=== PATIENT | female | born 1930 | race Caucasian/White ===

== ENCOUNTER 2017-01-14 19:05 | Emergency (ER) | payer OTHER ==
[~2017-01-14] VITALS: Ht 152.4 cm; Wt 63.5 kg
[2017-01-14 21:08] LABS: BASOPHILS % (AUTO) 0.8 % (0.0-2.0); EOSINOPHILS % (AUTO) 3.9 % (0.0-3.0); LYMPHOCYTES % (AUTO) 26.8 % (20.0-45.0); MEAN CORPUSCULAR HEMOGLOBIN 30.4 PG (27.0-31.0); MEAN CORPUSCULAR HGB CONC 31.7 G/DL (32.0-36.0); MEAN CORPUSCULAR VOLUME 96 FL (80-99); MEAN PLATELET VOLUME 9.8 FL (6.5-10.1); MONOCYTES % (AUTO) 8.5 % (1.0-10.0); PLATELET COUNT 146 K/UL (150-450); RED BLOOD COUNT 3.08 M/UL (4.20-5.40); RED CELL DISTRIBUTION WIDTH 13.5 % (11.6-14.8); WHITE BLOOD COUNT 6.1 K/UL (4.8-10.8)
[2017-01-14 21:28] LABS: TROPONIN I < 0.30 ng/mL (<=0.30)
[2017-01-14 21:32] LABS: ALANINE AMINOTRANSFERASE 12 U/L (3-33); ALBUMIN/GLOBULIN RATIO 1.2 (1.0-2.7); ANION GAP 17 (5-15); ASPARTATE AMINO TRANSFERASE 18 U/L (5-40); CALCIUM 8.3 mg/dL (8.6-10.2); CARBON DIOXIDE 22 mEQ/L (20-30); CHLORIDE 97 mEQ/L (98-107); CREATININE 2.3 mg/dL (0.5-0.9); HEMOLYSIS 21; POTASSIUM 5.1 mEQ/L (3.4-4.9); SODIUM 136 mEQ/L (135-145); TOTAL PROTEIN 6.6 g/dL (6.6-8.7)
[2017-01-14 21:35] VITALS: BP 92/58
[2017-01-14 21:42] LABS: CKMB 2.7 ng/mL (< 3.8)
[2017-01-14 22:03] LABS: APPEARANCE,URINE SLIGHTLY CLOUDY; KETONES,URINE NEGATIVE (NEGATIVE); LEUKOCYTE ESTERASE ,URINE 3+ (NEGATIVE); NITRITE,URINE NEGATIVE (NEGATIVE); PH,URINE 5 (4.5-8.0); PROTEIN,URINE 1+ (NEGATIVE); UROBILINOGEN,URINE NORMAL MG/DL (0.0-1.0)
[2017-01-14 22:15] LABS: WBC,URINE TNTC /HPF (0 - 2)
[2017-01-14 22:16] LABS: BACTERIA,URINE FEW /HPF; SQUAMOUS EPITHELIAL CELL,UR FEW /LPF (NONE/OCC)
--- NOTE | 2017-01-14 23:20 | Emergency Room Report ---
History of Present Illness General Chief Complaint: General Complaint Source: Patient, Medical Record, EMS Present Illness HPI 86-year-old female presents ED evaluation of dizziness. Per EMS patient was hypotensive. Given IV fluids. Patient BP improved upon arrival. Patient feels dizzy and weak. Denies chest pain or shortness of breath. Denies fevers or chills. No nausea or vomiting. No aggravating relieving factors. Denies any other associated symptom Allergies: Coded Allergies: No Known Allergies (Unverified , 01/14/17) Patient History Past Medical History: HTN, dementia Past Surgical History: none Pertinent Family History: none Social History: Denies: alcohol use, drug use, smoking Now: No Immunizations: UTD Reviewed Nursing Documentation: PMH: Agreed, PSxH: Agreed Nursing Documentation-PMH Hx Hypertension: Yes History Of Psychiatric Problem: Yes - Dementia Review of Systems All Other Systems: negative except mentioned in HPI Physical Exam Vital Signs Date Time Temp Pulse Resp B/P Pulse Ox O2 Delivery O2 Flow Rate FiO2 01/14/17 18:59 97.9 68 16 154/66 97 Room Air Sp02 EP Interpretation: reviewed, normal General Appearance: no apparent distress, alert, GCS 15, non-toxic Head: normocephalic, atraumatic Eyes: bilateral eye PERRL, bilateral eye normal inspection ENT: hearing grossly normal, normal pharynx, no angioedema, normal voice Neck: full range of motion, supple/symm/no masses Respiratory: chest non-tender, lungs clear, normal breath sounds, speaking full sentences Cardiovascular #1: regular rate, rhythm, no edema Cardiovascular #2: 2+ carotid (R), 2+ carotid (L), 2+ radial (R), 2+ radial (L) , 2+ dorsalis pedis (R), 2+ dorsalis pedis (L) Gastrointestinal: normal bowel sounds, non tender, soft, non-distended, no guarding, no rebound Rectal: deferred Genitourinary: normal inspection, no CVA tenderness Musculoskeletal: back normal, gait/station normal, normal range of motion, non- tender Neurologic: alert, oriented x3, responsive, motor strength/tone normal, sensory intact, speech normal Psychiatric: judgement/insight normal, memory normal, mood/affect normal, no suicidal/homicidal ideation Reflexes: 3+ bicep (R), 3+ bicep (L), 3+ tricep (R), 3+ tricep (L), 3+ knee (R) , 3+ knee (L) Skin: normal color, no rash, warm/dry, well hydrated Lymphatic: no adenopathy Medical Decision Making Diagnostic Impression: Primary Impression: CHF (congestive heart failure) Qualified Codes: I50.9 - Heart failure, unspecified Additional Impressions: ARF (acute renal failure) Qualified Codes: N17.9 - Acute kidney failure, unspecified Dizziness Hypotension Qualified Codes: I95.9 - Hypotension, unspecified ER Course Hospital Course 86-year-old female presents to ED with dizziness, hypotensive Differential diagnoses include: [place]/unstable angina, dehydration, sepsis, arrhythmia Clinical course Patient placed on stretcher. on diagnostic cardiac sonographer. After initial history and physical I ordered labs, EKG, chest x-ray, IV fluids labs reviewed- no leukocytosis, hemoglobin/hematocrit stable, BUN/creatinine elevated, troponins negative, BNP greater than 1800 Chest x-ray- pulmonary congestion EKG- 1st degree av block, RBBB, no aute changes On reassessment BP improved Because of insurance patient will be transferred I. I feel this is a highly complex case requiring extensive working including EKG/Rhythm strip, Xray/CT/US, Blood/urine lab work, repeat exams while in ED, and administration of strong opiates/narcotics for pain control, admission to hospital or close patient follow up. Diagnosis - CHF, ARF, dizziness, hypotension Transferred in serious condition Labs Test 01/14/17 20:45 01/14/17 21:15 White Blood Count 6.1 K/UL (4.8-10.8) Red Blood Count 3.08 M/UL (4.20-5.40) Hemoglobin 9.3 G/DL (12.0-16.0) Hematocrit 29.5 % (37.0-47.0) Mean Corpuscular Volume 96 FL (80-99) Mean Corpuscular Hemoglobin 30.4 PG (27.0-31.0) Mean Corpuscular Hemoglobin Concent 31.7 G/DL (32.0-36.0) Red Cell Distribution Width 13.5 % (11.6-14.8) Platelet Count 146 K/UL (150-450) Mean Platelet Volume 9.8 FL (6.5-10.1) Neutrophils (%) (Auto) 60.0 % (45.0-75.0) Lymphocytes (%) (Auto) 26.8 % (20.0-45.0) Monocytes (%) (Auto) 8.5 % (1.0-10.0) Eosinophils (%) (Auto) 3.9 % (0.0-3.0) Basophils (%) (Auto) 0.8 % (0.0-2.0) Sodium Level 136 mEQ/L (135-145) Potassium Level 5.1 mEQ/L (3.4-4.9) Chloride Level 97 mEQ/L (98-107) Carbon Dioxide Level 22 mEQ/L (20-30) Anion Gap 17 (5-15) Blood Urea Nitrogen 35 mg/dL (7-23) Creatinine 2.3 mg/dL (0.5-0.9) Estimat Glomerular Filtration Rate mL/min (>60) Glucose Level 208 mg/dL (74-106) Calcium Level 8.3 mg/dL (8.6-10.2) Total Bilirubin < 0.2 mg/dL (0.0-1.2) Aspartate Amino Transf (AST/SGOT) 18 U/L (5-40) Alanine Aminotransferase (ALT/SGPT) 12 U/L (3-33) Alkaline Phosphatase 80 U/L (35-104) Total Creatine Kinase 138 U/L (26-140) Creatine Kinase MB 2.7 ng/mL (< 3.8) Creatine Kinase MB Relative Index 1.9 Troponin I < 0.30 ng/mL (<=0.30) Pro-B-Type Natriuretic Peptide 1839 pg/mL (0-450) Total Protein 6.6 g/dL (6.6-8.7) Albumin 3.7 g/dL (3.5-5.2) Globulin 2.9 g/dL Albumin/Globulin Ratio 1.2 (1.0-2.7) Urine Color Pale yellow Urine Appearance Slightly cloudy Urine pH 5 (4.5-8.0) Urine Specific [place] 1.015 (1.005-1.035) Urine Protein 1+ (NEGATIVE) Urine Glucose (UA) Negative (NEGATIVE) Urine Ketones Negative (NEGATIVE) Urine Occult Blood 1+ (NEGATIVE) Urine Nitrite Negative (NEGATIVE) Urine Bilirubin Negative (NEGATIVE) Urine Urobilinogen Normal MG/DL (0.0-1.0) Urine Leukocyte Esterase 3+ (NEGATIVE) Urine RBC 2-4 /HPF (0 - 2) Urine WBC Tntc /HPF (0 - 2) Urine Squamous Epithelial Cells Few /LPF (NONE/OCC) Urine Bacteria Few /HPF (NONE) EKG Diagnostic Results Rate: normal Rhythm: other - 1st degree av block ST Segments: no acute changes ASA given to the pt in ED: No Rhythm Strip Diag. Results EP Interpretation: yes Rhythm: no PVC's, no ectopy Chest X-Ray Diagnostic Results EP Interpretation: Yes Findings: no consolidation, no effusion, no pneumothorax, no acute cardiopulmonary disease, other - chf Number of Views: 1 Last Vital Signs Date Time Temp Pulse Resp B/P Pulse Ox O2 Delivery O2 Flow Rate FiO2 01/14/17 21:35 98.0 74 23 92/58 97 Room Air Status: improved Disposition: XFER [facility] Condition: Serious Referrals: NON PHYSICIAN (PCP) BONILLA COOK M.D. Jan 14, 2017 23:20
[2017-01-14 23:29] VITALS: BP_SYST 117; BP_SYST 92; BP_DIAS 58; BP_DIAS 77
[2017-01-14] MEDS ORDERED: cefTRIAXone 1 GM in NS 55 ML IVPB ONE (23:45)
--- NOTE | 2017-01-15 13:02 | Diagnostic Imaging Report ---
Indication: Chest Pain Comparison: None A single view chest radiograph was obtained. Findings: Heart is enlarged. Bones are osteopenic. Pulmonary vascularity is slightly prominent. Impression: Mild CHF possible. Please correlate clinically
--- NOTE | 2017-01-15 15:33 | Cardiology Report ---
APPROVED REPORT EKG Measurement Heart [id number] Sinus rhythm with 1st degree AV block Right bundle branch block Abnormal ECG
== END 2017-01-15 00:06 | disposition short-term general hospital (02) ==
LOC: EDBD → EMR 19:39
DX: I50.9 Heart failure, unspecified (principal); N17.9 Acute kidney failure, unspecified; R42 Dizziness and giddiness; I95.9 Hypotension, unspecified; F03.90 Unspecified dementia, unspecified severity, without behavioral disturbance, psychotic disturbance, mood disturbance, and anxiety; I10 Essential (primary) hypertension
CPT/HCPCS: 36415; 71010; 80053; 81003; 82550; 82553; 83880; 84484; 85025; 87086; 87181; 93005; 96360; 96374; 96375; 99285; J0696; J7040

== ENCOUNTER 2017-02-28 16:32 | Inpatient (IN) | payer MEDICARE, MEDICAID ==
[~2017-02-28] VITALS: Ht 165.1 cm; Wt 68.0 kg
[2017-02-28] MEDS ORDERED: LISINOPRIL10 MG ORAL (16:58)
[2017-02-28] MEDS ORDERED: QUETIAPINE FUMA50 MG ORAL (16:58)
[2017-02-28] MEDS ORDERED: FAMOTIDINE20 MG ORAL (16:58)
[2017-02-28] MEDS ORDERED: JANUVIA25 MG ORAL (16:58)
[2017-02-28] MEDS ORDERED: DOCUSATE SODIU100 MG ORAL (16:58)
[2017-02-28] MEDS ORDERED: REPAGLINIDE1 MG PO (16:58)
[2017-02-28] MEDS ORDERED: ZYRTEC10 MG ORAL (16:58)
[2017-02-28] MEDS ORDERED: FUROSEMIDE40 MG ORAL (16:58)
[2017-02-28] MEDS ORDERED: ASPIRIN81 MG ORAL (16:58)
[2017-02-28] MEDS ORDERED: SIMVASTATIN40 MG ORAL (16:58)
[2017-02-28] MEDS ORDERED: NAMENDA10 MG ORAL (16:58)
[2017-02-28 17:36] LABS: BASOPHILS % (AUTO) 1.3 % (0.0-2.0); LYMPHOCYTES % (AUTO) 33.2 % (20.0-45.0); MEAN CORPUSCULAR HEMOGLOBIN 32.9 PG (27.0-31.0); MEAN CORPUSCULAR HGB CONC 34.5 G/DL (32.0-36.0); MEAN CORPUSCULAR VOLUME 95 FL (80-99); MEAN PLATELET VOLUME 9.7 FL (6.5-10.1); MONOCYTES % (AUTO) 8.2 % (1.0-10.0); NEUTROPHILS % (AUTO) 54.2 % (45.0-75.0); PLATELET COUNT 139 K/UL (150-450); RED BLOOD COUNT 3.16 M/UL (4.20-5.40); RED CELL DISTRIBUTION WIDTH 13.2 % (11.6-14.8)
--- NOTE | 2017-02-28 17:50 | Emergency Room Report ---
History of Present Illness General Chief Complaint: General Complaint Source: EMS Present Illness HPI 87-year-old female presents to ED for evaluation. Patient resides in facility for dementia patients. Per EMS facility stated that patient was complaining of chest pain today. Upon arrival patient denies any chest pain. Does not remember stating that she had chest pain. No reported fevers or chills. No reported shortness of breath. No cough. No other aggravating relieving factors. Denies any other associated symptoms Allergies: Coded Allergies: No Known Allergies (Unverified , 01/14/17) Patient History Past Medical History: DM, HTN, dementia Pertinent Family History: none Social History: Denies: alcohol use, drug use, smoking Now: No Immunizations: UTD Reviewed Nursing Documentation: PMH: Agreed, PSxH: Agreed Nursing Documentation-PMH Past Medical History: No History, Except For Hx Cardiac Problems: Yes - HIGH CHOLESTEROL Hx Hypertension: Yes Hx Diabetes: Yes History Of Psychiatric Problem: Yes - DEMENTIA Review of Systems All Other Systems: negative except mentioned in HPI Physical Exam Vital Signs Date Time Temp Pulse Resp B/P Pulse Ox O2 Delivery O2 Flow Rate FiO2 02/28/17 16:26 98.1 62 18 97/57 96 Room Air Sp02 EP Interpretation: reviewed, normal General Appearance: no apparent distress, alert, GCS 15, non-toxic Head: normocephalic, atraumatic Eyes: bilateral eye PERRL, bilateral eye normal inspection ENT: hearing grossly normal, normal pharynx, no angioedema, normal voice Neck: full range of motion, supple/symm/no masses Respiratory: chest non-tender, lungs clear, normal breath sounds, speaking full sentences Cardiovascular #1: regular rate, rhythm, no edema Cardiovascular #2: 2+ carotid (R), 2+ carotid (L), 2+ radial (R), 2+ radial (L) , 2+ dorsalis pedis (R), 2+ dorsalis pedis (L) Gastrointestinal: normal bowel sounds, non tender, soft, non-distended, no guarding, no rebound Rectal: deferred Genitourinary: normal inspection, no CVA tenderness Musculoskeletal: back normal, gait/station normal, normal range of motion, non- tender Neurologic: alert, oriented x3, responsive, motor strength/tone normal, sensory intact, speech normal Psychiatric: judgement/insight normal, memory normal, mood/affect normal, no suicidal/homicidal ideation Reflexes: 3+ bicep (R), 3+ bicep (L), 3+ tricep (R), 3+ tricep (L), 3+ knee (R) , 3+ knee (L) Skin: normal color, no rash, warm/dry, well hydrated Lymphatic: no adenopathy Medical Decision Making Diagnostic Impression: Primary Impression: ACS (acute coronary syndrome) Additional Impression: CHF (congestive heart failure) Qualified Codes: I50.9 - Heart failure, unspecified ER Course Hospital Course 87 year-old female presents to ED for reported chest pain. History of dementia. Denies chest pain at this time Differential diagnoses include: [place]/unstable angina, contusion, muscle strain, PTX, rib fracture Clinical course Patient placed on stretcher. on title clerk automobile. After initial history and physical I ordered labs, EKG, chest x-ray labs reviewed- no leukocytosis, hb/hct stable, BUN/Cr elevated, trop negative, BNP elevated EKg - NSR, no acute changes Chest x-ray- cardiomegaly asa given. Patient denies chest pain at this time she has dementia given her age and risk factors she will require admission Case discussed with Dr. Venegas and he agreed to accept the patient to his service for further care and support I. I feel this is a highly complex case requiring extensive working including EKG/Rhythm strip, Xray/CT/US, Blood/urine lab work, repeat exams while in ED, and administration of strong opiates/narcotics for pain control, admission to hospital or close patient follow up. Diagnosis - ACS, CHF admitted to telemetry in serious condition Labs Test 02/28/17 17:00 02/28/17 21:10 White Blood Count 5.0 K/UL (4.8-10.8) Red Blood Count 3.16 M/UL (4.20-5.40) Hemoglobin 10.4 G/DL (12.0-16.0) Hematocrit 30.1 % (37.0-47.0) Mean Corpuscular Volume 95 FL (80-99) Mean Corpuscular Hemoglobin 32.9 PG (27.0-31.0) Mean Corpuscular Hemoglobin Concent 34.5 G/DL (32.0-36.0) Red Cell Distribution Width 13.2 % (11.6-14.8) Platelet Count 139 K/UL (150-450) Mean Platelet Volume 9.7 FL (6.5-10.1) Neutrophils (%) (Auto) 54.2 % (45.0-75.0) Lymphocytes (%) (Auto) 33.2 % (20.0-45.0) Monocytes (%) (Auto) 8.2 % (1.0-10.0) Eosinophils (%) (Auto) 3.0 % (0.0-3.0) Basophils (%) (Auto) 1.3 % (0.0-2.0) Urine Color Pale yellow Urine Appearance Clear Urine pH 7 (4.5-8.0) Urine Specific [place] 1.005 (1.005-1.035) Urine Protein Negative (NEGATIVE) Urine Glucose (UA) Negative (NEGATIVE) Urine Ketones Negative (NEGATIVE) Urine Occult Blood 1+ (NEGATIVE) Urine Nitrite Negative (NEGATIVE) Urine Bilirubin Negative (NEGATIVE) Urine Urobilinogen Normal MG/DL (0.0-1.0) Urine Leukocyte Esterase 1+ (NEGATIVE) Urine RBC 0-2 /HPF (0 - 2) Urine WBC 2-4 /HPF (0 - 2) Urine Squamous Epithelial Cells Few /LPF (NONE/OCC) Urine Amorphous Sediment Few /LPF (NONE) Urine Bacteria Few /HPF (NONE) Sodium Level 129 mEQ/L (135-145) Potassium Level 4.9 mEQ/L (3.4-4.9) Chloride Level 90 mEQ/L (98-107) Carbon Dioxide Level 24 mEQ/L (20-30) Anion Gap 15 (5-15) Blood Urea Nitrogen 30 mg/dL (7-23) Creatinine 2.3 mg/dL (0.5-0.9) Estimat Glomerular Filtration Rate mL/min (>60) Glucose Level 79 mg/dL (74-106) Calcium Level 8.8 mg/dL (8.6-10.2) Total Bilirubin < 0.2 mg/dL (0.0-1.2) Aspartate Amino Transf (AST/SGOT) 20 U/L (5-40) Alanine Aminotransferase (ALT/SGPT) 11 U/L (3-33) Alkaline Phosphatase 87 U/L (35-104) Total Creatine Kinase 147 U/L (26-140) Creatine Kinase MB 3.3 ng/mL (< 3.8) Creatine Kinase MB Relative Index 2.2 Troponin I < 0.30 ng/mL (<=0.30) Pro-B-Type Natriuretic Peptide 1541 pg/mL (0-450) Total Protein 6.8 g/dL (6.6-8.7) Albumin 3.9 g/dL (3.5-5.2) Globulin 2.9 g/dL Albumin/Globulin Ratio 1.3 (1.0-2.7) EKG Diagnostic Results Rate: normal Rhythm: NSR ST Segments: no acute changes ASA given to the pt in ED: Yes Rhythm Strip Diag. Results EP Interpretation: yes Rhythm: NSR, no PVC's, no ectopy Chest X-Ray Diagnostic Results EP Interpretation: Yes Findings: no consolidation, no effusion, no pneumothorax, no acute cardiopulmonary disease, other - cadiomegaly Number of Views: 1 Last Vital Signs Date Time Temp Pulse Resp B/P Pulse Ox O2 Delivery O2 Flow Rate FiO2 02/28/17 16:26 98.1 62 18 97/57 96 Room Air Status: improved Disposition: ADMITTED INPATIENT Condition: Serious Referrals: NON PHYSICIAN (PCP) BONILLA COOK M.D. Feb 28, 2017 17:50
[2017-02-28 17:55] LABS: APPEARANCE,URINE CLEAR; KETONES,URINE NEGATIVE (NEGATIVE); LEUKOCYTE ESTERASE ,URINE 1+ (NEGATIVE); NITRITE,URINE NEGATIVE (NEGATIVE); PH,URINE 7 (4.5-8.0); PROTEIN,URINE NEGATIVE (NEGATIVE); UROBILINOGEN,URINE NORMAL MG/DL (0.0-1.0)
[2017-02-28 17:57] LABS: ALANINE AMINOTRANSFERASE 11 U/L (3-33); ALBUMIN/GLOBULIN RATIO 1.3 (1.0-2.7); ANION GAP 15 (5-15); ASPARTATE AMINO TRANSFERASE 20 U/L (5-40); CALCIUM 8.8 mg/dL (8.6-10.2); CARBON DIOXIDE 24 mEQ/L (20-30); CHLORIDE 90 mEQ/L (98-107); CREATININE 2.3 mg/dL (0.5-0.9); HEMOLYSIS 25; POTASSIUM 4.9 mEQ/L (3.4-4.9); SODIUM 129 mEQ/L (135-145); TOTAL PROTEIN 6.8 g/dL (6.6-8.7); TROPONIN I < 0.30 ng/mL (<=0.30)
[2017-02-28 18:02] LABS: BACTERIA,URINE FEW /HPF; RBC,URINE 0-2 /HPF (0 - 2); SQUAMOUS EPITHELIAL CELL,UR FEW /LPF (NONE/OCC)
[2017-02-28 18:03] VITALS: BP 114/78
[2017-02-28 18:07] LABS: AMORPHOUS SEDIMENT,UR FEW /LPF
[2017-02-28 18:08] LABS: CKMB 3.3 ng/mL (< 3.8)
[2017-02-28] MEDS ORDERED: Miralax 17gm pkt ORAL PRN (18:45)
[2017-02-28] MEDS ORDERED: DuoNeb 0.5-3(2.5)mg/3ml neb HHN PRN (18:45)
[2017-02-28] MEDS ORDERED: Morphine Sulfate 2mg/ml Inj IVP PRN (18:45)
[2017-02-28] MEDS ORDERED: Enalaprilat 2.5mg/2ml Inj IV PRN (18:45)
[2017-02-28] MEDS ORDERED: Diltiazem 25mg/5ml IV PRN (18:45)
[2017-02-28] MEDS ORDERED: Nitroglycerin Subl 0.4mg tab (Bottle Of 25) SL PRN (18:45)
[2017-02-28 20:03] VITALS: BP 127/83
[2017-02-28] MEDS: Aspirin Baby 81mg ORAL SCH (20:28)
[2017-02-28] MEDS: Memantine 10mg tab ORAL SCH (21:33)
[2017-02-28] MEDS ORDERED: Aspirin Baby 81mg ORAL ONE (21:45)
[2017-02-28 21:50] LABS: TROPONIN I < 0.30 ng/mL (<=0.30)
[2017-02-28] MEDS: NovoLOG Insulin Flexpen SUBQ SCH (22:00)
[2017-02-28] MEDS: Heparin 5000 units/ml inj SUBQ SCH (22:00)
[2017-02-28 22:03] VITALS: BP 120/79
[2017-03-01] VITALS (9 sets, daily range): BP systolic 89–131; BP diastolic 50–83
[2017-03-01] MEDS: Heparin 5000 units/ml inj SUBQ SCH ×3 (06:00→22:00)
[2017-03-01] MEDS: NovoLOG Insulin Flexpen SUBQ SCH ×4 (06:30→21:00)
[2017-03-01] MEDS: Aspirin Baby 81mg ORAL SCH (10:12)
[2017-03-01] MEDS: Memantine 10mg tab ORAL SCH ×2 (10:12→17:30)
[2017-03-01] MEDS: Furosemide 40mg tab ORAL SCH (10:13)
--- NOTE | 2017-03-01 10:24 | Consultation ---
History of Present Illness General Date patient seen: Mar 01, 2017 Chief Complaint: General Complaint Referring physician: Dr. Venegas Reason for Consultation: inpatinet management Present Illness HPI 87-year-old female wtih pmhx of CHF, DM, Diabetes presented to ED for evaluation of chest pain today. Upon arrival in ER patient denied any chest pain. No reported fevers or chills. No reported shortness of breath. No cough. No other aggravating relieving factors. Denies any other associated symptoms. Her initial CXR showed that she has pulmonary edema and CHF, therefore she is admitted to telemetry. Currently pt is awake, looks comfortable , and is asymptomatic. Allergies: Coded Allergies: No Known Allergies (Unverified , 01/14/17) Medication History Scheduled Aspirin* (Aspirin*), 81 MG ORAL DAILY, (Reported) Cetirizine Hcl* (Zyrtec*), 10 MG ORAL DAILY, (Reported) Docusate Sodium* (Docusate Sodium*), 100 MG ORAL TWICE A DAY, (Reported) Famotidine (Famotidine), 20 MG ORAL DAILY, (Reported) Furosemide* (Lasix*), 40 MG ORAL DAILY, (Reported) Lisinopril* (Lisinopril*), 10 MG ORAL DAILY, (Reported) Memantine Hcl* (Namenda*), 10 MG ORAL TWICE A DAY, (Reported) Quetiapine Fumarate* (Quetiapine Fumarate*), 50 MG ORAL BEDTIME, (Reported) Simvastatin (Zocor), 40 MG ORAL BEDTIME, (Reported) Sitagliptin* (Januvia*), 100 MG ORAL DAILY, (Reported) Miscellaneous Medications Repaglinide (Repaglinide), 1 MG PO, (Reported) Patient History Healthcare decision maker N Resuscitation status Advanced Directive on File Past Medical/Surgical History Past Medical/Surgical History: (1) Diabetes mellitus (2) Alzheimer's dementia Review of Systems All Other Systems: negative except mentioned in HPI Physical Exam General Appearance: WD/WN, no apparent distress Lines, tubes and drains: peripheral, central line HEENT: normocephalic, atraumatic Neck: non-tender, normal alignment Respiratory/Chest: chest wall non-tender, crackles/rales Cardiovascular/Chest: normal peripheral pulses, regular rhythm Last 24 Hour Vital Signs Date Time Temp Pulse Resp B/P Pulse Ox O2 Delivery O2 Flow Rate FiO2 03/01/17 08:58 97.3 60 20 95/54 96 Room Air 03/01/17 07:54 97.9 71 19 110/61 95 Room Air 03/01/17 07:05 97.9 71 19 110/61 95 Room Air 03/01/17 05:40 97.9 66 19 127/68 95 Room Air 03/01/17 03:35 97.9 61 19 131/73 95 Room Air 03/01/17 01:40 97.9 57 19 127/83 95 Room Air 03/01/17 00:00 97.9 61 19 114/63 95 Room Air 02/28/17 22:03 97.9 63 19 120/79 94 Room Air 02/28/17 20:03 98.0 65 15 127/83 95 Room Air 02/28/17 18:03 98.1 63 18 114/78 96 Room Air 02/28/17 16:26 98.1 62 18 97/57 96 Room Air Intake and Output 02/28/17 03/01/17 19:00 07:00 Output Total 500 ml Balance -500 ml Output Urine Total 500 ml # Voids 1 1 Laboratory Tests Test 02/28/17 17:00 02/28/17 21:10 White Blood Count 5.0 K/UL (4.8-10.8) Red Blood Count 3.16 M/UL (4.20-5.40) L Hemoglobin 10.4 G/DL (12.0-16.0) L Hematocrit 30.1 % (37.0-47.0) L Mean Corpuscular Volume 95 FL (80-99) Mean Corpuscular Hemoglobin 32.9 PG (27.0-31.0) H Mean Corpuscular Hemoglobin Concent 34.5 G/DL (32.0-36.0) Red Cell Distribution Width 13.2 % (11.6-14.8) Platelet Count 139 K/UL (150-450) L Mean Platelet Volume 9.7 FL (6.5-10.1) Neutrophils (%) (Auto) 54.2 % (45.0-75.0) Lymphocytes (%) (Auto) 33.2 % (20.0-45.0) Monocytes (%) (Auto) 8.2 % (1.0-10.0) Eosinophils (%) (Auto) 3.0 % (0.0-3.0) Basophils (%) (Auto) 1.3 % (0.0-2.0) Urine Color Pale yellow Urine Appearance Clear Urine pH 7 (4.5-8.0) Urine Specific [place] 1.005 (1.005-1.035) Urine Protein Negative (NEGATIVE) Urine Glucose (UA) Negative (NEGATIVE) Urine Ketones Negative (NEGATIVE) Urine Occult Blood 1+ (NEGATIVE) H Urine Nitrite Negative (NEGATIVE) Urine Bilirubin Negative (NEGATIVE) Urine Urobilinogen Normal MG/DL (0.0-1.0) Urine Leukocyte Esterase 1+ (NEGATIVE) H Urine RBC 0-2 /HPF (0 - 2) Urine WBC 2-4 /HPF (0 - 2) Urine Squamous Epithelial Cells Few /LPF (NONE/OCC) Urine Amorphous Sediment Few /LPF (NONE) H Urine Bacteria Few /HPF (NONE) Sodium Level 129 mEQ/L (135-145) L Potassium Level 4.9 mEQ/L (3.4-4.9) Chloride Level 90 mEQ/L (98-107) L Carbon Dioxide Level 24 mEQ/L (20-30) Anion Gap 15 (5-15) Blood Urea Nitrogen 30 mg/dL (7-23) H Creatinine 2.3 mg/dL (0.5-0.9) H Estimat Glomerular Filtration Rate mL/min (>60) Glucose Level 79 mg/dL (74-106) Calcium Level 8.8 mg/dL (8.6-10.2) Total Bilirubin < 0.2 mg/dL (0.0-1.2) Aspartate Amino Transf (AST/SGOT) 20 U/L (5-40) Alanine Aminotransferase (ALT/SGPT) 11 U/L (3-33) Alkaline Phosphatase 87 U/L (35-104) Total Creatine Kinase 147 U/L (26-140) H Creatine Kinase MB 3.3 ng/mL (< 3.8) Creatine Kinase MB Relative Index 2.2 Troponin I < 0.30 ng/mL (<=0.30) < 0.30 ng/mL (<=0.30) Pro-B-Type Natriuretic Peptide 1541 pg/mL (0-450) H Total Protein 6.8 g/dL (6.6-8.7) Albumin 3.9 g/dL (3.5-5.2) Globulin 2.9 g/dL Albumin/Globulin Ratio 1.3 (1.0-2.7) Height (Feet): 5 Height (Inches): 5.00 Weight (Pounds): 150 Medications Current Medications Medications (Trade) Dose Ordered Sig/Misty Route PRN Reason Start Time Stop Time Status Last Admin Dose Admin Acetaminophen (Tylenol) 650 mg Q4H PRN ORAL FEVER 02/28/17 18:45 03/30/17 18:44 Albuterol/ Ipratropium (DuoNeb 0.5-3(2.5)mg/3ml) 3 ml EVERY 4 HOURS PRN HHN Shortness of Breath 02/28/17 18:45 03/05/17 18:44 Aspirin (ASA) 162 mg DAILY ORAL 02/28/17 20:00 03/30/17 19:59 02/28/17 20:28 Cetirizine HCl (ZyrTEC) 10 mg DAILY ORAL 03/01/17 09:00 03/31/17 08:59 Dextrose (Dextrose 50%) STAT PRN IV Hypoglycemia 02/28/17 18:45 03/30/17 18:44 Diltiazem HCl (Cardizem) 10 mg Q1H PRN IV heart rate more than 120, 02/28/17 18:45 03/30/17 18:44 Enalaprilat (Vasotec) 2.5 mg Q6H PRN IV sbp more than 160 02/28/17 18:45 03/30/17 18:44 Furosemide (Lasix) 40 mg DAILY ORAL 03/01/17 09:00 03/31/17 08:59 Heparin Sodium (Porcine) (Heparin 5000 units/ml) 5,000 units EVERY 8 HOURS SUBQ 02/28/17 22:00 03/30/17 21:59 Insulin Aspart (NovoLOG) BEFORE MEALS AND HS SUBQ 02/28/17 22:00 03/30/17 21:59 Memantine (Namenda) 10 mg TWICE A DAY ORAL 02/28/17 21:00 03/30/17 20:59 02/28/17 21:33 Morphine Sulfate (Morphine Sulfate) 2 mg EVERY 4 HOURS PRN IVP severe Pain (Pain Scale 7-10) 02/28/17 18:45 03/07/17 18:44 Nitroglycerin (Ntg) 0.4 mg Q5M PRN SL Prn Chest Pain 02/28/17 18:45 03/30/17 18:44 Ondansetron HCl (Zofran) 4 mg Q6H PRN IVP Nausea & Vomiting 02/28/17 18:45 03/30/17 18:44 Pantoprazole (Protonix) 40 mg DAILY ORAL 03/01/17 09:00 03/31/17 08:59 Polyethylene Glycol (Miralax) 17 gm DAILYPRN PRN ORAL Constipation 02/28/17 18:45 03/30/17 18:44 Quetiapine Fumarate (SEROquel) 50 mg BEDTIME ORAL 02/28/17 21:00 03/30/17 20:59 02/28/17 21:31 Temazepam (Restoril) 15 mg HSPRN PRN ORAL Insomnia 02/28/17 18:45 03/07/17 18:44 Assessment/Plan Problem List: (1) CHF (congestive heart failure) ICD Codes: I50.9 - Heart failure, unspecified SNOMED: 98037681 Qualifiers: Qualified Codes: I50.9 - Heart failure, unspecified (2) ACS (acute coronary syndrome) ICD Codes: I24.9 - Acute ischemic heart disease, unspecified SNOMED: 211765773 (3) Diabetes mellitus ICD Codes: E11.9 - Type 2 diabetes mellitus without complications SNOMED: 81608659 (4) Alzheimer's dementia ICD Codes: G30.9 - Alzheimer's disease, unspecified SNOMED: 55252315 Assessment/Plan serial ekg, troponin echo sliding scale, diabetic diet ALCON CROCKER Mar 01, 2017 10:24
--- NOTE | 2017-03-01 11:18 | Diagnostic Imaging Report ---
Indications: Chest pain Technique: Portable AP chest Findings: Comparison: 01/14/2017 Cardiac silhouette remains enlarged. Allowing for differences in technique, bilateral interstitial prominence appears to have decreased. No new pulmonary parenchymal abnormality demonstrated. No pleural disease is evident. Aortic arch calcification again noted. IMPRESSION: Apparent decrease in bilateral congestive changes. Residual interstitial prominence may represent pulmonary edema or chronic change.
[2017-03-01 11:55] LABS: MEAN CORPUSCULAR HEMOGLOBIN 31.4 PG (27.0-31.0); MEAN CORPUSCULAR HGB CONC 33.2 G/DL (32.0-36.0); MEAN CORPUSCULAR VOLUME 95 FL (80-99); MEAN PLATELET VOLUME 9.7 FL (6.5-10.1); PLATELET COUNT 148 K/UL (150-450); RED BLOOD COUNT 3.34 M/UL (4.20-5.40); RED CELL DISTRIBUTION WIDTH 13.2 % (11.6-14.8); WHITE BLOOD COUNT 5.9 K/UL (4.8-10.8)
[2017-03-01 12:02] LABS: PROTHROMBIN TIME 10.6 SEC (9.30-11.50)
[2017-03-01 12:24] LABS: BAND NEUTROPHILS % (MANUAL) 0 % (0-8); BASOPHILS % (MANUAL) 0 % (0-2); EOSINOPHILS % (MANUAL) 1 % (0-3); HYPOCHROMASIA 1+; LYMPHOCYTES % (MANUAL) 16 % (20-45); NEUTROPHILS % (MANUAL) 74 % (45-75); PLATELET ESTIMATE ADEQUATE; PLATELET MORPHOLOGY NORMAL; TOTAL CELLS COUNTED 100
[2017-03-01 12:27] LABS: ALANINE AMINOTRANSFERASE 10 U/L (3-33); ALBUMIN/GLOBULIN RATIO 1.6 (1.0-2.7); ANION GAP 16 (5-15); ASPARTATE AMINO TRANSFERASE 18 U/L (5-40); CALCIUM 8.7 mg/dL (8.6-10.2); CARBON DIOXIDE 24 mEQ/L (20-30); CHLORIDE 98 mEQ/L (98-107); LACTATE DEHYDROGENASE 214 U/L (135-230); MAGNESIUM 2.4 mg/dL (1.7-2.5); PHOSPHORUS 4.2 mg/dL (2.5-4.8); POTASSIUM 4.9 mEQ/L (3.4-4.9); SODIUM 138 mEQ/L (135-145); TOTAL PROTEIN 6.2 g/dL (6.6-8.7); URIC ACID 7.3 mg/dL (3.0-7.5)
[2017-03-01 12:35] LABS: CHOLESTEROL 166 mg/dL (< 200); CRP QUANT < 0.3 mg/dL (< 0.5); HEMOLYSIS 2; LDL CHOLESTEROL (CALC.) 94 mg/dL (60-99)
[2017-03-01 12:50] LABS: HEMOLYSIS 2; IRON 39 ug/dL (37-145); TOTAL IRON BINDING CAPACITY 259 ug/dL (250-400)
[2017-03-01 12:59] LABS: ERYTHROCYTE SEDIMENTATION RATE 65 MM/HR (0-42); PATH BLOOD SMEAR/OMC SENT TO PATHOLOGIST
[2017-03-01 13:05] LABS: RETICULOCYTE COUNT 0.8 % (0.0-2.0)
[2017-03-01 14:02] LABS: APPEARANCE,URINE CLEAR; KETONES,URINE NEGATIVE (NEGATIVE); LEUKOCYTE ESTERASE ,URINE 3+ (NEGATIVE); NITRITE,URINE NEGATIVE (NEGATIVE); PH,URINE 7 (4.5-8.0); PROTEIN,URINE NEGATIVE (NEGATIVE); UROBILINOGEN,URINE NORMAL MG/DL (0.0-1.0)
[2017-03-01 14:28] LABS: BACTERIA,URINE FEW /HPF; SQUAMOUS EPITHELIAL CELL,UR FEW /LPF (NONE/OCC); WBC,URINE 15-20 /HPF (0 - 2)
--- NOTE | 2017-03-01 17:17 | Infectious Diseases Prog Note ---
Assessment/Plan Problems: (1) Pyuria Assessment & Plan: Most likely asymptomatic. Follow-up UCx. Keep off antibiotics for now. (2) Chronic kidney disease Assessment & Plan: vs JULIAN? (3) Diabetes mellitus (4) Alzheimer's dementia (5) Chest pain Assessment & Plan: R/o ACS. Subjective Allergies: Coded Allergies: No Known Allergies (Unverified , 01/14/17) Objective Vital Signs Last 24 Hour Vital Signs Date Time Temp Pulse Resp B/P Pulse Ox O2 Delivery O2 Flow Rate FiO2 03/01/17 16:14 98.6 73 20 105/72 96 Room Air 03/01/17 11:51 97.7 67 20 108/66 95 Room Air 03/01/17 09:03 60 03/01/17 08:58 97.3 60 20 95/54 96 Room Air 03/01/17 07:54 97.9 71 19 110/61 95 Room Air 03/01/17 07:05 97.9 71 19 110/61 95 Room Air 03/01/17 05:40 97.9 66 19 127/68 95 Room Air 03/01/17 03:35 97.9 61 19 131/73 95 Room Air 03/01/17 01:40 97.9 57 19 127/83 95 Room Air 03/01/17 00:00 97.9 61 19 114/63 95 Room Air 02/28/17 22:03 97.9 63 19 120/79 94 Room Air 02/28/17 20:03 98.0 65 15 127/83 95 Room Air 02/28/17 18:03 98.1 63 18 114/78 96 Room Air Height (Feet): 5 Height (Inches): 5.00 Weight (Pounds): 150 Laboratory Tests Test 02/28/17 21:10 03/01/17 11:15 03/01/17 13:00 Troponin I < 0.30 ng/mL (<=0.30) White Blood Count 5.9 K/UL (4.8-10.8) Red Blood Count 3.34 M/UL (4.20-5.40) L Hemoglobin 10.5 G/DL (12.0-16.0) L Hematocrit 31.7 % (37.0-47.0) L Mean Corpuscular Volume 95 FL (80-99) Mean Corpuscular Hemoglobin 31.4 PG (27.0-31.0) H Mean Corpuscular Hemoglobin Concent 33.2 G/DL (32.0-36.0) Red Cell Distribution Width 13.2 % (11.6-14.8) Platelet Count 148 K/UL (150-450) L Mean Platelet Volume 9.7 FL (6.5-10.1) Neutrophils (%) (Auto) % (45.0-75.0) Lymphocytes (%) (Auto) % (20.0-45.0) Monocytes (%) (Auto) % (1.0-10.0) Eosinophils (%) (Auto) % (0.0-3.0) Basophils (%) (Auto) % (0.0-2.0) Differential Total Cells Counted 100 Neutrophils % (Manual) 74 % (45-75) Lymphocytes % (Manual) 16 % (20-45) L Monocytes % (Manual) 9 % (1-10) Eosinophils % (Manual) 1 % (0-3) Basophils % (Manual) 0 % (0-2) Band Neutrophils 0 % (0-8) Platelet Estimate Adequate Platelet Morphology Normal Hypochromasia 1+ Erythrocyte Sedimentation Rate 65 MM/HR (0-42) H Reticulocyte Count 0.8 % (0.0-2.0) Prothrombin Time 10.6 SEC (9.30-11.50) Prothromb Time International Ratio 1.0 (0.9-1.1) Activated Partial Thromboplast Time 24 SEC (23-33) Sodium Level 138 mEQ/L (135-145) Potassium Level 4.9 mEQ/L (3.4-4.9) Chloride Level 98 mEQ/L (98-107) Carbon Dioxide Level 24 mEQ/L (20-30) Anion Gap 16 (5-15) H Blood Urea Nitrogen 26 mg/dL (7-23) H Creatinine 2.0 mg/dL (0.5-0.9) H Estimat Glomerular Filtration Rate mL/min (>60) Glucose Level 115 mg/dL (74-106) H Plasma/Serum Osmolality Pending Uric Acid 7.3 mg/dL (3.0-7.5) Calcium Level 8.7 mg/dL (8.6-10.2) Phosphorus Level 4.2 mg/dL (2.5-4.8) Magnesium Level 2.4 mg/dL (1.7-2.5) Iron Level 39 ug/dL (37-145) Total Iron Binding Capacity 259 ug/dL (250-400) Percent Iron Saturation 15 % (15-50) Unsaturated Iron Binding 220 ug/dL (112-346) Total Bilirubin 0.2 mg/dL (0.0-1.2) Aspartate Amino Transf (AST/SGOT) 18 U/L (5-40) Alanine Aminotransferase (ALT/SGPT) 10 U/L (3-33) Alkaline Phosphatase 93 U/L (35-104) Lactate Dehydrogenase 214 U/L (135-230) Total Creatine Kinase 132 U/L (26-140) C-Reactive Protein, Quantitative < 0.3 mg/dL (< 0.5) Total Protein 6.2 g/dL (6.6-8.7) L Albumin 3.9 g/dL (3.5-5.2) Globulin 2.3 g/dL Albumin/Globulin Ratio 1.6 (1.0-2.7) Triglycerides Level 84 mg/dL (< 150) Cholesterol Level 166 mg/dL (< 200) LDL Cholesterol 94 mg/dL (60-99) HDL Cholesterol 55 mg/dL (> 60) Cholesterol/HDL Ratio 3.0 (3.3-4.4) L Carcinoembryonic Antigen 2.9 ng/mL Vitamin B12 Level 662 pg/mL (211-946) Folate Pending Thyroid Stimulating Hormone (TSH) 1.540 uIU/mL (0.300-4.500) Free Thyroxine 1.08 ng/dL (0.86-1.85) Free Triiodothyronine Pending Cortisol Pending Urine Color Pale yellow Urine Appearance Clear Urine pH 7 (4.5-8.0) Urine Specific [place] 1.005 (1.005-1.035) Urine Protein Negative (NEGATIVE) Urine Glucose (UA) Negative (NEGATIVE) Urine Ketones Negative (NEGATIVE) Urine Occult Blood 1+ (NEGATIVE) H Urine Nitrite Negative (NEGATIVE) Urine Bilirubin Negative (NEGATIVE) Urine Urobilinogen Normal MG/DL (0.0-1.0) Urine Leukocyte Esterase 3+ (NEGATIVE) H Urine RBC 2-4 /HPF (0 - 2) H Urine WBC 15-20 /HPF (0 - 2) H Urine Squamous Epithelial Cells Few /LPF (NONE/OCC) Urine Bacteria Few /HPF (NONE) Urine Eosinophils None seen Urine Osmolality Pending Urine Random Sodium 87 mmol/L Urine Random Chloride 77 mmol/L Urine Potassium Timed 19 mmol/L Current Medications Medications (Trade) Dose Ordered Sig/Misty Route PRN Reason Start Time Stop Time Status Last Admin Dose Admin Acetaminophen (Tylenol) 650 mg Q4H PRN ORAL FEVER 02/28/17 18:45 03/30/17 18:44 Albuterol/ Ipratropium (DuoNeb 0.5-3(2.5)mg/3ml) 3 ml EVERY 4 HOURS PRN HHN Shortness of Breath 02/28/17 18:45 03/05/17 18:44 Aspirin (ASA) 162 mg DAILY ORAL 02/28/17 20:00 03/30/17 19:59 03/01/17 10:12 Cetirizine HCl (ZyrTEC) 10 mg DAILY ORAL 03/01/17 09:00 03/31/17 08:59 03/01/17 10:16 Dextrose (Dextrose 50%) STAT PRN IV Hypoglycemia 02/28/17 18:45 03/30/17 18:44 Diltiazem HCl (Cardizem) 10 mg Q1H PRN IV heart rate more than 120, 02/28/17 18:45 03/30/17 18:44 Enalaprilat (Vasotec) 2.5 mg Q6H PRN IV sbp more than 160 02/28/17 18:45 03/30/17 18:44 Furosemide (Lasix) 40 mg DAILY ORAL 03/01/17 09:00 03/31/17 08:59 03/01/17 10:13 Heparin Sodium (Porcine) (Heparin 5000 units/ml) 5,000 units EVERY 8 HOURS SUBQ 02/28/17 22:00 03/30/17 21:59 Insulin Aspart (NovoLOG) BEFORE MEALS AND HS SUBQ 02/28/17 22:00 03/30/17 21:59 03/01/17 16:37 Memantine (Namenda) 10 mg TWICE A DAY ORAL 02/28/17 21:00 03/30/17 20:59 03/01/17 10:12 Morphine Sulfate (Morphine Sulfate) 2 mg EVERY 4 HOURS PRN IVP severe Pain (Pain Scale 7-10) 02/28/17 18:45 4/28/17 18:44 Nitroglycerin (Ntg) 0.4 mg Q5M PRN SL Prn Chest Pain 02/28/17 18:45 03/30/17 18:44 Ondansetron HCl (Zofran) 4 mg Q6H PRN IVP Nausea & Vomiting 02/28/17 18:45 03/30/17 18:44 Pantoprazole (Protonix) 40 mg DAILY ORAL 03/01/17 09:00 03/31/17 08:59 03/01/17 10:12 Polyethylene Glycol (Miralax) 17 gm DAILYPRN PRN ORAL Constipation 02/28/17 18:45 03/30/17 18:44 Quetiapine Fumarate (SEROquel) 50 mg BEDTIME ORAL 02/28/17 21:00 03/30/17 20:59 02/28/17 21:31 Temazepam (Restoril) 15 mg HSPRN PRN ORAL Insomnia 02/28/17 18:45 03/07/17 18:44 GEORGETTE GALVEZ Mar 01, 2017 17:17
[2017-03-01 18:42] LABS: TROPONIN I < 0.30 ng/mL (<=0.30)
--- NOTE | 2017-03-01 21:48 | History and Physical Report ---
DATE OF ADMISSION: 02/28/2017 NOTE: "POOR AUDIO QUALITY TIME SEEN: At 10 a.m. ATTENDING PHYSICIAN: Noé Venegas D.O. CONSULTANTS: 1. Nilsa Chaudhry M.D. 2. Ana Degroot M.D. 3. Jaycob Whitley M.D. 4. Arnie Oliver M.D. CHIEF COMPLAINT: ACS, CHF, and dementia. BRIEF HISTORY: This is an 87-year-old female, who presented with a diagnosis of ACS, admitted to telemetry for further care. Currently, confused in bed, not talking much. PAST MEDICAL HISTORY: ACS, CHF, dementia, and CKD. PAST SURGICAL HISTORY: . MEDICATIONS: Zyrtec, Lasix, Protonix, Novolog, Keppra, Namenda, Seroquel, aspirin, DuoNeb, morphine, MiraLax, Restoril, , and Cardizem. ALLERGIES: Denies. SOCIAL HISTORY: Unable to obtain secondary to the patient's condition. REVIEW OF SYSTEMS: Not available. PHYSICAL EXAMINATION: GENERAL: Calm, lethargic in bed, nonverbal. VITAL SIGNS: Temperature is 97 degrees, pulse 60, respiratory rate 20, and blood pressure 95/54. CARDIOVASCULAR: No murmur. LUNGS: Poor air exchange. ABDOMEN: Bowel sounds are positive. Nontender and nondistended. EXTREMITIES: No clubbing, cyanosis, or edema. NEUROLOGIC: The patient moves all extremities, does not want to follow commands . LABORATORY DATA: Hemoglobin 10.4, platelets 139,000, otherwise CBC is normal. Sodium 129, chloride 90, BUN and creatinine is 30 and 2.3. Glucose 79. Urinalysis show 1+ occult blood and 1+ leukocyte esterase. ASSESSMENT: 1. Acute coronary syndrome. 2. Congestive heart failure. 3. Dementia. 4. Chronic kidney disease. 5. Anemia. 6. Urinary tract infection. PLAN: OT/PT. Dietary evaluation. . Troponin q.8 h. x3. EKG in the a.m. Dr. Chaudhry, Dr. Degroot, Dr. Whitley, Dr. Oliver, and Dr. Richmond to consult. We will continue to follow this patient medically. CBC and BMP in the morning. Noé Venegas D.O. DR: Eric JOB#: [id number] CC:
--- NOTE | 2017-03-01 22:07 | Nephrology Progress Note ---
Objective Objective Last 24 Hour Vital Signs Date Time Temp Pulse Resp B/P Pulse Ox O2 Delivery O2 Flow Rate FiO2 03/01/17 20:00 97.7 66 19 89/50 94 Room Air 03/01/17 16:14 98.6 73 20 105/72 96 Room Air 03/01/17 16:00 60 03/01/17 11:51 97.7 67 20 108/66 95 Room Air 03/01/17 09:03 60 03/01/17 08:58 97.3 60 20 95/54 96 Room Air 03/01/17 07:54 97.9 71 19 110/61 95 Room Air 03/01/17 07:05 97.9 71 19 110/61 95 Room Air 03/01/17 05:40 97.9 66 19 127/68 95 Room Air 03/01/17 03:35 97.9 61 19 131/73 95 Room Air 03/01/17 01:40 97.9 57 19 127/83 95 Room Air 03/01/17 00:00 97.9 61 19 114/63 95 Room Air Intake and Output 02/28/17 03/01/17 19:00 07:00 Output Total 500 ml Balance -500 ml Output Urine Total 500 ml # Voids 1 1 Laboratory Tests 03/01/17 11:15: White Blood Count 5.9, Red Blood Count 3.34L, Hemoglobin 10.5L, Hematocrit 31.7L , Mean Corpuscular Volume 95, Mean Corpuscular Hemoglobin 31.4H, Mean Corpuscular Hemoglobin Concent 33.2, Red Cell Distribution Width 13.2, Platelet Count 148L, Mean Platelet Volume 9.7, Neutrophils (%) (Auto) , Lymphocytes (%) ( Auto) , Monocytes (%) (Auto) , Eosinophils (%) (Auto) , Basophils (%) (Auto) , Differential Total Cells Counted 100, Neutrophils % (Manual) 74, Lymphocytes % ( Manual) 16L, Monocytes % (Manual) 9, Eosinophils % (Manual) 1, Basophils % ( Manual) 0, Band Neutrophils 0, Platelet Estimate Adequate, Platelet Morphology Normal, Hypochromasia 1+, Erythrocyte Sedimentation Rate 65H, Reticulocyte Count 0.8, Prothrombin Time 10.6, Prothromb Time International Ratio 1.0, Activated Partial Thromboplast Time 24, Sodium Level 138, Potassium Level 4.9, Chloride Level 98, Carbon Dioxide Level 24, Anion Gap 16H, Blood Urea Nitrogen 26H, Creatinine 2.0H, Estimat Glomerular Filtration Rate , Glucose Level 115H, Plasma/Serum Osmolality [Pending], Uric Acid 7.3, Calcium Level 8.7, Phosphorus Level 4.2, Magnesium Level 2.4, Iron Level 39, Total Iron Binding Capacity 259, Percent Iron Saturation 15, Unsaturated Iron Binding 220, Total Bilirubin 0.2, Aspartate Amino Transf (AST/SGOT) 18, Alanine Aminotransferase (ALT/SGPT) 10, Alkaline Phosphatase 93, Lactate Dehydrogenase 214, Total Creatine Kinase 132, C -Reactive Protein, Quantitative < 0.3, Total Protein 6.2L, Albumin 3.9, Globulin 2.3, Albumin/Globulin Ratio 1.6, Triglycerides Level 84, Cholesterol Level 166, LDL Cholesterol 94, HDL Cholesterol 55, Cholesterol/HDL Ratio 3.0L, Carcinoembryonic Antigen 2.9, Vitamin B12 Level 662, Folate [Pending], Thyroid Stimulating Hormone (TSH) 1.540, Free Thyroxine 1.08, Free Triiodothyronine [ Pending], Cortisol [Pending] 03/01/17 13:00: Urine Color Pale yellow, Urine Appearance Clear, Urine pH 7, Urine Specific [place] 1.005, Urine Protein Negative, Urine Glucose (UA) Negative, Urine Ketones Negative, Urine Occult Blood 1+H, Urine Nitrite Negative, Urine Bilirubin Negative, Urine Urobilinogen Normal, Urine Leukocyte Esterase 3+H, Urine RBC 2-4H, Urine WBC 15-20H, Urine Squamous Epithelial Cells Few, Urine Bacteria Few, Urine Eosinophils None seen, Urine Osmolality [Pending], Urine Random Sodium 87, Urine Random Chloride 77, Urine Potassium Timed 19 03/01/17 18:12: Troponin I < 0.30 Height (Feet): 5 Height (Inches): 5.00 Weight (Pounds): 150 CORBIN ALVES Mar 01, 2017 22:07
[2017-03-02 04:00] VITALS: BP 136/67
[2017-03-02] MEDS: Heparin 5000 units/ml inj SUBQ SCH ×3 (06:00→22:18)
[2017-03-02] MEDS: NovoLOG Insulin Flexpen SUBQ SCH ×4 (06:30→22:20)
--- NOTE | 2017-03-02 07:51 | General Progress Note ---
Assessment/Plan Problem List: (1) UTI (urinary tract infection) ICD Codes: N39.0 - Urinary tract infection, site not specified SNOMED: 12167063 (2) CHF (congestive heart failure) ICD Codes: I50.9 - Heart failure, unspecified SNOMED: 75229392 Qualifiers: Qualified Codes: I50.9 - Heart failure, unspecified (3) ACS (acute coronary syndrome) ICD Codes: I24.9 - Acute ischemic heart disease, unspecified SNOMED: 543750884 (4) Diabetes mellitus ICD Codes: E11.9 - Type 2 diabetes mellitus without complications SNOMED: 60466031 (5) Alzheimer's dementia ICD Codes: G30.9 - Alzheimer's disease, unspecified SNOMED: 71631243 (6) Chronic kidney disease ICD Codes: N18.9 - Chronic kidney disease, unspecified SNOMED: 592339610 (7) Chest pain ICD Codes: R07.9 - Chest pain, unspecified SNOMED: 56974739 Status: stable, progressing, tolerating diet Assessment/Plan ot pt diet abx cbc bmp am Subjective Constitutional: Reports: weakness Allergies: Coded Allergies: No Known Allergies (Unverified , 01/14/17) All Systems: reviewed and negative except above Subjective confused in bed Objective Last 24 Hour Vital Signs Date Time Temp Pulse Resp B/P Pulse Ox O2 Delivery O2 Flow Rate FiO2 03/02/17 04:00 97.7 71 19 136/67 97 Room Air 03/02/17 00:00 68 03/01/17 20:00 68 03/01/17 20:00 97.7 66 19 89/50 94 Room Air 03/01/17 16:14 98.6 73 20 105/72 96 Room Air 03/01/17 16:00 60 03/01/17 11:51 97.7 67 20 108/66 95 Room Air 03/01/17 09:03 60 03/01/17 08:58 97.3 60 20 95/54 96 Room Air 03/01/17 07:54 97.9 71 19 110/61 95 Room Air Intake and Output 03/01/17 03/02/17 19:00 07:00 Intake Total 240 ml 300 ml Output Total 1000 ml Balance -760 ml 300 ml Intake Oral 240 ml 300 ml Output Urine Total 1000 ml # Voids 1 Laboratory Tests 03/01/17 11:15: White Blood Count 5.9, Red Blood Count 3.34L, Hemoglobin 10.5L, Hematocrit 31.7L , Mean Corpuscular Volume 95, Mean Corpuscular Hemoglobin 31.4H, Mean Corpuscular Hemoglobin Concent 33.2, Red Cell Distribution Width 13.2, Platelet Count 148L, Mean Platelet Volume 9.7, Neutrophils (%) (Auto) , Lymphocytes (%) ( Auto) , Monocytes (%) (Auto) , Eosinophils (%) (Auto) , Basophils (%) (Auto) , Differential Total Cells Counted 100, Neutrophils % (Manual) 74, Lymphocytes % ( Manual) 16L, Monocytes % (Manual) 9, Eosinophils % (Manual) 1, Basophils % ( Manual) 0, Band Neutrophils 0, Platelet Estimate Adequate, Platelet Morphology Normal, Hypochromasia 1+, Erythrocyte Sedimentation Rate 65H, Reticulocyte Count 0.8, Prothrombin Time 10.6, Prothromb Time International Ratio 1.0, Activated Partial Thromboplast Time 24, Sodium Level 138, Potassium Level 4.9, Chloride Level 98, Carbon Dioxide Level 24, Anion Gap 16H, Blood Urea Nitrogen 26H, Creatinine 2.0H, Estimat Glomerular Filtration Rate , Glucose Level 115H, Plasma/Serum Osmolality [Pending], Uric Acid 7.3, Calcium Level 8.7, Phosphorus Level 4.2, Magnesium Level 2.4, Iron Level 39, Total Iron Binding Capacity 259, Percent Iron Saturation 15, Unsaturated Iron Binding 220, Total Bilirubin 0.2, Aspartate Amino Transf (AST/SGOT) 18, Alanine Aminotransferase (ALT/SGPT) 10, Alkaline Phosphatase 93, Lactate Dehydrogenase 214, Total Creatine Kinase 132, C -Reactive Protein, Quantitative < 0.3, Total Protein 6.2L, Albumin 3.9, Globulin 2.3, Albumin/Globulin Ratio 1.6, Triglycerides Level 84, Cholesterol Level 166, LDL Cholesterol 94, HDL Cholesterol 55, Cholesterol/HDL Ratio 3.0L, Carcinoembryonic Antigen 2.9, Vitamin B12 Level 662, Folate [Pending], Thyroid Stimulating Hormone (TSH) 1.540, Free Thyroxine 1.08, Free Triiodothyronine [ Pending], Cortisol [Pending] 03/01/17 13:00: Urine Color Pale yellow, Urine Appearance Clear, Urine pH 7, Urine Specific [place] 1.005, Urine Protein Negative, Urine Glucose (UA) Negative, Urine Ketones Negative, Urine Occult Blood 1+H, Urine Nitrite Negative, Urine Bilirubin Negative, Urine Urobilinogen Normal, Urine Leukocyte Esterase 3+H, Urine RBC 2-4H, Urine WBC 15-20H, Urine Squamous Epithelial Cells Few, Urine Bacteria Few, Urine Eosinophils None seen, Urine Osmolality [Pending], Urine Random Sodium 87, Urine Random Chloride 77, Urine Potassium Timed 03/01/17 18:12: Troponin I < 0.30 Height (Feet): 5 Height (Inches): 5.00 Weight (Pounds): 150 General Appearance: lethargic, confused EENT: normal ENT inspection Neck: non-tender, normal alignment, supple Cardiovascular: normal peripheral pulses, normal rate, regular rhythm Respiratory/Chest: chest wall non-tender, lungs clear, normal breath sounds Abdomen: normal bowel sounds, non tender, soft Extremities: normal inspection Edema: no edema noted Arm (L), no edema noted Arm (R), no edema noted Leg (L), no edema noted Leg (R), no edema noted Pedal (L), no edema noted Pedal (R), no edema noted Generalized Neurologic: motor weakness Skin: normal pigmentation, warm/dry SHELBY MARTINI Mar 02, 2017 07:51
[2017-03-02 08:34] VITALS: BP 141/61
[2017-03-02 08:35] LABS: BASOPHILS % (AUTO) 0.6 % (0.0-2.0); EOSINOPHILS % (AUTO) 2.1 % (0.0-3.0); LYMPHOCYTES % (AUTO) 25.2 % (20.0-45.0); MEAN CORPUSCULAR VOLUME 97 FL (80-99); MEAN PLATELET VOLUME 8.9 FL (6.5-10.1); MONOCYTES % (AUTO) 6.1 % (1.0-10.0); PLATELET COUNT 155 K/UL (150-450); RED BLOOD COUNT 3.27 M/UL (4.20-5.40); RED CELL DISTRIBUTION WIDTH 13.7 % (11.6-14.8); WHITE BLOOD COUNT 5.4 K/UL (4.8-10.8)
[2017-03-02 08:45] LABS: ANION GAP 16 (5-15); CALCIUM 8.5 mg/dL (8.6-10.2); CARBON DIOXIDE 23 mEQ/L (20-30); CHLORIDE 101 mEQ/L (98-107); HEMOLYSIS 0; POTASSIUM 4.3 mEQ/L (3.4-4.9); SODIUM 140 mEQ/L (135-145)
[2017-03-02] MEDS: Aspirin Baby 81mg ORAL SCH (09:34)
[2017-03-02] MEDS: Memantine 10mg tab ORAL SCH ×2 (09:35→17:23)
[2017-03-02] MEDS: Furosemide 40mg tab ORAL SCH (09:35)
--- NOTE | 2017-03-02 10:45 | Nephrology Progress Note ---
Assessment/Plan Problem List: (1) UTI (urinary tract infection) (2) Chronic kidney disease (3) Chest pain (4) CHF (congestive heart failure) (5) ACS (acute coronary syndrome) (6) Diabetes mellitus (7) Alzheimer's dementia Plan monitor UOP. empiric abx. per sitter, patient's urine is malodorous.ID following. monitor labs. d/w Dr. Oliver. Subjective Subjective awake/alert. sitter at bedside. Objective Objective Last 24 Hour Vital Signs Date Time Temp Pulse Resp B/P Pulse Ox O2 Delivery O2 Flow Rate FiO2 03/02/17 08:34 98.4 86 18 141/61 94 Room Air 03/02/17 08:00 81 03/02/17 04:00 97.7 71 19 136/67 97 Room Air 03/02/17 00:00 68 03/01/17 20:00 68 03/01/17 20:00 97.7 66 19 89/50 94 Room Air 03/01/17 16:14 98.6 73 20 105/72 96 Room Air 03/01/17 16:00 60 03/01/17 11:51 97.7 67 20 108/66 95 Room Air Intake and Output 03/01/17 03/02/17 19:00 07:00 Intake Total 240 ml 300 ml Output Total 1000 ml Balance -760 ml 300 ml Intake Oral 240 ml 300 ml Output Urine Total 1000 ml # Voids 1 Laboratory Tests 03/01/17 11:15: White Blood Count 5.9, Red Blood Count 3.34L, Hemoglobin 10.5L, Hematocrit 31.7L , Mean Corpuscular Volume 95, Mean Corpuscular Hemoglobin 31.4H, Mean Corpuscular Hemoglobin Concent 33.2, Red Cell Distribution Width 13.2, Platelet Count 148L, Mean Platelet Volume 9.7, Neutrophils (%) (Auto) , Lymphocytes (%) ( Auto) , Monocytes (%) (Auto) , Eosinophils (%) (Auto) , Basophils (%) (Auto) , Differential Total Cells Counted 100, Neutrophils % (Manual) 74, Lymphocytes % ( Manual) 16L, Monocytes % (Manual) 9, Eosinophils % (Manual) 1, Basophils % ( Manual) 0, Band Neutrophils 0, Platelet Estimate Adequate, Platelet Morphology Normal, Hypochromasia 1+, Erythrocyte Sedimentation Rate 65H, Reticulocyte Count 0.8, Prothrombin Time 10.6, Prothromb Time International Ratio 1.0, Activated Partial Thromboplast Time 24, Sodium Level 138, Potassium Level 4.9, Chloride Level 98, Carbon Dioxide Level 24, Anion Gap 16H, Blood Urea Nitrogen 26H, Creatinine 2.0H, Estimat Glomerular Filtration Rate , Glucose Level 115H, Plasma/Serum Osmolality [Pending], Uric Acid 7.3, Calcium Level 8.7, Phosphorus Level 4.2, Magnesium Level 2.4, Iron Level 39, Total Iron Binding Capacity 259, Percent Iron Saturation 15, Unsaturated Iron Binding 220, Total Bilirubin 0.2, Aspartate Amino Transf (AST/SGOT) 18, Alanine Aminotransferase (ALT/SGPT) 10, Alkaline Phosphatase 93, Lactate Dehydrogenase 214, Total Creatine Kinase 132, C -Reactive Protein, Quantitative < 0.3, Total Protein 6.2L, Albumin 3.9, Globulin 2.3, Albumin/Globulin Ratio 1.6, Triglycerides Level 84, Cholesterol Level 166, LDL Cholesterol 94, HDL Cholesterol 55, Cholesterol/HDL Ratio 3.0L, Carcinoembryonic Antigen 2.9, Vitamin B12 Level 662, Folate [Pending], Thyroid Stimulating Hormone (TSH) 1.540, Free Thyroxine 1.08, Free Triiodothyronine [ Pending], Cortisol [Pending] 03/01/17 13:00: Urine Color Pale yellow, Urine Appearance Clear, Urine pH 7, Urine Specific [place] 1.005, Urine Protein Negative, Urine Glucose (UA) Negative, Urine Ketones Negative, Urine Occult Blood 1+H, Urine Nitrite Negative, Urine Bilirubin Negative, Urine Urobilinogen Normal, Urine Leukocyte Esterase 3+H, Urine RBC 2-4H, Urine WBC 15-20H, Urine Squamous Epithelial Cells Few, Urine Bacteria Few, Urine Eosinophils None seen, Urine Osmolality [Pending], Urine Random Sodium 87, Urine Random Chloride 77, Urine Potassium Timed 19 03/01/17 18:12: Troponin I < 0.30 03/02/17 06:15: White Blood Count 5.4, Red Blood Count 3.27L, Hemoglobin 10.1L, Hematocrit 31.6L , Mean Corpuscular Volume 97, Mean Corpuscular Hemoglobin 31.0, Mean Corpuscular Hemoglobin Concent 32.0, Red Cell Distribution Width 13.7, Platelet Count 155, Mean Platelet Volume 8.9, Neutrophils (%) (Auto) 66.0, Lymphocytes (% ) (Auto) 25.2, Monocytes (%) (Auto) 6.1, Eosinophils (%) (Auto) 2.1, Basophils ( %) (Auto) 0.6, Sodium Level 140, Potassium Level 4.3, Chloride Level 101, Carbon Dioxide Level 23, Anion Gap 16H, Blood Urea Nitrogen 24H, Creatinine 2.0H , Estimat Glomerular Filtration Rate , Glucose Level 116H, Calcium Level 8.5L Height (Feet): 5 Height (Inches): 5.00 Weight (Pounds): 150 General Appearance: no apparent distress Cardiovascular: normal rate, regular rhythm Respiratory/Chest: lungs clear Abdomen: non tender, soft Extremities: non-pitting Neurologic: alert KAHLIL COOK Mar 02, 2017 10:45
[2017-03-02 11:10] LABS: CORTISOL LC 11.8 ug/dL (.)
[2017-03-02 12:00] VITALS: BP 137/70
[2017-03-02 13:09] LABS: FREE TRIIODOTHYRONINE 2.4 pg/mL (2.0-4.4)
[2017-03-02 15:23] VITALS: BP 150/76
[2017-03-02 16:35] LABS: ABG ALLEN TEST POSITIVE; ABG PCO2 36.3 mmHg (35.0-45.0)
--- NOTE | 2017-03-02 18:00 | Pulmonology Progress Note ---
Assessment/Plan Problems: (1) CHF (congestive heart failure) (2) ACS (acute coronary syndrome) (3) Diabetes mellitus (4) Alzheimer's dementia Assessment/Plan improving serial ekg cardio f/u titrate meds respiratory treatment dvt prophylaxis sliding scale, pt/ot Subjective ROS Limited/Unobtainable: No Interval Events: comfortable, no complains Allergies: Coded Allergies: No Known Allergies (Unverified , 01/14/17) Objective Last 24 Hour Vital Signs Date Time Temp Pulse Resp B/P Pulse Ox O2 Delivery O2 Flow Rate FiO2 03/02/17 16:00 86 03/02/17 15:23 97.5 71 20 150/76 95 Room Air 03/02/17 12:00 97.0 72 18 137/70 96 Room Air 03/02/17 12:00 70 03/02/17 08:34 98.4 86 18 141/61 94 Room Air 03/02/17 08:00 81 03/02/17 04:00 97.7 71 19 136/67 97 Room Air 03/02/17 00:00 68 03/01/17 20:00 68 03/01/17 20:00 97.7 66 19 89/50 94 Room Air Intake and Output 03/01/17 03/02/17 19:00 07:00 Intake Total 240 ml 300 ml Output Total 1000 ml Balance -760 ml 300 ml Intake Oral 240 ml 300 ml Output Urine Total 1000 ml # Voids 1 Objective General Appearance: WD/WN HEENT: normocephalic, atraumatic Respiratory/Chest: chest wall non-tender, lungs clear Cardiovascular: normal peripheral pulses, normal rate, regular rhythm Abdomen: normal bowel sounds, soft, non tender, no organomegaly Extremities: no cyanosis, no clubbing Skin: no rash, no lesions Neurologic/Psychiatric: client insights consultant II-XII grossly normal Lymphatic: no neck adenopathy, no groin adenopathy Microbiology Date/Time Source Procedure Growth Status 03/01/17 13:00 Urine,Clean Catch Urine Culture - Preliminary Gram Negative Tacos Resulted Laboratory Tests 03/01/17 18:12: Troponin I < 0.30 03/02/17 06:15: White Blood Count 5.4, Red Blood Count 3.27L, Hemoglobin 10.1L, Hematocrit 31.6L , Mean Corpuscular Volume 97, Mean Corpuscular Hemoglobin 31.0, Mean Corpuscular Hemoglobin Concent 32.0, Red Cell Distribution Width 13.7, Platelet Count 155, Mean Platelet Volume 8.9, Neutrophils (%) (Auto) 66.0, Lymphocytes (% ) (Auto) 25.2, Monocytes (%) (Auto) 6.1, Eosinophils (%) (Auto) 2.1, Basophils ( %) (Auto) 0.6, Sodium Level 140, Potassium Level 4.3, Chloride Level 101, Carbon Dioxide Level 23, Anion Gap 16H, Blood Urea Nitrogen 24H, Creatinine 2.0H , Estimat Glomerular Filtration Rate , Glucose Level 116H, Calcium Level 8.5L 03/02/17 16:27: Arterial Blood pH 7.421, Arterial Blood Partial Pressure CO2 36.3, Arterial Blood Partial Pressure O2 80.9, Arterial Blood HCO3 23.1, Arterial Blood Oxygen Saturation 96.0, Arterial Blood Base Excess -1.0, Arvind Test Positive Current Medications Medications (Trade) Dose Ordered Sig/Misty Route PRN Reason Start Time Stop Time Status Last Admin Dose Admin Acetaminophen (Tylenol) 650 mg Q4H PRN ORAL FEVER 02/28/17 18:45 03/30/17 18:44 Albuterol/ Ipratropium (DuoNeb 0.5-3(2.5)mg/3ml) 3 ml EVERY 4 HOURS PRN HHN Shortness of Breath 02/28/17 18:45 03/05/17 18:44 Aspirin (ASA) 162 mg DAILY ORAL 02/28/17 20:00 03/30/17 19:59 03/02/17 09:34 Cetirizine HCl (ZyrTEC) 10 mg DAILY ORAL 03/01/17 09:00 03/31/17 08:59 03/02/17 09:34 Dextrose (Dextrose 50%) STAT PRN IV Hypoglycemia 02/28/17 18:45 03/30/17 18:44 Diltiazem HCl (Cardizem) 10 mg Q1H PRN IV heart rate more than 120, 02/28/17 18:45 03/30/17 18:44 Enalaprilat (Vasotec) 2.5 mg Q6H PRN IV sbp more than 160 02/28/17 18:45 03/30/17 18:44 Furosemide (Lasix) 40 mg DAILY ORAL 03/01/17 09:00 03/31/17 08:59 03/02/17 09:35 Heparin Sodium (Porcine) (Heparin 5000 units/ml) 5,000 units EVERY 8 HOURS SUBQ 02/28/17 22:00 03/30/17 21:59 03/02/17 06:00 Insulin Aspart (NovoLOG) BEFORE MEALS AND HS SUBQ 02/28/17 22:00 03/30/17 21:59 03/02/17 17:23 Memantine (Namenda) 10 mg TWICE A DAY ORAL 02/28/17 21:00 03/30/17 20:59 03/02/17 17:23 Morphine Sulfate (Morphine Sulfate) 2 mg EVERY 4 HOURS PRN IVP severe Pain (Pain Scale 7-10) 02/28/17 18:45 03/07/17 18:44 Nitroglycerin (Ntg) 0.4 mg Q5M PRN SL Prn Chest Pain 02/28/17 18:45 03/30/17 18:44 Ondansetron HCl (Zofran) 4 mg Q6H PRN IVP Nausea & Vomiting 02/28/17 18:45 03/30/17 18:44 Pantoprazole (Protonix) 40 mg DAILY ORAL 03/01/17 09:00 03/31/17 08:59 03/02/17 09:34 Polyethylene Glycol (Miralax) 17 gm DAILYPRN PRN ORAL Constipation 02/28/17 18:45 03/30/17 18:44 Quetiapine Fumarate (SEROquel) 50 mg BEDTIME ORAL 02/28/17 21:00 03/30/17 20:59 02/28/17 21:31 Temazepam (Restoril) 15 mg HSPRN PRN ORAL Insomnia 02/28/17 18:45 03/07/17 18:44 ALCON CROCKER Mar 02, 2017 18:00
--- NOTE | 2017-03-02 18:39 | Cardiology Report ---
APPROVED REPORT EXAM: Two-dimensional and M-mode echocardiogram with Doppler and color Doppler. INDICATION Left ventricular function M-Mode DIMENSIONS IVSd0.8 (0.7-1.1cm)Left Atrium (MM)2.1 (1.6-4.0cm) LVDd4.2 (3.5-5.6cm)Aortic Root2.4 (2.0-3.7cm) PWd0.7 (0.7-1.1cm)Aortic Cusp Exc.1.6 (1.5-2.0cm) LVDs2.3 (2.5-4.0cm) PWs0.9 cm Normal left ventricular chamber size, systolic function and wall motion. Left ventricular ejection fraction estimated to be 70-75%. Mild left ventricular hypertrophy. No evidence of pericardial fat or effusion. Right cardiac chamber sizes are within normal limits. Left atrial enlargement by 2D. Focal aortic valve sclerosis with adequate cusp excursion Thickened mitral valve leaflets with normal excursion. Mild mitral annulus and aortic root calcification. Pulmonic valve not well visualized. Normal tricuspid valve structure. IVC not obtainable. A color flow and spectral Doppler study was performed and revealed: No aortic regurgitation. No mitral regurgitation. Left ventricular diastolic dysfunction grade 1. Mild tricuspid regurgitation. Tricuspid systolic velocities suggests peak right ventricular systolic pressure of 41 mmHg Consistent with mild pulmonary hypertension.
[2017-03-02 19:06] LABS: TROPONIN I < 0.30 ng/mL (<=0.30)
[2017-03-02 21:39] VITALS: BP 145/70
--- NOTE | 2017-03-02 22:28 | Consultation ---
DATE OF CONSULTATION: 03/02/2017 CONSULTING PHYSICIAN: Galilea Medina PsyD. ATTENDING PHYSICIAN: Noé Venegas D.O. HISTORY OF PRESENT ILLNESS: The patient is an 87-year-old female patient. The patient was brought into the hospital for acute coronary syndrome. She lives in [facility] . This patient has been very confused history of dementia. She was altered mental status. She was able to communicate, however, is very confused she lives, however denies suicidal or homicidal thoughts of ideation. She is very helpless, hopeless, and depressed, and has no viable or logical plan for self-care and safety. This clinician assessed this patient. PAST MEDICAL HISTORY: History of acute kidney failure, hypotension, and dementia. ALLERGIES: The patient has no known drug allergies. SUBSTANCE USE HISTORY: There is no indication of alcohol use or illicit drug use . PSYCHIATRIC HISTORY: The patient has a possible history of dementia. SOCIAL HISTORY: The patient is an 87-year-old female who lives in [facility] . Financially supported by Medicare and [employer]. MENTAL STATUS EXAMINATION: The patient is alert and oriented to person and place. Her mood is depressed. Affect is blunted. Thought process disoriented. Thought content, confused. She has had poor attention and concentration. Poor insight, judgment, and impulse control. to this patient medications management and behavioral management. This clinician has reviewed the patient's chart. Discussed the treatment with nursing staff . DIAGNOSES: AXIS I: disorder. AXIS II: Deferred. AXIS III: Per H and P. PLAN: medication management and behavioral management. This clinician has reviewed the patient's chart. Discussed the treatment with nursing staff. Galilea Medina PsyD. DR: MARIA ISABEL JOB#: [id number] CC:
--- NOTE | 2017-03-02 23:07 | Infectious Diseases Prog Note ---
Assessment/Plan Problems: (1) Pyuria Assessment & Plan: Most likely asymptomatic. Follow-up UCx. Keep off antibiotics for now. (2) Chronic kidney disease Assessment & Plan: vs JULIAN? (3) Diabetes mellitus (4) Alzheimer's dementia (5) Chest pain Assessment & Plan: R/o ACS. Subjective Allergies: Coded Allergies: No Known Allergies (Unverified , 01/14/17) Objective Vital Signs Last 24 Hour Vital Signs Date Time Temp Pulse Resp B/P Pulse Ox O2 Delivery O2 Flow Rate FiO2 03/02/17 21:39 99.9 67 17 145/70 95 Room Air 03/02/17 16:00 86 03/02/17 15:23 97.5 71 20 150/76 95 Room Air 03/02/17 12:00 97.0 72 18 137/70 96 Room Air 03/02/17 12:00 70 03/02/17 08:34 98.4 86 18 141/61 94 Room Air 03/02/17 08:00 81 03/02/17 04:00 97.7 71 19 136/67 97 Room Air 03/02/17 00:00 68 Height (Feet): 5 Height (Inches): 5.00 Weight (Pounds): 150 Microbiology Date/Time Source Procedure Growth Status 03/01/17 13:00 Urine,Clean Catch Urine Culture - Preliminary Gram Negative Tacos Resulted Laboratory Tests Test 03/02/17 06:15 03/02/17 16:27 03/02/17 18:44 White Blood Count 5.4 K/UL (4.8-10.8) Red Blood Count 3.27 M/UL (4.20-5.40) L Hemoglobin 10.1 G/DL (12.0-16.0) L Hematocrit 31.6 % (37.0-47.0) L Mean Corpuscular Volume 97 FL (80-99) Mean Corpuscular Hemoglobin 31.0 PG (27.0-31.0) Mean Corpuscular Hemoglobin Concent 32.0 G/DL (32.0-36.0) Red Cell Distribution Width 13.7 % (11.6-14.8) Platelet Count 155 K/UL (150-450) Mean Platelet Volume 8.9 FL (6.5-10.1) Neutrophils (%) (Auto) 66.0 % (45.0-75.0) Lymphocytes (%) (Auto) 25.2 % (20.0-45.0) Monocytes (%) (Auto) 6.1 % (1.0-10.0) Eosinophils (%) (Auto) 2.1 % (0.0-3.0) Basophils (%) (Auto) 0.6 % (0.0-2.0) Sodium Level 140 mEQ/L (135-145) Potassium Level 4.3 mEQ/L (3.4-4.9) Chloride Level 101 mEQ/L (98-107) Carbon Dioxide Level 23 mEQ/L (20-30) Anion Gap 16 (5-15) H Blood Urea Nitrogen 24 mg/dL (7-23) H Creatinine 2.0 mg/dL (0.5-0.9) H Estimat Glomerular Filtration Rate mL/min (>60) Glucose Level 116 mg/dL (74-106) H Calcium Level 8.5 mg/dL (8.6-10.2) L Arterial Blood pH 7.421 (7.350-7.450) Arterial Blood Partial Pressure CO2 36.3 mmHg (35.0-45.0) Arterial Blood Partial Pressure O2 80.9 mmHg (75.0-100.0) Arterial Blood HCO3 23.1 mmol/L (22.0-26.0) Arterial Blood Oxygen Saturation 96.0 % (92.0-98.0) Arterial Blood Base Excess -1.0 Arvind Test Positive Troponin I < 0.30 ng/mL (<=0.30) Current Medications Medications (Trade) Dose Ordered Sig/Misty Route PRN Reason Start Time Stop Time Status Last Admin Dose Admin Acetaminophen (Tylenol) 650 mg Q4H PRN ORAL FEVER 02/28/17 18:45 03/30/17 18:44 Albuterol/ Ipratropium (DuoNeb 0.5-3(2.5)mg/3ml) 3 ml EVERY 4 HOURS PRN HHN Shortness of Breath 02/28/17 18:45 03/05/17 18:44 Aspirin (ASA) 162 mg DAILY ORAL 02/28/17 20:00 03/30/17 19:59 03/02/17 09:34 Cetirizine HCl (ZyrTEC) 10 mg DAILY ORAL 03/01/17 09:00 03/31/17 08:59 03/02/17 09:34 Dextrose (Dextrose 50%) STAT PRN IV Hypoglycemia 02/28/17 18:45 03/30/17 18:44 Diltiazem HCl (Cardizem) 10 mg Q1H PRN IV heart rate more than 120, 02/28/17 18:45 03/30/17 18:44 Enalaprilat (Vasotec) 2.5 mg Q6H PRN IV sbp more than 160 02/28/17 18:45 03/30/17 18:44 Furosemide (Lasix) 40 mg DAILY ORAL 03/01/17 09:00 03/31/17 08:59 03/02/17 09:35 Heparin Sodium (Porcine) (Heparin 5000 units/ml) 5,000 units EVERY 8 HOURS SUBQ 02/28/17 22:00 03/30/17 21:59 03/02/17 22:18 Insulin Aspart (NovoLOG) BEFORE MEALS AND HS SUBQ 02/28/17 22:00 03/30/17 21:59 03/02/17 22:20 Memantine (Namenda) 10 mg TWICE A DAY ORAL 02/28/17 21:00 03/30/17 20:59 03/02/17 17:23 Morphine Sulfate (Morphine Sulfate) 2 mg EVERY 4 HOURS PRN IVP severe Pain (Pain Scale 7-10) 02/28/17 18:45 03/07/17 18:44 Nitroglycerin (Ntg) 0.4 mg Q5M PRN SL Prn Chest Pain 02/28/17 18:45 03/30/17 18:44 Ondansetron HCl (Zofran) 4 mg Q6H PRN IVP Nausea & Vomiting 02/28/17 18:45 03/30/17 18:44 Pantoprazole (Protonix) 40 mg DAILY ORAL 03/01/17 09:00 03/31/17 08:59 03/02/17 09:34 Polyethylene Glycol (Miralax) 17 gm DAILYPRN PRN ORAL Constipation 02/28/17 18:45 03/30/17 18:44 Quetiapine Fumarate (SEROquel) 50 mg BEDTIME ORAL 02/28/17 21:00 03/30/17 20:59 03/02/17 22:21 Temazepam (Restoril) 15 mg HSPRN PRN ORAL Insomnia 4/21/17 18:45 03/07/17 18:44 GEORGETTE GALVEZ Mar 02, 2017 23:07
[2017-03-03 00:04] VITALS: BP 133/55
[2017-03-03 03:59] VITALS: BP 105/87
[2017-03-03 05:40] LABS: EOSINOPHILS % (AUTO) 2.4 % (0.0-3.0); LYMPHOCYTES % (AUTO) 28.2 % (20.0-45.0); MEAN CORPUSCULAR HGB CONC 32.1 G/DL (32.0-36.0); MEAN CORPUSCULAR VOLUME 96 FL (80-99); MEAN PLATELET VOLUME 9.2 FL (6.5-10.1); MONOCYTES % (AUTO) 7.8 % (1.0-10.0); NEUTROPHILS % (AUTO) 60.6 % (45.0-75.0); PLATELET COUNT 150 K/UL (150-450); RED BLOOD COUNT 3.16 M/UL (4.20-5.40); RED CELL DISTRIBUTION WIDTH 13.4 % (11.6-14.8); WHITE BLOOD COUNT 6.1 K/UL (4.8-10.8)
[2017-03-03] MEDS: Heparin 5000 units/ml inj SUBQ SCH ×3 (06:04→21:21)
[2017-03-03] MEDS: NovoLOG Insulin Flexpen SUBQ SCH ×4 (06:06→21:20)
[2017-03-03 06:36] LABS: ANION GAP 17 (5-15); CALCIUM 8.5 mg/dL (8.6-10.2); CARBON DIOXIDE 25 mEQ/L (20-30); CHLORIDE 98 mEQ/L (98-107); CREATININE 2.3 mg/dL (0.5-0.9); HEMOLYSIS 4; POTASSIUM 4.1 mEQ/L (3.4-4.9); SODIUM 140 mEQ/L (135-145)
[2017-03-03 08:00] VITALS: BP 142/65
[2017-03-03] MEDS: Aspirin Baby 81mg ORAL SCH (08:01)
[2017-03-03] MEDS: Memantine 10mg tab ORAL SCH ×2 (08:02→17:03)
[2017-03-03] MEDS: Furosemide 40mg tab ORAL SCH (08:02)
--- NOTE | 2017-03-03 10:11 | Infectious Diseases Prog Note ---
Assessment/Plan Problems: (1) Pyuria Assessment & Plan: Most likely asymptomatic. Follow-up UCx. Keep off antibiotics for now. (2) Chronic kidney disease Assessment & Plan: vs JULIAN? (3) Diabetes mellitus (4) Alzheimer's dementia (5) Chest pain Assessment & Plan: R/o ACS. Subjective Allergies: Coded Allergies: No Known Allergies (Unverified , 01/14/17) Objective Vital Signs Last 24 Hour Vital Signs Date Time Temp Pulse Resp B/P Pulse Ox O2 Delivery O2 Flow Rate FiO2 03/03/17 08:00 96.4 74 18 142/65 96 Room Air 03/03/17 04:00 71 03/03/17 03:59 98.7 76 19 105/87 95 Room Air 03/03/17 00:54 70 03/03/17 00:04 98.2 77 19 133/55 96 Room Air 03/02/17 21:39 99.9 67 17 145/70 95 Room Air 03/02/17 16:00 86 03/02/17 15:23 97.5 71 20 150/76 95 Room Air 03/02/17 12:00 97.0 72 18 137/70 96 Room Air 03/02/17 12:00 70 Height (Feet): 5 Height (Inches): 5.00 Weight (Pounds): 150 Microbiology Date/Time Source Procedure Growth Status 03/01/17 06:15 Nasal Nares MRSA Culture - Final NO METHICILLIN RESISTANT STAPH AUREUS... Complete 03/01/17 13:00 Urine,Clean Catch Urine Culture - Preliminary Gram Negative Bacillus 1 Gram Negative Bacillus 2 Resulted Laboratory Tests Test 03/02/17 16:27 03/02/17 18:44 03/03/17 03:50 Arterial Blood pH 7.421 (7.350-7.450) Arterial Blood Partial Pressure CO2 36.3 mmHg (35.0-45.0) Arterial Blood Partial Pressure O2 80.9 mmHg (75.0-100.0) Arterial Blood HCO3 23.1 mmol/L (22.0-26.0) Arterial Blood Oxygen Saturation 96.0 % (92.0-98.0) Arterial Blood Base Excess -1.0 Arvind Test Positive Troponin I < 0.30 ng/mL (<=0.30) White Blood Count 6.1 K/UL (4.8-10.8) Red Blood Count 3.16 M/UL (4.20-5.40) L Hemoglobin 9.8 G/DL (12.0-16.0) L Hematocrit 30.5 % (37.0-47.0) L Mean Corpuscular Volume 96 FL (80-99) Mean Corpuscular Hemoglobin 31.0 PG (27.0-31.0) Mean Corpuscular Hemoglobin Concent 32.1 G/DL (32.0-36.0) Red Cell Distribution Width 13.4 % (11.6-14.8) Platelet Count 150 K/UL (150-450) Mean Platelet Volume 9.2 FL (6.5-10.1) Neutrophils (%) (Auto) 60.6 % (45.0-75.0) Lymphocytes (%) (Auto) 28.2 % (20.0-45.0) Monocytes (%) (Auto) 7.8 % (1.0-10.0) Eosinophils (%) (Auto) 2.4 % (0.0-3.0) Basophils (%) (Auto) 1.0 % (0.0-2.0) Sodium Level 140 mEQ/L (135-145) Potassium Level 4.1 mEQ/L (3.4-4.9) Chloride Level 98 mEQ/L (98-107) Carbon Dioxide Level 25 mEQ/L (20-30) Anion Gap 17 (5-15) H Blood Urea Nitrogen 33 mg/dL (7-23) H Creatinine 2.3 mg/dL (0.5-0.9) H Estimat Glomerular Filtration Rate mL/min (>60) Glucose Level 135 mg/dL (74-106) H Calcium Level 8.5 mg/dL (8.6-10.2) L Current Medications Medications (Trade) Dose Ordered Sig/Misty Route PRN Reason Start Time Stop Time Status Last Admin Dose Admin Acetaminophen (Tylenol) 650 mg Q4H PRN ORAL FEVER 02/28/17 18:45 03/30/17 18:44 Albuterol/ Ipratropium (DuoNeb 0.5-3(2.5)mg/3ml) 3 ml EVERY 4 HOURS PRN HHN Shortness of Breath 02/28/17 18:45 03/05/17 18:44 Aspirin (ASA) 162 mg DAILY ORAL 02/28/17 20:00 03/30/17 19:59 03/03/17 08:01 Cetirizine HCl (ZyrTEC) 10 mg DAILY ORAL 03/01/17 09:00 03/31/17 08:59 03/03/17 08:01 Dextrose (Dextrose 50%) STAT PRN IV Hypoglycemia 02/28/17 18:45 03/30/17 18:44 Diltiazem HCl (Cardizem) 10 mg Q1H PRN IV heart rate more than 120, 02/28/17 18:45 03/30/17 18:44 Enalaprilat (Vasotec) 2.5 mg Q6H PRN IV sbp more than 160 02/28/17 18:45 03/30/17 18:44 Furosemide (Lasix) 40 mg DAILY ORAL 03/01/17 09:00 03/31/17 08:59 03/03/17 08:02 Heparin Sodium (Porcine) (Heparin 5000 units/ml) 5,000 units EVERY 8 HOURS SUBQ 02/28/17 22:00 03/30/17 21:59 03/03/17 06:04 Insulin Aspart (NovoLOG) BEFORE MEALS AND HS SUBQ 02/28/17 22:00 03/30/17 21:59 03/03/17 06:06 Memantine (Namenda) 10 mg TWICE A DAY ORAL 02/28/17 21:00 03/30/17 20:59 03/03/17 08:02 Morphine Sulfate (Morphine Sulfate) 2 mg EVERY 4 HOURS PRN IVP severe Pain (Pain Scale 7-10) 02/28/17 18:45 03/07/17 18:44 Nitroglycerin (Ntg) 0.4 mg Q5M PRN SL Prn Chest Pain 02/28/17 18:45 03/30/17 18:44 Ondansetron HCl (Zofran) 4 mg Q6H PRN IVP Nausea & Vomiting 02/28/17 18:45 03/30/17 18:44 Pantoprazole (Protonix) 40 mg DAILY ORAL 03/01/17 09:00 03/31/17 08:59 03/03/17 08:02 Polyethylene Glycol (Miralax) 17 gm DAILYPRN PRN ORAL Constipation 02/28/17 18:45 5/21/17 18:44 Quetiapine Fumarate (SEROquel) 50 mg BEDTIME ORAL 02/28/17 21:00 03/30/17 20:59 03/02/17 22:21 Temazepam (Restoril) 15 mg HSPRN PRN ORAL Insomnia 02/28/17 18:45 03/07/17 18:44 GEORGETTE GALVEZ Mar 03, 2017 10:11
[2017-03-03 12:00] VITALS: BP 120/58
--- NOTE | 2017-03-03 12:15 | Pulmonology Progress Note ---
Assessment/Plan Problems: (1) CHF (congestive heart failure) (2) ACS (acute coronary syndrome) (3) Diabetes mellitus (4) Alzheimer's dementia Assessment/Plan echo result noted improving serial ekg cardio f/u still pending titrate meds respiratory treatment dvt prophylaxis sliding scale, pt/ot Subjective ROS Limited/Unobtainable: No Interval Events: sitting up on the chair Constitutional: Reports: no symptoms Allergies: Coded Allergies: No Known Allergies (Unverified , 01/14/17) Objective Last 24 Hour Vital Signs Date Time Temp Pulse Resp B/P Pulse Ox O2 Delivery O2 Flow Rate FiO2 03/03/17 08:00 96.4 74 18 142/65 96 Room Air 03/03/17 04:00 71 03/03/17 03:59 98.7 76 19 105/87 95 Room Air 03/03/17 00:54 70 03/03/17 00:04 98.2 77 19 133/55 96 Room Air 03/02/17 21:39 99.9 67 17 145/70 95 Room Air 03/02/17 16:00 86 03/02/17 15:23 97.5 71 20 150/76 95 Room Air Intake and Output 03/02/17 03/03/17 19:00 07:00 Intake Total 360 ml Output Total 600 ml Balance -240 ml Intake Oral 360 ml Output Urine Total 600 ml # Voids 1 1 Objective General Appearance: WD/WN HEENT: normocephalic, atraumatic Respiratory/Chest: chest wall non-tender, lungs clear Cardiovascular: normal peripheral pulses, normal rate, regular rhythm Abdomen: normal bowel sounds, soft, non tender, no organomegaly Extremities: no cyanosis, no clubbing Skin: no rash, no lesions Neurologic/Psychiatric: em physician II-XII grossly normal Lymphatic: no neck adenopathy, no groin adenopathy Microbiology Date/Time Source Procedure Growth Status 03/01/17 06:15 Nasal Nares MRSA Culture - Final NO METHICILLIN RESISTANT STAPH AUREUS... Complete 03/01/17 13:00 Urine,Clean Catch Urine Culture - Preliminary Gram Negative Bacillus 1 Gram Negative Bacillus 2 Resulted Laboratory Tests 03/02/17 16:27: Arterial Blood pH 7.421, Arterial Blood Partial Pressure CO2 36.3, Arterial Blood Partial Pressure O2 80.9, Arterial Blood HCO3 23.1, Arterial Blood Oxygen Saturation 96.0, Arterial Blood Base Excess -1.0, Arvind Test Positive 03/02/17 18:44: Troponin I < 0.30 03/03/17 03:50: White Blood Count 6.1, Red Blood Count 3.16L, Hemoglobin 9.8L, Hematocrit 30.5L , Mean Corpuscular Volume 96, Mean Corpuscular Hemoglobin 31.0, Mean Corpuscular Hemoglobin Concent 32.1, Red Cell Distribution Width 13.4, Platelet Count 150, Mean Platelet Volume 9.2, Neutrophils (%) (Auto) 60.6, Lymphocytes (% ) (Auto) 28.2, Monocytes (%) (Auto) 7.8, Eosinophils (%) (Auto) 2.4, Basophils ( %) (Auto) 1.0, Sodium Level 140, Potassium Level 4.1, Chloride Level 98, Carbon Dioxide Level 25, Anion Gap 17H, Blood Urea Nitrogen 33H, Creatinine 2.3H, Estimat Glomerular Filtration Rate , Glucose Level 135H, Calcium Level 8.5L Current Medications Medications (Trade) Dose Ordered Sig/Misty Route PRN Reason Start Time Stop Time Status Last Admin Dose Admin Acetaminophen (Tylenol) 650 mg Q4H PRN ORAL FEVER 02/28/17 18:45 03/30/17 18:44 Albuterol/ Ipratropium (DuoNeb 0.5-3(2.5)mg/3ml) 3 ml EVERY 4 HOURS PRN HHN Shortness of Breath 02/28/17 18:45 03/05/17 18:44 Aspirin (ASA) 162 mg DAILY ORAL 02/28/17 20:00 03/30/17 19:59 03/03/17 08:01 Cetirizine HCl (ZyrTEC) 10 mg DAILY ORAL 03/01/17 09:00 03/31/17 08:59 03/03/17 08:01 Dextrose (Dextrose 50%) STAT PRN IV Hypoglycemia 02/28/17 18:45 03/30/17 18:44 Diltiazem HCl (Cardizem) 10 mg Q1H PRN IV heart rate more than 120, 02/28/17 18:45 03/30/17 18:44 Enalaprilat (Vasotec) 2.5 mg Q6H PRN IV sbp more than 160 02/28/17 18:45 03/30/17 18:44 Furosemide (Lasix) 40 mg DAILY ORAL 03/01/17 09:00 03/31/17 08:59 03/03/17 08:02 Heparin Sodium (Porcine) (Heparin 5000 units/ml) 5,000 units EVERY 8 HOURS SUBQ 02/28/17 22:00 03/30/17 21:59 03/03/17 06:04 Insulin Aspart (NovoLOG) BEFORE MEALS AND HS SUBQ 02/28/17 22:00 03/30/17 21:59 03/03/17 11:39 Memantine (Namenda) 10 mg TWICE A DAY ORAL 02/28/17 21:00 03/30/17 20:59 03/03/17 08:02 Morphine Sulfate (Morphine Sulfate) 2 mg EVERY 4 HOURS PRN IVP severe Pain (Pain Scale 7-10) 02/28/17 18:45 03/07/17 18:44 Nitroglycerin (Ntg) 0.4 mg Q5M PRN SL Prn Chest Pain 02/28/17 18:45 03/30/17 18:44 Ondansetron HCl (Zofran) 4 mg Q6H PRN IVP Nausea & Vomiting 02/28/17 18:45 03/30/17 18:44 Pantoprazole (Protonix) 40 mg DAILY ORAL 03/01/17 09:00 03/31/17 08:59 03/03/17 08:02 Polyethylene Glycol (Miralax) 17 gm DAILYPRN PRN ORAL Constipation 02/28/17 18:45 03/30/17 18:44 Quetiapine Fumarate (SEROquel) 50 mg BEDTIME ORAL 02/28/17 21:00 03/30/17 20:59 03/02/17 22:21 Temazepam (Restoril) 15 mg HSPRN PRN ORAL Insomnia 02/28/17 18:45 03/07/17 18:44 ALCON CROCKER Mar 03, 2017 12:15
--- NOTE | 2017-03-03 12:19 | General Progress Note ---
Assessment/Plan Problem List: (1) UTI (urinary tract infection) ICD Codes: N39.0 - Urinary tract infection, site not specified SNOMED: 02586430 (2) CHF (congestive heart failure) ICD Codes: I50.9 - Heart failure, unspecified SNOMED: 43826702 Qualifiers: Qualified Codes: I50.9 - Heart failure, unspecified (3) ACS (acute coronary syndrome) ICD Codes: I24.9 - Acute ischemic heart disease, unspecified SNOMED: 738305726 (4) Diabetes mellitus ICD Codes: E11.9 - Type 2 diabetes mellitus without complications SNOMED: 04306500 (5) Alzheimer's dementia ICD Codes: G30.9 - Alzheimer's disease, unspecified SNOMED: 33613946 (6) Chronic kidney disease ICD Codes: N18.9 - Chronic kidney disease, unspecified SNOMED: 341145447 (7) Chest pain ICD Codes: R07.9 - Chest pain, unspecified SNOMED: 31491733 Status: stable, progressing, tolerating diet Assessment/Plan ot pt diet abx cbc bmp am dc plan Subjective Constitutional: Reports: weakness Allergies: Coded Allergies: No Known Allergies (Unverified , 01/14/17) All Systems: reviewed and negative except above Subjective confused in bed Objective Last 24 Hour Vital Signs Date Time Temp Pulse Resp B/P Pulse Ox O2 Delivery O2 Flow Rate FiO2 03/03/17 08:00 96.4 74 18 142/65 96 Room Air 03/03/17 04:00 71 03/03/17 03:59 98.7 76 19 105/87 95 Room Air 03/03/17 00:54 70 03/03/17 00:04 98.2 77 19 133/55 96 Room Air 03/02/17 21:39 99.9 67 17 145/70 95 Room Air 03/02/17 16:00 86 03/02/17 15:23 97.5 71 20 150/76 95 Room Air Intake and Output 03/02/17 03/03/17 19:00 07:00 Intake Total 360 ml Output Total 600 ml Balance -240 ml Intake Oral 360 ml Output Urine Total 600 ml # Voids 1 1 Laboratory Tests 03/02/17 16:27: Arterial Blood pH 7.421, Arterial Blood Partial Pressure CO2 36.3, Arterial Blood Partial Pressure O2 80.9, Arterial Blood HCO3 23.1, Arterial Blood Oxygen Saturation 96.0, Arterial Blood Base Excess -1.0, Arvind Test Positive 03/02/17 18:44: Troponin I < 0.30 03/03/17 03:50: White Blood Count 6.1, Red Blood Count 3.16L, Hemoglobin 9.8L, Hematocrit 30.5L , Mean Corpuscular Volume 96, Mean Corpuscular Hemoglobin 31.0, Mean Corpuscular Hemoglobin Concent 32.1, Red Cell Distribution Width 13.4, Platelet Count 150, Mean Platelet Volume 9.2, Neutrophils (%) (Auto) 60.6, Lymphocytes (% ) (Auto) 28.2, Monocytes (%) (Auto) 7.8, Eosinophils (%) (Auto) 2.4, Basophils ( %) (Auto) 1.0, Sodium Level 140, Potassium Level 4.1, Chloride Level 98, Carbon Dioxide Level 25, Anion Gap 17H, Blood Urea Nitrogen 33H, Creatinine 2.3H, Estimat Glomerular Filtration Rate , Glucose Level 135H, Calcium Level 8.5L Height (Feet): 5 Height (Inches): 5.00 Weight (Pounds): 150 General Appearance: lethargic EENT: normal ENT inspection Neck: normal alignment Cardiovascular: normal peripheral pulses, normal rate, regular rhythm Respiratory/Chest: chest wall non-tender, lungs clear, normal breath sounds Abdomen: normal bowel sounds, non tender, soft Extremities: normal inspection Edema: no edema noted Arm (L), no edema noted Arm (R), no edema noted Leg (L), no edema noted Leg (R), no edema noted Pedal (L), no edema noted Pedal (R), no edema noted Generalized Neurologic: responsive, motor weakness Skin: normal pigmentation, warm/dry SHELBY MARTINI Mar 03, 2017 12:19
--- NOTE | 2017-03-03 14:29 | Diagnostic Imaging Report ---
APPROVED REPORT CPT Code: 73746 Present Symptoms Lower Extremity Pain: Bilateral Comments: Incomplete study due to patient being combartive. RIGHT LEG: Venous imaging reveals a patent deep venous system. There is no evidence of thrombus within the femoral, popliteal or tibial segments. The greater saphenous vein is also within normal limits. Doppler indicates normal spontaneous flow within these segments.
--- NOTE | 2017-03-03 14:45 | Cardiac Electrophysiology PN ---
Subjective Subjective [id number]. Atypical chest pain. Resolved. No WI. EF Normal.1st degree AVB. Daughter refusing any stress test or other cardiac evaluation.DW patient and daughter with RN present. Continue medical therapy. Objective Last 24 Hour Vital Signs Date Time Temp Pulse Resp B/P Pulse Ox O2 Delivery O2 Flow Rate FiO2 03/03/17 12:00 96.8 76 18 120/58 96 Room Air 03/03/17 08:00 96.4 74 18 142/65 96 Room Air 03/03/17 04:00 71 03/03/17 03:59 98.7 76 19 105/87 95 Room Air 03/03/17 00:54 70 03/03/17 00:04 98.2 77 19 133/55 96 Room Air 03/02/17 21:39 99.9 67 17 145/70 95 Room Air 03/02/17 16:00 86 03/02/17 15:23 97.5 71 20 150/76 95 Room Air Intake and Output 03/02/17 03/03/17 19:00 07:00 Intake Total 360 ml Output Total 600 ml Balance -240 ml Intake Oral 360 ml Output Urine Total 600 ml # Voids 1 1 Laboratory Tests Test 03/02/17 16:27 03/02/17 18:44 03/03/17 03:50 Arterial Blood pH 7.421 (7.350-7.450) Arterial Blood Partial Pressure CO2 36.3 mmHg (35.0-45.0) Arterial Blood Partial Pressure O2 80.9 mmHg (75.0-100.0) Arterial Blood HCO3 23.1 mmol/L (22.0-26.0) Arterial Blood Oxygen Saturation 96.0 % (92.0-98.0) Arterial Blood Base Excess -1.0 Arvind Test Positive Troponin I < 0.30 ng/mL (<=0.30) White Blood Count 6.1 K/UL (4.8-10.8) Red Blood Count 3.16 M/UL (4.20-5.40) L Hemoglobin 9.8 G/DL (12.0-16.0) L Hematocrit 30.5 % (37.0-47.0) L Mean Corpuscular Volume 96 FL (80-99) Mean Corpuscular Hemoglobin 31.0 PG (27.0-31.0) Mean Corpuscular Hemoglobin Concent 32.1 G/DL (32.0-36.0) Red Cell Distribution Width 13.4 % (11.6-14.8) Platelet Count 150 K/UL (150-450) Mean Platelet Volume 9.2 FL (6.5-10.1) Neutrophils (%) (Auto) 60.6 % (45.0-75.0) Lymphocytes (%) (Auto) 28.2 % (20.0-45.0) Monocytes (%) (Auto) 7.8 % (1.0-10.0) Eosinophils (%) (Auto) 2.4 % (0.0-3.0) Basophils (%) (Auto) 1.0 % (0.0-2.0) Sodium Level 140 mEQ/L (135-145) Potassium Level 4.1 mEQ/L (3.4-4.9) Chloride Level 98 mEQ/L (98-107) Carbon Dioxide Level 25 mEQ/L (20-30) Anion Gap 17 (5-15) H Blood Urea Nitrogen 33 mg/dL (7-23) H Creatinine 2.3 mg/dL (0.5-0.9) H Estimat Glomerular Filtration Rate mL/min (>60) Glucose Level 135 mg/dL (74-106) H Calcium Level 8.5 mg/dL (8.6-10.2) L Microbiology Date/Time Source Procedure Growth Status 03/01/17 06:15 Nasal Nares MRSA Culture - Final NO METHICILLIN RESISTANT STAPH AUREUS... Complete 03/01/17 13:00 Urine,Clean Catch Urine Culture - Preliminary Gram Negative Bacillus 1 Gram Negative Bacillus 2 Resulted BLAKE NICE Mar 03, 2017 14:45
[2017-03-03 16:00] VITALS: BP 124/59
--- NOTE | 2017-03-03 17:46 | Nephrology Progress Note ---
Assessment/Plan Problem List: (1) CHF (congestive heart failure) (2) ACS (acute coronary syndrome) (3) Diabetes mellitus (4) Chronic kidney disease (5) Chest pain (6) UTI (urinary tract infection) Plan Renal ultrasound pending monitor BUN/cr Monitor Lytes Monitor H&H, transfuse as needed Cont DVT prophylaxis Monitor I&O - adequate urine output AM labs Subjective Constitutional: Denies: chills, diaphoresis, fever, malaise, no symptoms, other , weakness Neurologic/Psychiatric: Denies: anxiety, depressed, emotional problems, headache, no symptoms, numbness, other, paresthesia, pre-existing deficit, seizure, tingling, tremors, weakness Subjective Sitting by the bedside, having dinner, denies any discomfort at this time Objective Objective Last 24 Hour Vital Signs Date Time Temp Pulse Resp B/P Pulse Ox O2 Delivery O2 Flow Rate FiO2 03/03/17 16:00 99.5 70 18 124/59 96 Room Air 03/03/17 12:00 96.8 76 18 120/58 96 Room Air 03/03/17 08:00 96.4 74 18 142/65 96 Room Air 03/03/17 04:00 71 03/03/17 03:59 98.7 76 19 105/87 95 Room Air 03/03/17 00:54 70 03/03/17 00:04 98.2 77 19 133/55 96 Room Air 03/02/17 21:39 99.9 67 17 145/70 95 Room Air Intake and Output 03/02/17 03/03/17 19:00 07:00 Intake Total 360 ml Output Total 600 ml Balance -240 ml Intake Oral 360 ml Output Urine Total 600 ml # Voids 1 1 Laboratory Tests 03/02/17 18:44: Troponin I < 0.30 03/03/17 03:50: White Blood Count 6.1, Red Blood Count 3.16L, Hemoglobin 9.8L, Hematocrit 30.5L , Mean Corpuscular Volume 96, Mean Corpuscular Hemoglobin 31.0, Mean Corpuscular Hemoglobin Concent 32.1, Red Cell Distribution Width 13.4, Platelet Count 150, Mean Platelet Volume 9.2, Neutrophils (%) (Auto) 60.6, Lymphocytes (% ) (Auto) 28.2, Monocytes (%) (Auto) 7.8, Eosinophils (%) (Auto) 2.4, Basophils ( %) (Auto) 1.0, Sodium Level 140, Potassium Level 4.1, Chloride Level 98, Carbon Dioxide Level 25, Anion Gap 17H, Blood Urea Nitrogen 33H, Creatinine 2.3H, Estimat Glomerular Filtration Rate , Glucose Level 135H, Calcium Level 8.5L Height (Feet): 5 Height (Inches): 5.00 Weight (Pounds): 150 General Appearance: no apparent distress, alert EENT: normal ENT inspection, TMs normal Neck: normal alignment, supple Cardiovascular: normal rate, regular rhythm, no JVD Respiratory/Chest: normal breath sounds, no respiratory distress Abdomen: non tender, soft, no organomegaly Extremities: non-tender, normal inspection Neurologic: alert, oriented x 3, responsive, normal mood/affect Karly Mills N.P. Mar 03, 2017 17:46
[2017-03-03] MEDS ORDERED: Nitroglycerin Subl 0.4mg tab (Bottle Of 25) SL PRN (19:00)
[2017-03-03] MEDS ORDERED: DuoNeb 0.5-3(2.5)mg/3ml neb HHN PRN (19:30)
[2017-03-03] MEDS ORDERED: Miralax 17gm pkt ORAL PRN (19:30)
[2017-03-03] MEDS ORDERED: Enalaprilat 2.5mg/2ml Inj IV PRN (19:30)
[2017-03-03] MEDS ORDERED: Morphine Sulfate 2mg/ml Inj IVP PRN (19:30)
[2017-03-03] MEDS ORDERED: Diltiazem 25mg/5ml IV PRN (19:45)
[2017-03-03 20:00] VITALS: BP 137/53
--- NOTE | 2017-03-03 22:08 | Consultation ---
DATE OF CONSULTATION: CARDIOLOGY CONSULTATION CONSULTING PHYSICIAN: Jaycob Whitley M.D. REFERRING PHYSICIAN: Noé Venegas D.O. REASON FOR CONSULTATION: Management of hypertension and chest pain. HISTORY OF PRESENT ILLNESS: The patient is a very pleasant 87-year-old lady under Cardiology care with a history of diabetes and hypertension, who was brought to the emergency room complaining of chest pain. In the emergency room, she denied any chest pain, palpitation, or shortness of breath. The patient had chest x-ray, which is suggestive of congestive heart failure and the patient was admitted and started on Lasix. Initial EKG also shows sinus rhythm with first-degree AV block and right bundle-branch block. At the time of my evaluation, the patient's daughter is at the bedside. She denies chest pain, palpitation, or shortness of breath. MEDICATIONS: Includes aspirin, Lasix, lisinopril, Zocor, and Januvia. FAMILY HISTORY: Noncontributory. SOCIAL HISTORY: She lives at home. Does not smoke or drink alcohol. PHYSICAL EXAMINATION: VITAL SIGNS: Blood pressure is 120/58, pulse 76, respiratory rate 18, and temperature 96.8 degrees. HEAD AND NECK: Showed no JVD. LUNGS: Clear. CARDIOVASCULAR: Shows regular S1 and S2 with no gallop or murmur. ABDOMEN: Soft and nontender. EXTREMITIES: No pitting edema. DIAGNOSTIC DATA: EKG showed sinus rhythm, first-degree AV block, and right bundle-branch block. LABORATORY DATA: Labs show white count of 6.1, hemoglobin of 9.8, hematocrit of 32, and platelet count of 150,000. Sodium 140, potassium is 4.1, BUN of 32, creatinine 2.3, and glucose of 135. Troponin negative x2. INR is 1.0. Urinalysis shows 15 to 20 WBCs and 3+ leukocyte esterase. ASSESSMENT AND PLAN: 1. Atypical chest pain. Patient was ruled out for myocardial infarction. 2. History of cardiac enzymes. The EKG shows right bundle-branch block and first-degree AV block. Currently, the patient does not have any chest pain, but chest pain could be due to the patient's congestive heart failure. Her echocardiogram shows ejection fraction of 70 to 75%. Send the patient for nuclear stress test in the morning. 3. Diastolic dysfunction, likely due to hypertension, ejection fraction of 70% to 75%. Continue Lasix 40 mg p.o. daily. 4. Hypertension. Continue on Lasix 40 mg daily. Check electrolytes in the morning. The patient was also on lisinopril 10 mg daily that would be resumed, especially in view of the patient's diabetes. 5. Diabetes. 6. Hyperlipidemia. Resume Zocor 40 mg daily. 7. Dementia, on Namenda and Seroquel. Thank very much, Dr. Venegas, for allowing me to participate in the care of this patient. Please do not hesitate to contact me for any questions regarding my evaluation. Jaycob Whitley M.D. DR: KYLAH JOB#: [id number] CC:
[2017-03-04] VITALS: BP 159/63
[2017-03-04 04:00] VITALS: BP 106/47
[2017-03-04] MEDS: Heparin 5000 units/ml inj SUBQ SCH ×2 (06:00→13:51)
[2017-03-04] MEDS: NovoLOG Insulin Flexpen SUBQ SCH ×4 (06:40→21:22)
[2017-03-04 07:08] LABS: ANION GAP 18 (5-15); CALCIUM 8.6 mg/dL (8.6-10.2); CARBON DIOXIDE 24 mEQ/L (20-30); CHLORIDE 98 mEQ/L (98-107); CREATININE 2.3 mg/dL (0.5-0.9); HEMOLYSIS 1; POTASSIUM 4.6 mEQ/L (3.4-4.9); SODIUM 140 mEQ/L (135-145)
[2017-03-04 07:31] LABS: BASOPHILS % (AUTO) 0.6 % (0.0-2.0); EOSINOPHILS % (AUTO) 1.5 % (0.0-3.0); MEAN CORPUSCULAR HEMOGLOBIN 30.6 PG (27.0-31.0); MEAN CORPUSCULAR HGB CONC 31.4 G/DL (32.0-36.0); MEAN CORPUSCULAR VOLUME 97 FL (80-99); MEAN PLATELET VOLUME 8.3 FL (6.5-10.1); MONOCYTES % (AUTO) 7.7 % (1.0-10.0); NEUTROPHILS % (AUTO) 74.2 % (45.0-75.0); PLATELET COUNT 153 K/UL (150-450); RED BLOOD COUNT 3.44 M/UL (4.20-5.40); RED CELL DISTRIBUTION WIDTH 13.4 % (11.6-14.8); WHITE BLOOD COUNT 7.2 K/UL (4.8-10.8)
[2017-03-04 08:29] VITALS: BP 61/124
[2017-03-04] MEDS: Memantine 10mg tab ORAL SCH ×2 (08:32→17:21)
[2017-03-04] MEDS ORDERED: Furosemide 40mg tab ORAL SCH (09:00)
[2017-03-04] MEDS ORDERED: Lisinopril 10mg tab ORAL SCH ×2 (09:00)
[2017-03-04] MEDS ORDERED: Aspirin Baby 81mg ORAL SCH (09:00)
[2017-03-04 11:20] VITALS: BP 134/58
--- NOTE | 2017-03-04 13:06 | General Progress Note ---
Assessment/Plan Problem List: (1) UTI (urinary tract infection) ICD Codes: N39.0 - Urinary tract infection, site not specified SNOMED: 88595272 (2) CHF (congestive heart failure) ICD Codes: I50.9 - Heart failure, unspecified SNOMED: 75162977 Qualifiers: Qualified Codes: I50.9 - Heart failure, unspecified (3) ACS (acute coronary syndrome) ICD Codes: I24.9 - Acute ischemic heart disease, unspecified SNOMED: 231942016 (4) Diabetes mellitus ICD Codes: E11.9 - Type 2 diabetes mellitus without complications SNOMED: 94354039 (5) Alzheimer's dementia ICD Codes: G30.9 - Alzheimer's disease, unspecified SNOMED: 54349057 (6) Chronic kidney disease ICD Codes: N18.9 - Chronic kidney disease, unspecified SNOMED: 568308402 (7) Chest pain ICD Codes: R07.9 - Chest pain, unspecified SNOMED: 29153178 Status: stable, progressing, tolerating diet Assessment/Plan ot pt diet abx cbc bmp am dc home w hh Subjective Constitutional: Reports: weakness Allergies: Coded Allergies: No Known Allergies (Unverified , 01/14/17) All Systems: reviewed and negative except above Subjective confused in bed Objective Last 24 Hour Vital Signs Date Time Temp Pulse Resp B/P Pulse Ox O2 Delivery O2 Flow Rate FiO2 03/04/17 11:20 98.4 79 15 134/58 98 Room Air 03/04/17 08:32 106/47 03/04/17 08:29 98.1 77 14 61/124 100 Room Air 03/04/17 04:00 97.5 72 19 106/47 94 Room Air 03/04/17 00:00 97.9 71 20 159/63 97 Room Air 03/03/17 20:00 97.8 66 19 137/53 96 Room Air 03/03/17 16:00 99.5 70 18 124/59 96 Room Air Intake and Output 03/03/17 03/04/17 19:00 07:00 Intake Total 720 ml Balance 720 ml Intake Oral 720 ml # Voids 2 Laboratory Tests 03/04/17 05:35: White Blood Count 7.2, Red Blood Count 3.44L, Hemoglobin 10.5L, Hematocrit 33.4L , Mean Corpuscular Volume 97, Mean Corpuscular Hemoglobin 30.6, Mean Corpuscular Hemoglobin Concent 31.4L, Red Cell Distribution Width 13.4, Platelet Count 153, Mean Platelet Volume 8.3, Neutrophils (%) (Auto) 74.2, Lymphocytes (%) (Auto) 16.0L, Monocytes (%) (Auto) 7.7, Eosinophils (%) (Auto) 1.5, Basophils (%) (Auto) 0.6, Sodium Level 140, Potassium Level 4.6, Chloride Level 98, Carbon Dioxide Level 24, Anion Gap 18H, Blood Urea Nitrogen 37H, Creatinine 2.3H, Estimat Glomerular Filtration Rate , Glucose Level 174H, Calcium Level 8.6 Height (Feet): 5 Height (Inches): 5.00 Weight (Pounds): 150 General Appearance: lethargic, confused EENT: normal ENT inspection Neck: normal alignment Cardiovascular: normal peripheral pulses, normal rate, regular rhythm Respiratory/Chest: chest wall non-tender, lungs clear, normal breath sounds Abdomen: normal bowel sounds, non tender, soft Extremities: normal inspection Edema: no edema noted Arm (L), no edema noted Arm (R), no edema noted Leg (L), no edema noted Leg (R), no edema noted Pedal (L), no edema noted Pedal (R), no edema noted Generalized Neurologic: motor weakness Skin: normal pigmentation, warm/dry SHELBY MARTINI Mar 04, 2017 13:06
[2017-03-04] MEDS ORDERED: Ampicillin 1 GM in NS 55 ML IVPB SCH (14:00)
[2017-03-04 16:06] VITALS: BP 126/59
--- NOTE | 2017-03-04 16:25 | Cardiac Electrophysiology PN ---
Assessment/Plan Assessment/Plan 1. Atypical chest pain. Patient was ruled out for myocardial infarction.Refused stress test. 2. Right bundle-branch block and first-degree AV block. No syncope or CHB. 3. Diastolic dysfunction, likely due to hypertension, ejection fraction of 70% to 75%. Continue Lasix 40 mg p.o. daily. 4. Hypertension. Continue on Lasix 40 mg daily and Lisinopril 10 mg daily. 5. Diabetes. 6. Hyperlipidemia. Resume Zocor 40 mg daily. 7. Dementia, on Namenda and Seroquel. ANA LAURA RN and Dr Venegas Subjective Subjective Comfortable in NAD. No chest pain or SOB. Transferred to nonmonitored bed. Objective Last 24 Hour Vital Signs Date Time Temp Pulse Resp B/P Pulse Ox O2 Delivery O2 Flow Rate FiO2 03/04/17 11:20 98.4 79 15 134/58 98 Room Air 03/04/17 08:32 106/47 03/04/17 08:29 98.1 77 14 61/124 100 Room Air 03/04/17 04:00 97.5 72 19 106/47 94 Room Air 03/04/17 00:00 97.9 71 20 159/63 97 Room Air 03/03/17 20:00 97.8 66 19 137/53 96 Room Air Intake and Output 03/03/17 03/04/17 19:00 07:00 Intake Total 720 ml Balance 720 ml Intake Oral 720 ml # Voids 2 Laboratory Tests Test 03/04/17 05:35 White Blood Count 7.2 K/UL (4.8-10.8) Red Blood Count 3.44 M/UL (4.20-5.40) L Hemoglobin 10.5 G/DL (12.0-16.0) L Hematocrit 33.4 % (37.0-47.0) L Mean Corpuscular Volume 97 FL (80-99) Mean Corpuscular Hemoglobin 30.6 PG (27.0-31.0) Mean Corpuscular Hemoglobin Concent 31.4 G/DL (32.0-36.0) L Red Cell Distribution Width 13.4 % (11.6-14.8) Platelet Count 153 K/UL (150-450) Mean Platelet Volume 8.3 FL (6.5-10.1) Neutrophils (%) (Auto) 74.2 % (45.0-75.0) Lymphocytes (%) (Auto) 16.0 % (20.0-45.0) L Monocytes (%) (Auto) 7.7 % (1.0-10.0) Eosinophils (%) (Auto) 1.5 % (0.0-3.0) Basophils (%) (Auto) 0.6 % (0.0-2.0) Sodium Level 140 mEQ/L (135-145) Potassium Level 4.6 mEQ/L (3.4-4.9) Chloride Level 98 mEQ/L (98-107) Carbon Dioxide Level 24 mEQ/L (20-30) Anion Gap 18 (5-15) H Blood Urea Nitrogen 37 mg/dL (7-23) H Creatinine 2.3 mg/dL (0.5-0.9) H Estimat Glomerular Filtration Rate mL/min (>60) Glucose Level 174 mg/dL (74-106) H Calcium Level 8.6 mg/dL (8.6-10.2) Objective HEAD AND NECK: Showed no JVD. LUNGS: Clear. CARDIOVASCULAR: Shows regular S1 and S2 with no gallop or murmur. ABDOMEN: Soft and nontender. EXTREMITIES: No pitting edema. BLAKE NICE Mar 04, 2017 16:25
--- NOTE | 2017-03-04 16:54 | Diagnostic Imaging Report ---
Indications: Elevated renal function tests Technique: Transabdominal real-time grayscale and duplex Doppler imaging of the kidneys, retroperitoneum, and urinary bladder was performed Findings: Comparison: None Right kidney measures 10 cm in length. Mild cortical thinning, normal echogenicity. Contains 3 cm circumscribed anechoic focus interpolar cortex No stones, other focal lesions, hydronephrosis, or obvious perinephric abnormalities. Left kidney measures approximately 10 cm in length. Mild cortical thinning, normal echogenicity. Contains several large anechoic exophytic cortical foci up to 10 cm diameter. No stones, other focal lesions, hydronephrosis, or obvious perinephric abnormalities. The intrahepatic portion of inferior vena cava is patent and normal caliber. The urinary bladder is distended without obvious abnormality. IMPRESSION: Mild bilateral renal cortical atrophy, likely senescent change Bilateral renal cortical cysts Otherwise negative
[2017-03-04] MEDS ORDERED: AMPICILLIN TRI500 MG ORAL (17:37)
[2017-03-04] MEDS ORDERED: Tubing IV Secondary IV ONE (21:54)
[2017-03-04] MEDS ORDERED: NS 550ML IV ONE (21:54)
--- NOTE | 2017-03-04 23:09 | Pulmonology Progress Note ---
Assessment/Plan Problems: (1) CHF (congestive heart failure) (2) ACS (acute coronary syndrome) (3) Diabetes mellitus (4) Alzheimer's dementia Assessment/Plan echo result noted improving serial ekg cardio appreciated titrate meds respiratory treatment dvt prophylaxis sliding scale, pt/ot ok to dc Subjective ROS Limited/Unobtainable: No Allergies: Coded Allergies: No Known Allergies (Unverified , 01/14/17) Objective Last 24 Hour Vital Signs Date Time Temp Pulse Resp B/P Pulse Ox O2 Delivery O2 Flow Rate FiO2 03/04/17 16:06 98.4 80 16 126/59 96 Room Air 03/04/17 11:20 98.4 79 15 134/58 98 Room Air 03/04/17 08:32 106/47 03/04/17 08:29 98.1 77 14 61/124 100 Room Air 03/04/17 04:00 97.5 72 19 106/47 94 Room Air 03/04/17 00:00 97.9 71 20 159/63 97 Room Air Intake and Output 03/03/17 03/04/17 19:00 07:00 Intake Total 720 ml Balance 720 ml Intake Oral 720 ml # Voids 2 Objective General Appearance: WD/WN HEENT: normocephalic, atraumatic Respiratory/Chest: chest wall non-tender, lungs clear Cardiovascular: normal peripheral pulses, normal rate, regular rhythm Abdomen: normal bowel sounds, soft, non tender, no organomegaly Extremities: no cyanosis, no clubbing Skin: no rash, no lesions Neurologic/Psychiatric: liquor maker II-XII grossly normal Lymphatic: no neck adenopathy, no groin adenopathy Laboratory Tests 03/04/17 05:35: White Blood Count 7.2, Red Blood Count 3.44L, Hemoglobin 10.5L, Hematocrit 33.4L , Mean Corpuscular Volume 97, Mean Corpuscular Hemoglobin 30.6, Mean Corpuscular Hemoglobin Concent 31.4L, Red Cell Distribution Width 13.4, Platelet Count 153, Mean Platelet Volume 8.3, Neutrophils (%) (Auto) 74.2, Lymphocytes (%) (Auto) 16.0L, Monocytes (%) (Auto) 7.7, Eosinophils (%) (Auto) 1.5, Basophils (%) (Auto) 0.6, Sodium Level 140, Potassium Level 4.6, Chloride Level 98, Carbon Dioxide Level 24, Anion Gap 18H, Blood Urea Nitrogen 37H, Creatinine 2.3H, Estimat Glomerular Filtration Rate , Glucose Level 174H, Calcium Level 8.6 ALCON CROCKER Mar 04, 2017 23:09
--- NOTE | 2017-03-05 20:28 | Discharge Summary ---
Discharge Summary Hospital Course Date of Admission Feb 28, 2017 at 17:31 Date of Discharge Mar 04, 2017 at 21:55 Admitting Diagnosis ACUTE CORONARY SYNDROME HPI Blessing Fernandes is a 87 year old female who was admitted on Feb 28, 2017 at 17: 31 for Acute Coronary Syndrome Hospital Course [id number] Discharge Discharge Disposition Patient was discharged to Home with Home Health(06) Discharge Diagnoses: Cassia Pedroza NP Mar 05, 2017 20:28
--- NOTE | 2017-03-06 06:18 | Discharge Summary 2 SIG ---
DATE OF ADMISSION: 02/28/2017 DATE OF DISCHARGE: 03/04/2017 CONSULTANTS: 1. Nilsa Chaudhry M.D. 2. Jaycob Whitley M.D. 3. Arnie Oliver M.D. 4. Dayanna Cano M.D. 5. Galilea Medina M.D. BRIEF HOSPITAL COURSE: The patient is an 87-year-old female was brought in by EMS for chest pain. She has history of dementia, hypertension, and diabetes. On evaluation at ED, initial troponin was negative. Chest x-ray showed cardiomegaly. EKG showed normal sinus rhythm with no acute changes. Due to her risk factors, she was admitted for cardiac evaluation and monitoring. The patient was recommended stress test, however, she refused. She was resumed on lisinopril and Lasix for hypertension. Echocardiogram done showed ejection fraction of 70% to 75%. She was followed by Dr. Oliver for abnormal electrolytes and elevated creatinine. Renal ultrasound done showed mild renal cortical atrophy with bilateral renal cortical cyst. The patient also presented with pyuria and was given ampicillin. Urine culture showed growth of E. coli. She was then discharged home with home health to continue ampicillin for five more days. FINAL DIAGNOSES: 1. Urinary tract infection with Escherichia coli. 2. Atypical chest pain. 3. Acute on chronic diastolic congestive heart failure. 4. Hypertension. 5. Hyperlipidemia. 6. Dementia. 7. Chronic kidney disease. 8. Diabetes mellitus. Noé Venegas D.O. I have been assigned to dictate discharge summary on this account and I was not involved in the patient's management. Cassia Pedroza N.P. DR: Wilma JOB#: [id number] CC:
== END 2017-03-04 21:55 | disposition home health service (06) | DRG 291 ==
LOC: EDBD 16:32 → EMR 17:02 → 2E 17:31 → EDBEDREQ 03-01 05:58 → 2E 03-01 08:40 → 4E 03-03 19:01
DX: I13.0 Hypertensive heart and chronic kidney disease with heart failure and stage 1 through stage 4 chronic kidney disease, or unspecified chronic kidney disease (principal); I50.33 Acute on chronic diastolic (congestive) heart failure; N39.0 Urinary tract infection, site not specified; G30.9 Alzheimer's disease, unspecified; E11.9 Type 2 diabetes mellitus without complications; B96.20 Unspecified Escherichia coli [E. coli] as the cause of diseases classified elsewhere; E78.5 Hyperlipidemia, unspecified; D64.9 Anemia, unspecified; N18.9 Chronic kidney disease, unspecified; R07.89 Other chest pain; I45.10 Unspecified right bundle-branch block; I44.0 Atrioventricular block, first degree
CPT/HCPCS: 36415; 36600; 71010; 76775; 80048; 80053; 80061; 81001; 81003; 82378; 82436; 82533; 82550; 82553; 82607; 82746; 82803; 82962; 83540; 83550; 83615; 83735; 83880; 83930; 83935; 84100; 84133; 84300; 84439; 84443; 84481; 84484; 84550; 85007; 85025; 85044; 85060; 85610; 85651; 85730; 86140; 87081; 87086; 87181; 89050; 93306; 93970; 97803; J1815

== ENCOUNTER 2017-06-07 15:06 | Inpatient (IN) | payer MEDICARE, OTHER ==
[~2017-06-07] VITALS: Ht 157.5 cm; Wt 61.2 kg
[~2017-06-07 15:06] MED LIST: AMPICILLIN TRI500 MG ORAL; ASPIRIN81 MG ORAL; DOCUSATE SODIU100 MG ORAL; FAMOTIDINE20 MG ORAL; FUROSEMIDE40 MG ORAL; JANUVIA25 MG ORAL; LISINOPRIL10 MG ORAL; NAMENDA10 MG ORAL; QUETIAPINE FUMA50 MG ORAL; REPAGLINIDE1 MG PO; SIMVASTATIN40 MG ORAL; ZYRTEC10 MG ORAL
[2017-06-07 15:11] VITALS: BP 105/49
[2017-06-07] MEDS ORDERED: CITALOPRAM HBR20 M1 ORAL (15:16)
[2017-06-07] MEDS ORDERED: DONEPEZIL HCL10 M2 ORAL (15:16)
[2017-06-07] MEDS ORDERED: LUTEIN20 M1 PO (15:16)
[2017-06-07] MEDS ORDERED: TYLENOL650 MG/20. ORAL (15:16)
[2017-06-07] MEDS ORDERED: KETOROLAC TROMET5 ML OP (15:21)
[2017-06-07 15:31] LABS: BASOPHILS % (AUTO) 0.9 % (0.0-2.0); EOSINOPHILS % (AUTO) 2.3 % (0.0-3.0); LYMPHOCYTES % (AUTO) 28.9 % (20.0-45.0); MEAN CORPUSCULAR HGB CONC 34.6 G/DL (32.0-36.0); MEAN CORPUSCULAR VOLUME 95 FL (80-99); MEAN PLATELET VOLUME 10.8 FL (6.5-10.1); MONOCYTES % (AUTO) 7.4 % (1.0-10.0); NEUTROPHILS % (AUTO) 60.5 % (45.0-75.0); PLATELET COUNT 159 K/UL (150-450); RED BLOOD COUNT 3.27 M/UL (4.20-5.40); RED CELL DISTRIBUTION WIDTH 12.6 % (11.6-14.8); WHITE BLOOD COUNT 5.5 K/UL (4.8-10.8)
[2017-06-07 15:38] LABS: ALANINE AMINOTRANSFERASE 9 U/L (3-33); ALBUMIN/GLOBULIN RATIO 1.2 (1.0-2.7); ANION GAP 15 (5-15); ASPARTATE AMINO TRANSFERASE 20 U/L (5-40); CALCIUM 8.9 mg/dL (8.6-10.2); CARBON DIOXIDE 24 mEQ/L (20-30); CHLORIDE 99 mEQ/L (98-107); CREATININE 2.4 mg/dL (0.5-0.9); HEMOLYSIS 7; POTASSIUM 4.8 mEQ/L (3.4-4.9); SODIUM 138 mEQ/L (135-145); TOTAL PROTEIN 7.1 g/dL (6.6-8.7); TROPONIN I < 0.30 ng/mL (<=0.30)
[2017-06-07 15:48] LABS: CKMB 4.4 ng/mL (< 3.8)
[2017-06-07] MEDS ORDERED: Aspirin Baby 81mg ORAL ONE (16:15)
--- NOTE | 2017-06-07 16:23 | Emergency Room Report ---
History of Present Illness General Chief Complaint: Chest Pain Source: Patient, EMS Present Illness HPI 87-year-old female presents ED complaining of chest pain. Per EMS patient noted chest pain starting today while at rest. Patient denies any chest pain at this time states it went away. Denies any shortness of breath. Denies any fevers or chills. No other aggravating or relieving factors. Denies any other associated symptoms Allergies: Coded Allergies: No Known Allergies (Unverified , 01/14/17) Patient History Past Medical History: DM, HTN, dementia Past Surgical History: none Pertinent Family History: none Social History: Denies: alcohol use, drug use, smoking Immunizations: UTD Reviewed Nursing Documentation: PMH: Agreed, PSxH: Agreed Nursing Documentation-PMH Hx Cardiac Problems: No Hx Hypertension: Yes Hx Pacemaker: No Hx Asthma: No Hx COPD: No Hx Diabetes: Yes Hx Cancer: No Hx Gastrointestinal Problems: No Hx Dialysis: No History Of Psychiatric Problem: No Hx Neurological Problems: Yes - DEMENTIA Hx Cerebrovascular Accident: No Hx Dementia: Yes Hx Seizures: No Review of Systems All Other Systems: negative except mentioned in HPI Physical Exam Vital Signs Date Time Temp Pulse Resp B/P Pulse Ox O2 Delivery O2 Flow Rate FiO2 06/07/17 14:49 97.9 76 16 130/70 98 Room Air Sp02 EP Interpretation: reviewed, normal General Appearance: no apparent distress, alert, GCS 15, non-toxic Head: normocephalic, atraumatic Eyes: bilateral eye PERRL, bilateral eye normal inspection ENT: hearing grossly normal, normal pharynx, no angioedema, normal voice Neck: full range of motion, supple/symm/no masses Respiratory: chest non-tender, lungs clear, normal breath sounds, speaking full sentences Cardiovascular #1: regular rate, rhythm, no edema Cardiovascular #2: 2+ carotid (R), 2+ carotid (L), 2+ radial (R), 2+ radial (L) , 2+ dorsalis pedis (R), 2+ dorsalis pedis (L) Gastrointestinal: normal bowel sounds, non tender, soft, non-distended, no guarding, no rebound Rectal: deferred Genitourinary: normal inspection, no CVA tenderness Musculoskeletal: back normal, gait/station normal, normal range of motion, non- tender Neurologic: alert, oriented x3, responsive, motor strength/tone normal, sensory intact, speech normal Psychiatric: judgement/insight normal, memory normal, mood/affect normal, no suicidal/homicidal ideation Reflexes: 3+ bicep (R), 3+ bicep (L), 3+ tricep (R), 3+ tricep (L), 3+ knee (R) , 3+ knee (L) Skin: normal color, no rash, warm/dry, well hydrated Lymphatic: no adenopathy Medical Decision Making Diagnostic Impression: Primary Impression: ACS (acute coronary syndrome) Additional Impression: Chronic kidney disease Qualified Codes: N18.9 - Chronic kidney disease, unspecified ER Course Hospital Course 87-year-old female presents ED complaining of chest pain. No chest pain at this time Differential diagnoses include: PR/unstable angina, contusion, muscle strain, PTX, rib fracture Clinical course Patient placed on stretcher. on monitoring analyst. After initial history and physical I ordered labs, EKG, chest x-ray labs reviewed- no leukocytosis, hb/hct stable, BUN/CR elevated, trop negative EKG - 1st degree av block, RBBB, no acuete ischemic changes interpreted by me Chest x-ray- cardiomegaly. bilateral congestion/effusion noted given ASA in ED Case discussed with Dr. Venegas and he agreed to accept the patient to his service for further care and support I. I feel this is a highly complex case requiring extensive working including EKG/Rhythm strip, Xray/CT/US, Blood/urine lab work, repeat exams while in ED, and administration of strong opiates/narcotics for pain control, admission to hospital or close patient follow up. Diagnosis - ACS admitted to telemetry in serious condition Labs Test 06/07/17 15:08 06/07/17 15:54 White Blood Count 5.5 K/UL (4.8-10.8) Red Blood Count 3.27 M/UL (4.20-5.40) Hemoglobin 10.8 G/DL (12.0-16.0) Hematocrit 31.1 % (37.0-47.0) Mean Corpuscular Volume 95 FL (80-99) Mean Corpuscular Hemoglobin 33.0 PG (27.0-31.0) Mean Corpuscular Hemoglobin Concent 34.6 G/DL (32.0-36.0) Red Cell Distribution Width 12.6 % (11.6-14.8) Platelet Count 159 K/UL (150-450) Mean Platelet Volume 10.8 FL (6.5-10.1) Neutrophils (%) (Auto) 60.5 % (45.0-75.0) Lymphocytes (%) (Auto) 28.9 % (20.0-45.0) Monocytes (%) (Auto) 7.4 % (1.0-10.0) Eosinophils (%) (Auto) 2.3 % (0.0-3.0) Basophils (%) (Auto) 0.9 % (0.0-2.0) Sodium Level 138 mEQ/L (135-145) Potassium Level 4.8 mEQ/L (3.4-4.9) Chloride Level 99 mEQ/L (98-107) Carbon Dioxide Level 24 mEQ/L (20-30) Anion Gap 15 (5-15) Blood Urea Nitrogen 37 mg/dL (7-23) Creatinine 2.4 mg/dL (0.5-0.9) Estimat Glomerular Filtration Rate mL/min (>60) Glucose Level 150 mg/dL (74-106) Calcium Level 8.9 mg/dL (8.6-10.2) Total Bilirubin < 0.2 mg/dL (0.0-1.2) Aspartate Amino Transf (AST/SGOT) 20 U/L (5-40) Alanine Aminotransferase (ALT/SGPT) 9 U/L (3-33) Alkaline Phosphatase 91 U/L (35-104) Total Creatine Kinase 203 U/L (26-140) Troponin I < 0.30 ng/mL (<=0.30) Total Protein 7.1 g/dL (6.6-8.7) Albumin 4.0 g/dL (3.5-5.2) Globulin 3.1 g/dL Albumin/Globulin Ratio 1.2 (1.0-2.7) EKG Diagnostic Results Rate: normal Rhythm: other - 1st degree av block ST Segments: other - RBBB ASA given to the pt in ED: Yes Rhythm Strip Diag. Results EP Interpretation: yes Rhythm: no PVC's, no ectopy Chest X-Ray Diagnostic Results Chest X-Ray Diagnostic Results : Chest X-Ray Ordered: Yes # of Views/Limited/Complete: 1 View Indication: Chest Pain EP Interpretation: Yes Interpretation: no pneumothorax, other - cardiomegaly. bilateral congestion Impression: Other - cardiomegaly. bilateral congestion Interpreting ER Provider: Electronically signed by Tanvir Allen MD Last Vital Signs Date Time Temp Pulse Resp B/P Pulse Ox O2 Delivery O2 Flow Rate FiO2 06/07/17 15:11 97.9 58 14 105/49 98 Room Air Status: improved Disposition: ADMITTED INPATIENT Condition: Serious Referrals: NON PHYSICIAN (PCP) TANVIR ALLEN M.D. Jun 07, 2017 16:23
[2017-06-07] MEDS ORDERED: Ketorolac 30mg Inj IV PRN (16:30)
[2017-06-07] MEDS ORDERED: Enalaprilat 2.5mg/2ml Inj IV PRN (16:30)
[2017-06-07] MEDS ORDERED: Nitroglycerin Subl 0.4mg tab (Bottle Of 25) SL PRN (16:30)
[2017-06-07] MEDS ORDERED: Morphine Sulfate 2mg/ml Inj IVP PRN (16:30)
[2017-06-07] MEDS ORDERED: Diltiazem 25mg/5ml IV PRN (16:30)
[2017-06-07] MEDS ORDERED: DuoNeb 0.5-3(2.5)mg/3ml neb HHN PRN (16:30)
[2017-06-07 16:57] VITALS: BP 152/58
[2017-06-07 17:17] LABS: APPEARANCE,URINE CLOUDY; KETONES,URINE NEGATIVE (NEGATIVE); LEUKOCYTE ESTERASE ,URINE 3+ (NEGATIVE); NITRITE,URINE NEGATIVE (NEGATIVE); PH,URINE 5 (4.5-8.0); PROTEIN,URINE 2+ (NEGATIVE); UROBILINOGEN,URINE NORMAL MG/DL (0.0-1.0)
[2017-06-07 17:25] LABS: BACTERIA,URINE FEW /HPF; SQUAMOUS EPITHELIAL CELL,UR FEW /LPF (NONE/OCC); WBC,URINE TNTC /HPF (0 - 2)
[2017-06-07] MEDS ORDERED: Miralax 17gm pkt ORAL PRN (18:00)
[2017-06-07] MEDS ORDERED: cefTRIAXone 1 GM in NS 55 ML IVPB ONE (18:15)
[2017-06-07 18:55] VITALS: BP 156/58
[2017-06-07 19:35] VITALS: BP 126/76
[2017-06-07 20:17] VITALS: BP 132/57
[2017-06-07] MEDS: NovoLOG Insulin Flexpen SUBQ SCH (22:11)
[2017-06-07] MEDS: Heparin 5000 units/ml inj SUBQ SCH (22:12)
[2017-06-08] VITALS (8 sets, daily range): BP systolic 99–162; BP diastolic 39–83
[2017-06-08] MEDS: Heparin 5000 units/ml inj SUBQ SCH ×3 (06:00→20:49)
[2017-06-08] MEDS: NovoLOG Insulin Flexpen SUBQ SCH ×4 (06:14→20:48)
[2017-06-08 09:00] LABS: BASOPHILS % (AUTO) 0.9 % (0.0-2.0); EOSINOPHILS % (AUTO) 2.5 % (0.0-3.0); LYMPHOCYTES % (AUTO) 25.7 % (20.0-45.0); MEAN CORPUSCULAR HEMOGLOBIN 31.2 PG (27.0-31.0); MEAN CORPUSCULAR HGB CONC 32.3 G/DL (32.0-36.0); MEAN CORPUSCULAR VOLUME 97 FL (80-99); MEAN PLATELET VOLUME 10.9 FL (6.5-10.1); MONOCYTES % (AUTO) 7.9 % (1.0-10.0); PLATELET COUNT 141 K/UL (150-450); RED BLOOD COUNT 3.16 M/UL (4.20-5.40); RED CELL DISTRIBUTION WIDTH 12.8 % (11.6-14.8); WHITE BLOOD COUNT 4.2 K/UL (4.8-10.8)
[2017-06-08] MEDS ORDERED: Furosemide 40mg tab ORAL SCH (09:00)
[2017-06-08 09:04] LABS: PROTHROMBIN TIME 10.3 SEC (9.30-11.50)
[2017-06-08 09:09] LABS: CHOLESTEROL 161 mg/dL (< 200); CHOLESTEROL/HDL RATIO 3.3 (3.3-4.4); CRP QUANT < 0.3 mg/dL (< 0.5); HEMOLYSIS 3; LDL CHOLESTEROL (CALC.) 94 mg/dL (60-99)
[2017-06-08] MEDS: Aspirin Baby 81mg ORAL SCH (09:20)
[2017-06-08] MEDS: sitaGLIPtin 25mg tab ORAL SCH (09:21)
[2017-06-08] MEDS: Citalopram 20mg Tab ORAL SCH (09:21)
--- NOTE | 2017-06-08 11:56 | Consultation ---
History of Present Illness General Date patient seen: Jun 08, 2017 Chief Complaint: Chest Pain Referring physician: Dr. Venegas Reason for Consultation: chest pain Present Illness HPI 87-year-old female wit hx of HTN, DM, Dementia presented to ED complaining of chest pain at rest. The symptoms resolved by the time pt got to the ER . Denies any shortness of breath. Denies any fevers or chills. No other aggravating or relieving factors. Denies any other associated symptoms. Pt was found to be anemic with chronic renal insufficiency. She is admitted to telemetry for further evaluation. Allergies: Coded Allergies: No Known Allergies (Unverified , 01/14/17) Medication History Scheduled Ampicillin Trihydrate (Ampicillin Trihydrate), 500 MG ORAL Q8HR Aspirin* (Aspirin*), 81 MG ORAL DAILY, (Reported) Cetirizine Hcl* (Zyrtec*), 10 MG ORAL DAILY, (Reported) Citalopram Hydrobromide* (Citalopram Hbr*), 20 MG ORAL DAILY, (Reported) Docusate Sodium* (Docusate Sodium*), 100 MG ORAL TWICE A DAY, (Reported) Donepezil Hcl* (Donepezil Hcl*), 10 MG ORAL DAILY, (Reported) Famotidine (Famotidine), 20 MG ORAL DAILY, (Reported) Furosemide* (Lasix*), 40 MG ORAL DAILY, (Reported) Ketorolac Tromethamine (Ketorolac Tromethamine), 5 ML OP BID, (Reported) Lisinopril* (Lisinopril*), 10 MG ORAL DAILY, (Reported) Memantine Hcl* (Namenda*), 10 MG ORAL TWICE A DAY, (Reported) Quetiapine Fumarate* (Quetiapine Fumarate*), 50 MG ORAL BEDTIME, (Reported) Simvastatin (Zocor), 40 MG ORAL BEDTIME, (Reported) Sitagliptin* (Januvia*), 100 MG ORAL DAILY, (Reported) Scheduled PRN Acetaminophen (Acetaminophen), 650 MG ORAL Q6H PRN for Prn Headache/Temp > 101, (Reported) Miscellaneous Medications Lutein (Lutein), 20 MG PO, (Reported) Repaglinide (Repaglinide), 1 MG PO, (Reported) Patient History Healthcare decision maker Resuscitation status Full Code Advanced Directive on File No Past Medical/Surgical History Past Medical/Surgical History: (1) Diabetes mellitus (2) Alzheimer's dementia (3) Chronic kidney disease Review of Systems All Other Systems: negative except mentioned in HPI Physical Exam General Appearance: WD/WN, no apparent distress Lines, tubes and drains: peripheral HEENT: normocephalic, atraumatic Neck: non-tender, normal alignment Respiratory/Chest: chest wall non-tender, lungs clear, normal breath sounds Breasts: no masses Cardiovascular/Chest: normal peripheral pulses, regular rhythm Abdomen: normal bowel sounds Extremities: normal range of motion Last 24 Hour Vital Signs Date Time Temp Pulse Resp B/P Pulse Ox O2 Delivery O2 Flow Rate FiO2 06/08/17 08:06 81 18 Room Air 06/08/17 08:00 97.0 80 17 118/45 93 Room Air 06/08/17 08:00 81 06/08/17 04:16 06/08/17 02:43 75 18 Room Air 06/08/17 00:33 65 20 100/40 95 Room Air 06/08/17 00:10 96.8 72 20 99/39 93 Room Air 06/07/17 20:17 98.2 81 20 132/57 96 Nasal Cannula 2.0 06/07/17 20:05 83 06/07/17 19:35 98.2 82 22 126/76 97 Room Air 06/07/17 19:35 98.2 82 22 126/76 97 Room Air 06/07/17 18:55 98.1 78 14 156/58 96 Room Air 06/07/17 18:22 184/68 06/07/17 16:57 98.1 60 14 152/58 95 Room Air 06/07/17 15:11 97.9 58 14 105/49 98 Room Air 06/07/17 15:10 76 16 Room Air 06/07/17 14:49 97.9 76 16 130/70 98 Room Air Intake and Output 06/07/17 06/08/17 18:59 06:59 Intake Total 555 ml 120 ml Balance 555 ml 120 ml Intake Oral 120 ml IV Total 555 ml Laboratory Tests Test 06/07/17 15:08 06/07/17 15:54 06/08/17 08:32 White Blood Count 5.5 K/UL (4.8-10.8) 4.2 K/UL (4.8-10.8) L Red Blood Count 3.27 M/UL (4.20-5.40) L 3.16 M/UL (4.20-5.40) L Hemoglobin 10.8 G/DL (12.0-16.0) L 9.9 G/DL (12.0-16.0) L Hematocrit 31.1 % (37.0-47.0) L 30.5 % (37.0-47.0) L Mean Corpuscular Volume 95 FL (80-99) 97 FL (80-99) Mean Corpuscular Hemoglobin 33.0 PG (27.0-31.0) H 31.2 PG (27.0-31.0) H Mean Corpuscular Hemoglobin Concent 34.6 G/DL (32.0-36.0) 32.3 G/DL (32.0-36.0) Red Cell Distribution Width 12.6 % (11.6-14.8) 12.8 % (11.6-14.8) Platelet Count 159 K/UL (150-450) 141 K/UL (150-450) L Mean Platelet Volume 10.8 FL (6.5-10.1) H 10.9 FL (6.5-10.1) H Neutrophils (%) (Auto) 60.5 % (45.0-75.0) 63.0 % (45.0-75.0) Lymphocytes (%) (Auto) 28.9 % (20.0-45.0) 25.7 % (20.0-45.0) Monocytes (%) (Auto) 7.4 % (1.0-10.0) 7.9 % (1.0-10.0) Eosinophils (%) (Auto) 2.3 % (0.0-3.0) 2.5 % (0.0-3.0) Basophils (%) (Auto) 0.9 % (0.0-2.0) 0.9 % (0.0-2.0) Sodium Level 138 mEQ/L (135-145) Potassium Level 4.8 mEQ/L (3.4-4.9) Chloride Level 99 mEQ/L (98-107) Carbon Dioxide Level 24 mEQ/L (20-30) Anion Gap 15 (5-15) Blood Urea Nitrogen 37 mg/dL (7-23) H Creatinine 2.4 mg/dL (0.5-0.9) H Estimat Glomerular Filtration Rate mL/min (>60) Glucose Level 150 mg/dL (74-106) H Calcium Level 8.9 mg/dL (8.6-10.2) Total Bilirubin < 0.2 mg/dL (0.0-1.2) Aspartate Amino Transf (AST/SGOT) 20 U/L (5-40) Alanine Aminotransferase (ALT/SGPT) 9 U/L (3-33) Alkaline Phosphatase 91 U/L (35-104) Total Creatine Kinase 203 U/L (26-140) H Creatine Kinase MB 4.4 ng/mL (< 3.8) H Creatine Kinase MB Relative Index 2.1 Troponin I < 0.30 ng/mL (<=0.30) Total Protein 7.1 g/dL (6.6-8.7) Albumin 4.0 g/dL (3.5-5.2) Globulin 3.1 g/dL Albumin/Globulin Ratio 1.2 (1.0-2.7) Urine Color Pale yellow Urine Appearance Cloudy Urine pH 5 (4.5-8.0) Urine Specific [place] 1.010 (1.005-1.035) Urine Protein 2+ (NEGATIVE) H Urine Glucose (UA) Negative (NEGATIVE) Urine Ketones Negative (NEGATIVE) Urine Occult Blood 2+ (NEGATIVE) H Urine Nitrite Negative (NEGATIVE) Urine Bilirubin Negative (NEGATIVE) Urine Urobilinogen Normal MG/DL (0.0-1.0) Urine Leukocyte Esterase 3+ (NEGATIVE) H Urine RBC 2-4 /HPF (0 - 2) H Urine WBC Tntc /HPF (0 - 2) H Urine Squamous Epithelial Cells Few /LPF (NONE/OCC) Urine Bacteria Few /HPF (NONE) Prothrombin Time 10.3 SEC (9.30-11.50) Prothromb Time International Ratio 1.0 (0.9-1.1) Activated Partial Thromboplast Time 25 SEC (23-33) C-Reactive Protein, Quantitative < 0.3 mg/dL (< 0.5) Triglycerides Level 92 mg/dL (< 150) Cholesterol Level 161 mg/dL (< 200) LDL Cholesterol 94 mg/dL (60-99) HDL Cholesterol 49 mg/dL (> 60) Cholesterol/HDL Ratio 3.3 (3.3-4.4) Thyroid Stimulating Hormone (TSH) 2.280 uIU/mL (0.300-4.500) Microbiology Date/Time Source Procedure Growth Status 06/07/17 15:54 Urine,Clean Catch Urine Culture - Preliminary Resulted Height (Feet): 5 Height (Inches): 2.00 Weight (Pounds): 135 Medications Current Medications Medications (Trade) Dose Ordered Sig/Misty Route PRN Reason Start Time Stop Time Status Last Admin Dose Admin Acetaminophen (Tylenol) 650 mg Q4H PRN ORAL FEVER 06/07/17 18:00 07/07/17 17:59 Albuterol/ Ipratropium (DuoNeb 0.5-3(2.5)mg/3ml) 3 ml Q4H PRN HHN Shortness of Breath 06/07/17 16:30 06/12/17 16:29 Aspirin (ASA) 162 mg DAILY ORAL 06/08/17 09:00 07/08/17 08:59 06/08/17 09:20 Cetirizine HCl (ZyrTEC) 10 mg DAILY ORAL 06/08/17 09:00 07/08/17 08:59 06/08/17 09:21 Citalopram Hydrobromide (celeXA) 20 mg DAILY ORAL 06/08/17 09:00 07/08/17 08:59 06/08/17 09:21 Dextrose (Dextrose 50%) STAT PRN IV Hypoglycemia 06/07/17 18:00 07/07/17 17:59 Diltiazem HCl (Cardizem) 10 mg Q1H PRN IV HR>120 06/07/17 16:30 07/07/17 16:29 Enalaprilat (Vasotec) 2.5 mg Q6H PRN IV SBP > 160 06/07/17 16:30 07/07/17 16:29 Furosemide (Lasix) 40 mg DAILY ORAL 06/08/17 09:00 07/08/17 08:59 06/08/17 09:21 Heparin Sodium (Porcine) (Heparin 5000 units/ml) 5,000 units EVERY 8 HOURS SUBQ 06/07/17 22:00 07/07/17 21:59 06/07/17 22:12 Insulin Aspart (NovoLOG) BEFORE MEALS AND HS SUBQ 06/07/17 21:00 07/07/17 20:59 06/08/17 11:36 Ketorolac Tromethamine (Toradol 30mg) 15 mg Q6H PRN IV moderate pain ( 4-6) 06/07/17 16:30 06/12/17 16:29 Morphine Sulfate (Morphine Sulfate) 2 mg Q4H PRN IVP severe Pain (Pain Scale 7-10) 06/07/17 16:30 06/14/17 16:29 Nitroglycerin (Ntg) 0.4 mg Q5MIN PRN SL Prn Chest Pain 06/07/17 16:30 07/07/17 16:29 Ondansetron HCl (Zofran) 4 mg Q6H PRN IVP Nausea & Vomiting 06/07/17 16:30 07/07/17 16:29 Pantoprazole (Protonix) 40 mg DAILY ORAL 06/08/17 09:00 07/08/17 08:59 06/08/17 09:21 Polyethylene Glycol (Miralax) 17 gm DAILYPRN PRN ORAL Constipation 06/07/17 18:00 07/07/17 17:59 Quetiapine Fumarate (SEROquel) 50 mg BEDTIME ORAL 06/07/17 21:00 07/07/17 20:59 06/07/17 22:09 Sitagliptin Phosphate (Januvia) 25 mg DAILY ORAL 06/08/17 09:00 07/08/17 08:59 06/08/17 09:21 Temazepam (Restoril) 15 mg HSPRN PRN ORAL Insomnia 06/07/17 21:00 06/14/17 20:59 Assessment/Plan Problem List: (1) ACS (acute coronary syndrome) ICD Codes: I24.9 - Acute ischemic heart disease, unspecified SNOMED: 055313986 (2) Chronic kidney disease ICD Codes: N18.9 - Chronic kidney disease, unspecified SNOMED: 712766472 Qualifiers: Qualified Codes: N18.9 - Chronic kidney disease, unspecified (3) Alzheimer's dementia ICD Codes: G30.9 - Alzheimer's disease, unspecified SNOMED: 17966252 (4) Anemia ICD Codes: D64.9 - Anemia, unspecified SNOMED: 215863232 (5) Diabetes mellitus ICD Codes: E11.9 - Type 2 diabetes mellitus without complications SNOMED: 39731248 Assessment/Plan serial ekg, torponin echo anemia w/u sliding scale, diabetic diet dvt prophylaxis ALCON CROCKER Jun 08, 2017 11:56
[2017-06-08 12:16] LABS: URIC ACID 7.7 mg/dL (3.0-7.5)
--- NOTE | 2017-06-08 17:54 | Cardiology Progress Note ---
Assessment/Plan Assessment/Plan The patient is seen and examined, full consult note will be dictated. Objective Last 24 Hour Vital Signs Date Time Temp Pulse Resp B/P Pulse Ox O2 Delivery O2 Flow Rate FiO2 06/08/17 16:00 97.4 69 19 146/72 97 06/08/17 12:00 97.7 70 19 121/61 93 Room Air 06/08/17 12:00 67 06/08/17 08:06 81 18 Room Air 06/08/17 08:00 97.0 80 17 118/45 93 Room Air 06/08/17 08:00 81 06/08/17 04:16 06/08/17 02:43 75 18 Room Air 06/08/17 00:33 65 20 100/40 95 Room Air 06/08/17 00:10 96.8 72 20 99/39 93 Room Air 06/07/17 20:17 98.2 81 20 132/57 96 Nasal Cannula 2.0 06/07/17 20:05 83 06/07/17 19:35 98.2 82 22 126/76 97 Room Air 06/07/17 19:35 98.2 82 22 126/76 97 Room Air 06/07/17 18:55 98.1 78 14 156/58 96 Room Air 06/07/17 18:22 184/68 Intake and Output 06/07/17 06/08/17 18:59 06:59 Intake Total 555 ml 120 ml Balance 555 ml 120 ml Intake Oral 120 ml IV Total 555 ml Laboratory Tests Test 06/08/17 08:32 06/08/17 17:22 White Blood Count 4.2 K/UL (4.8-10.8) L Red Blood Count 3.16 M/UL (4.20-5.40) L Hemoglobin 9.9 G/DL (12.0-16.0) L Hematocrit 30.5 % (37.0-47.0) L Mean Corpuscular Volume 97 FL (80-99) Mean Corpuscular Hemoglobin 31.2 PG (27.0-31.0) H Mean Corpuscular Hemoglobin Concent 32.3 G/DL (32.0-36.0) Red Cell Distribution Width 12.8 % (11.6-14.8) Platelet Count 141 K/UL (150-450) L Mean Platelet Volume 10.9 FL (6.5-10.1) H Neutrophils (%) (Auto) 63.0 % (45.0-75.0) Lymphocytes (%) (Auto) 25.7 % (20.0-45.0) Monocytes (%) (Auto) 7.9 % (1.0-10.0) Eosinophils (%) (Auto) 2.5 % (0.0-3.0) Basophils (%) (Auto) 0.9 % (0.0-2.0) Prothrombin Time 10.3 SEC (9.30-11.50) Prothromb Time International Ratio 1.0 (0.9-1.1) Activated Partial Thromboplast Time 25 SEC (23-33) Uric Acid 7.7 mg/dL (3.0-7.5) H Total Creatine Kinase 176 U/L (26-140) H C-Reactive Protein, Quantitative < 0.3 mg/dL (< 0.5) Triglycerides Level 92 mg/dL (< 150) Cholesterol Level 161 mg/dL (< 200) LDL Cholesterol 94 mg/dL (60-99) HDL Cholesterol 49 mg/dL (> 60) Cholesterol/HDL Ratio 3.3 (3.3-4.4) Thyroid Stimulating Hormone (TSH) 2.280 uIU/mL (0.300-4.500) Troponin I Pending Microbiology Date/Time Source Procedure Growth Status 06/07/17 15:54 Urine,Clean Catch Urine Culture - Preliminary Resulted BLAKE GARZON Jun 08, 2017 17:54
[2017-06-08 18:04] LABS: TROPONIN I < 0.30 ng/mL (<=0.30)
--- NOTE | 2017-06-08 20:16 | History and Physical Report ---
DATE OF ADMISSION: 06/07/2017 CONSULTANTS: 1. Nilsa Chaudhry M.D. 2. Jaycob Ellsworth M.D. 3. Sirisha Ceballos M.D. 4. Ana Degroot M.D. CHIEF COMPLAINT: Chest pain and shortness of breath. BRIEF HISTORY: The patient is an 87-year-old female from home presents with increased chest pain and shortness of breath, came into [facility], diagnosed with the above, diagnosed with acute coronary syndrome, admitted to telemetry for further care. Currently, slightly confused in bed, refusing examination, no complaints otherwise. PAST MEDICAL HISTORY: Includes acute coronary syndrome, renal failure, chronic kidney disease, Alzheimer's, and diabetes. PAST SURGICAL HISTORY: Unknown. MEDICATIONS: Zyrtec, Celexa, Lasix, Januvia, aspirin, Protonix, heparin, Seroquel, Restoril, NovoLog, MiraLAX, Tylenol, nitroglycerin, morphine, Zofran, Vasotec, Cardizem. ALLERGIES: Denies. SOCIAL HISTORY: No smoking. No alcohol. No intravenous drug abuse. FAMILY HISTORY: Noncontributory. REVIEW OF SYSTEMS: Unavailable. PHYSICAL EXAMINATION: GENERAL: Awake in bed, confused, refusing examination. VITAL SIGNS: Temperature is 97 degrees, pulse 80, respirations 17, and blood pressure 118/45. NEUROLOGIC: The patient is refusing examination but moves all extremities, awake and oriented x1. LABORATORY DATA: Hemoglobin 10.8, otherwise is CBC is normal. BMP, BUN and creatinine 37 and 2.4. Glucose 150. Troponin less than 0.3, otherwise CMP is normal. PTT is pending. Urinalysis 3+ leukocyte esterase, otherwise normal. ASSESSMENT: 1. Acute coronary syndrome. 2. Shortness of breath. 3. Urinary tract infection. 4. Renal failure. 5. Alzheimer's. 6. Anemia. 7. Diabetes. PLAN: 1. Resume home medications. 2. OT/PT. 3. Dietary evaluation. 4. CBC and BMP in the morning. 5. Troponin q. 8 h x3. 6. EKG in the morning. 7. O2 and pulmonary treatment as needed. 8. Blood sugar control. 9. Dietary followup. 10. Antibiotics per Infectious disease. Dr. Chaudhry, Dr. Ellsworth, Dr. Ceballos, Dr. Zane Dr. to consult. Noé Venegas D.O. DR: Frances JOB#: [id number] CC:
[2017-06-09 03:54] VITALS: BP 123/72
[2017-06-09] MEDS: Heparin 5000 units/ml inj SUBQ SCH ×3 (06:00→22:26)
[2017-06-09] MEDS: NovoLOG Insulin Flexpen SUBQ SCH ×4 (06:19→21:00)
[2017-06-09 08:03] LABS: MEAN CORPUSCULAR HEMOGLOBIN 32.1 PG (27.0-31.0); MEAN CORPUSCULAR HGB CONC 33.5 G/DL (32.0-36.0); MEAN CORPUSCULAR VOLUME 96 FL (80-99); MEAN PLATELET VOLUME 10.7 FL (6.5-10.1); PLATELET COUNT 139 K/UL (150-450); RED BLOOD COUNT 3.21 M/UL (4.20-5.40); RED CELL DISTRIBUTION WIDTH 12.6 % (11.6-14.8); WHITE BLOOD COUNT 4.6 K/UL (4.8-10.8)
[2017-06-09 08:12] VITALS: BP 90/54
[2017-06-09] MEDS: Aspirin Baby 81mg ORAL SCH (08:26)
[2017-06-09] MEDS: Citalopram 20mg Tab ORAL SCH (08:26)
[2017-06-09] MEDS: sitaGLIPtin 25mg tab ORAL SCH (08:26)
[2017-06-09 08:31] LABS: ANION GAP 14 (5-15); CALCIUM 8.5 mg/dL (8.6-10.2); CARBON DIOXIDE 23 mEQ/L (20-30); CHLORIDE 105 mEQ/L (98-107); CREATININE 2.3 mg/dL (0.5-0.9); HEMOLYSIS 2; POTASSIUM 4.7 mEQ/L (3.4-4.9); SODIUM 142 mEQ/L (135-145)
[2017-06-09 08:34] LABS: TROPONIN I < 0.30 ng/mL (<=0.30)
[2017-06-09 08:36] LABS: HEMOLYSIS 9; IRON 49 ug/dL (37-145); LACTATE DEHYDROGENASE 192 U/L (135-230); TOTAL IRON BINDING CAPACITY 244 ug/dL (250-400)
--- NOTE | 2017-06-09 09:30 | Consultation ---
DATE OF CONSULTATION: 06/08/2017 NEPHROLOGY CONSULTATION REFERRING PHYSICIAN: Noé Venegas D.O. REASON FOR CONSULTATION: chronic kidney disease. HISTORY OF PRESENT ILLNESS: The patient is an 87-year-old female with past medical history significant for history of diabetes, hypertension, and history of possible chronic kidney disease unknown baseline creatinine, presented to the emergency room complaining of chest pain. Chest pain happened at rest. There is no aggravating or relieving factor. The patient also denies any shortness of breath or palpitations with chest pain. The patient consequently presented to ER, was admitted with diagnosis of acute coronary syndrome and acute versus chronic kidney disease. I was called for management of renal disease and electrolyte imbalance. PAST SURGICAL HISTORY: None. Medications: At home including aspirin 81 mg p.o. daily, Zetia 10 mg p.o. daily, folate 01:27 100 mg p.o. daily, mg p.o. daily, mg p.o. daily, lisinopril 10 mg p.o. daily, Januvia 100 mg p.o. daily, Zocor 40 mg p.o. daily, and mg p.o. daily. SOCIAL HISTORY: Lives at home with no current history of tobacco, alcohol, or drug use. FAMILY HISTORY: Noncontributory. REVIEW OF SYSTEMS: General: She complained of generalized weakness. Denied any fever, chills, or night sweats. Head And Neck: Denies any dysphagia, odynophagia, blurry vision, headache, or neck stiffness. Pulmonary: No shortness of breath. No cough. No sputum. Cardiovascular: As in the history of present illness. Gastrointestinal: Denies any nausea, vomiting, diarrhea, hematemesis, or hematochezia. Genitourinary: Denies any dysuria, frequency, or hematuria. Musculoskeletal: She complains of generalized weakness. Denies any localized weakness or numbness. PHYSICAL EXAMINATION: VITAL SIGNS: The patient has temperature of 98 degrees, blood pressure of 102/45, pulse rate of 80, and respiratory rate of 18. HEAD AND NECK: No JVP. No LAD. No thyromegaly. Extraocular movements intact. Pupils are reactive to light and accommodation. LUNGS: Clear to auscultation. CARDIAC: Regular rate and rhythm. S1 and S2. No murmur. No rub. ABDOMEN: Soft, nontender, and nondistended. EXTREMITIES: No edema. No clubbing. No cyanosis. Laboratory And Diagnostic Data: Sodium of 138, potassium of 4.8, chloride 99, 03:11, BUN 27, creatinine 2.4, and glucose of 150. Calcium of 8.9. AST of 20, ALT 9, and alkaline phosphatase of 91. Total CPK of 303. Cholesterol 161, LDL of 94, and HDL of 49. The patient has uric acid of 7.7. CBC revealed WBC count of 5.5, hemoglobin of 10.8, hematocrit of 31, and platelet count of 159,000. UA revealed specific gravity of 1.010, pH of 15 03:52, blood 2+, leukocyte esterase of 2+, RBCs 2 to 4, WBCs too numerous to count. ASSESSMENT: 1. 03:59. 2. Acute renal failure including acute tubular necrosis, prerenal azotemia, 04:09 3. Chronic kidney disease. 4. Hypertension, well controlled. 5. Diabetes. 6. 04:17 syndrome. 7. Dyslipidemia. Plan: Plan for the patient to obtain a random urine for protein to creatinine ratio to calculate proteinuria. Check urine sodium and creatinine to calculate fractional excretion of sodium. Ultrasound of the kidney to evaluate the kidney size. Check the hemoglobin A1c 04:30 for this patient is 6 to 7. . Again, I would like to thank, Dr. Noé Venegas, for allowing me to participate in the care of this patient. Sirisha Ceballos M.D. DR: Asif JOB#: [id number] CC:
[2017-06-09 09:37] LABS: ERYTHROCYTE SEDIMENTATION RATE 65 MM/HR (0-42); PATH BLOOD SMEAR/OMC SENT TO PATHOLOGIST
[2017-06-09 09:57] LABS: BAND NEUTROPHILS % (MANUAL) 0 % (0-8); BASOPHILS % (MANUAL) 0 % (0-2); EOSINOPHILS % (MANUAL) 2 % (0-3); HYPOCHROMASIA 1+; LYMPHOCYTES % (MANUAL) 40 % (20-45); NEUTROPHILS % (MANUAL) 54 % (45-75); PLATELET ESTIMATE DECREASED; PLATELET MORPHOLOGY NORMAL; TOTAL CELLS COUNTED 100
[2017-06-09 10:24] LABS: APPEARANCE,URINE CLEAR; KETONES,URINE NEGATIVE (NEGATIVE); LEUKOCYTE ESTERASE ,URINE 2+ (NEGATIVE); NITRITE,URINE NEGATIVE (NEGATIVE); PH,URINE 6 (4.5-8.0); PROTEIN,URINE NEGATIVE (NEGATIVE); UROBILINOGEN,URINE NORMAL MG/DL (0.0-1.0)
[2017-06-09 10:35] LABS: BACTERIA,URINE FEW /HPF; RBC,URINE 0-2 /HPF (0 - 2); SQUAMOUS EPITHELIAL CELL,UR FEW /LPF (NONE/OCC)
[2017-06-09 10:40] LABS: RETICULOCYTE COUNT 0.6 % (0.0-2.0)
[2017-06-09 11:18] VITALS: BP_SYST 136; BP_SYST 81; BP_DIAS 47; BP_DIAS 58
--- NOTE | 2017-06-09 11:51 | Pulmonology Progress Note ---
Assessment/Plan Problems: (1) ACS (acute coronary syndrome) (2) Chronic kidney disease (3) Alzheimer's dementia (4) Anemia (5) Diabetes mellitus Assessment/Plan check echo renal studies pending symptomatic treatment sliding scale pt/ot check electrolytes all noted Subjective ROS Limited/Unobtainable: No Interval Events: no new complains Allergies: Coded Allergies: No Known Allergies (Unverified , 01/14/17) Objective Last 24 Hour Vital Signs Date Time Temp Pulse Resp B/P Pulse Ox O2 Delivery O2 Flow Rate FiO2 06/09/17 11:18 97.5 64 21 136/58 94 Room Air 06/09/17 08:12 97.2 69 21 90/54 91 Room Air 06/09/17 08:00 70 06/09/17 07:48 75 18 Room Air 21 06/09/17 04:00 65 06/09/17 03:54 98.4 63 18 123/72 93 Room Air 06/09/17 00:00 58 06/08/17 23:49 97.6 67 19 128/75 95 Room Air 06/08/17 20:00 65 06/08/17 19:50 98.2 61 17 141/67 97 Room Air 06/08/17 19:30 70 18 Room Air 21 06/08/17 16:00 97.4 69 19 146/72 97 06/08/17 16:00 63 06/08/17 12:00 97.7 70 19 121/61 93 Room Air 06/08/17 12:00 67 Intake and Output 06/08/17 06/09/17 19:00 07:00 Intake Total 470 ml 100 ml Balance 470 ml 100 ml Intake Oral 470 ml 100 ml # Voids 1 General Appearance: WD/WN HEENT: normocephalic, atraumatic, anicteric Respiratory/Chest: chest wall non-tender, lungs clear, no respiratory distress Breasts: no masses Cardiovascular: normal peripheral pulses, normal rate Abdomen: normal bowel sounds, soft, non tender Extremities: no cyanosis Skin: no rash 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 Complete 06/07/17 15:54 Urine,Clean Catch Urine Culture - Preliminary Resulted 06/07/17 19:30 Rectum VRE Culture - Final NO VANCOMYCIN RESISTANT ENTEROCOCCUS ... Complete Laboratory Tests 06/08/17 17:22: Troponin I < 0.30 06/09/17 07:35: Troponin I < 0.30, White Blood Count 4.6L, Red Blood Count 3.21L, Hemoglobin 10.3L, Hematocrit 30.7L, Mean Corpuscular Volume 96, Mean Corpuscular Hemoglobin 32.1H, Mean Corpuscular Hemoglobin Concent 33.5, Red Cell Distribution Width 12.6, Platelet Count 139L, Mean Platelet Volume 10.7H, Neutrophils (%) (Auto) , Lymphocytes (%) (Auto) , Monocytes (%) (Auto) , Eosinophils (%) (Auto) , Basophils (%) (Auto) , Differential Total Cells Counted 100, Neutrophils % (Manual) 54, Lymphocytes % (Manual) 40, Monocytes % ( Manual) 4, Eosinophils % (Manual) 2, Basophils % (Manual) 0, Band Neutrophils 0 , Platelet Estimate DecreasedL, Platelet Morphology Normal, Hypochromasia 1+, Erythrocyte Sedimentation Rate 65H, Reticulocyte Count 0.6, Sodium Level 142, Potassium Level 4.7, Chloride Level 105, Carbon Dioxide Level 23, Anion Gap 14, Blood Urea Nitrogen 39H, Creatinine 2.3H, Estimat Glomerular Filtration Rate , Glucose Level 135H, Calcium Level 8.5L, Iron Level 49, Total Iron Binding Capacity 244L, Percent Iron Saturation 20, Unsaturated Iron Binding 195, Lactate Dehydrogenase 192, Carcinoembryonic Antigen 2.6, Vitamin B12 Level 402, Folate [Pending] 06/09/17 08:10: Urine Color Pale yellow, Urine Appearance Clear, Urine pH 6, Urine Specific [place] 1.010, Urine Protein Negative, Urine Glucose (UA) Negative, Urine Ketones Negative, Urine Occult Blood Negative, Urine Nitrite Negative, Urine Bilirubin Negative, Urine Urobilinogen Normal, Urine Leukocyte Esterase 2+H, Urine RBC 0-2, Urine WBC 5-10H, Urine Squamous Epithelial Cells Few, Urine Bacteria Few, Urine Eosinophils None seen, Urine Random Creatinine [Pending], Urine Random Microalbumin [Pending], Urine Random Total Protein 5, Urine Random Sodium 80, Urine Creatinine 66.2, Urine Microalbumin/Creatinine Ratio [Pending] , Urine Potassium Timed 36 Current Medications Medications (Trade) Dose Ordered Sig/Misty Route PRN Reason Start Time Stop Time Status Last Admin Dose Admin Acetaminophen (Tylenol) 650 mg Q4H PRN ORAL FEVER 06/07/17 18:00 07/07/17 17:59 Albuterol/ Ipratropium (DuoNeb 0.5-3(2.5)mg/3ml) 3 ml Q4H PRN HHN Shortness of Breath 06/07/17 16:30 06/12/17 16:29 Aspirin (ASA) 162 mg DAILY ORAL 06/08/17 09:00 07/08/17 08:59 06/09/17 08:26 Atorvastatin Calcium (Lipitor) 40 mg BEDTIME ORAL 06/08/17 21:00 07/08/17 20:59 06/08/17 20:47 Cetirizine HCl (ZyrTEC) 10 mg DAILY ORAL 06/08/17 09:00 07/08/17 08:59 06/09/17 08:26 Citalopram Hydrobromide (celeXA) 20 mg DAILY ORAL 06/08/17 09:00 07/08/17 08:59 06/09/17 08:26 Dextrose (Dextrose 50%) STAT PRN IV Hypoglycemia 06/07/17 18:00 07/07/17 17:59 Diltiazem HCl (Cardizem) 10 mg Q1H PRN IV HR>120 06/07/17 16:30 07/07/17 16:29 Enalaprilat (Vasotec) 2.5 mg Q6H PRN IV SBP > 160 06/07/17 16:30 07/07/17 16:29 Heparin Sodium (Porcine) (Heparin 5000 units/ml) 5,000 units EVERY 8 HOURS SUBQ 06/07/17 22:00 07/07/17 21:59 06/08/17 20:49 Insulin Aspart (NovoLOG) BEFORE MEALS AND HS SUBQ 06/07/17 21:00 07/07/17 20:59 06/09/17 11:34 Ketorolac Tromethamine (Toradol 30mg) 15 mg Q6H PRN IV moderate pain ( 4-6) 06/07/17 16:30 06/12/17 16:29 Morphine Sulfate (Morphine Sulfate) 2 mg Q4H PRN IVP severe Pain (Pain Scale 7-10) 06/07/17 16:30 06/14/17 16:29 Nitroglycerin (Ntg) 0.4 mg Q5MIN PRN SL Prn Chest Pain 06/07/17 16:30 07/07/17 16:29 Ondansetron HCl (Zofran) 4 mg Q6H PRN IVP Nausea & Vomiting 06/07/17 16:30 07/07/17 16:29 Pantoprazole (Protonix) 40 mg DAILY ORAL 06/08/17 09:00 07/08/17 08:59 06/09/17 08:26 Polyethylene Glycol (Miralax) 17 gm DAILYPRN PRN ORAL Constipation 06/07/17 18:00 07/07/17 17:59 Quetiapine Fumarate (SEROquel) 50 mg BEDTIME ORAL 06/07/17 21:00 07/07/17 20:59 06/08/17 20:46 Sitagliptin Phosphate (Januvia) 25 mg DAILY ORAL 06/08/17 09:00 07/08/17 08:59 06/09/17 08:26 Temazepam (Restoril) 15 mg HSPRN PRN ORAL Insomnia 06/07/17 21:00 06/14/17 20:59 ALCON CROCKER Jun 09, 2017 11:51
--- NOTE | 2017-06-09 13:43 | General Progress Note ---
Assessment/Plan Problem List: (1) Pyuria ICD Codes: N39.0 - Urinary tract infection, site not specified SNOMED: 9245101, 926695426, 127168281 (2) UTI (urinary tract infection) ICD Codes: N39.0 - Urinary tract infection, site not specified SNOMED: 19426091 (3) Chronic kidney disease ICD Codes: N18.9 - Chronic kidney disease, unspecified SNOMED: 568348639 Qualifiers: Qualified Codes: N18.9 - Chronic kidney disease, unspecified (4) Diabetes mellitus ICD Codes: E11.9 - Type 2 diabetes mellitus without complications SNOMED: 78136848 (5) Alzheimer's dementia ICD Codes: G30.9 - Alzheimer's disease, unspecified SNOMED: 51568985 (6) Anemia ICD Codes: D64.9 - Anemia, unspecified SNOMED: 867148538 (7) Chest pain ICD Codes: R07.9 - Chest pain, unspecified SNOMED: 87547388 (8) ACS (acute coronary syndrome) ICD Codes: I24.9 - Acute ischemic heart disease, unspecified SNOMED: 341444210 Status: stable, progressing, tolerating diet Assessment/Plan ot pt abx cbc bmp am promise ltach eval Subjective Constitutional: Reports: weakness Allergies: Coded Allergies: No Known Allergies (Unverified , 01/14/17) All Systems: reviewed and negative except above Subjective sleepy calm Objective Last 24 Hour Vital Signs Date Time Temp Pulse Resp B/P Pulse Ox O2 Delivery O2 Flow Rate FiO2 06/09/17 12:00 69 06/09/17 11:18 97.5 64 21 136/58 94 Room Air 06/09/17 08:12 97.2 69 21 90/54 91 Room Air 06/09/17 08:00 70 06/09/17 07:48 75 18 Room Air 06/09/17 04:00 65 06/09/17 03:54 98.4 63 18 123/72 93 Room Air 06/09/17 00:00 58 06/08/17 23:49 97.6 67 19 128/75 95 Room Air 06/08/17 20:00 65 06/08/17 19:50 98.2 61 17 141/67 97 Room Air 06/08/17 19:30 70 18 Room Air 21 06/08/17 16:00 97.4 69 19 146/72 97 06/08/17 16:00 63 Intake and Output 06/08/17 06/09/17 19:00 07:00 Intake Total 470 ml 100 ml Balance 470 ml 100 ml Intake Oral 470 ml 100 ml # Voids 1 Laboratory Tests 06/08/17 17:22: Troponin I < 0.30 06/09/17 07:35: Troponin I < 0.30, White Blood Count 4.6L, Red Blood Count 3.21L, Hemoglobin 10.3L, Hematocrit 30.7L, Mean Corpuscular Volume 96, Mean Corpuscular Hemoglobin 32.1H, Mean Corpuscular Hemoglobin Concent 33.5, Red Cell Distribution Width 12.6, Platelet Count 139L, Mean Platelet Volume 10.7H, Neutrophils (%) (Auto) , Lymphocytes (%) (Auto) , Monocytes (%) (Auto) , Eosinophils (%) (Auto) , Basophils (%) (Auto) , Differential Total Cells Counted 100, Neutrophils % (Manual) 54, Lymphocytes % (Manual) 40, Monocytes % ( Manual) 4, Eosinophils % (Manual) 2, Basophils % (Manual) 0, Band Neutrophils 0 , Platelet Estimate DecreasedL, Platelet Morphology Normal, Hypochromasia 1+, Erythrocyte Sedimentation Rate 65H, Reticulocyte Count 0.6, Sodium Level 142, Potassium Level 4.7, Chloride Level 105, Carbon Dioxide Level 23, Anion Gap 14, Blood Urea Nitrogen 39H, Creatinine 2.3H, Estimat Glomerular Filtration Rate , Glucose Level 135H, Calcium Level 8.5L, Iron Level 49, Total Iron Binding Capacity 244L, Percent Iron Saturation 20, Unsaturated Iron Binding 195, Lactate Dehydrogenase 192, Carcinoembryonic Antigen 2.6, Vitamin B12 Level 402, Folate [Pending] 06/09/17 08:10: Urine Color Pale yellow, Urine Appearance Clear, Urine pH 6, Urine Specific [place] 1.010, Urine Protein Negative, Urine Glucose (UA) Negative, Urine Ketones Negative, Urine Occult Blood Negative, Urine Nitrite Negative, Urine Bilirubin Negative, Urine Urobilinogen Normal, Urine Leukocyte Esterase 2+H, Urine RBC 0-2, Urine WBC 5-10H, Urine Squamous Epithelial Cells Few, Urine Bacteria Few, Urine Eosinophils None seen, Urine Random Creatinine [Pending], Urine Random Microalbumin [Pending], Urine Random Total Protein 5, Urine Random Sodium 80, Urine Creatinine 66.2, Urine Microalbumin/Creatinine Ratio [Pending] , Urine Potassium Timed 36 Height (Feet): 5 Height (Inches): 2.00 Weight (Pounds): 135 General Appearance: lethargic EENT: normal ENT inspection Neck: normal alignment Cardiovascular: normal peripheral pulses, normal rate, regular rhythm Respiratory/Chest: chest wall non-tender, lungs clear, normal breath sounds Abdomen: normal bowel sounds, non tender, soft Extremities: normal inspection Edema: no edema noted Arm (L), no edema noted Arm (R), no edema noted Leg (L), no edema noted Leg (R), no edema noted Pedal (L), no edema noted Pedal (R), no edema noted Generalized Neurologic: motor weakness Skin: normal pigmentation, warm/dry SHELBY MARTINI Jun 09, 2017 13:43
--- NOTE | 2017-06-09 15:38 | Nephrology Progress Note ---
Assessment/Plan Assessment 1.JULIAN 2. CKD 3.HTN 4.ACS 5.Hypocalcemia Plan plan fallow up with urine study check renal us monitoring renal function avoid NSAID Replace electrolyte as need it Subjective Constitutional: Reports: no symptoms HEENT: Reports: no symptoms Genitourinary: Reports: no symptoms Neurologic/Psychiatric: Reports: no symptoms Subjective awake but confused no acute events over night Objective Objective Last 24 Hour Vital Signs Date Time Temp Pulse Resp B/P Pulse Ox O2 Delivery O2 Flow Rate FiO2 06/09/17 12:00 69 06/09/17 11:18 97.5 64 21 136/58 94 Room Air 06/09/17 08:12 97.2 69 21 90/54 91 Room Air 06/09/17 08:00 70 06/09/17 07:48 75 18 Room Air 21 06/09/17 04:00 65 06/09/17 03:54 98.4 63 18 123/72 93 Room Air 06/09/17 00:00 58 06/08/17 23:49 97.6 67 19 128/75 95 Room Air 06/08/17 20:00 65 06/08/17 19:50 98.2 61 17 141/67 97 Room Air 06/08/17 19:30 70 18 Room Air 21 06/08/17 16:00 97.4 69 19 146/72 97 06/08/17 16:00 63 Intake and Output 06/08/17 06/09/17 19:00 07:00 Intake Total 470 ml 100 ml Balance 470 ml 100 ml Intake Oral 470 ml 100 ml # Voids 1 Laboratory Tests 06/08/17 17:22: Troponin I < 0.30 06/09/17 07:35: Troponin I < 0.30, White Blood Count 4.6L, Red Blood Count 3.21L, Hemoglobin 10.3L, Hematocrit 30.7L, Mean Corpuscular Volume 96, Mean Corpuscular Hemoglobin 32.1H, Mean Corpuscular Hemoglobin Concent 33.5, Red Cell Distribution Width 12.6, Platelet Count 139L, Mean Platelet Volume 10.7H, Neutrophils (%) (Auto) , Lymphocytes (%) (Auto) , Monocytes (%) (Auto) , Eosinophils (%) (Auto) , Basophils (%) (Auto) , Differential Total Cells Counted 100, Neutrophils % (Manual) 54, Lymphocytes % (Manual) 40, Monocytes % ( Manual) 4, Eosinophils % (Manual) 2, Basophils % (Manual) 0, Band Neutrophils 0 , Platelet Estimate DecreasedL, Platelet Morphology Normal, Hypochromasia 1+, Erythrocyte Sedimentation Rate 65H, Reticulocyte Count 0.6, Sodium Level 142, Potassium Level 4.7, Chloride Level 105, Carbon Dioxide Level 23, Anion Gap 14, Blood Urea Nitrogen 39H, Creatinine 2.3H, Estimat Glomerular Filtration Rate , Glucose Level 135H, Calcium Level 8.5L, Iron Level 49, Total Iron Binding Capacity 244L, Percent Iron Saturation 20, Unsaturated Iron Binding 195, Lactate Dehydrogenase 192, Carcinoembryonic Antigen 2.6, Vitamin B12 Level 402, Folate [Pending] 06/09/17 08:10: Urine Color Pale yellow, Urine Appearance Clear, Urine pH 6, Urine Specific [place] 1.010, Urine Protein Negative, Urine Glucose (UA) Negative, Urine Ketones Negative, Urine Occult Blood Negative, Urine Nitrite Negative, Urine Bilirubin Negative, Urine Urobilinogen Normal, Urine Leukocyte Esterase 2+H, Urine RBC 0-2, Urine WBC 5-10H, Urine Squamous Epithelial Cells Few, Urine Bacteria Few, Urine Eosinophils None seen, Urine Random Creatinine [Pending], Urine Random Microalbumin [Pending], Urine Random Total Protein 5, Urine Random Sodium 80, Urine Creatinine 66.2, Urine Microalbumin/Creatinine Ratio [Pending] , Urine Potassium Timed 36 Height (Feet): 5 Height (Inches): 2.00 Weight (Pounds): 135 Objective HEAD AND NECK: No JVP. No LAD. No thyromegaly. Extraocular movements intact. Pupils are reactive to light and accommodation. LUNGS: Clear to auscultation. CARDIAC: Regular rate and rhythm. S1 and S2. No murmur. No rub. ABDOMEN: Soft, nontender, and nondistended. EXTREMITIES: No edema. No clubbing. No cyanosis. DANA SINGH Jun 09, 2017 15:38
[2017-06-09 16:00] VITALS: BP 135/62
--- NOTE | 2017-06-09 18:14 | Cardiology Report ---
APPROVED REPORT EKG Measurement Heart [id number] Sinus rhythm with 1st degree AV block Right bundle branch block Abnormal ECG
[2017-06-09 20:03] VITALS: BP 157/68
--- NOTE | 2017-06-09 23:51 | Cardiology Progress Note ---
Assessment/Plan Assessment/Plan 1. Atypical chest pain, a few risk factors for CAD including DM, has refused stress test in the past, she again was reluctant to proceed with the stress test. 2. HTN 3. DM, continue ASA and statins. 4. CKD 5. Dementia Subjective Subjective Refused the stress test today. Denies chest pain. SR at 63. Objective Last 24 Hour Vital Signs Date Time Temp Pulse Resp B/P Pulse Ox O2 Delivery O2 Flow Rate FiO2 06/09/17 20:03 97.2 60 19 157/68 96 Room Air 06/09/17 19:30 64 18 Room Air 21 06/09/17 16:00 97.2 66 20 135/62 92 Room Air 06/09/17 16:00 64 06/09/17 12:00 69 06/09/17 11:18 97.5 64 21 136/58 94 Room Air 06/09/17 08:12 97.2 69 21 90/54 91 Room Air 06/09/17 08:00 70 06/09/17 07:48 75 18 Room Air 06/09/17 04:00 65 06/09/17 03:54 98.4 63 18 123/72 93 Room Air 06/09/17 00:00 58 06/08/17 23:49 97.6 67 19 128/75 95 Room Air Intake and Output 06/08/17 06/09/17 19:00 07:00 Intake Total 470 ml 100 ml Balance 470 ml 100 ml Intake Oral 470 ml 100 ml # Voids 1 2D Echo: EF 70%, Mod LVH, Grade I LVDD, RVSP 45 mmHg Laboratory Tests Test 06/09/17 07:35 06/09/17 08:10 White Blood Count 4.6 K/UL (4.8-10.8) L Red Blood Count 3.21 M/UL (4.20-5.40) L Hemoglobin 10.3 G/DL (12.0-16.0) L Hematocrit 30.7 % (37.0-47.0) L Mean Corpuscular Volume 96 FL (80-99) Mean Corpuscular Hemoglobin 32.1 PG (27.0-31.0) H Mean Corpuscular Hemoglobin Concent 33.5 G/DL (32.0-36.0) Red Cell Distribution Width 12.6 % (11.6-14.8) Platelet Count 139 K/UL (150-450) L Mean Platelet Volume 10.7 FL (6.5-10.1) H Neutrophils (%) (Auto) % (45.0-75.0) Lymphocytes (%) (Auto) % (20.0-45.0) Monocytes (%) (Auto) % (1.0-10.0) Eosinophils (%) (Auto) % (0.0-3.0) Basophils (%) (Auto) % (0.0-2.0) Differential Total Cells Counted 100 Neutrophils % (Manual) 54 % (45-75) Lymphocytes % (Manual) 40 % (20-45) Monocytes % (Manual) 4 % (1-10) Eosinophils % (Manual) 2 % (0-3) Basophils % (Manual) 0 % (0-2) Band Neutrophils 0 % (0-8) Platelet Estimate Decreased L Platelet Morphology Normal Hypochromasia 1+ Erythrocyte Sedimentation Rate 65 MM/HR (0-42) H Reticulocyte Count 0.6 % (0.0-2.0) Sodium Level 142 mEQ/L (135-145) Potassium Level 4.7 mEQ/L (3.4-4.9) Chloride Level 105 mEQ/L (98-107) Carbon Dioxide Level 23 mEQ/L (20-30) Anion Gap 14 (5-15) Blood Urea Nitrogen 39 mg/dL (7-23) H Creatinine 2.3 mg/dL (0.5-0.9) H Estimat Glomerular Filtration Rate mL/min (>60) Glucose Level 135 mg/dL (74-106) H Calcium Level 8.5 mg/dL (8.6-10.2) L Iron Level 49 ug/dL (37-145) Total Iron Binding Capacity 244 ug/dL (250-400) L Percent Iron Saturation 20 % (15-50) Unsaturated Iron Binding 195 ug/dL (112-346) Lactate Dehydrogenase 192 U/L (135-230) Troponin I < 0.30 ng/mL (<=0.30) Carcinoembryonic Antigen 2.6 ng/mL Vitamin B12 Level 402 pg/mL (211-946) Folate Pending Urine Color Pale yellow Urine Appearance Clear Urine pH 6 (4.5-8.0) Urine Specific [place] 1.010 (1.005-1.035) Urine Protein Negative (NEGATIVE) Urine Glucose (UA) Negative (NEGATIVE) Urine Ketones Negative (NEGATIVE) Urine Occult Blood Negative (NEGATIVE) Urine Nitrite Negative (NEGATIVE) Urine Bilirubin Negative (NEGATIVE) Urine Urobilinogen Normal MG/DL (0.0-1.0) Urine Leukocyte Esterase 2+ (NEGATIVE) H Urine RBC 0-2 /HPF (0 - 2) Urine WBC 5-10 /HPF (0 - 2) H Urine Squamous Epithelial Cells Few /LPF (NONE/OCC) Urine Bacteria Few /HPF (NONE) Urine Eosinophils None seen Urine Random Creatinine Pending Urine Random Microalbumin Pending Urine Random Total Protein 5 mg/dL Urine Random Sodium 80 mmol/L Urine Creatinine 66.2 mg/dL Urine Microalbumin/Creatinine Ratio Pending Urine Potassium Timed 36 mmol/L Microbiology Date/Time Source Procedure Growth Status 06/07/17 19:30 Nasal Nares MRSA Culture - Final NO METHICILLIN RESISTANT STAPH AUREUS... Complete 06/07/17 15:54 Urine,Clean Catch Urine Culture - Preliminary Resulted 06/07/17 19:30 Rectum VRE Culture - Final NO VANCOMYCIN RESISTANT ENTEROCOCCUS ... Complete Objective HEAD AND : Atraumatic, normocephalic, Extraocular movements intact. Pupils are equal, reactive to light and accommodation. NECK: No JVD, carotid upstroke 2+, no bruit LUNGS: Clear to auscultation. CARDIAC: Regular rate and rhythm. S1 and S2. No murmurs, gallops or rubs. ABDOMEN: Soft, nontender, nondistended, + BS EXTREMITIES: No edema. No clubbing. No cyanosis. BLAKE GARZON Jun 09, 2017 23:51
[2017-06-10] VITALS: BP 127/54
[2017-06-10 03:43] VITALS: BP 130/61
[2017-06-10] MEDS: Heparin 5000 units/ml inj SUBQ SCH ×2 (06:04→13:38)
[2017-06-10] MEDS: NovoLOG Insulin Flexpen SUBQ SCH ×3 (06:14→16:29)
[2017-06-10 07:59] LABS: BASOPHILS % (AUTO) 0.9 % (0.0-2.0); EOSINOPHILS % (AUTO) 3.2 % (0.0-3.0); LYMPHOCYTES % (AUTO) 32.4 % (20.0-45.0); MEAN CORPUSCULAR HEMOGLOBIN 31.9 PG (27.0-31.0); MEAN CORPUSCULAR HGB CONC 32.5 G/DL (32.0-36.0); MEAN CORPUSCULAR VOLUME 98 FL (80-99); MEAN PLATELET VOLUME 10.7 FL (6.5-10.1); NEUTROPHILS % (AUTO) 56.5 % (45.0-75.0); PLATELET COUNT 152 K/UL (150-450); RED BLOOD COUNT 3.38 M/UL (4.20-5.40); RED CELL DISTRIBUTION WIDTH 13.2 % (11.6-14.8); WHITE BLOOD COUNT 4.6 K/UL (4.8-10.8)
[2017-06-10 08:00] VITALS: BP 133/59
[2017-06-10 08:10] LABS: ANION GAP 12 (5-15); CARBON DIOXIDE 23 mEQ/L (20-30); CHLORIDE 106 mEQ/L (98-107); CREATININE 2.1 mg/dL (0.5-0.9); HEMOLYSIS 1; POTASSIUM 4.5 mEQ/L (3.4-4.9); SODIUM 141 mEQ/L (135-145)
[2017-06-10] MEDS: sitaGLIPtin 25mg tab ORAL SCH (08:26)
[2017-06-10] MEDS: Citalopram 20mg Tab ORAL SCH (08:26)
[2017-06-10] MEDS: Aspirin Baby 81mg ORAL SCH (08:26)
--- NOTE | 2017-06-10 09:19 | Nephrology Progress Note ---
Assessment/Plan Assessment 1.JULIAN 2. CKD 3.HTN 4.ACS 5.Hypocalcemia Plan plan fallow up with urine study check renal us monitoring renal function avoid NSAID Replace electrolyte as need it Subjective Constitutional: Reports: no symptoms HEENT: Reports: no symptoms Genitourinary: Reports: no symptoms Neurologic/Psychiatric: Reports: no symptoms Subjective alert and awake no acute events over night Objective Objective Last 24 Hour Vital Signs Date Time Temp Pulse Resp B/P Pulse Ox O2 Delivery O2 Flow Rate FiO2 06/10/17 08:00 97.5 64 18 133/59 94 Room Air 06/10/17 08:00 66 06/10/17 07:44 3 18 Room Air 21 06/10/17 04:00 58 06/10/17 03:43 97.6 61 21 130/61 96 06/10/17 00:00 97.3 66 21 127/54 96 Room Air 06/10/17 00:00 85 06/09/17 20:03 97.2 60 19 157/68 96 Room Air 06/09/17 19:30 64 18 Room Air 21 06/09/17 16:00 97.2 66 20 135/62 92 Room Air 06/09/17 16:00 64 06/09/17 12:00 69 06/09/17 11:18 97.5 64 21 136/58 94 Room Air Intake and Output 06/09/17 06/10/17 19:00 07:00 Intake Total 100 ml 10 ml Balance 100 ml 10 ml Intake Oral 100 ml 10 ml # Voids 6 4 Laboratory Tests 06/10/17 07:35: White Blood Count 4.6L, Red Blood Count 3.38L, Hemoglobin 10.8L, Hematocrit 33.2L, Mean Corpuscular Volume 98, Mean Corpuscular Hemoglobin 31.9H, Mean Corpuscular Hemoglobin Concent 32.5, Red Cell Distribution Width 13.2, Platelet Count 152, Mean Platelet Volume 10.7H, Neutrophils (%) (Auto) 56.5, Lymphocytes (%) (Auto) 32.4, Monocytes (%) (Auto) 7.0, Eosinophils (%) (Auto) 3.2H, Basophils (%) (Auto) 0.9, Sodium Level 141, Potassium Level 4.5, Chloride Level 106, Carbon Dioxide Level 23, Anion Gap 12, Blood Urea Nitrogen 35H, Creatinine 2.1H, Estimat Glomerular Filtration Rate , Glucose Level 134H, Calcium Level 9.0 Height (Feet): 5 Height (Inches): 2.00 Weight (Pounds): 135 Objective HEAD AND NECK: No JVP. No LAD. No thyromegaly. Extraocular movements intact. Pupils are reactive to light and accommodation. LUNGS: Clear to auscultation. CARDIAC: Regular rate and rhythm. S1 and S2. No murmur. No rub. ABDOMEN: Soft, nontender, and nondistended. EXTREMITIES: No edema. No clubbing. No cyanosis. DANA SINGH Jun 10, 2017 09:19
[2017-06-10 12:00] VITALS: BP 96/67
[2017-06-10] MEDS ORDERED: Adenosine Inj IVP ONE (12:00)
[2017-06-10 12:10] LABS: CREATININE RANDOM URINE 67.4 mg/dL (Not Estab.); MICROALBUMIN/CREATININE RATIO 4.5 mg/g creat (0.0-30.0)
--- NOTE | 2017-06-10 12:41 | General Progress Note ---
Assessment/Plan Problem List: (1) Pyuria ICD Codes: N39.0 - Urinary tract infection, site not specified SNOMED: 7629155, 356006526, 910886470 (2) UTI (urinary tract infection) ICD Codes: N39.0 - Urinary tract infection, site not specified SNOMED: 79573577 (3) Chronic kidney disease ICD Codes: N18.9 - Chronic kidney disease, unspecified SNOMED: 494193803 Qualifiers: Qualified Codes: N18.9 - Chronic kidney disease, unspecified (4) Diabetes mellitus ICD Codes: E11.9 - Type 2 diabetes mellitus without complications SNOMED: 00965022 (5) Alzheimer's dementia ICD Codes: G30.9 - Alzheimer's disease, unspecified SNOMED: 53982330 (6) Anemia ICD Codes: D64.9 - Anemia, unspecified SNOMED: 754963665 (7) Chest pain ICD Codes: R07.9 - Chest pain, unspecified SNOMED: 93760268 (8) ACS (acute coronary syndrome) ICD Codes: I24.9 - Acute ischemic heart disease, unspecified SNOMED: 768416321 Status: stable, progressing, tolerating diet Assessment/Plan ot pt abx cbc bmp am promise ltach eval Subjective Constitutional: Reports: weakness Allergies: Coded Allergies: No Known Allergies (Unverified , 01/14/17) All Systems: reviewed and negative except above Subjective sleepy calm Objective Last 24 Hour Vital Signs Date Time Temp Pulse Resp B/P Pulse Ox O2 Delivery O2 Flow Rate FiO2 06/10/17 12:00 97.5 73 17 96/67 95 Room Air 06/10/17 08:00 97.5 64 18 133/59 94 Room Air 06/10/17 08:00 66 06/10/17 07:44 3 18 Room Air 06/10/17 04:00 58 06/10/17 03:43 97.6 61 21 130/61 96 06/10/17 00:00 97.3 66 21 127/54 96 Room Air 06/10/17 00:00 85 06/09/17 20:03 97.2 60 19 157/68 96 Room Air 06/09/17 19:30 64 18 Room Air 21 06/09/17 16:00 97.2 66 20 135/62 92 Room Air 06/09/17 16:00 64 Intake and Output 06/09/17 06/10/17 19:00 07:00 Intake Total 100 ml 10 ml Balance 100 ml 10 ml Intake Oral 100 ml 10 ml # Voids 6 4 Laboratory Tests 06/10/17 07:35: White Blood Count 4.6L, Red Blood Count 3.38L, Hemoglobin 10.8L, Hematocrit 33.2L, Mean Corpuscular Volume 98, Mean Corpuscular Hemoglobin 31.9H, Mean Corpuscular Hemoglobin Concent 32.5, Red Cell Distribution Width 13.2, Platelet Count 152, Mean Platelet Volume 10.7H, Neutrophils (%) (Auto) 56.5, Lymphocytes (%) (Auto) 32.4, Monocytes (%) (Auto) 7.0, Eosinophils (%) (Auto) 3.2H, Basophils (%) (Auto) 0.9, Sodium Level 141, Potassium Level 4.5, Chloride Level 106, Carbon Dioxide Level 23, Anion Gap 12, Blood Urea Nitrogen 35H, Creatinine 2.1H, Estimat Glomerular Filtration Rate , Glucose Level 134H, Calcium Level 9.0 Height (Feet): 5 Height (Inches): 2.00 Weight (Pounds): 135 General Appearance: lethargic EENT: normal ENT inspection Neck: normal alignment Cardiovascular: normal peripheral pulses, normal rate, regular rhythm Respiratory/Chest: chest wall non-tender, lungs clear, normal breath sounds Abdomen: normal bowel sounds, non tender, soft Extremities: normal inspection Edema: no edema noted Arm (L), no edema noted Arm (R), no edema noted Leg (L), no edema noted Leg (R), no edema noted Pedal (L), no edema noted Pedal (R), no edema noted Generalized Neurologic: motor weakness Skin: normal pigmentation, warm/dry SHELBY MARTINI Jun 10, 2017 12:41
--- NOTE | 2017-06-10 13:19 | Cardiology Report ---
APPROVED REPORT EXAM: Two-dimensional and M-mode echocardiogram with Doppler and color Doppler. INDICATION Left ventricular function M-Mode DIMENSIONS IVSd1.1 (0.7-1.1cm)Left Atrium (MM)3.0 (1.6-4.0cm) LVDd3.9 (3.5-5.6cm)Aortic Root2.2 (2.0-3.7cm) PWd1.0 (0.7-1.1cm)Aortic Cusp Exc.1.5 (1.5-2.0cm) LVDs1.5 (2.5-4.0cm) PWs1.3 cm Technically difficult study due to poor acoustic windows. Normal left ventricular chamber size, systolic function and wall motion. Left ventricular ejection fraction estimated to be 70-75%. Moderate left ventricular hypertrophy. No evidence of pericardial fat or effusion. Right cardiac chamber sizes are within normal limits. Moderate left atrial enlargement by 2D. Focal aortic valve sclerosis with adequate cusp excursion Thickened mitral valve leaflets with normal excursion. Mild mitral annulus and aortic root calcification. Pulmonic valve not well visualized. Normal tricuspid valve structure. IVC is not obtainable. A color flow and spectral Doppler study was performed and revealed: No aortic regurgitation. Trace mitral regurgitation. Left ventricular diastolic dysfunction grade 1. Mild tricuspid regurgitation. Tricuspid systolic velocities suggests peak right ventricular systolic pressure of 45 mmHg Consistent with mild pulmonary hypertension.
--- NOTE | 2017-06-10 13:20 | Diagnostic Imaging Report ---
Indication: Abnormal renal function tests Technique: Grayscale and duplex images of the kidneys, retroperitoneum, and bladder were obtained. Comparison:03/04/2017 Findings: Right kidney measures 9 cm in length. Left kidney measures 10.5 cm in length. Right kidney demonstrates normal echogenicity. Left kidney demonstrates slightly increased echogenicity.. No hydronephrosis. There are bilateral renal cysts, largest on the left,, largest measuring 7.9 cm long axis dimension.. Normal inferior vena cava. Bladder is normal. Impression: Negative for hydronephrosis Bilateral renal cysts, large on the left.
--- NOTE | 2017-06-10 15:09 | Diagnostic Imaging Report ---
Indications: 87-year-old female inpatient presents with chest pain Technique: The examination was supervised by Dr. Zhang. Baseline electrocardiogram was recorded. Adenosine was administered the patient intravenously per usual protocol. Continuous electrocardiography, heart rate, blood pressure monitoring performed. Immediate SPECT imaging of the left ventricular myocardium was performed in multiple planes with the patient in supine position, following intravenous administration of 30.2 mCi 99 M technetium-sestaMIBI. Cinegraphic images were generated for wall motion analysis. Left ventricular ejection fraction was calculated. Similar imaging was performed at rest immediately prior with intravenous administration of 8.6 mCi 99 M technetium-sestaMIBI. Findings: Comparison: None. Both stress and rest images demonstrate left ventricular myocardial perfusion to be intact. No areas of abnormally decreased or absent perfusion are demonstrated. Cinegraphic images demonstrate no areas of wall motion abnormality. Ejection fraction is estimated at 83%. The patient developed arm pressure but no acute electrocardiographic changes during adenosine infusion. Supervising surgical instrument technician's conclusions are that clinical response to pharmacologic stress simulation is nonischemic while electrocardiographic response is likewise nonischemic. IMPRESSION: Negative left ventricular myocardial perfusion scan. This correlates with supervising surgical instrument technician's conclusions.
[2017-06-10 16:00] VITALS: BP 139/72
--- NOTE | 2017-06-10 19:21 | Pulmonology Progress Note ---
Assessment/Plan Problems: (1) ACS (acute coronary syndrome) (2) Chronic kidney disease (3) Alzheimer's dementia (4) Anemia (5) Diabetes mellitus Assessment/Plan all noted no new complains symptomatic treatment sliding scale pt/ot check electrolytes f/u cardio recommendations Subjective ROS Limited/Unobtainable: No Constitutional: Reports: no symptoms HEENT: Repors: no symptoms Respiratory: Reports: no symptoms Allergies: Coded Allergies: No Known Allergies (Unverified , 01/14/17) Objective Last 24 Hour Vital Signs Date Time Temp Pulse Resp B/P Pulse Ox O2 Delivery O2 Flow Rate FiO2 06/10/17 16:00 97.7 82 19 139/72 95 Room Air 06/10/17 12:00 71 06/10/17 12:00 97.5 73 17 96/67 95 Room Air 06/10/17 12:00 77 06/10/17 08:00 97.5 64 18 133/59 94 Room Air 06/10/17 08:00 66 06/10/17 07:44 3 18 Room Air 21 06/10/17 04:00 58 06/10/17 03:43 97.6 61 21 130/61 96 06/10/17 00:00 97.3 66 21 127/54 96 Room Air 06/10/17 00:00 85 06/09/17 20:03 97.2 60 19 157/68 96 Room Air 06/09/17 19:30 64 18 Room Air 21 Intake and Output 06/09/17 06/10/17 19:00 07:00 Intake Total 100 ml 10 ml Balance 100 ml 10 ml Intake Oral 100 ml 10 ml # Voids 6 4 General Appearance: cachetic HEENT: normocephalic Respiratory/Chest: chest wall non-tender, lungs clear Breasts: no masses Cardiovascular: normal peripheral pulses Abdomen: normal bowel sounds Genitourinary: normal external genitalia Extremities: no cyanosis Neurologic/Psychiatric: 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 Complete 06/07/17 19:30 Rectum VRE Culture - Final NO VANCOMYCIN RESISTANT ENTEROCOCCUS ... Complete Laboratory Tests 06/10/17 07:35: White Blood Count 4.6L, Red Blood Count 3.38L, Hemoglobin 10.8L, Hematocrit 33.2L, Mean Corpuscular Volume 98, Mean Corpuscular Hemoglobin 31.9H, Mean Corpuscular Hemoglobin Concent 32.5, Red Cell Distribution Width 13.2, Platelet Count 152, Mean Platelet Volume 10.7H, Neutrophils (%) (Auto) 56.5, Lymphocytes (%) (Auto) 32.4, Monocytes (%) (Auto) 7.0, Eosinophils (%) (Auto) 3.2H, Basophils (%) (Auto) 0.9, Sodium Level 141, Potassium Level 4.5, Chloride Level 106, Carbon Dioxide Level 23, Anion Gap 12, Blood Urea Nitrogen 35H, Creatinine 2.1H, Estimat Glomerular Filtration Rate , Glucose Level 134H, Calcium Level 9.0 ALCON CROCKER Jun 10, 2017 19:21
[2017-06-11 12:53] LABS: OTHERS PATHOLOGIST COMMENT
--- NOTE | 2017-06-11 19:27 | Diagnostic Imaging Report ---
APPROVED REPORT CPT Code: 21492 Present Symptoms Lower Extremity Pain: Bilateral BILATERAL: Imaging reveals a patent deep venous system bilaterally. There is no evidence of thrombus within the femoral, popliteal or tibial segments. The greater saphenous veins are also within normal limits. Doppler indicates normal spontaneous flow within these segments.
--- NOTE | 2017-06-12 16:04 | Discharge Summary ---
Discharge Summary Hospital Course Date of Admission Jun 07, 2017 at 15:55 Date of Discharge Jun 10, 2017 at 18:35 Admitting Diagnosis ACS HPI Blessing Fernandes is a 87 year old female who was admitted on Jun 07, 2017 at 15: 55 for Acute Coronary Syndrome Hospital Course [id number] Discharge Discharge Disposition Patient was discharged to [facility] (63) Discharge Diagnoses: Cassia Pedroza NP Jun 12, 2017 16:04
--- NOTE | 2017-06-13 03:45 | Consultation ---
DATE OF CONSULTATION: 06/08/2017 CARDIOLOGY CONSULTATION CONSULTING PHYSICIAN: Jaycob Ellsworth M.D. REFERRING PHYSICIAN: Noé Venegas D.O. REASON FOR CONSULTATION: Management of chest pain. HISTORY OF PRESENT ILLNESS: The patient is a very unfortunate 87-year-old female, who presents to the emergency department, initially with complaints of chest pain. The chest pain was nonexertional and was not associated with any shortness of breath, nausea, vomiting, or diaphoresis. Unfortunately, the patient is a poor historian and is not capable of providing any history to me. She denies any chest pain at this time. According to the emergency department records, the chest pain was gone at the time of arrival to the emergency department. Her initial vitals included blood pressure 130/70 mmHg and heart rate of 76. Her initial cardiogram in the emergency department had shown sinus rhythm at rate of 61 with first-degree AV block and right bundle-branch block. The patient was admitted to telemetry for further evaluation and management. PAST MEDICAL HISTORY: Dementia, hypertension, and diabetes mellitus. PAST SURGICAL HISTORY: None. SOCIAL HISTORY: Lives at home with family members. There is no history of tobacco, alcohol, or illicit drug use. FAMILY HISTORY: No premature coronary artery disease in first-degree relatives. MEDICATIONS: List of medication includes acetaminophen 650 mg q.6 h. for headache and temperature above 101, ampicillin 500 mg q.8 h. for 5 days, aspirin 81 mg p.o. daily, Zyrtec 10 mg p.o. daily, citalopram 20 mg p.o. daily, Colace 100 mg p.o. twice daily, donepezil 10 mg p.o. daily, famotidine 20 mg p.o. daily, Lasix 40 mg p.o. daily, Ketoralac 5 mL twice daily, lisinopril 10 mg p.o. daily, Lutein 20 mg p.o. daily, Namenda 10 mg p.o. twice daily, Seroquel 50 mg p.o. at bedtime, 1 mg p.o. daily, simvastatin 40 mg p.o. at bedtime, and Januvia 100 mg p.o. daily. REVIEW OF SYSTEMS: HEENT: Denies any headache, diplopia, or blurred vision. Constitutional: Denies any fever, chills, night sweats, or weight loss. Cardiovascular: Denies any chest pain, shortness of breath, PND, orthopnea, or leg swelling. As mentioned above, the patient was brought in with chest pain and denied chest pain on arrival to the hospital. Pulmonary: Denies any cough, hemoptysis, or wheezing. Gastrointestinal: Denies any nausea, vomiting, diarrhea, constipation, abdominal pain, or GI bleed. Genitourinary: Denies any hematuria, dysuria, or incontinence. Neurology: Denies any motor dysfunction, sensory deficits, or altered speech. PHYSICAL EXAMINATION: VITAL SIGNS: Blood pressure was 130/70, pulse 76, respirations 16, temperature 97.9 degrees Fahrenheit, and O2 saturation 98%. GENERAL: The patient is a very delightful 87-year-old lady, in no apparent respiratory distress. Alert and oriented x2. HEENT: Atraumatic and normocephalic. Anicteric. Pupils are equal, round, and reactive to light and accommodation. Extraocular muscles are intact. NECK: JVP is less than 5 cm. No carotid bruit. Carotid upstrokes 2+ bilaterally. CARDIOVASCULAR: Normal S1 and S2. Regular rate and rhythm. A 2/6 ejection systolic murmur at the left sternal border with radiation to the carotids. PMI is at fourth intercostal space in the midclavicular line. LUNGS: Clear to auscultation bilaterally. ABDOMEN: Soft, nontender, and nondistended. No hepatosplenomegaly. Positive bowel sounds. EXTREMITIES: No evidence of edema, clubbing, or cyanosis. LABORATORY FINDINGS: WBC was 5.5, hemoglobin 10.8, hematocrit 31.1, and platelet counts 159,000. Sodium 138, potassium 4.8, chloride 99, bicarbonate 24, BUN 37, creatinine 2.4, and glucose is 150. Calcium is 8.9. Troponin I less than 0.3. Lipid panel showed triglycerides 92, cholesterol 161, LDL 94, HDL 49, and TSH 2.28. ASSESSMENT AND PLAN: The patient is a very unfortunate 87-year-old female, who was seen in cardiology consultation at request of Dr. Venegas. 1. Chest pain. The detail of the chest pain is not clear. A 12-lead electrocardiogram does not show any evidence of ischemia. However, in view of the patient's diabetes mellitus and hypertension, we would like to proceed with myocardial perfusion imaging study. I would like to mention that in view of the hospital previous admission to this center, she has refused a nuclear perfusion imaging study. 2. Further therapeutic and diagnostic decision will be based on results of the above study. In the meantime, we will like to obtain 2D echocardiography for assessment of left ventricular systolic and diastolic function. 3. The patient will be continued on aspirin and statin. 4. History of hypertension. We will continue with the patient's AMI inhibitors as well as small dose of diuretics. 5. Chronic kidney disease/acute kidney injury. 6. Dementia. 7. Diabetes mellitus. We will like to continue aspirin and statin. 8. I would like to thank, Dr. Venegas, for allowing me to participate in the care of this patient. Jaycob Ellsworth M.D. DR: TYLER JOB#: [id number] CC:
--- NOTE | 2017-06-13 05:01 | Discharge Summary 2 SIG ---
DATE OF ADMISSION: 06/07/2017 DATE OF DISCHARGE: 06/10/2017 CONSULTANTS: 1. Nilsa Chaudhry M.D. 2. Sirisha Ceballos M.D. 3. Jaycob Ellsworth M.D. BRIEF HOSPITAL COURSE: The patient is an 87-year-old female from home presented with increased chest pain and shortness of breath. Chest pain started at the day of admission and occurred while at rest. On evaluation at ED, EKG showed right bundle-branch block with no acute ischemic changes. Chest x-ray showed bilateral congestion/effusion. Laboratories showed elevated creatinine. Troponin was negative. She was given aspirin at emergency room and was admitted to telemetry for acute coronary syndrome and acute renal failure. Renal ultrasound done was negative for hydronephrosis with bilateral renal cyst. Echocardiogram showed ejection fraction, left ventricular ejection fraction 70% to 75%. She was continued on aspirin and statins. She had a myocardial perfusion scan that showed negative results. She had pyuria and was given ceftriaxone. She was eventually transferred to [facility]. FINAL DISPOSITION: The patient was transferred to LT. DISCHARGE MEDICATIONS: Refer to medication list. FINAL DIAGNOSES: 1. Atypical chest pain. 2. Hypertension. 3. Diabetes mellitus. 4. Acute kidney injury. 5. Chronic kidney disease. 6. Hypocalcemia. 7. Urinary tract infection. 8. Alzheimer dementia. 9. Anemia. Noé Venegas D.O. I have been assigned to dictate discharge summary on this account and I was not involved in the patient's management. Cassia Pedroza N.P. DR: Murphy JOB#: [id number] CC: DORA
== END 2017-06-10 18:35 | DRG 313 ==
LOC: EDBD 15:06 → EMR 15:49 → 2E 15:55 → EDBEDREQ 19:10 → 2E 20:50
DX: R07.89 Other chest pain (principal); N17.0 Acute kidney failure with tubular necrosis; N39.0 Urinary tract infection, site not specified; I12.9 Hypertensive chronic kidney disease with stage 1 through stage 4 chronic kidney disease, or unspecified chronic kidney disease; E78.5 Hyperlipidemia, unspecified; E11.22 Type 2 diabetes mellitus with diabetic chronic kidney disease; N18.9 Chronic kidney disease, unspecified; E83.51 Hypocalcemia; G30.9 Alzheimer's disease, unspecified; F02.80 Dementia in other diseases classified elsewhere, unspecified severity, without behavioral disturbance, psychotic disturbance, mood disturbance, and anxiety; I45.10 Unspecified right bundle-branch block; I44.0 Atrioventricular block, first degree; Z79.4 Long term (current) use of insulin
CPT/HCPCS: 36415; 71010; 76775; 78452; 80048; 80053; 80061; 81001; 81003; 82043; 82044; 82378; 82550; 82553; 82570; 82607; 82746; 82962; 83540; 83550; 83615; 84133; 84300; 84443; 84484; 84550; 85007; 85025; 85044; 85060; 85610; 85651; 85730; 86140; 87081; 87086; 89050; 93005; 93017; 93306; 93970; 94664; 97803; J1815

== ENCOUNTER 2017-06-16 14:57 | Inpatient (IN) | payer MEDICARE, OTHER ==
[~2017-06-16] VITALS: Ht 162.6 cm; Wt 72.6 kg
--- NOTE | 2017-06-16 14:54 | Emergency Room Report ---
History of Present Illness General Source: Patient, Family Member, EMS Present Illness HPI This is an 87-year-old female brought in by EMS after increased generalized weakness. Patient had prior history of dementia as well as CHF. The patient was noted to be more weak in usual. Patient had some history of chest pain earlier in the day but denies current pain. The patient denies any symptoms currently. History is limited by patient's mental status and poor historian. Per patient daughter patient was noted to have a low blood pressure at her facility. The patient was recently hospitalized for a hypotensive episode Allergies: Coded Allergies: No Known Allergies (Unverified , 01/14/17) Patient History Past Medical History: see triage record, DM, HTN, CHF, dementia Reviewed Nursing Documentation: PMH: Agreed, PSxH: Agreed Review of Systems All Other Systems: limited - by mental status Physical Exam Sp02 EP Interpretation: reviewed, normal General Appearance: normal inspection, alert, non-toxic, Chronically Ill Head: atraumatic Eyes: bilateral eye PERRL ENT: normal ENT inspection, hearing grossly normal, normal voice Neck: normal inspection, full range of motion, supple, no bony tend Respiratory: normal inspection, lungs clear, normal breath sounds, no respiratory distress, no retraction, no wheezing Cardiovascular #1: regular rate, rhythm, no edema Gastrointestinal: normal inspection, normal bowel sounds, non tender, soft, no guarding, no hernia Genitourinary: no CVA tenderness Musculoskeletal: normal inspection, back normal, normal range of motion Neurologic: normal inspection, alert, oriented x3, responsive, director of psychology III-XII nml as tested, motor strength/tone normal, speech normal Psychiatric: normal inspection, judgement/insight normal, mood/affect normal Skin: normal inspection, normal color, no rash Medical Decision Making Diagnostic Impression: Primary Impression: Alzheimer's dementia Additional Impressions: Anemia Hyperkalemia ER Course Patient presented for generalized weakness. Differential diagnosis included was not limited to anemia, urinary tract infection, electrolyte abnormality, hypothyroidism, myocardial infarction, myasthenia gravis, dehydration, among others. Because of complexity of patient's case laboratory testing and imaging studies were ordered.Laboratory testing was notable for hyperkalemia. EKG interpreted by me showed a right bundle branch block without acute ST or T wave changes. QRS duration was [address] Noé Venegas was contacted for inpatient observation. Patient was given IV Lasix for hyperkalemia Labs Test 06/16/17 15:30 White Blood Count 5.3 K/UL (4.8-10.8) Red Blood Count 3.20 M/UL (4.20-5.40) Hemoglobin 10.5 G/DL (12.0-16.0) Hematocrit 30.3 % (37.0-47.0) Mean Corpuscular Volume 95 FL (80-99) Mean Corpuscular Hemoglobin 32.6 PG (27.0-31.0) Mean Corpuscular Hemoglobin Concent 34.5 G/DL (32.0-36.0) Red Cell Distribution Width 13.5 % (11.6-14.8) Platelet Count 142 K/UL (150-450) Mean Platelet Volume 11.2 FL (6.5-10.1) Neutrophils (%) (Auto) 60.8 % (45.0-75.0) Lymphocytes (%) (Auto) 27.8 % (20.0-45.0) Monocytes (%) (Auto) 6.2 % (1.0-10.0) Eosinophils (%) (Auto) 4.0 % (0.0-3.0) Basophils (%) (Auto) 1.3 % (0.0-2.0) EKG Diagnostic Results Rate: normal Rhythm: NSR ST Segments: no acute changes Status: unchanged Disposition: PLACE IN OBSERVATION Condition: Gorge Perla Jun 16, 2017 14:54
[~2017-06-16 14:57] MED LIST changes: +CITALOPRAM HBR20 M1 ORAL; +DONEPEZIL HCL10 M2 ORAL; +KETOROLAC TROMET5 ML OP; +LUTEIN20 M1 PO; +TYLENOL650 MG/20. ORAL
[2017-06-16 15:16] VITALS: BP 140/66
--- NOTE | 2017-06-16 15:42 | Diagnostic Imaging Report ---
Indication: Dyspnea Comparison: 06/07/17 A single view chest radiograph was obtained. Findings: Bones are osteopenic. There is a large hiatal hernia. Cardiomegaly is present. Lungs are essentially clear. Impression: Large hiatal hernia. No change
[2017-06-16 15:58] LABS: BASOPHILS % (AUTO) 1.3 % (0.0-2.0); LYMPHOCYTES % (AUTO) 27.8 % (20.0-45.0); MEAN CORPUSCULAR HEMOGLOBIN 32.6 PG (27.0-31.0); MEAN CORPUSCULAR HGB CONC 34.5 G/DL (32.0-36.0); MEAN CORPUSCULAR VOLUME 95 FL (80-99); MEAN PLATELET VOLUME 11.2 FL (6.5-10.1); MONOCYTES % (AUTO) 6.2 % (1.0-10.0); NEUTROPHILS % (AUTO) 60.8 % (45.0-75.0); PLATELET COUNT 142 K/UL (150-450); RED CELL DISTRIBUTION WIDTH 13.5 % (11.6-14.8); WHITE BLOOD COUNT 5.3 K/UL (4.8-10.8)
[2017-06-16 16:04] LABS: TROPONIN I < 0.30 ng/mL (<=0.30)
[2017-06-16 16:05] LABS: INR 0.9 (0.9-1.1); PROTHROMBIN TIME 9.8 SEC (9.30-11.50)
[2017-06-16 16:10] LABS: ALANINE AMINOTRANSFERASE 16 U/L (3-33); ALBUMIN/GLOBULIN RATIO 1.4 (1.0-2.7); ANION GAP 15 (5-15); ASPARTATE AMINO TRANSFERASE 28 U/L (5-40); CALCIUM 8.7 mg/dL (8.6-10.2); CARBON DIOXIDE 22 mEQ/L (20-30); CHLORIDE 105 mEQ/L (98-107); CREATININE 2.4 mg/dL (0.5-0.9); HEMOLYSIS 65; LIPASE 32 U/L (< 60); POTASSIUM 5.7 mEQ/L (3.4-4.9); SODIUM 142 mEQ/L (135-145); TOTAL PROTEIN 6.6 g/dL (6.6-8.7)
[2017-06-16 16:15] LABS: CKMB 3.1 ng/mL (< 3.8)
[2017-06-16 16:30] VITALS: BP 147/54
[2017-06-16 16:32] LABS: APPEARANCE,URINE CLEAR; KETONES,URINE NEGATIVE (NEGATIVE); LEUKOCYTE ESTERASE ,URINE NEGATIVE (NEGATIVE); NITRITE,URINE NEGATIVE (NEGATIVE); PH,URINE 5 (4.5-8.0); PROTEIN,URINE NEGATIVE (NEGATIVE); UROBILINOGEN,URINE NORMAL MG/DL (0.0-1.0)
[2017-06-16] MEDS ORDERED: Thiamine HCl 100 MG in D5W 55 ML IVPB SCH ×3 (17:00→20:00)
[2017-06-16] MEDS ORDERED: Diltiazem 25mg/5ml IV PRN (17:00)
[2017-06-16] MEDS ORDERED: Nitroglycerin Subl 0.4mg tab (Bottle Of 25) SL PRN (17:00)
[2017-06-16] MEDS ORDERED: Miralax 17gm pkt ORAL PRN (17:00)
[2017-06-16] MEDS ORDERED: Acetaminophen 650mg/20.3ml ORAL PRN (17:00)
[2017-06-16] MEDS ORDERED: Enalaprilat 2.5mg/2ml Inj IV PRN (17:00)
[2017-06-16] MEDS ORDERED: DuoNeb 0.5-3(2.5)mg/3ml neb HHN PRN (17:00)
[2017-06-16] MEDS ORDERED: Morphine Sulfate 2mg/ml Inj IVP PRN (17:00)
[2017-06-16 17:45] VITALS: BP 145/63
[2017-06-16] MEDS: Memantine 10mg tab ORAL SCH (18:45)
[2017-06-16 20:00] VITALS: BP 134/76
[2017-06-16] MEDS: NovoLOG Insulin Flexpen SUBQ SCH (21:07)
[2017-06-16] MEDS: Heparin 5000 units/ml inj SUBQ SCH (22:00)
--- NOTE | 2017-06-16 23:41 | Consultation ---
History of Present Illness General Date patient seen: Jun 16, 2017 Chief Complaint: Generalized Weakness Referring physician: Dr. Venegas Reason for Consultation: inpaitent management Present Illness HPI 87-year-old female with hx of dementia, CHF, recent hospitalization was brought in for generalized weakness. Patient had prior history of dementia as well as CHF. Patient had some history of chest pain earlier in the day. The patient denies any symptoms currently. she was noted to have a low blood pressure at her facility. she is admitted to telemetry for further evaluation. Allergies: Coded Allergies: No Known Allergies (Unverified , 01/14/17) Medication History Scheduled Ampicillin Trihydrate (Ampicillin Trihydrate), 500 MG ORAL Q8HR Aspirin* (Aspirin*), 81 MG ORAL DAILY, (Reported) Cetirizine Hcl* (Zyrtec*), 10 MG ORAL DAILY, (Reported) Citalopram Hydrobromide* (Citalopram Hbr*), 20 MG ORAL DAILY, (Reported) Docusate Sodium* (Docusate Sodium*), 100 MG ORAL TWICE A DAY, (Reported) Donepezil Hcl* (Donepezil Hcl*), 10 MG ORAL DAILY, (Reported) Famotidine (Famotidine), 20 MG ORAL DAILY, (Reported) Furosemide* (Lasix*), 40 MG ORAL DAILY, (Reported) Ketorolac Tromethamine (Ketorolac Tromethamine), 5 ML OP BID, (Reported) Lisinopril* (Lisinopril*), 10 MG ORAL DAILY, (Reported) Memantine Hcl* (Namenda*), 10 MG ORAL TWICE A DAY, (Reported) Quetiapine Fumarate* (Quetiapine Fumarate*), 50 MG ORAL BEDTIME, (Reported) Simvastatin (Zocor), 40 MG ORAL BEDTIME, (Reported) Sitagliptin* (Januvia*), 100 MG ORAL DAILY, (Reported) Scheduled PRN Acetaminophen (Acetaminophen), 650 MG ORAL Q6H PRN for Prn Headache/Temp > 101, (Reported) Miscellaneous Medications Lutein (Lutein), 20 MG PO, (Reported) Repaglinide (Repaglinide), 1 MG PO, (Reported) Patient History Healthcare decision maker Resuscitation status Full Code Advanced Directive on File No Past Medical/Surgical History Past Medical/Surgical History: (1) Alzheimer's dementia (2) Diabetes mellitus (3) Chronic kidney disease Review of Systems Constitutional: Reports: no symptoms Eye: Reports: no symptoms ENT: Reports: no symptoms Respiratory: Reports: no symptoms Physical Exam General Appearance: WD/WN Lines, tubes and drains: peripheral HEENT: normocephalic, atraumatic Neck: non-tender, normal alignment Respiratory/Chest: chest wall non-tender, lungs clear Breasts: no masses Cardiovascular/Chest: normal peripheral pulses Abdomen: normal bowel sounds, non tender Genitourinary/Rectal: normal genital exam, normal rectal exam Extremities: normal range of motion, non-tender Neurologic: personal lines agent II-XII grossly normal Last 24 Hour Vital Signs Date Time Temp Pulse Resp B/P Pulse Ox O2 Delivery O2 Flow Rate FiO2 06/16/17 20:00 97.0 66 15 134/76 97 Room Air 06/16/17 19:33 69 06/16/17 17:45 97.0 64 15 145/63 Room Air 06/16/17 17:27 98.7 67 17 147/54 98 Room Air 06/16/17 16:30 67 17 147/54 98 Room Air 06/16/17 15:16 98.7 78 16 140/66 98 Room Air 06/16/17 14:55 70 16 140/66 98 Room Air Laboratory Tests Test 06/16/17 15:30 06/16/17 15:50 White Blood Count 5.3 K/UL (4.8-10.8) Red Blood Count 3.20 M/UL (4.20-5.40) L Hemoglobin 10.5 G/DL (12.0-16.0) L Hematocrit 30.3 % (37.0-47.0) L Mean Corpuscular Volume 95 FL (80-99) Mean Corpuscular Hemoglobin 32.6 PG (27.0-31.0) H Mean Corpuscular Hemoglobin Concent 34.5 G/DL (32.0-36.0) Red Cell Distribution Width 13.5 % (11.6-14.8) Platelet Count 142 K/UL (150-450) L Mean Platelet Volume 11.2 FL (6.5-10.1) H Neutrophils (%) (Auto) 60.8 % (45.0-75.0) Lymphocytes (%) (Auto) 27.8 % (20.0-45.0) Monocytes (%) (Auto) 6.2 % (1.0-10.0) Eosinophils (%) (Auto) 4.0 % (0.0-3.0) H Basophils (%) (Auto) 1.3 % (0.0-2.0) Prothrombin Time 9.8 SEC (9.30-11.50) Prothromb Time International Ratio 0.9 (0.9-1.1) Activated Partial Thromboplast Time 20 SEC (23-33) L Sodium Level 142 mEQ/L (135-145) Potassium Level 5.7 mEQ/L (3.4-4.9) H Chloride Level 105 mEQ/L (98-107) Carbon Dioxide Level 22 mEQ/L (20-30) Anion Gap 15 (5-15) Blood Urea Nitrogen 37 mg/dL (7-23) H Creatinine 2.4 mg/dL (0.5-0.9) H Estimat Glomerular Filtration Rate mL/min (>60) Glucose Level 150 mg/dL (74-106) H Lactic Acid Level 1.00 mmol/L (0.66-2.22) Calcium Level 8.7 mg/dL (8.6-10.2) Total Bilirubin < 0.2 mg/dL (0.0-1.2) Aspartate Amino Transf (AST/SGOT) 28 U/L (5-40) Alanine Aminotransferase (ALT/SGPT) 16 U/L (3-33) Alkaline Phosphatase 89 U/L (35-104) Total Creatine Kinase 114 U/L (26-140) Creatine Kinase MB 3.1 ng/mL (< 3.8) Creatine Kinase MB Relative Index 2.7 Troponin I < 0.30 ng/mL (<=0.30) Pro-B-Type Natriuretic Peptide 1514 pg/mL (0-450) H Total Protein 6.6 g/dL (6.6-8.7) Albumin 3.9 g/dL (3.5-5.2) Globulin 2.7 g/dL Albumin/Globulin Ratio 1.4 (1.0-2.7) Lipase 32 U/L (< 60) Urine Color Pale yellow Urine Appearance Clear Urine pH 5 (4.5-8.0) Urine Specific [place] 1.010 (1.005-1.035) Urine Protein Negative (NEGATIVE) Urine Glucose (UA) Negative (NEGATIVE) Urine Ketones Negative (NEGATIVE) Urine Occult Blood Negative (NEGATIVE) Urine Nitrite Negative (NEGATIVE) Urine Bilirubin Negative (NEGATIVE) Urine Urobilinogen Normal MG/DL (0.0-1.0) Urine Leukocyte Esterase Negative (NEGATIVE) Height (Feet): 5 Height (Inches): 4.00 Weight (Pounds): 160 Medications Current Medications Medications (Trade) Dose Ordered Sig/Misty Route PRN Reason Start Time Stop Time Status Last Admin Dose Admin Acetaminophen (Tylenol) 650 mg Q4H PRN ORAL FEVER 06/16/17 17:00 07/16/17 16:59 Acetaminophen (Tylenol) 650 mg Q6H PRN ORAL Prn Headache/Temp > 101 06/16/17 17:00 07/16/17 16:59 Albuterol/ Ipratropium (DuoNeb 0.5-3(2.5)mg/3ml) 3 ml EVERY 4 HOURS PRN HHN Shortness of Breath 06/16/17 17:00 06/21/17 16:59 Aspirin (ASA) 162 mg DAILY ORAL 06/17/17 09:00 07/17/17 08:59 Citalopram Hydrobromide (celeXA) 20 mg DAILY ORAL 06/17/17 09:00 07/17/17 08:59 Dextrose (Dextrose 50%) STAT PRN IV Hypoglycemia 06/16/17 17:00 07/16/17 16:59 Diltiazem HCl (Cardizem) 10 mg EVERY HOUR PRN IV heart rate more than 120, 06/16/17 17:00 07/16/17 16:59 Enalaprilat (Vasotec) 2.5 mg EVERY 6 HOURS PRN IV sbp more than 160 06/16/17 17:00 07/16/17 16:59 Heparin Sodium (Porcine) 5000 units 5,000 units EVERY 8 HOURS SUBQ 06/16/17 22:00 07/16/17 21:59 Insulin Aspart (NovoLOG) BEFORE MEALS AND HS SUBQ 06/16/17 21:00 07/16/17 20:59 06/16/17 21:07 Memantine (Namenda) 10 mg TWICE A DAY ORAL 06/16/17 18:00 07/16/17 17:59 06/16/17 18:45 Morphine Sulfate (Morphine Sulfate) 2 mg EVERY 4 HOURS PRN IVP severe Pain (Pain Scale 7-10) 06/16/17 17:00 06/23/17 16:59 Nitroglycerin (Ntg) 0.4 mg Q5 MINS PRN SL Prn Chest Pain 06/16/17 17:00 07/16/17 16:59 Ondansetron HCl (Zofran) 4 mg Q6H PRN IVP Nausea & Vomiting 06/16/17 17:00 07/16/17 16:59 Pantoprazole (Protonix) 40 mg DAILY ORAL 06/17/17 09:00 07/17/17 08:59 Polyethylene Glycol (Miralax) 17 gm DAILYPRN PRN ORAL Constipation 06/16/17 17:00 07/16/17 16:59 Quetiapine Fumarate (SEROquel) 50 mg BEDTIME ORAL 06/16/17 21:00 07/16/17 20:59 06/16/17 20:45 Repaglinide (Prandin) 1 mg DAILY ORAL 06/17/17 09:00 07/17/17 08:59 Temazepam (Restoril) 15 mg HSPRN PRN ORAL Insomnia 06/16/17 17:00 06/23/17 16:59 Thiamine HCl/ Dextrose (Vitamin B1/D5W) 56 ml @ 112 mls/hr Q24H IVPB 06/16/17 20:00 07/16/17 19:59 06/16/17 20:44 Assessment/Plan Problem List: (1) ACS (acute coronary syndrome) ICD Codes: I24.9 - Acute ischemic heart disease, unspecified SNOMED: 428234135 (2) Hypotension ICD Codes: I95.9 - Hypotension, unspecified SNOMED: 40862326 (3) Chronic kidney disease ICD Codes: N18.9 - Chronic kidney disease, unspecified SNOMED: 745486417 (4) Diabetes mellitus ICD Codes: E11.9 - Type 2 diabetes mellitus without complications SNOMED: 06526272 (5) Alzheimer's dementia ICD Codes: G30.9 - Alzheimer's disease, unspecified SNOMED: 83911621 Assessment/Plan serial ekg, troponine cardiology evaluation echo dvt prophylaxis adjust cardiac meds ALCON CROCKER Jun 16, 2017 23:41
[2017-06-17] VITALS (7 sets, daily range): BP systolic 101–195; BP diastolic 46–87
[2017-06-17] MEDS: Heparin 5000 units/ml inj SUBQ SCH ×3 (06:00→22:09)
[2017-06-17] MEDS: NovoLOG Insulin Flexpen SUBQ SCH ×4 (06:16→21:00)
[2017-06-17] MEDS: Memantine 10mg tab ORAL SCH ×2 (09:03→17:41)
[2017-06-17] MEDS: Aspirin Baby 81mg ORAL SCH (09:03)
[2017-06-17] MEDS: Citalopram 20mg Tab ORAL SCH (09:03)
[2017-06-17] MEDS: Repaglinide 1mg tab ORAL SCH (09:03)
[2017-06-17 09:36] LABS: BASOPHILS % (AUTO) 0.8 % (0.0-2.0); EOSINOPHILS % (AUTO) 3.9 % (0.0-3.0); LYMPHOCYTES % (AUTO) 24.5 % (20.0-45.0); MEAN CORPUSCULAR HEMOGLOBIN 31.5 PG (27.0-31.0); MEAN CORPUSCULAR HGB CONC 32.3 G/DL (32.0-36.0); MEAN CORPUSCULAR VOLUME 98 FL (80-99); MEAN PLATELET VOLUME 11.4 FL (6.5-10.1); NEUTROPHILS % (AUTO) 62.8 % (45.0-75.0); PLATELET COUNT 167 K/UL (150-450); RED BLOOD COUNT 3.57 M/UL (4.20-5.40); RED CELL DISTRIBUTION WIDTH 13.3 % (11.6-14.8); WHITE BLOOD COUNT 5.4 K/UL (4.8-10.8)
[2017-06-17 10:09] LABS: TROPONIN I < 0.30 ng/mL (<=0.30)
[2017-06-17 10:21] LABS: CHOLESTEROL/HDL RATIO 3.1 (3.3-4.4)
[2017-06-17 10:23] LABS: THYROID STIMULATING HORMONE 1.99 uIU/mL (0.300-4.500)
--- NOTE | 2017-06-17 16:12 | Diagnostic Imaging Report ---
APPROVED REPORT CPT Code: 85309 Present Symptoms Lower Extremity Pain: Left Comments: Pt unable to tolerate exam well. BILATERAL: Imaging reveals a patent deep venous system bilaterally. There is no evidence of thrombus within the femoral, popliteal or tibial segments. The greater saphenous veins are also within normal limits. Doppler indicates normal spontaneous flow within these segments.
[2017-06-18] VITALS: BP 123/52
[2017-06-18 04:00] VITALS: BP 150/66
[2017-06-18] MEDS: Heparin 5000 units/ml inj SUBQ SCH ×3 (06:13→22:37)
[2017-06-18] MEDS: NovoLOG Insulin Flexpen SUBQ SCH ×4 (06:46→22:35)
[2017-06-18 07:19] LABS: TROPONIN I < 0.30 ng/mL (<=0.30)
[2017-06-18 08:16] VITALS: BP 140/53
[2017-06-18] MEDS: Aspirin Baby 81mg ORAL SCH (09:09)
[2017-06-18] MEDS: Citalopram 20mg Tab ORAL SCH (09:10)
[2017-06-18] MEDS: Memantine 10mg tab ORAL SCH ×2 (09:10→18:33)
[2017-06-18] MEDS: Repaglinide 1mg tab ORAL SCH (09:10)
[2017-06-18 11:33] VITALS: BP 138/63
[2017-06-18 12:27] LABS: ANION GAP 13 (5-15); CALCIUM 8.8 mg/dL (8.6-10.2); CARBON DIOXIDE 22 mEQ/L (20-30); CHLORIDE 106 mEQ/L (98-107); CREATININE 2.1 mg/dL (0.5-0.9); HEMOLYSIS 1; SODIUM 141 mEQ/L (135-145)
[2017-06-18] MEDS ORDERED: Pneumococcal Vaccine 25mcg/0.5ml IM ONE (13:30)
--- NOTE | 2017-06-18 14:34 | General Progress Note ---
Assessment/Plan Problem List: (1) Anemia ICD Codes: D64.9 - Anemia, unspecified SNOMED: 512341405 (2) Alzheimer's dementia ICD Codes: G30.9 - Alzheimer's disease, unspecified SNOMED: 33267148 (3) Diabetes mellitus ICD Codes: E11.9 - Type 2 diabetes mellitus without complications SNOMED: 13567523 (4) Chronic kidney disease ICD Codes: N18.9 - Chronic kidney disease, unspecified SNOMED: 538138175 (5) Hypotension ICD Codes: I95.9 - Hypotension, unspecified SNOMED: 17517732 (6) ACS (acute coronary syndrome) ICD Codes: I24.9 - Acute ischemic heart disease, unspecified SNOMED: 283857469 (7) UTI (urinary tract infection) ICD Codes: N39.0 - Urinary tract infection, site not specified SNOMED: 38383833 Status: progressing Assessment/Plan chf sob consulted dr sanders reviwed chart and labs no wheezing not hypoxic Subjective ROS Limited/Unobtainable: Yes Allergies: Coded Allergies: No Known Allergies (Unverified , 01/14/17) Objective Last 24 Hour Vital Signs Date Time Temp Pulse Resp B/P Pulse Ox O2 Delivery O2 Flow Rate FiO2 06/18/17 11:33 97.6 92 19 138/63 98 Room Air 06/18/17 08:18 71 16 Room Air 06/18/17 08:16 98.2 91 19 140/53 97 Room Air 06/18/17 08:00 63 06/18/17 04:00 98.2 73 18 150/66 95 Room Air 06/18/17 04:00 63 06/18/17 00:00 98.2 77 18 123/52 95 Room Air 06/18/17 00:00 77 06/17/17 20:00 66 06/17/17 20:00 97.0 68 16 159/72 97 Room Air 06/17/17 19:30 66 16 Room Air 06/17/17 16:12 97.0 74 20 134/58 95 Room Air 06/17/17 16:00 70 Intake and Output 06/17/17 06/18/17 19:00 07:00 Intake Total 360 ml Output Total 350 ml Balance 10 ml Intake Oral 360 ml Output Urine Total 350 ml # Voids 2 Laboratory Tests 06/18/17 05:45: Sodium Level 141, Potassium Level 5.0H, Chloride Level 106, Carbon Dioxide Level 22, Anion Gap 13, Blood Urea Nitrogen 37H, Creatinine 2.1H, Estimat Glomerular Filtration Rate , Glucose Level 142H, Calcium Level 8.8, Troponin I < 0.30 Height (Feet): 5 Height (Inches): 4.00 Weight (Pounds): 160 General Appearance: confused Neck: supple Cardiovascular: normal rate Respiratory/Chest: lungs clear Ann Srinivasan MD Jun 18, 2017 14:34
--- NOTE | 2017-06-18 15:00 | Pulmonology Progress Note ---
Assessment/Plan Problems: (1) ACS (acute coronary syndrome) (2) Hypotension (3) Chronic kidney disease (4) Diabetes mellitus (5) Alzheimer's dementia Assessment/Plan no new complains feeling better daughter at the bed site check electroltyes monitor bp dvt prophylaxis Subjective ROS Limited/Unobtainable: No Interval Events: late note for 06/17 Constitutional: Reports: no symptoms HEENT: Repors: no symptoms Respiratory: Reports: no symptoms Allergies: Coded Allergies: No Known Allergies (Unverified , 01/14/17) Objective Last 24 Hour Vital Signs Date Time Temp Pulse Resp B/P Pulse Ox O2 Delivery O2 Flow Rate FiO2 06/18/17 11:33 97.6 92 19 138/63 98 Room Air 06/18/17 08:18 71 16 Room Air 06/18/17 08:16 98.2 91 19 140/53 97 Room Air 06/18/17 08:00 63 06/18/17 04:00 98.2 73 18 150/66 95 Room Air 06/18/17 04:00 63 06/18/17 00:00 98.2 77 18 123/52 95 Room Air 06/18/17 00:00 77 06/17/17 20:00 66 06/17/17 20:00 97.0 68 16 159/72 97 Room Air 06/17/17 19:30 66 16 Room Air 06/17/17 16:12 97.0 74 20 134/58 95 Room Air 06/17/17 16:00 70 Intake and Output 06/17/17 06/18/17 19:00 07:00 Intake Total 360 ml Output Total 350 ml Balance 10 ml Intake Oral 360 ml Output Urine Total 350 ml # Voids 2 General Appearance: WD/WN HEENT: normocephalic, atraumatic Respiratory/Chest: chest wall non-tender, lungs clear Breasts: no masses Cardiovascular: normal peripheral pulses Abdomen: normal bowel sounds, soft, non tender Genitourinary: normal external genitalia Extremities: no cyanosis Skin: no rash Neurologic/Psychiatric: pain management specialist II-XII grossly normal Lymphatic: no neck adenopathy Microbiology Date/Time Source Procedure Growth Status 06/16/17 15:35 Blood Blood Culture - Preliminary NO GROWTH AFTER 24 HOURS Resulted 06/16/17 15:30 Blood Blood Culture - Preliminary NO GROWTH AFTER 24 HOURS Resulted 06/16/17 17:20 Nasal Nares MRSA Culture - Final NO METHICILLIN RESISTANT STAPH AUREUS... Complete 06/16/17 17:20 Rectum VRE Culture - Final NO VANCOMYCIN RESISTANT ENTEROCOCCUS ... Complete Laboratory Tests 06/18/17 05:45: Sodium Level 141, Potassium Level 5.0H, Chloride Level 106, Carbon Dioxide Level 22, Anion Gap 13, Blood Urea Nitrogen 37H, Creatinine 2.1H, Estimat Glomerular Filtration Rate , Glucose Level 142H, Calcium Level 8.8, Troponin I < 0.30 Current Medications Medications (Trade) Dose Ordered Sig/Misty Route PRN Reason Start Time Stop Time Status Last Admin Dose Admin Acetaminophen (Tylenol) 650 mg Q4H PRN ORAL FEVER 06/16/17 17:00 07/16/17 16:59 Acetaminophen (Tylenol) 650 mg Q6H PRN ORAL Prn Headache/Temp > 101 06/16/17 17:00 07/16/17 16:59 Albuterol/ Ipratropium (DuoNeb 0.5-3(2.5)mg/3ml) 3 ml EVERY 4 HOURS PRN HHN Shortness of Breath 06/16/17 17:00 06/21/17 16:59 Citalopram Hydrobromide (celeXA) 20 mg DAILY ORAL 06/17/17 09:00 07/17/17 08:59 06/18/17 09:10 Dextrose (Dextrose 50%) STAT PRN IV Hypoglycemia 06/16/17 17:00 07/16/17 16:59 Heparin Sodium (Porcine) (Heparin 5000 units/ml) 5,000 units EVERY 8 HOURS SUBQ 06/16/17 22:00 07/16/17 21:59 06/18/17 13:51 Insulin Aspart (NovoLOG) BEFORE MEALS AND HS SUBQ 06/16/17 21:00 07/16/17 20:59 06/18/17 12:01 Memantine (Namenda) 10 mg TWICE A DAY ORAL 06/16/17 18:00 07/16/17 17:59 06/18/17 09:10 Nitroglycerin (Ntg) 0.4 mg Q5 MINS PRN SL Prn Chest Pain 06/16/17 17:00 07/16/17 16:59 Ondansetron HCl (Zofran) 4 mg Q6H PRN IVP Nausea & Vomiting 06/16/17 17:00 07/16/17 16:59 Pantoprazole (Protonix) 40 mg DAILY ORAL 06/17/17 09:00 07/17/17 08:59 06/18/17 09:10 Polyethylene Glycol (Miralax) 17 gm DAILYPRN PRN ORAL Constipation 06/16/17 17:00 07/16/17 16:59 Quetiapine Fumarate (SEROquel) 50 mg BEDTIME ORAL 06/16/17 21:00 07/16/17 20:59 06/17/17 21:00 Sodium Polystyrene Sulfonate (Kayexalate) 30 gm ONCE ONCE ORAL 06/18/17 18:00 06/18/17 18:01 UNV Temazepam (Restoril) 15 mg HSPRN PRN ORAL Insomnia 06/16/17 17:00 06/23/17 16:59 ALCON CROCKER Jun 18, 2017 15:00
--- NOTE | 2017-06-18 15:02 | Pulmonology Progress Note ---
Assessment/Plan Problems: (1) ACS (acute coronary syndrome) (2) Hypotension (3) Chronic kidney disease (4) Diabetes mellitus (5) Alzheimer's dementia Assessment/Plan K is better no new complains feeling better pt /ot check electroltyes monitor bp dvt prophylaxis Subjective ROS Limited/Unobtainable: No Constitutional: Reports: no symptoms HEENT: Repors: no symptoms Respiratory: Reports: no symptoms Allergies: Coded Allergies: No Known Allergies (Unverified , 01/14/17) Objective Last 24 Hour Vital Signs Date Time Temp Pulse Resp B/P Pulse Ox O2 Delivery O2 Flow Rate FiO2 06/18/17 11:33 97.6 92 19 138/63 98 Room Air 06/18/17 08:18 71 16 Room Air 06/18/17 08:16 98.2 91 19 140/53 97 Room Air 06/18/17 08:00 63 06/18/17 04:00 98.2 73 18 150/66 95 Room Air 06/18/17 04:00 63 06/18/17 00:00 98.2 77 18 123/52 95 Room Air 06/18/17 00:00 77 06/17/17 20:00 66 06/17/17 20:00 97.0 68 16 159/72 97 Room Air 06/17/17 19:30 66 16 Room Air 06/17/17 16:12 97.0 74 20 134/58 95 Room Air 06/17/17 16:00 70 Intake and Output 06/17/17 06/18/17 19:00 07:00 Intake Total 360 ml Output Total 350 ml Balance 10 ml Intake Oral 360 ml Output Urine Total 350 ml # Voids 2 General Appearance: WD/WN HEENT: normocephalic, atraumatic Respiratory/Chest: chest wall non-tender, lungs clear Breasts: no masses Abdomen: normal bowel sounds, soft, non tender Genitourinary: normal external genitalia Extremities: no clubbing Neurologic/Psychiatric: photography manager II-XII grossly normal Microbiology Date/Time Source Procedure Growth Status 06/16/17 15:35 Blood Blood Culture - Preliminary NO GROWTH AFTER 24 HOURS Resulted 06/16/17 15:30 Blood Blood Culture - Preliminary NO GROWTH AFTER 24 HOURS Resulted 06/16/17 17:20 Nasal Nares MRSA Culture - Final NO METHICILLIN RESISTANT STAPH AUREUS... Complete 06/16/17 17:20 Rectum VRE Culture - Final NO VANCOMYCIN RESISTANT ENTEROCOCCUS ... Complete Laboratory Tests 06/18/17 05:45: Sodium Level 141, Potassium Level 5.0H, Chloride Level 106, Carbon Dioxide Level 22, Anion Gap 13, Blood Urea Nitrogen 37H, Creatinine 2.1H, Estimat Glomerular Filtration Rate , Glucose Level 142H, Calcium Level 8.8, Troponin I < 0.30 Current Medications Medications (Trade) Dose Ordered Sig/Misty Route PRN Reason Start Time Stop Time Status Last Admin Dose Admin Acetaminophen (Tylenol) 650 mg Q4H PRN ORAL FEVER 06/16/17 17:00 07/16/17 16:59 Acetaminophen (Tylenol) 650 mg Q6H PRN ORAL Prn Headache/Temp > 101 06/16/17 17:00 07/16/17 16:59 Albuterol/ Ipratropium (DuoNeb 0.5-3(2.5)mg/3ml) 3 ml EVERY 4 HOURS PRN HHN Shortness of Breath 06/16/17 17:00 06/21/17 16:59 Citalopram Hydrobromide (celeXA) 20 mg DAILY ORAL 06/17/17 09:00 07/17/17 08:59 06/18/17 09:10 Dextrose (Dextrose 50%) STAT PRN IV Hypoglycemia 06/16/17 17:00 07/16/17 16:59 Heparin Sodium (Porcine) (Heparin 5000 units/ml) 5,000 units EVERY 8 HOURS SUBQ 06/16/17 22:00 07/16/17 21:59 06/18/17 13:51 Insulin Aspart (NovoLOG) BEFORE MEALS AND HS SUBQ 06/16/17 21:00 07/16/17 20:59 06/18/17 12:01 Memantine (Namenda) 10 mg TWICE A DAY ORAL 06/16/17 18:00 07/16/17 17:59 06/18/17 09:10 Nitroglycerin (Ntg) 0.4 mg Q5 MINS PRN SL Prn Chest Pain 06/16/17 17:00 07/16/17 16:59 Ondansetron HCl (Zofran) 4 mg Q6H PRN IVP Nausea & Vomiting 06/16/17 17:00 07/16/17 16:59 Pantoprazole (Protonix) 40 mg DAILY ORAL 06/17/17 09:00 07/17/17 08:59 06/18/17 09:10 Polyethylene Glycol (Miralax) 17 gm DAILYPRN PRN ORAL Constipation 06/16/17 17:00 07/16/17 16:59 Quetiapine Fumarate (SEROquel) 50 mg BEDTIME ORAL 06/16/17 21:00 07/16/17 20:59 06/17/17 21:00 Sodium Polystyrene Sulfonate (Kayexalate) 30 gm ONCE ONCE ORAL 06/18/17 18:00 06/18/17 18:01 UNV Temazepam (Restoril) 15 mg HSPRN PRN ORAL Insomnia 06/16/17 17:00 06/23/17 16:59 ALCON CROCKER Jun 18, 2017 15:02
[2017-06-18] MEDS ORDERED: Sodium Polystyrene Sulfonate 15gm Powder ORAL ONE (15:45)
[2017-06-18 15:47] VITALS: BP 153/91
--- NOTE | 2017-06-18 16:14 | Infectious Diseases Prog Note ---
Assessment/Plan Problems: (1) Hypotension Assessment & Plan: rule out sepsis, will send blood culture, hold off antibiotics, monitor vitals (2) Diabetes mellitus Assessment & Plan: recommend tight glycemic control to keep blood glucose between 80-120 (3) Chronic kidney disease Assessment & Plan: consult renal, monitor uop and renal function (4) Alzheimer's dementia Assessment & Plan: continue supportive care, and meds (5) CHF (congestive heart failure) Assessment & Plan: possible exacerbation, continue diuretics , and cardiac Meds , consult cardiology Subjective Allergies: Coded Allergies: No Known Allergies (Unverified , 01/14/17) Objective Vital Signs Last 24 Hour Vital Signs Date Time Temp Pulse Resp B/P Pulse Ox O2 Delivery O2 Flow Rate FiO2 06/18/17 15:47 97.6 92 20 153/91 96 Room Air 06/18/17 11:33 97.6 92 19 138/63 98 Room Air 06/18/17 08:18 71 16 Room Air 06/18/17 08:16 98.2 91 19 140/53 97 Room Air 06/18/17 08:00 63 06/18/17 04:00 98.2 73 18 150/66 95 Room Air 06/18/17 04:00 63 06/18/17 00:00 98.2 77 18 123/52 95 Room Air 06/18/17 00:00 77 06/17/17 20:00 66 06/17/17 20:00 97.0 68 16 159/72 97 Room Air 06/17/17 19:30 66 16 Room Air 06/17/17 16:12 97.0 74 20 134/58 95 Room Air Height (Feet): 5 Height (Inches): 4.00 Weight (Pounds): 160 Microbiology Date/Time Source Procedure Growth Status 06/16/17 15:35 Blood Blood Culture - Preliminary NO GROWTH AFTER 24 HOURS Resulted 06/16/17 15:30 Blood Blood Culture - Preliminary NO GROWTH AFTER 24 HOURS Resulted 06/16/17 17:20 Nasal Nares MRSA Culture - Final NO METHICILLIN RESISTANT STAPH AUREUS... Complete 06/16/17 17:20 Rectum VRE Culture - Final NO VANCOMYCIN RESISTANT ENTEROCOCCUS ... Complete Laboratory Tests Test 06/18/17 05:45 Sodium Level 141 mEQ/L (135-145) Potassium Level 5.0 mEQ/L (3.4-4.9) H Chloride Level 106 mEQ/L (98-107) Carbon Dioxide Level 22 mEQ/L (20-30) Anion Gap 13 (5-15) Blood Urea Nitrogen 37 mg/dL (7-23) H Creatinine 2.1 mg/dL (0.5-0.9) H Estimat Glomerular Filtration Rate mL/min (>60) Glucose Level 142 mg/dL (74-106) H Calcium Level 8.8 mg/dL (8.6-10.2) Troponin I < 0.30 ng/mL (<=0.30) Current Medications Medications (Trade) Dose Ordered Sig/Misty Route PRN Reason Start Time Stop Time Status Last Admin Dose Admin Acetaminophen (Tylenol) 650 mg Q4H PRN ORAL FEVER 06/16/17 17:00 07/16/17 16:59 Acetaminophen (Tylenol) 650 mg Q6H PRN ORAL Prn Headache/Temp > 101 06/16/17 17:00 07/16/17 16:59 Albuterol/ Ipratropium (DuoNeb 0.5-3(2.5)mg/3ml) 3 ml EVERY 4 HOURS PRN HHN Shortness of Breath 06/16/17 17:00 06/21/17 16:59 Citalopram Hydrobromide (celeXA) 20 mg DAILY ORAL 06/17/17 09:00 07/17/17 08:59 06/18/17 09:10 Dextrose (Dextrose 50%) STAT PRN IV Hypoglycemia 06/16/17 17:00 07/16/17 16:59 Heparin Sodium (Porcine) (Heparin 5000 units/ml) 5,000 units EVERY 8 HOURS SUBQ 06/16/17 22:00 07/16/17 21:59 06/18/17 13:51 Insulin Aspart (NovoLOG) BEFORE MEALS AND HS SUBQ 06/16/17 21:00 07/16/17 20:59 06/18/17 12:01 Memantine (Namenda) 10 mg TWICE A DAY ORAL 06/16/17 18:00 07/16/17 17:59 06/18/17 09:10 Nitroglycerin (Ntg) 0.4 mg Q5 MINS PRN SL Prn Chest Pain 06/16/17 17:00 07/16/17 16:59 Ondansetron HCl (Zofran) 4 mg Q6H PRN IVP Nausea & Vomiting 06/16/17 17:00 07/16/17 16:59 Pantoprazole (Protonix) 40 mg DAILY ORAL 06/17/17 09:00 07/17/17 08:59 06/18/17 09:10 Polyethylene Glycol (Miralax) 17 gm DAILYPRN PRN ORAL Constipation 06/16/17 17:00 07/16/17 16:59 Quetiapine Fumarate (SEROquel) 50 mg BEDTIME ORAL 06/16/17 21:00 07/16/17 20:59 06/17/17 21:00 Temazepam (Restoril) 15 mg HSPRN PRN ORAL Insomnia 06/16/17 17:00 06/23/17 16:59 Shabbir Richmond M.D. Jun 18, 2017 16:14
[2017-06-18 17:28] LABS: URIC ACID 8.3 mg/dL (3.0-7.5)
[2017-06-18 20:00] VITALS: BP 137/66
--- NOTE | 2017-06-18 21:52 | Cardiology Progress Note ---
Assessment/Plan Assessment/Plan The patient is seen and examined, full consult note will be dictated. Objective Last 24 Hour Vital Signs Date Time Temp Pulse Resp B/P Pulse Ox O2 Delivery O2 Flow Rate FiO2 06/18/17 20:14 64 18 Room Air 06/18/17 20:00 97.2 70 16 137/66 95 Room Air 21 06/18/17 16:00 66 06/18/17 15:47 97.6 92 20 153/91 96 Room Air 06/18/17 12:00 68 06/18/17 11:33 97.6 92 19 138/63 98 Room Air 06/18/17 08:18 71 16 Room Air 06/18/17 08:16 98.2 91 19 140/53 97 Room Air 06/18/17 08:00 63 06/18/17 04:00 98.2 73 18 150/66 95 Room Air 06/18/17 04:00 63 06/18/17 00:00 98.2 77 18 123/52 95 Room Air 06/18/17 00:00 77 Intake and Output 06/17/17 06/18/17 19:00 07:00 Intake Total 360 ml Output Total 350 ml Balance 10 ml Intake Oral 360 ml Output Urine Total 350 ml # Voids 2 Laboratory Tests Test 06/18/17 05:45 Sodium Level 141 mEQ/L (135-145) Potassium Level 5.0 mEQ/L (3.4-4.9) H Chloride Level 106 mEQ/L (98-107) Carbon Dioxide Level 22 mEQ/L (20-30) Anion Gap 13 (5-15) Blood Urea Nitrogen 37 mg/dL (7-23) H Creatinine 2.1 mg/dL (0.5-0.9) H Estimat Glomerular Filtration Rate mL/min (>60) Glucose Level 142 mg/dL (74-106) H Uric Acid 8.3 mg/dL (3.0-7.5) H Calcium Level 8.8 mg/dL (8.6-10.2) Total Creatine Kinase 91 U/L (26-140) Troponin I < 0.30 ng/mL (<=0.30) Microbiology Date/Time Source Procedure Growth Status 06/16/17 15:35 Blood Blood Culture - Preliminary NO GROWTH AFTER 24 HOURS Resulted 06/16/17 15:30 Blood Blood Culture - Preliminary NO GROWTH AFTER 24 HOURS Resulted 06/16/17 17:20 Nasal Nares MRSA Culture - Final NO METHICILLIN RESISTANT STAPH AUREUS... Complete 06/16/17 17:20 Rectum VRE Culture - Final NO VANCOMYCIN RESISTANT ENTEROCOCCUS ... Complete BLAKE GARZON Jun 18, 2017 21:52
--- NOTE | 2017-06-18 22:00 | Consultation ---
DATE OF CONSULTATION: INFECTIOUS DISEASE CONSULTATION CONSULTING PHYSICIAN: Shabbir Richmond M.D. REQUESTING PHYSICIAN: Ann Srinivasan M.D. REASON FOR CONSULTATION: Hypotension, possible sepsis, recommendation for antibiotics treatment. HISTORY OF PRESENT ILLNESS: The patient is an 87-year-old female with past medical history of Alzheimer dementia, congestive heart failure, diabetes, and hypertension, was brought into the hospital by paramedics for weakness and hypotension. The patient seemed to be weak, which is unusual to her. She had some chest discomfort earlier during the day. The patient's daughter noticed that she had low blood pressure at the facility where she lives at, so she was brought into the hospital for further evaluation and I was consulted by the primary provider for antibiotics recommendation for possible sepsis due to her hypotension. As of note, the patient is a poor historian and could not provide history. History was mainly obtained from the medical record and the nursing staff. No family member available. PAST MEDICAL HISTORY: Significant for diabetes, hypertension, congestive heart failure, and Alzheimer dementia. PAST SURGICAL HISTORY: Negative. ALLERGIES: She has no known drug allergy. MEDICATIONS: She is on Celexa, Protonix, heparin, Seroquel, NovoLog, Namenda, Tylenol, DuoNeb, and nitroglycerin. SOCIAL HISTORY: [facility] at [facility] facility. No recent drugs, tobacco, or alcohol. FAMILY HISTORY: Unable to obtain. PHYSICAL EXAMINATION: VITAL SIGNS: Temperature 97.6, pulse 92, respirations 20, blood pressure 153/91, and saturation 96% on room air. GENERAL: An elderly female, lying in bed, demented, nonverbal, not in distress. HEENT: Normocephalic and atraumatic. Pupils reactive to light. Moist oral mucosa. NECK: Supple. No lymphadenopathy. CARDIOVASCULAR: Regular rate and rhythm. No murmur or gallop. LUNGS: Clear bilaterally. No wheezing or rhonchi. Diminished breathing sounds at the bases. ABDOMEN: Soft, nontender, and nondistended. Positive bowel sounds. No hepatosplenomegaly. EXTREMITIES: No edema or cyanosis. LABORATORY AND DIAGNOSTIC DATA: Labs showed white count of 5.4, hemoglobin of 11.3, and platelet count of 167,000. BUN of 37, creatinine of 2.1. Urinalysis negative for infection. Microbiology, blood culture x2 negative to date. Screening for MRSA and VRE negative to date. Imaging, chest x-ray on admission showed large hiatal hernia with cardiomegaly and clear lungs. Venous duplex of both lower extremities showed patent deep venous system bilaterally with no evidence of thrombus. ASSESSMENT AND RECOMMENDATION: 1. Hypotension, rule out sepsis. We will send blood for culture and hold off antibiotics for now. Monitor vitals. Blood pressure improved so far. 2. Diabetes mellitus. Recommend tight glycemic control to keep blood glucose between 80 to 120. 3. Chronic kidney disease. Consult Renal. Monitor urine output and renal function. 4. Alzheimer dementia. Continue supportive care and medication treatment. 5. Congestive heart failure with possible exacerbation. Continue diuretics. Monitor daily weights and urine output. Consult Cardiology. Thank you for the consultation. Infectious Disease will continue to follow. Shabbir Richmond M.D. DR: THUY JOB#: [id number] CC: DORA
[2017-06-18 23:14] LABS: APPEARANCE,URINE CLEAR; KETONES,URINE NEGATIVE (NEGATIVE); LEUKOCYTE ESTERASE ,URINE 3+ (NEGATIVE); NITRITE,URINE NEGATIVE (NEGATIVE); PH,URINE 6.5 (4.5-8.0); PROTEIN,URINE 1+ (NEGATIVE); UROBILINOGEN,URINE NORMAL MG/DL (0.0-1.0)
[2017-06-18 23:48] LABS: RBC,URINE 0-2 /HPF (0 - 2); SQUAMOUS EPITHELIAL CELL,UR FEW /LPF (NONE/OCC); WBC,URINE TNTC /HPF (0 - 2)
[2017-06-19] VITALS: BP 159/69
--- NOTE | 2017-06-19 01:16 | Consultation ---
DATE OF CONSULTATION: 06/18/2017 REFERRING PHYSICIAN: Dr. Ann Srinivasan. REASON FOR CONSULTATION: Management of chest pain. HISTORY OF PRESENT ILLNESS: The patient is a very unfortunate 87-year-old female, who is known to me from recent admission to this facility, who was brought in by EMS after increased generalized weakness and chest pain. The patient states that she has been having chest pain earlier today, which is hard to describe weakness associated with this. At this time, the patient is denying any chest pain. According to the patient's daughter, the patient was noted to have low blood pressure today in the facility. On arrival to the emergency department, initial vital signs was 140/66 and heart rate of 70. 12-lead electrode cardiogram was unremarkable and essentially showed sinus rhythm with right bundle-branch block and no ST and T-wave abnormalities. The patient is admitted to telemetry for further evaluation and management. Of note, the patient had some cardiac workup done in the previous admission when the patient was seen for acute coronary syndrome. In that admission, the patient had 2-D echocardiography, which showed normal left ventricular systolic function with LVEF of about 70% to 75%, moderate left ventricular hypertrophy, and trace mitral regurgitation, had grade 1 LV diastolic dysfunction, and right ventricular systolic pressure measured at 45 mmHg consistent with mild to moderate pulmonary hypertension. She also had a nuclear stress test, which showed no evidence of myocardial wall ischemia. PAST MEDICAL HISTORY: Dementia, hypertension, and diabetes mellitus. PAST SURGICAL HISTORY: None. SOCIAL HISTORY: Lives at retirement facility. No history of tobacco, alcohol, or illicit drug use. FAMILY HISTORY: No premature coronary artery disease in first-degree relatives. MEDICATIONS: Acetaminophen 650 mg every four hours for pain and temperature of 101, aspirin 81 mg p.o. daily, ampicillin 500 mg hours every eight hours for five days, Zyrtec 10 mg p.o. daily, citalopram 20 mg p.o. daily, Colace 100 mg twice daily, donepezil 10 mg p.o. daily, famotidine 20 mg p.o. daily, Lasix 40 mg p.o. daily, Ketoralac 5 mg by mouth twice a day, lisinopril 10 mg p.o. daily, lutein 20 mg p.o. daily, Namenda 10 mg p.o. twice daily, Seroquel 50 mg p.o. nightly, repaglinide 1 mg p.o. daily, Zocor 40 mg p.o. nightly, and Januvia 100 mg p.o. daily. REVIEW OF SYSTEMS: HEENT: Denies any headache, diplopia, or blurred vision. Constitutional: Denies any fever, chills, night sweats, or weight loss. Cardiovascular: Denies any chest pain, shortness of breath, PND, orthopnea, leg swelling, palpitations, or syncope. Pulmonary: Denies any cough, hemoptysis, or wheezing. Gastrointestinal: Denies any nausea, vomiting, diarrhea, constipation, abdominal pain, or GI bleed. Genitourinary: Denies any hematuria, dysuria, or incontinence. Neurologic: Denies any motor dysfunction, sensory deficit, or altered speech. PHYSICAL EXAMINATION: VITAL SIGNS: Blood pressure is 140/66, pulse 70, and respirations 16. O2 saturation 99% on room air. GENERAL: The patient is a very unfortunate 87-year-old female, in no apparent respiratory distress. Alert and oriented x1. HEENT: Atraumatic and normocephalic. Anicteric. Pupils are equal, round, and reactive to light and accommodation. There is conjunctival pallor. NECK: JVP is less than 5 cm. No carotid bruit. Carotid upstroke is 2+ bilaterally. CARDIOVASCULAR: Normal S1 and S2. Regular rate and rhythm. No murmurs, gallops, or rubs. PMI is at fourth intercostal space at the midclavicular line. LUNGS: Clear to auscultation bilaterally. ABDOMEN: Soft, nontender, and nondistended. No hepatosplenomegaly. Positive bowel sounds. EXTREMITIES: No evidence of edema, clubbing, or cyanosis. LABORATORY FINDINGS: WBC is 5.3, hemoglobin 10.5, hematocrit 30.3, and platelet count 142,000. Chemistry shows sodium 142, potassium 5.7, chloride 105, bicarbonate 22, BUN of 37, and creatinine 2.4. Glucose is 150. Calcium is 8.7. Troponin I less than 0.3. ProBNP was 1614. INR is 1.0. Chest x-ray showed large hiatal hernia with no acute cardiopulmonary disease. 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 There is no ST and T-wave abnormalities. QT interval is within normal limits. ASSESSMENT AND PLAN: The patient is a very unfortunate 87-year-old female seen in Cardiology consultation at request of Dr. Srinivasan. 1. Atypical/noncardiac chest pain. The patient underwent full cardiac workup on the previous admission including nuclear stress test, which was nonischemic. 2-D echocardiography also showed evidence of normal LV systolic function with LVEF of about 60%. Diastolic function was also grade 1 consistent with impaired LV relaxation and normal intracardiac filling pressures. The elevated beta-natriuretic peptide could be due to her age. 2. Generalized weakness. I believe that worsening of renal function may account for that. Nephrology consultation is recommended. 3. History of dementia. I would like to thank Dr. Srinivasan for allowing me to participate in care of this patient. Jaycob Ellsworth M.D. DR: JAD JOB#: [id number] CC:
[2017-06-19 04:00] VITALS: BP 131/57
[2017-06-19] MEDS: NovoLOG Insulin Flexpen SUBQ SCH ×2 (06:49→11:51)
[2017-06-19] MEDS: Heparin 5000 units/ml inj SUBQ SCH ×2 (06:50→13:41)
[2017-06-19] MEDS: Memantine 10mg tab ORAL SCH (08:09)
[2017-06-19] MEDS: Citalopram 20mg Tab ORAL SCH (08:09)
[2017-06-19 08:15] VITALS: BP 136/77
[2017-06-19 08:39] LABS: MEAN CORPUSCULAR HEMOGLOBIN 33.2 PG (27.0-31.0); MEAN CORPUSCULAR HGB CONC 33.4 G/DL (32.0-36.0); MEAN CORPUSCULAR VOLUME 99 FL (80-99); MEAN PLATELET VOLUME 12.9 FL (6.5-10.1); PLATELET COUNT 139 K/UL (150-450); RED BLOOD COUNT 3.06 M/UL (4.20-5.40); RED CELL DISTRIBUTION WIDTH 13.3 % (11.6-14.8); WHITE BLOOD COUNT 4.3 K/UL (4.8-10.8)
[2017-06-19 08:45] LABS: ANION GAP 10 (5-15); CALCIUM 8.7 mg/dL (8.6-10.2); CARBON DIOXIDE 26 mEQ/L (20-30); CHLORIDE 108 mEQ/L (98-107); CREATININE 1.9 mg/dL (0.5-0.9); HEMOLYSIS 2; POTASSIUM 4.7 mEQ/L (3.4-4.9); SODIUM 144 mEQ/L (135-145)
[2017-06-19 08:46] LABS: PROTHROMBIN TIME 10.2 SEC (9.30-11.50)
[2017-06-19 09:52] LABS: ERYTHROCYTE SEDIMENTATION RATE 67 MM/HR (0-42)
[2017-06-19 10:02] LABS: PATH BLOOD SMEAR/OMC SENT TO PATHOLOGIST
[2017-06-19 10:05] LABS: BAND NEUTROPHILS % (MANUAL) 0 % (0-8); BASOPHILS % (MANUAL) 0 % (0-2); EOSINOPHILS % (MANUAL) 3 % (0-3); HYPOCHROMASIA 1+; LACTATE DEHYDROGENASE 183 U/L (135-230); LYMPHOCYTES % (MANUAL) 27 % (20-45); NEUTROPHILS % (MANUAL) 65 % (45-75); PLATELET ESTIMATE DECREASED; PLATELET MORPHOLOGY NORMAL; TOTAL CELLS COUNTED 100
[2017-06-19 10:06] LABS: MACROCYTES 1+
[2017-06-19 10:19] LABS: HEMOLYSIS 2; IRON 48 ug/dL (37-145); TOTAL IRON BINDING CAPACITY 254 ug/dL (250-400)
--- NOTE | 2017-06-19 10:45 | Diagnostic Imaging Report ---
Indication:Elevated Bun and Creatinine. Technique: Grayscale and duplex Doppler imaging of the kidneys performed. Comparison: None Findings: Kidney size is normal. The renal cortex may be slightly echogenic. Right kidney measures 9 CM. The left kidney is 13 CM but this includes part of the left cyst so the measurement may be inaccurate and probably overestimated based on my review of the static images. There are multiple cysts of varying size within both kidneys. The largest cyst is in the upper pole the left kidney measuring close 8 cm. There is no hydronephrosis. IVC is not well seen. There is no hydronephrosis. The IVC and urinary bladder are unremarkable. Impression: Probable increase in cortical echogenicity. Medical renal disease may be present. Please correlate clinically. Multiple bilateral renal cysts.
[2017-06-19 12:01] VITALS: BP 143/96
[2017-06-19 13:34] LABS: OTHERS PATHOLOGIST COMMENT
--- NOTE | 2017-06-19 13:53 | Pulmonology Progress Note ---
Assessment/Plan Problems: (1) ACS (acute coronary syndrome) (2) Hypotension (3) Chronic kidney disease (4) Diabetes mellitus (5) Alzheimer's dementia Assessment/Plan cardiology note appreciated no new complains feeling better pt /ot check electroltyes monitor bp dvt prophylaxis dc to assisted living Subjective ROS Limited/Unobtainable: No Constitutional: Reports: no symptoms HEENT: Repors: no symptoms Respiratory: Reports: no symptoms Allergies: Coded Allergies: No Known Allergies (Unverified , 01/14/17) Objective Last 24 Hour Vital Signs Date Time Temp Pulse Resp B/P Pulse Ox O2 Delivery O2 Flow Rate FiO2 06/19/17 12:01 97.9 78 19 143/96 96 Room Air 06/19/17 12:00 75 06/19/17 08:15 98.6 87 19 136/77 96 Room Air 06/19/17 08:00 62 06/19/17 06:40 62 18 Room Air 21 06/19/17 04:00 97.2 72 18 131/57 95 Room Air 21 06/19/17 03:56 68 06/19/17 00:00 97.2 70 18 159/69 95 Room Air 21 06/18/17 23:49 75 06/18/17 20:14 64 18 Room Air 21 06/18/17 20:00 73 06/18/17 20:00 97.2 70 16 137/66 95 Room Air 21 06/18/17 16:00 66 06/18/17 15:47 97.6 92 20 153/91 96 Room Air Intake and Output 06/18/17 06/19/17 19:00 07:00 Intake Total 1170 ml Balance 1170 ml Intake Oral 1170 ml # Voids 3 2 # Bowel Movements 1 General Appearance: WD/WN Respiratory/Chest: chest wall non-tender, lungs clear Breasts: no masses Cardiovascular: normal peripheral pulses Abdomen: normal bowel sounds, soft, non tender Genitourinary: normal external genitalia Extremities: no clubbing Neurologic/Psychiatric: harpooner II-XII grossly normal, no motor/sensory deficits Microbiology Date/Time Source Procedure Growth Status 06/16/17 15:35 Blood Blood Culture - Preliminary NO GROWTH AFTER 48 HOURS Resulted 06/16/17 15:30 Blood Blood Culture - Preliminary NO GROWTH AFTER 48 HOURS Resulted 06/16/17 17:20 Nasal Nares MRSA Culture - Final NO METHICILLIN RESISTANT STAPH AUREUS... Complete 06/16/17 17:20 Rectum VRE Culture - Final NO VANCOMYCIN RESISTANT ENTEROCOCCUS ... Complete Laboratory Tests 06/18/17 22:44: Urine Color Pale yellow, Urine Appearance Clear, Urine pH 6.5, Urine Specific [place] 1.010, Urine Protein 1+H, Urine Glucose (UA) Negative, Urine Ketones Negative, Urine Occult Blood 1+H, Urine Nitrite Negative, Urine Bilirubin Negative, Urine Urobilinogen Normal, Urine Leukocyte Esterase 3+H, Urine RBC 0-2 , Urine WBC TntcH, Urine Squamous Epithelial Cells Few, Urine Bacteria None, Urine Eosinophils Few seen, Urine Random Sodium 72, Urine Potassium Timed 26 06/19/17 07:45: White Blood Count 4.3L, Red Blood Count 3.06L, Hemoglobin 10.2L, Hematocrit 30.4L, Mean Corpuscular Volume 99, Mean Corpuscular Hemoglobin 33.2H, Mean Corpuscular Hemoglobin Concent 33.4, Red Cell Distribution Width 13.3, Platelet Count 139L, Mean Platelet Volume 12.9H, Neutrophils (%) (Auto) , Lymphocytes (% ) (Auto) , Monocytes (%) (Auto) , Eosinophils (%) (Auto) , Basophils (%) (Auto) , Differential Total Cells Counted 100, Neutrophils % (Manual) 65, Lymphocytes % (Manual) 27, Monocytes % (Manual) 5, Eosinophils % (Manual) 3, Basophils % ( Manual) 0, Band Neutrophils 0, Other Cell Type Pathologist comment, Platelet Estimate DecreasedL, Platelet Morphology Normal, Hypochromasia 1+, Macrocytosis 1+, Erythrocyte Sedimentation Rate 67H, Reticulocyte Count 1.0, Prothrombin Time 10.2, Prothromb Time International Ratio 1.0, Activated Partial Thromboplast Time 33, Sodium Level 144, Potassium Level 4.7, Chloride Level 108H , Carbon Dioxide Level 26, Anion Gap 10, Blood Urea Nitrogen 32H, Creatinine 1.9H, Estimat Glomerular Filtration Rate , Glucose Level 145H, Calcium Level 8.7 , Iron Level 48, Total Iron Binding Capacity 254, Percent Iron Saturation 19, Unsaturated Iron Binding 206, Lactate Dehydrogenase 183, Carcinoembryonic Antigen 2.6, Vitamin B12 Level 491, Folate [Pending] Current Medications Medications (Trade) Dose Ordered Sig/Misty Route PRN Reason Start Time Stop Time Status Last Admin Dose Admin Acetaminophen (Tylenol) 650 mg Q4H PRN ORAL FEVER 06/16/17 17:00 07/16/17 16:59 Acetaminophen (Tylenol) 650 mg Q6H PRN ORAL Prn Headache/Temp > 101 06/16/17 17:00 07/16/17 16:59 Albuterol/ Ipratropium (DuoNeb 0.5-3(2.5)mg/3ml) 3 ml EVERY 4 HOURS PRN HHN Shortness of Breath 06/16/17 17:00 06/21/17 16:59 Citalopram Hydrobromide (celeXA) 20 mg DAILY ORAL 06/17/17 09:00 07/17/17 08:59 06/19/17 08:09 Dextrose (Dextrose 50%) STAT PRN IV Hypoglycemia 06/16/17 17:00 07/16/17 16:59 Heparin Sodium (Porcine) (Heparin 5000 units/ml) 5,000 units EVERY 8 HOURS SUBQ 06/16/17 22:00 07/16/17 21:59 06/19/17 06:50 Insulin Aspart (NovoLOG) BEFORE MEALS AND HS SUBQ 06/16/17 21:00 07/16/17 20:59 06/19/17 11:51 Memantine (Namenda) 10 mg TWICE A DAY ORAL 06/16/17 18:00 07/16/17 17:59 06/19/17 08:09 Nitroglycerin (Ntg) 0.4 mg Q5 MINS PRN SL Prn Chest Pain 06/16/17 17:00 07/16/17 16:59 Ondansetron HCl (Zofran) 4 mg Q6H PRN IVP Nausea & Vomiting 06/16/17 17:00 07/16/17 16:59 Pantoprazole (Protonix) 40 mg DAILY ORAL 06/17/17 09:00 07/17/17 08:59 06/19/17 08:09 Polyethylene Glycol (Miralax) 17 gm DAILYPRN PRN ORAL Constipation 06/16/17 17:00 07/16/17 16:59 Quetiapine Fumarate (SEROquel) 50 mg BEDTIME ORAL 06/16/17 21:00 07/16/17 20:59 06/18/17 22:33 Temazepam (Restoril) 15 mg HSPRN PRN ORAL Insomnia 06/16/17 17:00 06/23/17 16:59 ALCON CROCKER Jun 19, 2017 13:53
[2017-06-19 15:40] VITALS: BP 144/55
--- NOTE | 2017-06-19 16:36 | Infectious Diseases Prog Note ---
Assessment/Plan Problems: (1) Hypotension Assessment & Plan: doubt sepsis, resolved , blood culture is negative so far , no need for antibiotics. (2) Diabetes mellitus Assessment & Plan: recommend tight glycemic control to keep blood glucose between 80-120 (3) Chronic kidney disease Assessment & Plan: follow up with renal, monitor renal function (4) Alzheimer's dementia Assessment & Plan: continue supportive care, and meds (5) CHF (congestive heart failure) Assessment & Plan: possible exacerbation, continue diuretics , and cardiac Meds , follow up with cardiology Subjective ROS Limited/Unobtainable: Yes Allergies: Coded Allergies: No Known Allergies (Unverified , 01/14/17) Subjective she was resting in bed comfortable, not in distress, afebrile Objective Vital Signs Last 24 Hour Vital Signs Date Time Temp Pulse Resp B/P Pulse Ox O2 Delivery O2 Flow Rate FiO2 06/19/17 15:40 97.8 98 19 144/55 90 Room Air 06/19/17 12:01 97.9 78 19 143/96 96 Room Air 06/19/17 12:00 75 06/19/17 08:15 98.6 87 19 136/77 96 Room Air 06/19/17 08:00 62 06/19/17 06:40 62 18 Room Air 21 06/19/17 04:00 97.2 72 18 131/57 95 Room Air 21 06/19/17 03:56 68 06/19/17 00:00 97.2 70 18 159/69 95 Room Air 21 06/18/17 23:49 75 06/18/17 20:14 64 18 Room Air 21 06/18/17 20:00 73 06/18/17 20:00 97.2 70 16 137/66 95 Room Air 21 Height (Feet): 5 Height (Inches): 4.00 Weight (Pounds): 160 General Appearance: WD/WN, no acute distress HEENT: normocephalic, atraumatic, anicteric, mucous membranes moist, PERRL, pharynx normal, supple, no JVD Respiratory/Chest: chest wall non-tender, lungs clear, normal breath sounds, no respiratory distress, no accessory muscle use Cardiovascular: normal peripheral pulses, normal rate, regular rhythm, no gallop/murmur, no JVD Abdomen: normal bowel sounds, soft, non tender, no organomegaly, non distended , no mass, no scars Genitourinary: normal external genitalia Extremities: no cyanosis, no clubbing Skin: no rash, no lesions, no ulcers Neurologic/Psychiatric: alert Microbiology Date/Time Source Procedure Growth Status 06/16/17 17:20 Nasal Nares MRSA Culture - Final NO METHICILLIN RESISTANT STAPH AUREUS... Complete 06/16/17 17:20 Rectum VRE Culture - Final NO VANCOMYCIN RESISTANT ENTEROCOCCUS ... Complete Laboratory Tests Test 06/18/17 22:44 06/19/17 07:45 Urine Color Pale yellow Urine Appearance Clear Urine pH 6.5 (4.5-8.0) Urine Specific [place] 1.010 (1.005-1.035) Urine Protein 1+ (NEGATIVE) H Urine Glucose (UA) Negative (NEGATIVE) Urine Ketones Negative (NEGATIVE) Urine Occult Blood 1+ (NEGATIVE) H Urine Nitrite Negative (NEGATIVE) Urine Bilirubin Negative (NEGATIVE) Urine Urobilinogen Normal MG/DL (0.0-1.0) Urine Leukocyte Esterase 3+ (NEGATIVE) H Urine RBC 0-2 /HPF (0 - 2) Urine WBC Tntc /HPF (0 - 2) H Urine Squamous Epithelial Cells Few /LPF (NONE/OCC) Urine Bacteria None /HPF (NONE) Urine Eosinophils Few seen Urine Random Sodium 72 mmol/L Urine Potassium Timed 26 mmol/L White Blood Count 4.3 K/UL (4.8-10.8) L Red Blood Count 3.06 M/UL (4.20-5.40) L Hemoglobin 10.2 G/DL (12.0-16.0) L Hematocrit 30.4 % (37.0-47.0) L Mean Corpuscular Volume 99 FL (80-99) Mean Corpuscular Hemoglobin 33.2 PG (27.0-31.0) H Mean Corpuscular Hemoglobin Concent 33.4 G/DL (32.0-36.0) Red Cell Distribution Width 13.3 % (11.6-14.8) Platelet Count 139 K/UL (150-450) L Mean Platelet Volume 12.9 FL (6.5-10.1) H Neutrophils (%) (Auto) % (45.0-75.0) Lymphocytes (%) (Auto) % (20.0-45.0) Monocytes (%) (Auto) % (1.0-10.0) Eosinophils (%) (Auto) % (0.0-3.0) Basophils (%) (Auto) % (0.0-2.0) Differential Total Cells Counted 100 Neutrophils % (Manual) 65 % (45-75) Lymphocytes % (Manual) 27 % (20-45) Monocytes % (Manual) 5 % (1-10) Eosinophils % (Manual) 3 % (0-3) Basophils % (Manual) 0 % (0-2) Band Neutrophils 0 % (0-8) Other Cell Type Pathologist comment Platelet Estimate Decreased L Platelet Morphology Normal Hypochromasia 1+ Macrocytosis 1+ Erythrocyte Sedimentation Rate 67 MM/HR (0-42) H Reticulocyte Count 1.0 % (0.0-2.0) Prothrombin Time 10.2 SEC (9.30-11.50) Prothromb Time International Ratio 1.0 (0.9-1.1) Activated Partial Thromboplast Time 33 SEC (23-33) Sodium Level 144 mEQ/L (135-145) Potassium Level 4.7 mEQ/L (3.4-4.9) Chloride Level 108 mEQ/L (98-107) H Carbon Dioxide Level 26 mEQ/L (20-30) Anion Gap 10 (5-15) Blood Urea Nitrogen 32 mg/dL (7-23) H Creatinine 1.9 mg/dL (0.5-0.9) H Estimat Glomerular Filtration Rate mL/min (>60) Glucose Level 145 mg/dL (74-106) H Calcium Level 8.7 mg/dL (8.6-10.2) Iron Level 48 ug/dL (37-145) Total Iron Binding Capacity 254 ug/dL (250-400) Percent Iron Saturation 19 % (15-50) Unsaturated Iron Binding 206 ug/dL (112-346) Lactate Dehydrogenase 183 U/L (135-230) Carcinoembryonic Antigen 2.6 ng/mL Vitamin B12 Level 491 pg/mL (211-946) Folate Pending Shabbir Richmond M.D. Jun 19, 2017 16:36
--- NOTE | 2017-06-20 08:30 | Consultation ---
DATE OF CONSULTATION: 06/19/2017 HEMATOLOGY/ONCOLOGY CONSULTATION CONSULTING PHYSICIAN: Ludwin Vargas M.D. REQUESTING PHYSICIAN: Ann Srinivasan M.D. REASON FOR CONSULTATION: Evaluation of leukopenia. IDENTIFICATION DATA: Dear Dr. Srinivasan, The patient is a pleasant 87-year-old female with past medical history significant for CHF, dementia, generalized weakness, at this time presents for CHF exacerbation, admitted to telemetry, noted to have decreased blood pressure at her facility. She was noted to have a low white count. Therefore, Hematology Service consulted for further evaluation. PAST MEDICAL HISTORY: As noted above. Chronic kidney disease, diabetes mellitus, and Alzheimer dementia. MEDICATIONS: Ampicillin, aspirin, cetirizine, Celexa, and donepezil. ALLERGIES: No known drug allergies. REVIEW OF SYSTEMS: Negative 14-point of review of systems. PHYSICAL EXAMINATION: VITAL SIGNS: Temperature 98 degrees Fahrenheit, pulse 66, respiratory rate 12, blood pressure 134/97, and pulse oximetry 97% on room air. GENERAL: In no distress. PULMONARY: Decreased breath sounds. CARDIOVASCULAR: Regular rate. No S3 or S4. ABDOMEN: Soft and nontender. EXTREMITIES: No cyanosis, clubbing, or edema. LABORATORY DATA: WBC 4.2, hemoglobin 10.2, platelet count 139,000. ASSESSMENT AND PLAN: 1. Leukopenia. 2. Pancytopenia, most likely secondary to underlying infection versus secondary to fluid overload. Continue to monitor. 3. Hepatitis panel and HIV have been ordered. The patient could be likely discharged today and will need to follow up as an outpatient with PCP. 4. Anemia secondary to chronic disease. 5. Acute kidney injury, currently improving. 6. Congestive heart failure history. Continue to monitor at this time the patient with Cardiology. She was on diuretics as an inpatient. 7. Alzheimer dementia. Continue supportive care. 8. Diabetes mellitus. Tight blood sugar control. Glucose level goal between 80 and 120. I appreciate the consultation. Ludwin Vargas M.D. DR: Mary Grace JOB#: [id number] CC:
--- NOTE | 2017-06-21 01:45 | Discharge Summary 2 SIG ---
DATE OF ADMISSION: 06/16/2017 DATE OF DISCHARGE: 06/19/2017 CONSULTANTS: 1. Nilsa Chaudhry M.D. 2. Shabbir Richmond M.D. BRIEF HOSPITAL COURSE: The patient is an 87-year-old female from [facility], was taken to [facility] via EMS for evaluation of increased weakness. The patient was noted to be more weak compared to her usual state and had chest pain and was noted to have low blood pressure at the facility. She has medical history significant for dementia, diabetes, and CHF. On evaluation at ED, laboratories showed hyperkalemia. Potassium was 5.7 and BNP was elevated to 1514, creatinine was 2.4, urine possible infection. She was admitted to telemetry for evaluation of CHF, ACS, hyperkalemia, CKD, and UTI. She was given Kayexalate. Blood sugars were monitored and was continued on Prandin and sliding scale of NovoLog. Venous Duplex of lower extremity was negative for DVT bilaterally. Creatinine on admission was 2.4. Renal ultrasound done showed increase in cortical echogenicity suggestive of medical renal disease. She was seen by Dr. Ellsworth for evaluation of chest pain. A 12-lead electrocardiogram was unremarkable and showed sinus rhythm with right bundle-branch block and no ST to T-wave abnormalities. During prior admission, she had a 2D echocardiogram that showed normal left ventricular systolic function with LVEF of 70% to 75%, moderate left ventricular hypertrophy, trace mitral regurgitation, and grade 1 left ventricular diastolic dysfunction with right ventricular systolic pressure measured at 45 mmHg consistent with [id number] pulmonary hypertension. She also underwent a nuclear stress test, which showed no evidence of myocardial wall ischemia. Troponin x3 was negative. Blood culture was negative. No need for antibiotics. The patient's renal function improved. She was eventually discharged back to assisted living. FINAL DIAGNOSES: 1. Acute on chronic diastolic congestive heart failure. 2. Acute on chronic kidney failure. 3. Diabetes mellitus. 4. Alzheimer's dementia. 5. Diabetes. 6. Hypotension. 7. Generalized weakness. 8. Anemia. 9. Hyperkalemia. 10. Chest pain, noncardiac. DISPOSITION: The patient was discharged back to assisted living. DISCHARGE MEDICATIONS: Referred to medication list. FOLLOWUP: The patient was advised to follow up with primary medical doctor in a week. ACTIVITY: As tolerated. Noé Venegas D.O. I have been assigned to dictate discharge summary on this account and I was not involved in the patient's management. Cassia Pedroza N.P. DR: Artemio JOB#: [id number] CC: DORA
== END 2017-06-19 16:23 | disposition home or self-care (01) | DRG 292 ==
LOC: EDBD 14:57 → EMR 15:26 → 2E 16:07 → EDBEDREQ 16:23 → 2E 17:29
DX: I50.33 Acute on chronic diastolic (congestive) heart failure (principal); N17.9 Acute kidney failure, unspecified; I95.9 Hypotension, unspecified; D61.818 Other pancytopenia; E87.5 Hyperkalemia; I27.2 Other secondary pulmonary hypertension; E11.22 Type 2 diabetes mellitus with diabetic chronic kidney disease; I13.0 Hypertensive heart and chronic kidney disease with heart failure and stage 1 through stage 4 chronic kidney disease, or unspecified chronic kidney disease; G30.9 Alzheimer's disease, unspecified; F02.80 Dementia in other diseases classified elsewhere, unspecified severity, without behavioral disturbance, psychotic disturbance, mood disturbance, and anxiety; D64.9 Anemia, unspecified; R07.89 Other chest pain; I45.10 Unspecified right bundle-branch block; Z23 Encounter for immunization; R53.1 Weakness; N18.9 Chronic kidney disease, unspecified
CPT/HCPCS: 36415; 71010; 76775; 80048; 80053; 80061; 81001; 81003; 82378; 82550; 82553; 82607; 82746; 82962; 83540; 83550; 83605; 83615; 83690; 83880; 84133; 84300; 84443; 84484; 84550; 85007; 85025; 85044; 85060; 85610; 85651; 85730; 86850; 86900; 86901; 87040; 87081; 87086; 89050; 90732; 93005; 93970; 94664; J1815

== ENCOUNTER 2017-06-28 17:24 | Inpatient (IN) | payer MEDICARE, OTHER ==
[~2017-06-28] VITALS: Ht 157.5 cm; Wt 67.1 kg
[2017-06-28 17:56] VITALS: BP 168/54
[2017-06-28 18:14] LABS: BASOPHILS % (AUTO) 0.8 % (0.0-2.0); LYMPHOCYTES % (AUTO) 17.5 % (20.0-45.0); MEAN CORPUSCULAR HEMOGLOBIN 34.4 PG (27.0-31.0); MEAN CORPUSCULAR HGB CONC 35.5 G/DL (32.0-36.0); MEAN CORPUSCULAR VOLUME 97 FL (80-99); MEAN PLATELET VOLUME 10.8 FL (6.5-10.1); MONOCYTES % (AUTO) 7.1 % (1.0-10.0); NEUTROPHILS % (AUTO) 73.6 % (45.0-75.0); PLATELET COUNT 175 K/UL (150-450); RED BLOOD COUNT 3.39 M/UL (4.20-5.40); RED CELL DISTRIBUTION WIDTH 13.1 % (11.6-14.8); WHITE BLOOD COUNT 8.1 K/UL (4.8-10.8)
[2017-06-28 18:40] VITALS: BP 102/56
[2017-06-28 18:41] LABS: TROPONIN I < 0.30 ng/mL (<=0.30)
[2017-06-28 18:45] LABS: ALANINE AMINOTRANSFERASE 7 U/L (3-33); ALBUMIN/GLOBULIN RATIO 1.2 (1.0-2.7); ANION GAP 15 (5-15); ASPARTATE AMINO TRANSFERASE 15 U/L (5-40); CALCIUM 8.9 mg/dL (8.6-10.2); CARBON DIOXIDE 21 mEQ/L (20-30); CHLORIDE 100 mEQ/L (98-107); HEMOLYSIS 32; POTASSIUM 5.1 mEQ/L (3.4-4.9); SODIUM 136 mEQ/L (135-145)
[2017-06-28 18:55] LABS: CKMB 2.6 ng/mL (< 3.8)
[2017-06-28] MEDS ORDERED: ARICEPT10 MG ORAL (18:57)
[2017-06-28 19:18] VITALS: BP 94/63
--- NOTE | 2017-06-28 19:29 | Emergency Room Report ---
History of Present Illness General Chief Complaint: Chest Pain Source: Patient Present Illness HPI 87-year-old female presents ED complaining of chest pain. [facility] Pain started earlier today. Upon arrival patient is denying any pain. Patient does have dementia. Patient was given aspirin by EMS. No other aggravating relieving factors. Denies any other associated symptoms Allergies: Coded Allergies: No Known Allergies (Unverified , 01/14/17) Patient History Past Medical History: GERD, dementia Past Surgical History: none Pertinent Family History: none Social History: Denies: alcohol use, drug use, smoking Now: No Immunizations: UTD Reviewed Nursing Documentation: PMH: Agreed, PSxH: Agreed Nursing Documentation-PMH Hx Cardiac Problems: No Hx Hypertension: Yes Hx Pacemaker: No Hx Asthma: No Hx COPD: No Hx Diabetes: Yes Hx Cancer: No Hx Gastrointestinal Problems: Yes - GERD Hx Dialysis: No Hx Neurological Problems: Yes - DEMENTIA Hx Cerebrovascular Accident: No Hx Dementia: Yes Hx Seizures: No Review of Systems All Other Systems: negative except mentioned in HPI Physical Exam Vital Signs Date Time Temp Pulse Resp B/P Pulse Ox O2 Delivery O2 Flow Rate FiO2 06/28/17 17:21 98.4 88 16 172/88 100 Sp02 EP Interpretation: reviewed, normal General Appearance: no apparent distress, alert, GCS 15, non-toxic Head: normocephalic, atraumatic Eyes: bilateral eye PERRL, bilateral eye normal inspection ENT: hearing grossly normal, normal pharynx, no angioedema, normal voice Neck: full range of motion, supple/symm/no masses Respiratory: chest non-tender, lungs clear, normal breath sounds, speaking full sentences Cardiovascular #1: regular rate, rhythm, no edema Cardiovascular #2: 2+ carotid (R), 2+ carotid (L), 2+ radial (R), 2+ radial (L) , 2+ dorsalis pedis (R), 2+ dorsalis pedis (L) Gastrointestinal: normal bowel sounds, non tender, soft, non-distended, no guarding, no rebound Rectal: deferred Genitourinary: normal inspection, no CVA tenderness Musculoskeletal: back normal, gait/station normal, normal range of motion, non- tender Neurologic: alert, oriented x3, responsive, motor strength/tone normal, sensory intact, speech normal Psychiatric: judgement/insight normal, memory normal, mood/affect normal, no suicidal/homicidal ideation Reflexes: 3+ bicep (R), 3+ bicep (L), 3+ tricep (R), 3+ tricep (L), 3+ knee (R) , 3+ knee (L) Skin: normal color, no rash, warm/dry, well hydrated Lymphatic: no adenopathy Medical Decision Making Diagnostic Impression: Primary Impression: ACS (acute coronary syndrome) Additional Impressions: Chronic kidney disease Qualified Codes: N18.9 - Chronic kidney disease, unspecified Hyperkalemia, diminished renal excretion ER Course Hospital Course 87 yo F presents to ED c/o chest pain. from SNF Differential diagnoses include: VA/unstable angina, contusion, muscle strain, PTX, rib fracture Clinical course Patient placed on stretcher. on quality assurance monitor. After initial history and physical I ordered labs, EKG, chest x-ray labs reviewed- no leukocytosis, hb/hct stable, BUN/Cr elevated, K 5.1, trop negative EKG - NSR, no acute ischemic changes interpreted by me Chest x-ray- no acute process, hiatal hernia present/unchanged Case discussed with Dr. Venegas and he agreed to accept the patient to his service for further care and support I. I feel this is a highly complex case requiring extensive working including EKG/Rhythm strip, Xray/CT/US, Blood/urine lab work, repeat exams while in ED, and administration of strong opiates/narcotics for pain control, admission to hospital or close patient follow up. Diagnosis - ACS, CKD, hyperkalemia admitted to telemetry in serious condition Labs Test 06/28/17 17:50 White Blood Count 8.1 K/UL (4.8-10.8) Red Blood Count 3.39 M/UL (4.20-5.40) Hemoglobin 11.7 G/DL (12.0-16.0) Hematocrit 32.8 % (37.0-47.0) Mean Corpuscular Volume 97 FL (80-99) Mean Corpuscular Hemoglobin 34.4 PG (27.0-31.0) Mean Corpuscular Hemoglobin Concent 35.5 G/DL (32.0-36.0) Red Cell Distribution Width 13.1 % (11.6-14.8) Platelet Count 175 K/UL (150-450) Mean Platelet Volume 10.8 FL (6.5-10.1) Neutrophils (%) (Auto) 73.6 % (45.0-75.0) Lymphocytes (%) (Auto) 17.5 % (20.0-45.0) Monocytes (%) (Auto) 7.1 % (1.0-10.0) Eosinophils (%) (Auto) 1.0 % (0.0-3.0) Basophils (%) (Auto) 0.8 % (0.0-2.0) Sodium Level 136 mEQ/L (135-145) Potassium Level 5.1 mEQ/L (3.4-4.9) Chloride Level 100 mEQ/L (98-107) Carbon Dioxide Level 21 mEQ/L (20-30) Anion Gap 15 (5-15) Blood Urea Nitrogen 30 mg/dL (7-23) Creatinine 2.0 mg/dL (0.5-0.9) Estimat Glomerular Filtration Rate mL/min (>60) Glucose Level 200 mg/dL (74-106) Calcium Level 8.9 mg/dL (8.6-10.2) Total Bilirubin 0.3 mg/dL (0.0-1.2) Aspartate Amino Transf (AST/SGOT) 15 U/L (5-40) Alanine Aminotransferase (ALT/SGPT) 7 U/L (3-33) Alkaline Phosphatase 81 U/L (35-104) Total Creatine Kinase 76 U/L (26-140) Creatine Kinase MB 2.6 ng/mL (< 3.8) Creatine Kinase MB Relative Index 3.4 Troponin I < 0.30 ng/mL (<=0.30) Pro-B-Type Natriuretic Peptide 2633 pg/mL (0-450) Total Protein 7.0 g/dL (6.6-8.7) Albumin 3.9 g/dL (3.5-5.2) Globulin 3.1 g/dL Albumin/Globulin Ratio 1.2 (1.0-2.7) EKG Diagnostic Results Rate: normal Rhythm: NSR ST Segments: no acute changes ASA given to the pt in ED: No - given by ems Rhythm Strip Diag. Results EP Interpretation: yes Rhythm: NSR, no PVC's, no ectopy Chest X-Ray Diagnostic Results Chest X-Ray Diagnostic Results : Chest X-Ray Ordered: Yes # of Views/Limited/Complete: 1 View Indication: Chest Pain EP Interpretation: Yes Interpretation: no consolidation, no effusion, no pneumothorax, no acute cardiopulmonary disease Impression: No acute disease Interpreting ER Provider: Electronically signed by Tanvir Allen MD Last Vital Signs Date Time Temp Pulse Resp B/P Pulse Ox O2 Delivery O2 Flow Rate FiO2 06/28/17 18:40 98.4 72 24 102/56 100 Status: improved Disposition: ADMITTED INPATIENT Condition: Serious Referrals: NON PHYSICIAN (PCP) TANVIR ALLEN M.D. Jun 28, 2017 19:29
[2017-06-28 20:48] VITALS: BP 99/53
--- NOTE | 2017-06-28 20:55 | Cardiology Progress Note ---
Assessment/Plan Assessment/Plan The patient is seen and examined, full consult note will be dictated. Objective Last 24 Hour Vital Signs Date Time Temp Pulse Resp B/P Pulse Ox O2 Delivery O2 Flow Rate FiO2 06/28/17 20:48 99.0 95 23 99/53 100 Room Air 06/28/17 19:18 99.0 81 22 94/63 100 Room Air 06/28/17 18:40 98.4 72 24 102/56 100 06/28/17 17:56 98.4 82 16 168/54 100 06/28/17 17:54 88 16 06/28/17 17:21 98.4 88 16 172/88 100 Laboratory Tests Test 06/28/17 17:50 White Blood Count 8.1 K/UL (4.8-10.8) Red Blood Count 3.39 M/UL (4.20-5.40) L Hemoglobin 11.7 G/DL (12.0-16.0) L Hematocrit 32.8 % (37.0-47.0) L Mean Corpuscular Volume 97 FL (80-99) Mean Corpuscular Hemoglobin 34.4 PG (27.0-31.0) H Mean Corpuscular Hemoglobin Concent 35.5 G/DL (32.0-36.0) Red Cell Distribution Width 13.1 % (11.6-14.8) Platelet Count 175 K/UL (150-450) Mean Platelet Volume 10.8 FL (6.5-10.1) H Neutrophils (%) (Auto) 73.6 % (45.0-75.0) Lymphocytes (%) (Auto) 17.5 % (20.0-45.0) L Monocytes (%) (Auto) 7.1 % (1.0-10.0) Eosinophils (%) (Auto) 1.0 % (0.0-3.0) Basophils (%) (Auto) 0.8 % (0.0-2.0) Sodium Level 136 mEQ/L (135-145) Potassium Level 5.1 mEQ/L (3.4-4.9) H Chloride Level 100 mEQ/L (98-107) Carbon Dioxide Level 21 mEQ/L (20-30) Anion Gap 15 (5-15) Blood Urea Nitrogen 30 mg/dL (7-23) H Creatinine 2.0 mg/dL (0.5-0.9) H Estimat Glomerular Filtration Rate mL/min (>60) Glucose Level 200 mg/dL (74-106) H Calcium Level 8.9 mg/dL (8.6-10.2) Total Bilirubin 0.3 mg/dL (0.0-1.2) Aspartate Amino Transf (AST/SGOT) 15 U/L (5-40) Alanine Aminotransferase (ALT/SGPT) 7 U/L (3-33) Alkaline Phosphatase 81 U/L (35-104) Total Creatine Kinase 76 U/L (26-140) Creatine Kinase MB 2.6 ng/mL (< 3.8) Creatine Kinase MB Relative Index 3.4 Troponin I < 0.30 ng/mL (<=0.30) Pro-B-Type Natriuretic Peptide 2633 pg/mL (0-450) H Total Protein 7.0 g/dL (6.6-8.7) Albumin 3.9 g/dL (3.5-5.2) Globulin 3.1 g/dL Albumin/Globulin Ratio 1.2 (1.0-2.7) BLAKE GARZON Jun 28, 2017 20:55
[2017-06-29] MEDS: NovoLOG Insulin Flexpen SUBQ SCH ×4 (05:39→21:00)
--- NOTE | 2017-06-29 07:36 | Consultation ---
History of Present Illness General Date patient seen: Jun 29, 2017 Time patient seen: 06:45 Chief Complaint: Chest Pain Referring physician: dr Venegas Reason for Consultation: inpatient management Present Illness HPI 87y/o female with PMH significant for HTN, DM, dementia, GERD was sent form SN Ffor evaluation of chest pain. Upon arrival to ED patient denied any pain. Patient was given aspirin by EMS. Workup in ED revealed elevated BP- 172/88 pulse oximetry stable on RA troponin negative ECG with NSR, no acute ischemic changes CXR no acute cardiopulmonary pathology no leukocytosis K-5.1 BS 200 BUN-30 creat 2.0 Patient was admitted to tele floor for possible ACS currently denying chest pain, SOB, palpitations, however patient with dementia and overall a poor historian, answers "No" to any questions Allergies: Coded Allergies: No Known Allergies (Unverified , 01/14/17) Medication History Scheduled Ampicillin Trihydrate (Ampicillin Trihydrate), 500 MG ORAL Q8HR Aspirin* (Aspirin*), 81 MG ORAL DAILY, (Reported) Cetirizine Hcl* (Zyrtec*), 10 MG ORAL DAILY, (Reported) Citalopram Hydrobromide* (Citalopram Hbr*), 20 MG ORAL DAILY, (Reported) Docusate Sodium* (Docusate Sodium*), 100 MG ORAL TWICE A DAY, (Reported) Donepezil Hcl* (Donepezil Hcl*), 10 MG ORAL DAILY, (Reported) Donepezil Hcl* (Aricept*), 10 MG ORAL DAILY, (Reported) Famotidine (Famotidine), 20 MG ORAL DAILY, (Reported) Furosemide* (Lasix*), 40 MG ORAL DAILY, (Reported) Ketorolac Tromethamine (Ketorolac Tromethamine), 5 ML OP BID, (Reported) Lisinopril* (Lisinopril*), 10 MG ORAL DAILY, (Reported) Memantine Hcl* (Namenda*), 10 MG ORAL DAILY, (Reported) Quetiapine Fumarate* (Quetiapine Fumarate*), 50 MG ORAL BEDTIME, (Reported) Simvastatin (Zocor), 40 MG ORAL BEDTIME, (Reported) Sitagliptin* (Januvia*), 100 MG ORAL DAILY, (Reported) Scheduled PRN Acetaminophen (Acetaminophen), 650 MG ORAL Q6H PRN for Prn Headache/Temp > 101, (Reported) Miscellaneous Medications Lutein (Lutein), 20 MG PO, (Reported) Repaglinide (Repaglinide), 1 MG PO, (Reported) Patient History History Provided By: Medical Record Healthcare decision maker Resuscitation status Full Code Advanced Directive on File Past Medical/Surgical History Past Medical/Surgical History: (1) Alzheimer's dementia (2) Diabetes mellitus (3) Chronic kidney disease (4) Anemia (5) CHF (congestive heart failure) Review of Systems ROS Narrative unable to obtain 2 to dementia Physical Exam General Appearance: WD/WN, no apparent distress, alert - confused Lines, tubes and drains: peripheral HEENT: normocephalic, atraumatic, anicteric, mucous membranes moist, PERRL Neck: supple Respiratory/Chest: lungs clear, no respiratory distress, no accessory muscle use Cardiovascular/Chest: normal peripheral pulses, normal rate, no JVD Abdomen: normal bowel sounds, non tender, soft Extremities: non-tender, no calf tenderness, normal capillary refill Neurologic: no motor/sensory deficits, abnormal gait, alert, responsive Last 24 Hour Vital Signs Date Time Temp Pulse Resp B/P Pulse Ox O2 Delivery O2 Flow Rate FiO2 06/29/17 04:00 78 06/29/17 02:02 87 06/28/17 21:30 99.0 95 23 99/53 100 Room Air 06/28/17 20:48 99.0 95 23 99/53 100 Room Air 06/28/17 19:18 99.0 81 22 94/63 100 Room Air 06/28/17 18:40 98.4 72 24 102/56 100 06/28/17 17:56 98.4 82 16 168/54 100 06/28/17 17:54 88 16 06/28/17 17:21 98.4 88 16 172/88 100 Laboratory Tests Test 06/28/17 17:50 White Blood Count 8.1 K/UL (4.8-10.8) Red Blood Count 3.39 M/UL (4.20-5.40) L Hemoglobin 11.7 G/DL (12.0-16.0) L Hematocrit 32.8 % (37.0-47.0) L Mean Corpuscular Volume 97 FL (80-99) Mean Corpuscular Hemoglobin 34.4 PG (27.0-31.0) H Mean Corpuscular Hemoglobin Concent 35.5 G/DL (32.0-36.0) Red Cell Distribution Width 13.1 % (11.6-14.8) Platelet Count 175 K/UL (150-450) Mean Platelet Volume 10.8 FL (6.5-10.1) H Neutrophils (%) (Auto) 73.6 % (45.0-75.0) Lymphocytes (%) (Auto) 17.5 % (20.0-45.0) L Monocytes (%) (Auto) 7.1 % (1.0-10.0) Eosinophils (%) (Auto) 1.0 % (0.0-3.0) Basophils (%) (Auto) 0.8 % (0.0-2.0) Sodium Level 136 mEQ/L (135-145) Potassium Level 5.1 mEQ/L (3.4-4.9) H Chloride Level 100 mEQ/L (98-107) Carbon Dioxide Level 21 mEQ/L (20-30) Anion Gap 15 (5-15) Blood Urea Nitrogen 30 mg/dL (7-23) H Creatinine 2.0 mg/dL (0.5-0.9) H Estimat Glomerular Filtration Rate mL/min (>60) Glucose Level 200 mg/dL (74-106) H Calcium Level 8.9 mg/dL (8.6-10.2) Total Bilirubin 0.3 mg/dL (0.0-1.2) Aspartate Amino Transf (AST/SGOT) 15 U/L (5-40) Alanine Aminotransferase (ALT/SGPT) 7 U/L (3-33) Alkaline Phosphatase 81 U/L (35-104) Total Creatine Kinase 76 U/L (26-140) Creatine Kinase MB 2.6 ng/mL (< 3.8) Creatine Kinase MB Relative Index 3.4 Troponin I < 0.30 ng/mL (<=0.30) Pro-B-Type Natriuretic Peptide 2633 pg/mL (0-450) H Total Protein 7.0 g/dL (6.6-8.7) Albumin 3.9 g/dL (3.5-5.2) Globulin 3.1 g/dL Albumin/Globulin Ratio 1.2 (1.0-2.7) Height (Feet): 5 Height (Inches): 2.00 Weight (Pounds): 148 Medications Current Medications Medications (Trade) Dose Ordered Sig/Misty Route PRN Reason Start Time Stop Time Status Last Admin Dose Admin Dextrose (Dextrose 50%) STAT PRN IV Hypoglycemia 06/29/17 01:30 07/29/17 01:29 Insulin Aspart (NovoLOG) BEFORE MEALS AND HS SUBQ 06/29/17 06:30 07/29/17 06:29 06/29/17 05:39 Quetiapine Fumarate (SEROquel) 50 mg BEDTIME ORAL 06/29/17 21:00 07/29/17 20:59 Assessment/Plan Assessment/Plan ASSESSMENT chest pain possible ACS HTN urgency CKD hyperkalemia DM Alzheimer dementia PLAN OF CARE tele serial troponin cardio eval per PMD ECHO per cardio discretion ASA pain management with Nitro and Morphine prn lipid panel with small elevation in TG, diet low fat , TSH-WNL. check HgAq1c BP management currently normotensive ( after treatment) will hold home Lisinopril due to elevated K, for now just prn Clonidine, further management as indicated monitor renal parameters, lytes, correct as needed (s/p 1 L NS at ED ) BS management with SS of insulin, optimize as needed DVT prophylaxis bowel regimen case discussed and evaluated by supervising physician Christian (Amna),Ayanna ALBERT Jun 29, 2017 07:36
[2017-06-29] MEDS ORDERED: Morphine Sulfate 2mg/ml Inj IVP ONE (07:45)
[2017-06-29] MEDS ORDERED: Nitroglycerin Subl 0.4mg tab (Bottle Of 25) SL PRN (07:45)
[2017-06-29 08:03] VITALS: BP 152/77
[2017-06-29 08:35] LABS: HEMOGLOBIN A1C 6.9 % (< 6.0)
[2017-06-29 08:36] LABS: TROPONIN I < 0.30 ng/mL (<=0.30)
[2017-06-29 08:38] LABS: ANION GAP 16 (5-15); CALCIUM 8.6 mg/dL (8.6-10.2); CARBON DIOXIDE 19 mEQ/L (20-30); CHLORIDE 100 mEQ/L (98-107); CHOLESTEROL 180 mg/dL (< 200); CHOLESTEROL/HDL RATIO 3.4 (3.3-4.4); CREATININE 1.9 mg/dL (0.5-0.9); HEMOLYSIS 17; LDL CHOLESTEROL (CALC.) 95 mg/dL (60-99); POTASSIUM 4.6 mEQ/L (3.4-4.9); SODIUM 135 mEQ/L (135-145)
[2017-06-29] MEDS: Aspirin EC 81mg tab ORAL SCH (08:55)
[2017-06-29] MEDS: Heparin 5000 units/ml inj SUBQ SCH ×2 (08:58→21:23)
[2017-06-29 11:29] VITALS: BP 147/80
[2017-06-29 15:35] VITALS: BP 159/74
--- NOTE | 2017-06-29 15:58 | General Progress Note ---
Progress Note Progress Note [id number] full consult dictated DANA SINGH Jun 29, 2017 15:58
--- NOTE | 2017-06-29 16:59 | Cardiology Report ---
APPROVED REPORT EKG Measurement Heart [id number] Sinus rhythm with 1st degree AV block with premature atrial complexes Right bundle branch block Abnormal ECG
--- NOTE | 2017-06-29 17:30 | Consultation ---
DATE OF CONSULTATION: NEPHROLOGY CONSULTATION CONSULTING PHYSICIAN: Sirisha Ceballos M.D. REFERRING PHYSICIAN: Noé Venegas D.O. REASON FOR CONSULTATION: Acute and chronic renal failure. HISTORY OF PRESENT ILLNESS: The patient is an 87-year-old unfortunate female with past medical history significant for hypertension, diabetes, chronic kidney disease stage III, history of dementia, and gastroesophageal reflux disease, who was referred to [facility] for evaluation of chest pain. Apparently, the patient had chest pain at [facility]. 911 was called, EMS, was given an aspirin and brought to the emergency room. Upon arrival in the ER, the patient was found to have a blood pressure of 172/88. The patient was also found to have an hyperkalemia and she also was found to have a creatinine of 2, which her baseline is 1.9 to 2. Consequently, the patient was admitted with diagnosis of acute coronary syndrome. I was called for management of renal disease and electrolyte imbalance. PAST MEDICAL HISTORY: Includin. History of chronic kidney disease. 2. History of hypertension. 3. History of dyslipidemia. 4. History of dementia. 5. History of GERD. PAST SURGICAL HISTORY: None. HOME MEDICATIONS: Includin. Aspirin 81 mg p.o. daily. 2. Zyrtec 10 mg p.o. daily. 3. Colace 100 mg p.o. daily. 4. Aricept 10 mg p.o. daily. 5. Morphine 20 mg p.o. daily. 6. Lasix 40 mg p.o. daily. 7. Lisinopril 10 mg p.o. daily. 8. Seroquel 50 mg at bedtime. 9. Simvastatin 40 mg p.o. daily. 10. Norvir 100 mg p.o. daily. ALLERGIES: No known drug allergies. SOCIAL HISTORY: She lives at the halfway. There is no history of tobacco, alcohol, or drug use. FAMILY HISTORY: Noncontributory. REVIEW OF SYSTEMS: General: She complained of generalized weakness. She denied any weight loss, weight gain, fever, or chills. HEENT: Denies any dysphagia, odynophagia, blurry vision, headache, or neck stiffness. Pulmonary: No shortness of breath, cough, or sputum. Cardiovascular: Denies any chest pain at this time. Gastrointestinal: Denies any nausea, vomiting, or diarrhea. Genitourinary: Denies any dysuria, frequency, or hematuria. Musculoskeletal: She complained of generalized weakness. Otherwise negative. PHYSICAL EXAMINATION: VITAL SIGNS: The patient has blood pressure of 99/53, pulse rate of 95, and respiratory rate of 18. HEAD AND NECK: No JVP. No LAD. No thyromegaly. Extraocular movement intact. Pupils are reactive to light and accommodation. LUNGS: Clear to auscultation. CARDIAC: Regular rate and rhythm. S1 and S2. No murmur. No rub. ABDOMEN: Soft, nontender, and nondistended. EXTREMITIES: Trace edema. No clubbing. No cyanosis. LABORATORY DATA: Sodium 135, potassium 4.6, chloride 100, bicarbonate 19, BUN of 26, creatinine of 1.9, and glucose of 259. Calcium of 6.9. AST of 15, ALT of 7, and alkaline phosphatase of 81. BNP of 2633. Chest x-ray was negative. Her cholesterol panel revealed total cholesterol of 180, LDL of 95, and HDL of 53. There is no UA. ASSESSMENT: 1. Acute on chronic renal failure. The etiology of acute renal failure is acute tubular necrosis. The . 2. Chronic kidney disease. 3. Hypertension, but at this time, the patient is hypotensive. 4. Acute coronary syndrome. 5. Dyslipidemia. PLAN: Plan for the patient is to obtain a UA. Check the random urine protein-creatinine ratio to calculate the proteinuria. Check the urine sodium and creatinine to calculate fractional excretion of sodium. Monitor renal function and electrolytes closely. Replace electrolytes as needed. Again, I would like to thank Dr. Noé Venegas for allowing me to participate in the care of this patient. Sirisha Ceballos M.D. DR: KAY JOB#: [id number] CC:
[2017-06-29 20:00] VITALS: BP 141/49
--- NOTE | 2017-06-29 23:15 | History and Physical Report ---
DATE OF ADMISSION: 06/28/2017 TIME SEEN: At 9 a.m. CONSULTANTS: 1. Jaycob Ellsworth M.D. 2. Nilsa Chaudhry M.D. 3. Sirisha Ceballos M.D. CHIEF COMPLAINT: Shortness of breath and chest pain. BRIEF HISTORY: This is an 87-year-old female, who lives at home, presents with slight short of breath for a day, slight substernal chest pain, no radiation. The patient came to [facility], diagnosed with the above, admitted to telemetry for further care. Currently, calm in room, slightly weak, slight short of breath. No complaint. PAST MEDICAL HISTORY: Includes CKD, ACS, diabetes, anemia, CHF, and Alzheimer's. PAST SURGICAL HISTORY: Unknown. MEDICATIONS: Include , Seroquel, Zantac, Ecotrin, heparin, nitroglycerin, Catapres, and NovoLog. ALLERGIES: Denied. SOCIAL HISTORY: No smoke, no alcohol, and no intravenous drug abuse. FAMILY HISTORY: Noncontributory. REVIEW OF SYSTEMS: Slight chest pain and slight short of breath. No nausea, vomiting, or diarrhea. PHYSICAL EXAMINATION: GENERAL: Calm in room, oriented x1, in no acute distress. VITAL SIGNS: Temperature is 97 degrees, pulse 88, respirations 18, and blood pressure 152/77. CARDIOVASCULAR: No murmur. LUNGS: Poor air exchange. ABDOMEN: Bowel sounds positive. Soft, nontender, and nondistended. EXTREMITIES: No cyanosis, clubbing, or edema. NEUROLOGIC: The patient moves all extremities, but slightly weak. LABORATORY DATA: Hemoglobin is 11.7, otherwise CBC is normal. BUN and creatinine 26 and 1.9. Glucose is 259. Troponin less than 0.3, otherwise BMP is normal. Triglycerides 162. ASSESSMENT: 1. Chest pain. 2. Shortness of breath. 3. Anemia. 4. Alzheimer's. 5. Diabetes. 6. Congestion heart failure. 7. Chronic kidney disease. PLAN: 1. Continue premedications. 2. O2 and pulmonary treatment. 3. Pain control. 4. Troponin q.8 h. x3. 5. EKG in the morning. 6. Blood pressure control. 7. Resume home medications. 8. IV fluids. 9. CBC and BMP in the morning. 10. OT, PT, and dietary evaluation. 11. Dr. Ellsworth, Dr. Chaudhry, and Dr. Ceballos, and Dr. Degroot to consult. 12. We will continue to follow this patient medically. Noé Venegas D.O. DR: MARY CARMEN JOB#: [id number] CC:
[2017-06-30] VITALS: BP 93/57
[2017-06-30 04:00] VITALS: BP 122/83
[2017-06-30] MEDS: NovoLOG Insulin Flexpen SUBQ SCH ×3 (05:50→17:50)
--- NOTE | 2017-06-30 07:46 | Progress Note ---
DATE: 06/30/2017 SUBJECTIVE: This is an 87-year-old female patient confused and disorganized. Poor cognition secondary to the progression of her medical illness. PLAN: I am going to continue treatment with psychotropic medications to stabilize her mood. Chart reviewed and discussed with staff. Seen and assessed at bedside. Ana Degroot M.D. DR: EBONI JOB#: [id number] CC:
--- NOTE | 2017-06-30 07:46 | Progress Note ---
DATE: 06/28/2017 SUBJECTIVE: The patient has acute coronary syndrome. Continue treatment with Seroquel 50 mg nightly to stabilize her mood and she will continued to be followed by Psychiatry throughout hospital course. Chart reviewed and discussed with staff. Seen and assessed at bedside. Ana eDgroot M.D. DR: EBONI JOB#: [id number] CC:
--- NOTE | 2017-06-30 07:46 | Progress Note ---
DATE: 06/29/2017 SUBJECTIVE: The patient is an 87 years old. PLAN: I am going to continue treatment with psychotropic medications to stabilize her mood. Chart reviewed and discussed with staff. Seen and assessed at bedside. Ana Degroot M.D. DR: EBONI JOB#: [id number] CC:
[2017-06-30 08:00] VITALS: BP 131/63
--- NOTE | 2017-06-30 08:18 | Diagnostic Imaging Report ---
Indication: Chest pain Technique: XRAY CHEST 1 V Comparison: 06/16/17 Findings: Cardiac silhouette is prominent. Atherosclerotic changes are noted. There is a large hiatal hernia. There is mild interstitial prominence. There is no obvious consolidation or pleural effusion. Osseous structures are grossly stable. Impression: Cardiomegaly with mild interstitial prominence. Mild congestive changes not completely excluded and clinical correlation/followup recommended. Hiatal hernia. Atherosclerotic changes.
--- NOTE | 2017-06-30 08:28 | Nephrology Progress Note ---
Assessment/Plan Assessment 1. Acute on chronic renal failure. 2. Chronic kidney disease.stage 3 3. Hypertension, but at this time, the patient is hypotensive. 4. Acute coronary syndrome. 5. Dyslipidemia. Plan to continue current med monitoring electrolyte avoid NSAID continue current antihypertensive med replace electrolyte as need it Subjective Constitutional: Reports: malaise, weakness HEENT: Reports: no symptoms Genitourinary: Reports: no symptoms Neurologic/Psychiatric: Reports: no symptoms Subjective no complaints Objective Objective Last 24 Hour Vital Signs Date Time Temp Pulse Resp B/P Pulse Ox O2 Delivery O2 Flow Rate FiO2 06/30/17 08:00 97.7 20 131/63 96 Room Air 06/30/17 04:00 85 06/30/17 04:00 97.3 82 16 122/83 98 Room Air 06/30/17 00:00 97.3 79 18 93/57 95 Room Air 06/30/17 00:00 81 06/29/17 20:00 81 06/29/17 20:00 97.3 82 18 141/49 95 Room Air 06/29/17 16:00 85 06/29/17 15:35 97.3 73 18 159/74 97 Room Air 06/29/17 12:00 73 06/29/17 11:29 97.3 75 18 147/80 96 Room Air Intake and Output 06/29/17 06/30/17 19:00 07:00 Intake Total 480 ml Output Total 300 ml Balance 180 ml Intake Oral 480 ml Output Urine Total 300 ml # Voids 2 Laboratory Tests 06/30/17 08:05: White Blood Count [Pending], Red Blood Count [Pending], Hemoglobin [Pending], Hematocrit [Pending], Mean Corpuscular Volume [Pending], Mean Corpuscular Hemoglobin [Pending], Mean Corpuscular Hemoglobin Concent [Pending], Red Cell Distribution Width [Pending], Platelet Count [Pending], Mean Platelet Volume [ Pending], Neutrophils (%) (Auto) [Pending], Lymphocytes (%) (Auto) [Pending], Monocytes (%) (Auto) [Pending], Eosinophils (%) (Auto) [Pending], Basophils (%) (Auto) [Pending], Sodium Level [Pending], Potassium Level [Pending], Chloride Level [Pending], Carbon Dioxide Level [Pending], Blood Urea Nitrogen [Pending], Creatinine [Pending], Estimat Glomerular Filtration Rate [Pending], Glucose Level [Pending], Calcium Level [Pending], Troponin I [Pending] Height (Feet): 5 Height (Inches): 2.00 Weight (Pounds): 148 Objective HEAD AND NECK: No JVP. No LAD. No thyromegaly. Extraocular movement intact. Pupils are reactive to light and accommodation. LUNGS: Clear to auscultation. CARDIAC: Regular rate and rhythm. S1 and S2. No murmur. No rub. ABDOMEN: Soft, nontender, and nondistended. EXTREMITIES: Trace edema. No clubbing. No cyanosis. DANA SINGH Jun 30, 2017 08:28
[2017-06-30 08:42] LABS: BASOPHILS % (AUTO) 0.7 % (0.0-2.0); LYMPHOCYTES % (AUTO) 25.8 % (20.0-45.0); MEAN CORPUSCULAR HEMOGLOBIN 31.1 PG (27.0-31.0); MEAN CORPUSCULAR HGB CONC 32.3 G/DL (32.0-36.0); MEAN CORPUSCULAR VOLUME 96 FL (80-99); MEAN PLATELET VOLUME 10.5 FL (6.5-10.1); MONOCYTES % (AUTO) 7.6 % (1.0-10.0); PLATELET COUNT 205 K/UL (150-450); RED CELL DISTRIBUTION WIDTH 12.7 % (11.6-14.8); WHITE BLOOD COUNT 7.3 K/UL (4.8-10.8)
[2017-06-30 08:48] LABS: ANION GAP 13 (5-15); CALCIUM 8.9 mg/dL (8.6-10.2); CARBON DIOXIDE 23 mEQ/L (20-30); CHLORIDE 102 mEQ/L (98-107); CREATININE 1.6 mg/dL (0.5-0.9); HEMOLYSIS 12; POTASSIUM 5.2 mEQ/L (3.4-4.9); SODIUM 138 mEQ/L (135-145); TROPONIN I < 0.30 ng/mL (<=0.30)
[2017-06-30] MEDS: Aspirin EC 81mg tab ORAL SCH (09:22)
[2017-06-30] MEDS: Heparin 5000 units/ml inj SUBQ SCH (09:26)
[2017-06-30 12:00] VITALS: BP 162/87
--- NOTE | 2017-06-30 14:18 | General Progress Note ---
Assessment/Plan Problem List: (1) Chest pain ICD Codes: R07.9 - Chest pain, unspecified SNOMED: 34996805 (2) Hypotension ICD Codes: I95.9 - Hypotension, unspecified SNOMED: 81164428 (3) Hyperkalemia, diminished renal excretion ICD Codes: E87.5 - Hyperkalemia SNOMED: 13550973 (4) Chronic kidney disease ICD Codes: N18.9 - Chronic kidney disease, unspecified SNOMED: 219566987 Qualifiers: Qualified Codes: N18.9 - Chronic kidney disease, unspecified (5) ACS (acute coronary syndrome) ICD Codes: I24.9 - Acute ischemic heart disease, unspecified SNOMED: 789602086 (6) CHF (congestive heart failure) ICD Codes: I50.9 - Heart failure, unspecified SNOMED: 68016773 (7) Alzheimer's dementia ICD Codes: G30.9 - Alzheimer's disease, unspecified SNOMED: 14689302 Status: stable, progressing, tolerating diet Assessment/Plan dc w hh if clear by cardio and neph Subjective Constitutional: Reports: weakness Allergies: Coded Allergies: No Known Allergies (Unverified , 01/14/17) All Systems: reviewed and negative except above Subjective calm in bed Objective Last 24 Hour Vital Signs Date Time Temp Pulse Resp B/P Pulse Ox O2 Delivery O2 Flow Rate FiO2 06/30/17 12:00 97.9 76 20 162/87 96 Room Air 06/30/17 08:00 97.7 20 131/63 96 Room Air 06/30/17 08:00 83 06/30/17 04:00 85 06/30/17 04:00 97.3 82 16 122/83 98 Room Air 06/30/17 00:00 97.3 79 18 93/57 95 Room Air 06/30/17 00:00 81 06/29/17 20:00 81 06/29/17 20:00 97.3 82 18 141/49 95 Room Air 06/29/17 16:00 85 06/29/17 15:35 97.3 73 18 159/74 97 Room Air Intake and Output 06/29/17 06/30/17 19:00 07:00 Intake Total 480 ml Output Total 300 ml Balance 180 ml Intake Oral 480 ml Output Urine Total 300 ml # Voids 2 Laboratory Tests 06/30/17 08:05: White Blood Count 7.3, Red Blood Count 3.60L, Hemoglobin 11.2L, Hematocrit 34.7L , Mean Corpuscular Volume 96, Mean Corpuscular Hemoglobin 31.1H, Mean Corpuscular Hemoglobin Concent 32.3, Red Cell Distribution Width 12.7, Platelet Count 205, Mean Platelet Volume 10.5H, Neutrophils (%) (Auto) 64.0, Lymphocytes (%) (Auto) 25.8, Monocytes (%) (Auto) 7.6, Eosinophils (%) (Auto) 2.0, Basophils (%) (Auto) 0.7, Sodium Level 138, Potassium Level 5.2H, Chloride Level 102, Carbon Dioxide Level 23, Anion Gap 13, Blood Urea Nitrogen 23, Creatinine 1.6H, Estimat Glomerular Filtration Rate , Glucose Level 204H, Calcium Level 8.9, Troponin I < 0.30 Height (Feet): 5 Height (Inches): 2.00 Weight (Pounds): 148 General Appearance: lethargic EENT: normal ENT inspection Neck: normal alignment Cardiovascular: normal peripheral pulses, normal rate, regular rhythm Respiratory/Chest: chest wall non-tender, lungs clear, normal breath sounds Abdomen: normal bowel sounds, non tender, soft Extremities: normal inspection Edema: no edema noted Arm (L), no edema noted Arm (R), no edema noted Leg (L), no edema noted Leg (R), no edema noted Pedal (L), no edema noted Pedal (R), no edema noted Generalized Neurologic: motor weakness Skin: normal pigmentation, warm/dry SHELBY MARTINI Jun 30, 2017 14:18
--- NOTE | 2017-06-30 14:48 | Pulmonology Progress Note ---
Assessment/Plan Problems: (1) ACS (acute coronary syndrome) (2) Diabetes mellitus (3) Chronic kidney disease Assessment/Plan improving all notes reviewed no sign of acute LA dc planning in progress Subjective ROS Limited/Unobtainable: No Constitutional: Reports: no symptoms HEENT: Repors: no symptoms Allergies: Coded Allergies: No Known Allergies (Unverified , 01/14/17) Objective Last 24 Hour Vital Signs Date Time Temp Pulse Resp B/P Pulse Ox O2 Delivery O2 Flow Rate FiO2 06/30/17 12:00 97.9 76 20 162/87 96 Room Air 06/30/17 08:00 97.7 20 131/63 96 Room Air 06/30/17 08:00 83 06/30/17 04:00 85 06/30/17 04:00 97.3 82 16 122/83 98 Room Air 06/30/17 00:00 97.3 79 18 93/57 95 Room Air 06/30/17 00:00 81 06/29/17 20:00 81 06/29/17 20:00 97.3 82 18 141/49 95 Room Air 06/29/17 16:00 85 06/29/17 15:35 97.3 73 18 159/74 97 Room Air Intake and Output 06/29/17 06/30/17 19:00 07:00 Intake Total 480 ml Output Total 300 ml Balance 180 ml Intake Oral 480 ml Output Urine Total 300 ml # Voids 2 General Appearance: WD/WN HEENT: normocephalic, anicteric Respiratory/Chest: chest wall non-tender, lungs clear Breasts: no masses Cardiovascular: normal peripheral pulses Abdomen: normal bowel sounds, no organomegaly Genitourinary: normal external genitalia Extremities: no clubbing Skin: no rash Laboratory Tests 06/30/17 08:05: White Blood Count 7.3, Red Blood Count 3.60L, Hemoglobin 11.2L, Hematocrit 34.7L , Mean Corpuscular Volume 96, Mean Corpuscular Hemoglobin 31.1H, Mean Corpuscular Hemoglobin Concent 32.3, Red Cell Distribution Width 12.7, Platelet Count 205, Mean Platelet Volume 10.5H, Neutrophils (%) (Auto) 64.0, Lymphocytes (%) (Auto) 25.8, Monocytes (%) (Auto) 7.6, Eosinophils (%) (Auto) 2.0, Basophils (%) (Auto) 0.7, Sodium Level 138, Potassium Level 5.2H, Chloride Level 102, Carbon Dioxide Level 23, Anion Gap 13, Blood Urea Nitrogen 23, Creatinine 1.6H, Estimat Glomerular Filtration Rate , Glucose Level 204H, Calcium Level 8.9, Troponin I < 0.30 Current Medications Medications (Trade) Dose Ordered Sig/Misty Route PRN Reason Start Time Stop Time Status Last Admin Dose Admin Aspirin (Ecotrin) 81 mg DAILY ORAL 06/29/17 09:00 07/29/17 08:59 06/30/17 09:22 Clonidine HCl (Catapres) 0.1 mg Q6H PRN ORAL SBP above 160 06/29/17 07:45 07/29/17 07:44 Dextrose (Dextrose 50%) STAT PRN IV Hypoglycemia 06/29/17 01:30 07/29/17 01:29 Heparin Sodium (Porcine) (Heparin 5000 units/ml) 5,000 units EVERY 12 HOURS SUBQ 06/29/17 09:00 07/29/17 08:59 06/30/17 09:26 Insulin Aspart (NovoLOG) BEFORE MEALS AND HS SUBQ 06/29/17 06:30 07/29/17 06:29 06/30/17 12:21 Nitroglycerin (Ntg) 0.4 mg Q5M PRN SL Prn Chest Pain 06/29/17 07:45 07/29/17 07:44 Quetiapine Fumarate (SEROquel) 50 mg BEDTIME ORAL 06/29/17 21:00 07/29/17 20:59 06/29/17 21:22 Ranitidine HCl (Zantac) 150 mg BEDTIME ORAL 06/29/17 21:00 07/29/17 20:59 06/29/17 21:22 ALCON CROCKER Jun 30, 2017 14:48
[2017-06-30 16:00] VITALS: BP 150/74
[2017-06-30 16:36] LABS: TROPONIN I < 0.30 ng/mL (<=0.30)
--- NOTE | 2017-06-30 23:59 | Cardiology Progress Note ---
Assessment/Plan Assessment/Plan 1. Chest pain most likely non-cardiac or due to accelerated HTN. Non-ischemic nuclear stress test recently, continue ASA. 2. CKD 3. HTN 4. Hyperlipidemia. Subjective Subjective Sinus rhythm at 80. Denies chest pain or SOB. Objective Last 24 Hour Vital Signs Date Time Temp Pulse Resp B/P Pulse Ox O2 Delivery O2 Flow Rate FiO2 06/30/17 16:00 74 06/30/17 16:00 97.6 78 20 150/74 96 Room Air 06/30/17 12:00 76 06/30/17 12:00 97.9 76 20 162/87 96 Room Air 06/30/17 08:00 97.7 20 131/63 96 Room Air 06/30/17 08:00 83 06/30/17 04:00 85 06/30/17 04:00 97.3 82 16 122/83 98 Room Air 06/30/17 00:00 97.3 79 18 93/57 95 Room Air 06/30/17 00:00 81 Intake and Output 06/29/17 06/30/17 19:00 07:00 Intake Total 480 ml Output Total 300 ml Balance 180 ml Intake Oral 480 ml Output Urine Total 300 ml # Voids 2 Laboratory Tests Test 06/30/17 08:05 06/30/17 16:00 White Blood Count 7.3 K/UL (4.8-10.8) Red Blood Count 3.60 M/UL (4.20-5.40) L Hemoglobin 11.2 G/DL (12.0-16.0) L Hematocrit 34.7 % (37.0-47.0) L Mean Corpuscular Volume 96 FL (80-99) Mean Corpuscular Hemoglobin 31.1 PG (27.0-31.0) H Mean Corpuscular Hemoglobin Concent 32.3 G/DL (32.0-36.0) Red Cell Distribution Width 12.7 % (11.6-14.8) Platelet Count 205 K/UL (150-450) Mean Platelet Volume 10.5 FL (6.5-10.1) H Neutrophils (%) (Auto) 64.0 % (45.0-75.0) Lymphocytes (%) (Auto) 25.8 % (20.0-45.0) Monocytes (%) (Auto) 7.6 % (1.0-10.0) Eosinophils (%) (Auto) 2.0 % (0.0-3.0) Basophils (%) (Auto) 0.7 % (0.0-2.0) Sodium Level 138 mEQ/L (135-145) Potassium Level 5.2 mEQ/L (3.4-4.9) H Chloride Level 102 mEQ/L (98-107) Carbon Dioxide Level 23 mEQ/L (20-30) Anion Gap 13 (5-15) Blood Urea Nitrogen 23 mg/dL (7-23) Creatinine 1.6 mg/dL (0.5-0.9) H Estimat Glomerular Filtration Rate mL/min (>60) Glucose Level 204 mg/dL (74-106) H Calcium Level 8.9 mg/dL (8.6-10.2) Troponin I < 0.30 ng/mL (<=0.30) < 0.30 ng/mL (<=0.30) Objective HEENT: Atraumatic, normocephalic, Pupils are reactive to light and accommodation.Extraocular movement intact. NECK: No JVP. no carotid bruit, upstroke 2+ B/L LUNGS: Clear to auscultation. CARDIAC: Regular rate and rhythm. S1 and S2. No murmur, rub or gallop. ABDOMEN: Soft, nontender, and nondistended. EXTREMITIES: Trace edema. No clubbing. No cyanosis. BLAKE GARZON Jun 30, 2017 23:59
--- NOTE | 2017-07-01 00:45 | Consultation ---
DATE OF CONSULTATION: 06/28/2017 CARDIOLOGY CONSULTATION CONSULTING PHYSICIAN: Jaycob Ellsworth M.D. REFERRING PHYSICIAN: Noé Venegas D.O. REASON FOR CONSULTATION: Management of chest pain. HISTORY OF PRESENT ILLNESS: The patient is a very unfortunate 87-year-old female who presents to the emergency department complaining of chest pain. The patient is a resident of a nursing facility, pain apparently started on 06/28/2017. Aspirin was given by paramedics. There was no aggravating or relieving factors. The patient is a poor historian and is not capable of providing detail of this chest pain. Of note, this is the third consecutive admission of this patient to [facility]. In previous admissions, the patient underwent a nuclear pharmacological stress test, which showed no presence of myocardial wall ischemia. PAST MEDICAL HISTORY: History of gastroesophageal reflux disease, history of dementia, history of recurrent chest pain, negative nuclear stress test recently in this facility, hypertension, diabetes mellitus, and history of chronic kidney disease. PAST SURGICAL HISTORY: None. MEDICATIONS: List of medication in the nursing facility, benazepril 10 mg p.o. daily, ketorolac 5 mL ophthalmic twice daily, acetaminophen 650 mg every six hours p.r.n. pain, Lutein 20 mg orally p.o. daily, citalopram 20 mg p.o. daily, donepezil 10 mg p.o. daily, ampicillin 500 mg q.8 h., Colace 100 mg twice daily, repaglinide 1 mg p.o. daily, quetiapine 50 mg p.o. at bedtime, Januvia 100 mg p.o. daily, memantine 10 mg p.o. daily, Simvastatin 40 mg p.o. at bedtime, lisinopril 10 mg p.o. daily, furosemide 40 mg p.o. daily, famotidine 20 mg p.o. daily, cetirizine 10 mg daily, and aspirin 81 mg p.o. daily. FAMILY HISTORY: No premature coronary artery disease in first-degree relatives. SOCIAL HISTORY: Denies any tobacco, alcohol, or illicit drug use. REVIEW OF SYSTEMS: HEENT: Denies any headache, diplopia, or blurred vision. Constitutional: Denies any fever, chills, night sweats, or weight loss. Cardiovascular: Denies any shortness of breath, PND, orthopnea, or leg swelling. Chest pain as mentioned above. At this time, at the bedside, the patient denies any chest pain. Denies any syncope or palpitation. Pulmonary: Denies any cough, hemoptysis, or wheezing. Gastrointestinal: Denies any nausea, vomiting, diarrhea, constipation, abdominal pain, or GI bleed. Genitourinary: Denies any hematuria, dysuria, or incontinence. Neurologic: Denies any motor dysfunction, sensory deficit, or altered speech. She is suffering from dementia. PHYSICAL EXAMINATION: VITAL SIGNS: Blood pressure was 172/88, pulse 88, respirations 16, O2 saturation 100%, and temperature 98.4 degrees Fahrenheit. GENERAL: The patient is a very unfortunate 87-year-old female, known to me, who is seen in Cardiology consultation, currently, in no apparent respiratory distress, chest pain free. HEENT: Atraumatic and normocephalic. Anicteric. Pupils are equal, round, and reactive to light and accommodation. Extraocular muscles intact. NECK: JVP is less than 5 cm. No carotid bruits. Carotid upstroke is 2+ bilaterally. CARDIOVASCULAR: Normal S1 and S2. Regular rate and rhythm. No murmurs, gallops, or rubs. PMI is at fourth intercoastal space in the midclavicular line. LUNGS: Clear to auscultation bilaterally. ABDOMEN: Soft, nontender, and nondistended. No hepatosplenomegaly. Positive bowel sounds. EXTREMITIES: No evidence of edema, clubbing, or cyanosis. LABORATORY AND DIAGNOSTIC DATA: Laboratory findings, WBC was 8.1, hemoglobin of 11.7, hematocrit of 32.8%, and platelet count is 175,000. Sodium is 136, potassium is 5.1, chloride 100, bicarbonate 21, BUN of 30, creatinine 2.0, and glucose is 200. Calcium is 8.9. Troponin I is less than 0.3. ProBNP was 2633. A 12-lead electrocardiogram had shown sinus rhythm with no acute ST and T-wave abnormalities, no or ST segment changes. Chest x-ray showed no acute cardiopulmonary disease. ASSESSMENT AND PLAN: The patient is a very unfortunate 87-year-old female, seen in Cardiology consultation at request of Dr. Venegas. 1. Noncardiac chest pain. This chest pain may in fact be due to accelerated hypertension. Blood pressure at the time of arrival to the hospital was over 170 mmHg. The patient required to be on aggressive blood pressure medication. In the nursing facility, the patient is only on lisinopril and furosemide and this need to be up titrated and in fact a calcium-channel andre need to be added for better control of her blood pressure. A 12-lead electrocardiogram does not show any ischemic changes. As mentioned above, this patient has had negative nuclear stress test in this facility not too long ago. A 2D echocardiography has also shown normal LV systolic function with LVEF approximately 60%. 2. Chronic kidney disease. It appears that the creatinine is at baseline around 2.0. 3. Elevated beta-natriuretic peptide, most likely a combination of chronic kidney disease and failure of clearance of water and solids and hypervolemia. As I mentioned above, there is no evidence of heart failure at this point. The patient received furosemide in the outpatient setting in the nursing facility and will continue the furosemide. 4. History of hyperlipidemia. 5. History of diabetes. 6. History of dementia. I would like to thank, Dr. Venegas, for allowing me to participate in the care of this patient. Jaycob Ellsworth M.D. DR: TYLER JOB#: [id number] CC:
--- NOTE | 2017-07-02 09:32 | Discharge Summary ---
Discharge Summary Hospital Course Date of Admission Jun 28, 2017 at 18:02 Date of Discharge Jun 30, 2017 at 20:43 Admitting Diagnosis ACS HPI Blessing Fernandes is a 87 year old female who was admitted on Jun 28, 2017 at 18: 02 for Acute Coronary Syndrome Hospital Course dc summary #[id number] Discharge Medications Continued Medications: Aspirin* (Aspirin*) 81 Mg Tab.chew 81 MG ORAL DAILY, TAB Donepezil Hcl* (Donepezil Hcl*) 10 Mg Tab.rapdis 10 MG ORAL DAILY, TAB Furosemide* (Lasix*) 40 Mg Tablet 40 MG ORAL DAILY, TAB Lisinopril* (Lisinopril*) 10 Mg Tablet 10 MG ORAL DAILY, TAB Memantine Hcl* (Namenda*) 10 Mg Tablet 10 MG ORAL DAILY, TAB Quetiapine Fumarate* (Quetiapine Fumarate*) 50 Mg Tablet 50 MG ORAL BEDTIME, TAB Repaglinide (Repaglinide) 1 Mg Tablet 1 MG PO, TAB Simvastatin (Zocor) 40 Mg Tablet 40 MG ORAL BEDTIME, TAB Sitagliptin* (Januvia*) 25 Mg Tablet 100 MG ORAL DAILY, TAB Discharge Condition Upon Discharge: stable Discharge Disposition Patient was discharged to [facility] Discharge Diagnoses: Christian (Amna)Ayanna NP Jul 02, 2017 09:32
--- NOTE | 2017-07-03 11:45 | Discharge Summary 2 SIG ---
DATE OF ADMISSION: 06/28/2017 DATE OF DISCHARGE: 06/30/2017 REASON FOR ADMISSION: This is an 87-year-old female with past medical history significant for hypertension, diabetes, dementia, and GERD, who was sent from senior care facility for evaluation of chest pain. Upon arrival in the emergency department, the patient denied any pain. The patient was given aspirin by paramedics. Workup in the ED revealed elevated blood pressure 172/88. Pulse oximetry was stable on room air. Troponin was negative. EKG revealed normal sinus rhythm. No acute ischemic changes. Chest x-ray revealed no acute cardiopulmonary pathology. No leukocytosis. Blood sugar was 200. BUN 30, creatinine 2.0, and potassium 5.1. The patient was admitted to telemetry floor for possible acute coronary syndrome. ADMITTING DIAGNOSES: 1. Chest pain, possible acute coronary syndrome. 2. Hypertensive urgency. 3. Chronic kidney disease. 4. Hyperkalemia. 5. Diabetes. 6. Alzheimer dementia. HOSPITAL STAY: The patient admitted to telemetry floor. Serial troponin was negative. The patient started on aspirin. Pain was managed with nitroglycerin and morphine. Dining Room Cashier seen and evaluated the patient. According to product manager, chest pain is noncardiac, likely due to accelerated hypertension. Recent nuclear stress test was nonischemic. Continue aspirin. Blood pressure medication titrated as per product manager. At the custodial, she was on lisinopril and furosemide and was titrated to added calcium channel andre. A 2D echocardiogram revealed preserved ejection fraction of 60%. Noted elevated ProBNP. According to product manager notes, most likely combination of chronic kidney disease and failure of clearance of water and solids as well as the hypervolemia. No evidence of heart failure. The patient was compensated. Lipid panel was checked and revealed elevated triglycerides with normal cholesterol and LDL. The patient on statin and need to continue on the low-fat diet. CK and LFTs stable. Transit Vehicle Inspector seen and evaluated the patient for chronic kidney disease. The patient has a chronic kidney disease stage 3. Creatinine down to 1.6. Acute renal failure, likely acute tubular necrosis. As per Nephrology, blood sugar was managed with sliding scale of insulin. DVT prophylaxis provided. GI seen the patient for Alzheimer dementia and optimized psychiatric medication. The patient was stable to return to senior care facility. Of note, chest x-ray revealed no acute cardiopulmonary disease and demonstrated cardiomegaly with mild interstitial prominence. DISCHARGE DIAGNOSES: 1. Atypical noncardiac chest pain, secondary to accelerated hypertension. 2. Hypertensive urgency. 3. Diabetes mellitus. 4. Chronic kidney disease, stage 3. 5. Acute on chronic renal failure, possible acute tubular necrosis. 6. Hyperkalemia. 7. Alzheimer dementia. Of note, hemoglobin A1c was 6.9 at goal. Blood sugar was stable. DISCHARGE INSTRUCTIONS: The patient discharged to assisted living with home health to follow. DISCHARGE MEDICATIONS: See medication reconciliation list. Noé Venegas D.O. I have been assigned to dictate discharge summary on this account and I was not involved in the patient's management. Ayanna laresmaria t N.PBette DR: MARISOL JOB#: [id number] CC:
--- NOTE | 2017-07-03 23:45 | Consultation ---
DATE OF CONSULTATION: 06/30/2017 NOTE: POOR AUDIO PSYCHIATRIC CONSULTATION CONSULTING PHYSICIAN: Galilea Medina M.D. TREATING ATTENDING PHYSICIAN: Noé Venegas D.O. HISTORY OF PRESENT ILLNESS: The patient is an 87-year-old female patient. The patient has been very confused and disoriented in her thought process. The patient was admitted to the hospital with acute shortness of breath and . . She has had poor insight and judgement and poor impulse control. This clinician assessed the patient . The patient does have a history of possible bipolar disorder according to the daughter. PAST MEDICAL HISTORY: The patient's past medical history includes history of Alzheimer's disease, dementia, diabetes, and CHF. ALLERGIES: THE PATIENT HAS NO KNOWN DRUG ALLERGIES. SUBSTANCE ABUSE HISTORY: There is no indication of alcohol use, illicit substance use, or smoking cigarette. PSYCHIATRIC HISTORY: The patient denies history of any illness. The patient has had treatment for anxiety in the past. SOCIAL HISTORY: The patient is from [facility]. Financially sustained through Medicare and [employer]. MENTAL STATUS EXAMINATION: The patient is alert and oriented x2. Mood is depressed. Affect is blunted. Thought process is disorganized. The patient has poor attention and concentration. Poor insight, judgment, and impulse control. DIAGNOSES: AXIS I Rule out schizoaffective disorder, bipolar type, . AXIS II Deferred. AXIS III Per History and Physical. Continue with medication management and behavioral management. This clinician provided the patient with reality orientation and supportive psychotherapy, assessed the patient's mental status. Continue with medication management and behavioral management. This clinician has reviewed the patient's chart and discussed the treatment with nursing staff. Galilea Medina PsyD. : Chirag JOB#: [id number] CC:
== END 2017-06-30 20:43 | disposition home or self-care (01) | DRG 682 ==
LOC: EDBD 17:24 → EMR 17:47 → 2E 18:02 → EDBEDREQ 20:22 → 2E 06-29 04:34
DX: I12.9 Hypertensive chronic kidney disease with stage 1 through stage 4 chronic kidney disease, or unspecified chronic kidney disease (principal); N17.0 Acute kidney failure with tubular necrosis; N18.3 Chronic kidney disease, stage 3 (moderate); I50.9 Heart failure, unspecified; D64.9 Anemia, unspecified; E11.22 Type 2 diabetes mellitus with diabetic chronic kidney disease; G30.9 Alzheimer's disease, unspecified; F02.80 Dementia in other diseases classified elsewhere, unspecified severity, without behavioral disturbance, psychotic disturbance, mood disturbance, and anxiety; E87.5 Hyperkalemia; K21.9 Gastro-esophageal reflux disease without esophagitis; E78.5 Hyperlipidemia, unspecified; R07.89 Other chest pain; I16.0 Hypertensive urgency
CPT/HCPCS: 36415; 71010; 80048; 80053; 80061; 82550; 82553; 82962; 83036; 83880; 84443; 84484; 85025; 87081; 93005; J1815

== ENCOUNTER 2017-07-15 17:44 | Inpatient (IN) | payer MEDICARE, OTHER ==
[~2017-07-15] VITALS: Ht 152.4 cm; Wt 54.4 kg
[~2017-07-15 17:44] MED LIST changes: +ARICEPT10 MG ORAL
[2017-07-15] MEDS ORDERED: NS 1000ml 1,600 ML IVLG ONE (18:15)
[2017-07-15 18:45] VITALS: BP 91/57
[2017-07-15 19:59] LABS: MEAN CORPUSCULAR HGB CONC 33.4 G/DL (32.0-36.0); MEAN CORPUSCULAR VOLUME 96 FL (80-99); PLATELET COUNT 145 K/UL (150-450); RED BLOOD COUNT 4.06 M/UL (4.20-5.40); WHITE BLOOD COUNT 11.8 K/UL (4.8-10.8)
[2017-07-15 20:15] LABS: INR 1.2 (0.9-1.1); PROTHROMBIN TIME 12.8 SEC (9.30-11.50)
[2017-07-15 20:18] LABS: TROPONIN I < 0.30 ng/mL (<=0.30)
[2017-07-15 20:30] LABS: ALANINE AMINOTRANSFERASE 9 U/L (3-33); ALBUMIN/GLOBULIN RATIO 0.9 (1.0-2.7); ANION GAP 24 (5-15); ASPARTATE AMINO TRANSFERASE 16 U/L (5-40); CALCIUM 9.2 mg/dL (8.6-10.2); CARBON DIOXIDE 13 mEQ/L (20-30); CHLORIDE 96 mEQ/L (98-107); HEMOLYSIS 23; MAGNESIUM 2.3 mg/dL (1.7-2.5); PHOSPHORUS 4.1 mg/dL (2.5-4.8); POTASSIUM 5.2 mEQ/L (3.4-4.9); SODIUM 133 mEQ/L (135-145); TOTAL PROTEIN 7.5 g/dL (6.6-8.7)
[2017-07-15 21:13] LABS: APPEARANCE,URINE CLEAR; KETONES,URINE 3+ (NEGATIVE); LEUKOCYTE ESTERASE ,URINE 3+ (NEGATIVE); NITRITE,URINE NEGATIVE (NEGATIVE); PH,URINE 5 (4.5-8.0); PROTEIN,URINE 2+ (NEGATIVE); UROBILINOGEN,URINE NORMAL MG/DL (0.0-1.0)
[2017-07-15] MEDS ORDERED: Mylanta II UD 30ml ORAL PRN (21:15)
[2017-07-15] MEDS ORDERED: Zolpidem 5mg tab ORAL PRN (21:15)
[2017-07-15] MEDS ORDERED: DuoNeb 0.5-3(2.5)mg/3ml neb HHN PRN (21:15)
[2017-07-15] MEDS ORDERED: Miralax 17gm pkt ORAL PRN (21:15)
[2017-07-15 21:20] LABS: ANISOCYTOSIS 1+; BAND NEUTROPHILS % (MANUAL) 2 % (0-8); BASOPHILS % (MANUAL) 0 % (0-2); EOSINOPHILS % (MANUAL) 2 % (0-3); LYMPHOCYTES % (MANUAL) 11 % (20-45); NEUTROPHILS % (MANUAL) 80 % (45-75); PLATELET ESTIMATE DECREASED; PLATELET MORPHOLOGY NORMAL; TOTAL CELLS COUNTED 100
[2017-07-15 21:24] LABS: SQUAMOUS EPITHELIAL CELL,UR MODERATE /LPF (NONE/OCC); WBC,URINE 20-30 /HPF (0 - 2)
[2017-07-15 21:25] LABS: AMORPHOUS SEDIMENT,UR FEW /LPF; BACTERIA,URINE MODERATE /HPF
[2017-07-15] MEDS: Heparin 5000 units/ml inj SUBQ SCH (22:00)
[2017-07-15 22:16] VITALS: BP 111/68
--- NOTE | 2017-07-15 23:22 | Emergency Room Report ---
History of Present Illness General Chief Complaint: Generalized Weakness Source: Patient, Family Member Present Illness HPI Patient presents from a senior care facility. Apparently she hasn't been eating for the past 2 days. She has had generalized weakness and fell out of bed today because she was weak. She denies recent illness. She denies fever or chills. She has nausea or vomiting. She denies chest pain or shortness of breath. She denies abdominal pain. She has no other complaints. Allergies: Coded Allergies: No Known Allergies (Unverified , 01/14/17) Patient History Past Medical History: see triage record, DM, HTN, CAD, CHF, dementia Social History: Denies: smoking, alcohol use, drug use Reviewed Nursing Documentation: PMH: Agreed, PSxH: Agreed Nursing Documentation-PMH Hx Cardiac Problems: Yes Hx Hypertension: Yes Hx Pacemaker: No Hx Asthma: No Hx COPD: No Hx Diabetes: Yes Hx Cancer: No Hx Gastrointestinal Problems: Yes Hx Dialysis: No Hx Neurological Problems: Yes Hx Cerebrovascular Accident: No Hx Dementia: Yes Hx Seizures: No Hx Weakness: Yes Review of Systems All Other Systems: negative except mentioned in HPI Physical Exam Vital Signs Date Time Temp Pulse Resp B/P (MAP) Pulse Ox O2 Delivery O2 Flow Rate FiO2 07/15/17 17:59 97.5 86 20 88/65 99 Room Air Sp02 EP Interpretation: reviewed, normal General Appearance: no apparent distress, alert, GCS 15, non-toxic Head: normocephalic, atraumatic Eyes: bilateral eye normal inspection, bilateral eye PERRL ENT: hearing grossly normal, normal pharynx, no angioedema, normal voice Neck: full range of motion, supple/symm/no masses Respiratory: chest non-tender, lungs clear, normal breath sounds, speaking full sentences Cardiovascular #1: regular rate, rhythm, no edema Gastrointestinal: normal bowel sounds, non tender, soft, non-distended, no guarding, no rebound Rectal: deferred Musculoskeletal: back normal, normal range of motion, non-tender Neurologic: alert, oriented x3, responsive, motor strength/tone normal, sensory intact, speech normal Psychiatric: mood/affect normal, no suicidal/homicidal ideation Skin: normal color, no rash, warm/dry, well hydrated Medical Decision Making Diagnostic Impression: Primary Impression: UTI (urinary tract infection) Additional Impressions: Acute renal failure Leukocytosis ER Course This patient has a urinary tract infection. She also has leukocytosis and acute renal failure. Given this patient's age, I felt this patient should be admitted for further IV antibiotics and monitoring of her renal function. She was given IV antibiotics IV fluids here in the emergency department. She is admitted for further evaluation and treatment. Laboratory Tests Test 07/15/17 19:30 07/15/17 20:30 White Blood Count 11.8 K/UL (4.8-10.8) H Red Blood Count 4.06 M/UL (4.20-5.40) L Hemoglobin 13.0 G/DL (12.0-16.0) Hematocrit 38.8 % (37.0-47.0) Mean Corpuscular Volume 96 FL (80-99) Mean Corpuscular Hemoglobin 32.0 PG (27.0-31.0) H Mean Corpuscular Hemoglobin Concent 33.4 G/DL (32.0-36.0) Red Cell Distribution Width 13.0 % (11.6-14.8) Platelet Count 145 K/UL (150-450) L Mean Platelet Volume 11.0 FL (6.5-10.1) H Neutrophils (%) (Auto) % (45.0-75.0) Lymphocytes (%) (Auto) % (20.0-45.0) Monocytes (%) (Auto) % (1.0-10.0) Eosinophils (%) (Auto) % (0.0-3.0) Basophils (%) (Auto) % (0.0-2.0) Differential Total Cells Counted 100 Neutrophils % (Manual) 80 % (45-75) H Lymphocytes % (Manual) 11 % (20-45) L Monocytes % (Manual) 5 % (1-10) Eosinophils % (Manual) 2 % (0-3) Basophils % (Manual) 0 % (0-2) Band Neutrophils 2 % (0-8) Platelet Estimate Decreased L Platelet Morphology Normal Anisocytosis 1+ Prothrombin Time 12.8 SEC (9.30-11.50) H Prothrombin Time INR 1.2 (0.9-1.1) H PTT 27 SEC (23-33) Sodium Level 133 mEQ/L (135-145) L Potassium Level 5.2 mEQ/L (3.4-4.9) H Chloride Level 96 mEQ/L (98-107) L Carbon Dioxide Level 13 mEQ/L (20-30) L Anion Gap 24 (5-15) H Blood Urea Nitrogen 39 mg/dL (7-23) H Creatinine 2.0 mg/dL (0.5-0.9) H Estimate Glomerular Filtration Rate mL/min (>60) Glucose Level 182 mg/dL (74-106) H Lactic Acid Level 1.80 mmol/L (0.66-2.22) Calcium Level 9.2 mg/dL (8.6-10.2) Phosphorus Level 4.1 mg/dL (2.5-4.8) Magnesium Level 2.3 mg/dL (1.7-2.5) Total Bilirubin 0.4 mg/dL (0.0-1.2) Aspartate Amino Transferase (AST) 16 U/L (5-40) Alanine Aminotransferase (ALT) 9 U/L (3-33) Alkaline Phosphatase 103 U/L (35-104) Total Creatine Kinase 129 U/L (26-140) Creatine Kinase MB 5.0 ng/mL (< 3.8) H Creatine Kinase MB Relative Index 3.8 Troponin I < 0.30 ng/mL (<=0.30) Total Protein 7.5 g/dL (6.6-8.7) Albumin 3.7 g/dL (3.5-5.2) Globulin 3.8 g/dL Albumin/Globulin Ratio 0.9 (1.0-2.7) L Urine Color Yellow Urine Appearance Clear Urine pH 5 (4.5-8.0) Urine Specific [place] 1.020 (1.005-1.035) Urine Protein 2+ (NEGATIVE) H Urine Glucose (UA) Negative (NEGATIVE) Urine Ketones 3+ (NEGATIVE) H Urine Occult Blood 3+ (NEGATIVE) H Urine Nitrite Negative (NEGATIVE) Urine Bilirubin Negative (NEGATIVE) Urine Urobilinogen Normal MG/DL (0.0-1.0) Urine Leukocyte Esterase 3+ (NEGATIVE) H Urine RBC 10-15 /HPF (0 - 2) H Urine WBC 20-30 /HPF (0 - 2) H Urine Squamous Epithelial Cells Moderate /LPF (NONE/OCC) H Urine Amorphous Sediment Few /LPF (NONE) H Urine Bacteria Moderate /HPF (NONE) H EKG Diagnostic Results Rate: other - SR w/ 1st degree AV block. Rhythm Strip Diag. Results EP Interpretation: yes Rate: 80's Rhythm: NSR, no PVC's, no ectopy Chest X-Ray Diagnostic Results Chest X-Ray Diagnostic Results : Chest X-Ray Ordered: Yes # of Views/Limited/Complete: 1 View Indication: Other EP Interpretation: Yes Interpretation: no pneumothorax, other - Cardiomegaly Impression: Other - Cardiomegaly Electronically Signed by: Peter Last Vital Signs Date Time Temp Pulse Resp B/P (MAP) Pulse Ox O2 Delivery O2 Flow Rate FiO2 07/15/17 22:54 97.5 71 24 111/68 98 Room Air Disposition: ADMITTED INPATIENT Condition: Stable Referrals: ALCON CROCKER (PCP) CLARI YANG D.O. Jul 15, 2017 23:22
[2017-07-15] MEDS ORDERED: cefTRIAXone 1 GM in D5W 55 ML IVPB ONE (23:30)
[2017-07-16] VITALS: BP 113/77
[2017-07-16 04:00] VITALS: BP 102/61
[2017-07-16] MEDS: NovoLOG Insulin Flexpen SUBQ SCH ×4 (06:26→20:34)
[2017-07-16 07:36] LABS: BASOPHILS % (AUTO) 0.4 % (0.0-2.0); EOSINOPHILS % (AUTO) 0.6 % (0.0-3.0); MEAN CORPUSCULAR HEMOGLOBIN 31.4 PG (27.0-31.0); MEAN CORPUSCULAR HGB CONC 32.8 G/DL (32.0-36.0); MEAN CORPUSCULAR VOLUME 96 FL (80-99); MEAN PLATELET VOLUME 10.4 FL (6.5-10.1); MONOCYTES % (AUTO) 6.4 % (1.0-10.0); NEUTROPHILS % (AUTO) 81.6 % (45.0-75.0); PLATELET COUNT 141 K/UL (150-450); RED BLOOD COUNT 3.98 M/UL (4.20-5.40); RED CELL DISTRIBUTION WIDTH 12.7 % (11.6-14.8); WHITE BLOOD COUNT 7.7 K/UL (4.8-10.8)
[2017-07-16 08:02] LABS: ALANINE AMINOTRANSFERASE 9 U/L (3-33); ANION GAP 22 (5-15); ASPARTATE AMINO TRANSFERASE 16 U/L (5-40); CALCIUM 9.3 mg/dL (8.6-10.2); CARBON DIOXIDE 17 mEQ/L (20-30); CHLORIDE 97 mEQ/L (98-107); CHOLESTEROL 253 mg/dL (< 200); CHOLESTEROL/HDL RATIO 4.9 (3.3-4.4); CREATININE 1.8 mg/dL (0.5-0.9); HEMOLYSIS 8; LDL CHOLESTEROL (CALC.) 174 mg/dL (60-99); POTASSIUM 4.7 mEQ/L (3.4-4.9); SODIUM 136 mEQ/L (135-145); TOTAL PROTEIN 7.4 g/dL (6.6-8.7)
[2017-07-16 08:32] VITALS: BP 144/86
--- NOTE | 2017-07-16 08:45 | Diagnostic Imaging Report ---
Indications: Attain status post fall Technique: Spiral acquisitions obtained through the brain. Angled axial and coronal 5 x 5 mm slices were reconstructed. Total dose length product 1255 mGycm. CTDI vol(s) 70 mGy. Dose reduction achieved using automated exposure control Comparison: None Findings: There is age-related enlargement of ventricles and extra-axial CSF spaces. There is periventricular the white matter ischemic change. Old lacunar infarcts are seen and bilateral basal ganglia. No acute hemorrhage or edema. No mass effect or midline shift. The calvarium is intact. There is evidence of prior bilateral cataract surgery. The sinuses are unremarkable. Impression: Chronic and age-related changes Negative for acute intracranial bleed or mass effect This agrees with the preliminary interpretation provided overnight by [facility] teleradiology service. The CT scanner at [facility] is accredited by the [employer] and the scans are performed using protocols designed to limit radiation exposure to as low as reasonably achievable to attain images of sufficient resolution adequate for diagnostic evaluation.
[2017-07-16] MEDS: Heparin 5000 units/ml inj SUBQ SCH ×2 (09:00→20:34)
[2017-07-16] MEDS: Lisinopril 10mg tab ORAL SCH (09:34)
[2017-07-16] MEDS: Donepezil 10mg tab ORAL SCH (09:34)
[2017-07-16 09:37] LABS: HEMOGLOBIN A1C 6.9 % (< 6.0)
--- NOTE | 2017-07-16 10:51 | Diagnostic Imaging Report ---
Indication: WEAK Technique: One view of the chest Comparison: 06/28/2017 Findings: The heart is enlarged. Again demonstrated is a large hiatal hernia. No definite acute infiltrates, effusions, or congestion. Impression: Shayy No definite acute process Large hiatal hernia
[2017-07-16 12:39] VITALS: BP 142/67
--- NOTE | 2017-07-16 16:05 | Cardiology Report ---
APPROVED REPORT EKG Measurement Heart [id number] Sinus rhythm with 1st degree AV block with occasional, and consecutive premature ventricular complexes Right bundle branch block Septal infarct, age undetermined Abnormal ECG
--- NOTE | 2017-07-16 16:40 | History and Physical ---
History of Present Illness General Reason for Hospitalization: Generalized Weakness Present Illness Allergies: Coded Allergies: No Known Allergies (Unverified , 01/14/17) Medication History Scheduled Ampicillin Trihydrate (Ampicillin Trihydrate), 500 MG ORAL Q8HR Aspirin* (Aspirin*), 81 MG ORAL DAILY, (Reported) Cetirizine Hcl* (Zyrtec*), 10 MG ORAL DAILY, (Reported) Citalopram Hydrobromide* (Citalopram Hbr*), 20 MG ORAL DAILY, (Reported) Docusate Sodium* (Docusate Sodium*), 100 MG ORAL TWICE A DAY, (Reported) Donepezil Hcl* (Donepezil Hcl*), 10 MG ORAL DAILY, (Reported) Donepezil Hcl* (Aricept*), 10 MG ORAL DAILY, (Reported) Famotidine (Famotidine), 20 MG ORAL DAILY, (Reported) Furosemide* (Lasix*), 40 MG ORAL DAILY, (Reported) Ketorolac Tromethamine (Ketorolac Tromethamine), 5 ML OP BID, (Reported) Lisinopril* (Lisinopril*), 10 MG ORAL DAILY, (Reported) Memantine Hcl* (Namenda*), 10 MG ORAL DAILY, (Reported) Quetiapine Fumarate* (Quetiapine Fumarate*), 50 MG ORAL BEDTIME, (Reported) Simvastatin (Zocor), 40 MG ORAL BEDTIME, (Reported) Sitagliptin* (Januvia*), 100 MG ORAL DAILY, (Reported) Scheduled PRN Acetaminophen (Acetaminophen), 650 MG ORAL Q6H PRN for Prn Headache/Temp > 101, (Reported) Miscellaneous Medications Lutein (Lutein), 20 MG PO, (Reported) Repaglinide (Repaglinide), 1 MG PO, (Reported) Patient History Healthcare decision maker Resuscitation status Full Code Advanced Directive on File Physical Exam Last 24 Hour Vital Signs Date Time Temp Pulse Resp B/P (MAP) Pulse Ox O2 Delivery O2 Flow Rate FiO2 07/16/17 12:39 98.1 81 19 142/67 98 Room Air 07/16/17 09:34 144/86 07/16/17 09:32 80 16 Room Air 21 07/16/17 08:32 97.7 83 18 144/86 98 Room Air 07/16/17 04:00 98.5 75 18 102/61 97 Room Air 07/16/17 00:00 98.3 75 18 113/77 97 Room Air 07/15/17 22:54 97.5 71 24 111/68 98 Room Air 07/15/17 22:16 97.5 71 24 111/68 98 Room Air 07/15/17 18:45 77 24 91/57 98 Room Air 07/15/17 17:59 97.5 86 20 88/65 99 Room Air Laboratory Tests Test 07/15/17 19:30 07/15/17 20:30 07/16/17 05:35 White Blood Count 11.8 K/UL (4.8-10.8) H 7.7 K/UL (4.8-10.8) Red Blood Count 4.06 M/UL (4.20-5.40) L 3.98 M/UL (4.20-5.40) L Hemoglobin 13.0 G/DL (12.0-16.0) 12.5 G/DL (12.0-16.0) Hematocrit 38.8 % (37.0-47.0) 38.1 % (37.0-47.0) Mean Corpuscular Volume 96 FL (80-99) 96 FL (80-99) Mean Corpuscular Hemoglobin 32.0 PG (27.0-31.0) H 31.4 PG (27.0-31.0) H Mean Corpuscular Hemoglobin Concent 33.4 G/DL (32.0-36.0) 32.8 G/DL (32.0-36.0) Red Cell Distribution Width 13.0 % (11.6-14.8) 12.7 % (11.6-14.8) Platelet Count 145 K/UL (150-450) L 141 K/UL (150-450) L Mean Platelet Volume 11.0 FL (6.5-10.1) H 10.4 FL (6.5-10.1) H Neutrophils (%) (Auto) % (45.0-75.0) 81.6 % (45.0-75.0) H Lymphocytes (%) (Auto) % (20.0-45.0) 11.0 % (20.0-45.0) L Monocytes (%) (Auto) % (1.0-10.0) 6.4 % (1.0-10.0) Eosinophils (%) (Auto) % (0.0-3.0) 0.6 % (0.0-3.0) Basophils (%) (Auto) % (0.0-2.0) 0.4 % (0.0-2.0) Differential Total Cells Counted 100 Neutrophils % (Manual) 80 % (45-75) H Lymphocytes % (Manual) 11 % (20-45) L Monocytes % (Manual) 5 % (1-10) Eosinophils % (Manual) 2 % (0-3) Basophils % (Manual) 0 % (0-2) Band Neutrophils 2 % (0-8) Platelet Estimate Decreased L Platelet Morphology Normal Anisocytosis 1+ Prothrombin Time 12.8 SEC (9.30-11.50) H Prothromb Time International Ratio 1.2 (0.9-1.1) H Activated Partial Thromboplast Time 27 SEC (23-33) Sodium Level 133 mEQ/L (135-145) L 136 mEQ/L (135-145) Potassium Level 5.2 mEQ/L (3.4-4.9) H 4.7 mEQ/L (3.4-4.9) Chloride Level 96 mEQ/L (98-107) L 97 mEQ/L (98-107) L Carbon Dioxide Level 13 mEQ/L (20-30) L 17 mEQ/L (20-30) L Anion Gap 24 (5-15) H 22 (5-15) H Blood Urea Nitrogen 39 mg/dL (7-23) H 34 mg/dL (7-23) H Creatinine 2.0 mg/dL (0.5-0.9) H 1.8 mg/dL (0.5-0.9) H Estimat Glomerular Filtration Rate mL/min (>60) mL/min (>60) Glucose Level 182 mg/dL (74-106) H 179 mg/dL (74-106) H Lactic Acid Level 1.80 mmol/L (0.66-2.22) Calcium Level 9.2 mg/dL (8.6-10.2) 9.3 mg/dL (8.6-10.2) Phosphorus Level 4.1 mg/dL (2.5-4.8) Magnesium Level 2.3 mg/dL (1.7-2.5) Total Bilirubin 0.4 mg/dL (0.0-1.2) 0.3 mg/dL (0.0-1.2) Aspartate Amino Transf (AST/SGOT) 16 U/L (5-40) 16 U/L (5-40) Alanine Aminotransferase (ALT/SGPT) 9 U/L (3-33) 9 U/L (3-33) Alkaline Phosphatase 103 U/L (35-104) 101 U/L (35-104) Total Creatine Kinase 129 U/L (26-140) Creatine Kinase MB 5.0 ng/mL (< 3.8) H Creatine Kinase MB Relative Index 3.8 Troponin I < 0.30 ng/mL (<=0.30) Total Protein 7.5 g/dL (6.6-8.7) 7.4 g/dL (6.6-8.7) Albumin 3.7 g/dL (3.5-5.2) 3.8 g/dL (3.5-5.2) Globulin 3.8 g/dL 3.6 g/dL Albumin/Globulin Ratio 0.9 (1.0-2.7) L 1.0 (1.0-2.7) Urine Color Yellow Urine Appearance Clear Urine pH 5 (4.5-8.0) Urine Specific [place] 1.020 (1.005-1.035) Urine Protein 2+ (NEGATIVE) H Urine Glucose (UA) Negative (NEGATIVE) Urine Ketones 3+ (NEGATIVE) H Urine Occult Blood 3+ (NEGATIVE) H Urine Nitrite Negative (NEGATIVE) Urine Bilirubin Negative (NEGATIVE) Urine Urobilinogen Normal MG/DL (0.0-1.0) Urine Leukocyte Esterase 3+ (NEGATIVE) H Urine RBC 10-15 /HPF (0 - 2) H Urine WBC 20-30 /HPF (0 - 2) H Urine Squamous Epithelial Cells Moderate /LPF (NONE/OCC) H Urine Amorphous Sediment Few /LPF (NONE) H Urine Bacteria Moderate /HPF (NONE) H Hemoglobin A1c 6.9 % (< 6.0) H Triglycerides Level 137 mg/dL (< 150) Cholesterol Level 253 mg/dL (< 200) H LDL Cholesterol 174 mg/dL (60-99) H HDL Cholesterol 52 mg/dL (> 60) Cholesterol/HDL Ratio 4.9 (3.3-4.4) H Thyroid Stimulating Hormone (TSH) 1.900 uIU/mL (0.300-4.500) Height (Feet): 5 Height (Inches): 0.00 Weight (Pounds): 120 Medications Current Medications Medications (Trade) Dose Ordered Sig/Misty Route PRN Reason Start Time Stop Time Status Last Admin Dose Admin Acetaminophen (Tylenol) 650 mg Q4H PRN ORAL fever 07/15/17 21:15 08/14/17 21:14 Al Hydroxide/Mg Hydroxide (Mylanta II) 30 ml Q6H PRN ORAL dyspepsia 07/15/17 21:15 08/14/17 21:14 Albuterol/ Ipratropium (DuoNeb 0.5-3(2.5)mg/3ml) 3 ml Q6H PRN HHN dyspnea 07/15/17 21:15 07/20/17 21:14 Cetirizine HCl (ZyrTEC) 10 mg DAILY ORAL 07/16/17 09:00 08/15/17 08:59 07/16/17 09:35 Clonidine HCl (Catapres) 0.1 mg Q4H PRN ORAL SBP > 160 07/15/17 21:15 08/14/17 21:14 Dextrose (Dextrose 50%) STAT PRN IV Hypoglycemia 07/15/17 21:15 08/14/17 21:14 Donepezil HCl (Aricept) 10 mg DAILY ORAL 07/16/17 09:00 08/15/17 08:59 07/16/17 09:34 Heparin Sodium (Porcine) (Heparin 5000 units/ml) 5,000 units EVERY 12 HOURS SUBQ 07/15/17 22:00 08/14/17 21:59 Insulin Aspart (NovoLOG) BEFORE MEALS AND HS SUBQ 07/16/17 07:00 08/15/17 06:59 07/16/17 11:33 Lisinopril (Zestril) 10 mg DAILY ORAL 07/16/17 09:00 08/15/17 08:59 07/16/17 09:34 Ondansetron HCl (Zofran) 4 mg Q6H PRN IVP Nausea & Vomiting 07/15/17 21:15 08/14/17 21:14 Polyethylene Glycol (Miralax) 17 gm HSPRN PRN ORAL Constipation 07/15/17 21:15 08/14/17 21:14 Quetiapine Fumarate (SEROquel) 50 mg BEDTIME ORAL 07/15/17 22:00 08/14/17 21:59 07/15/17 23:39 Zolpidem Tartrate (Ambien) 5 mg HSPRN PRN ORAL Insomnia 07/15/17 21:15 07/22/17 21:14 Assessment/Plan Problem List: (1) Acute encephalopathy ICD Codes: G93.40 - Encephalopathy, unspecified SNOMED: 4762528 (2) Sepsis ICD Codes: A41.9 - Sepsis, unspecified organism SNOMED: 51076277 (3) Acute renal failure ICD Codes: N17.9 - Acute kidney failure, unspecified SNOMED: 37100768 (4) Alzheimer's dementia ICD Codes: G30.9 - Alzheimer's disease, unspecified SNOMED: 58040886 (5) UTI (urinary tract infection) ICD Codes: N39.0 - Urinary tract infection, site not specified SNOMED: 15916869 (6) Diabetes mellitus ICD Codes: E11.9 - Type 2 diabetes mellitus without complications SNOMED: 34671867 Assessment/Plan IV fluids check electroltyes renal studies check urine cultures IV abx Id evaluation ALCON CROCKER Jul 16, 2017 16:40
--- NOTE | 2017-07-16 18:46 | Infectious Diseases Prog Note ---
Infectious Disease Consult Infectious Disease Consult Infectious Disease Consult INFECTIOUS DISEASE CONSULTATION DATE OF CONSULTATION: CONSULTING PHYSICIAN: Mark Degroot M.D., G[facility], [facility] Covering for Dr. Dill REFERRING PHYSICIAN: Nilsa Chaudhry REASON FOR CONSULTATION: urosepsis, altered mental status HISTORY OF PRESENT ILLNESS: 87 y/o WF currently resident of SNF with PMHx DM, HTN, HLD, CKD, multi-infarct dementia, 1st degree AV block, and prior [place] [facility] with neg nuc, admitted with altered mental status, fatigue, and recurrence of pyuria. known renal cysts on prior renal u/s [id number], CKD, now with mild JULIAN, but afebrile, and her mild leukocytosis >11 has now resolved s/p one dose empiric IV ceftriaxone. She doesn't have a h/o MDR pathogens, and ucx during last admission negative and prior ucx earlier this year with non dominant pathogen. unable to attain additional history as patient is uncooperative, but appears comfortable. 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 ANTIBIOTICS: Home and hospitalized medications reviewed. SOCIAL HISTORY: currently at [facility] HISTORY: Noncontributory REVIEW OF SYSTEMS: 11 point ROS negative except for that mentioned in HPI above. PHYSICAL EXAM: VITAL SIGNS: T98.1F bp 142/67 hr 81 rr 14 98% RA GEN: awake, not alert, not cooperative, non toxic appearing HEENT: Mild pale conjunctiva. oral mucosa dry, pharynx w/o exudate or effusion. No icterus. Head normocephalic, neck supple. NECK: No cervical LAD CHEST: Clear to auscultation bilaterally. HEART: S1 and S2, no murmurs, no rubs. ABDOMEN: soft, non tender, non distended, normoactive bowel sounds. no cva tenderness EXTREMITIES: No cyanosis, no clubbing, no edema. extremities warm, cap refill brisk. NEUROLOGIC: Awake, alert, no focal neurologic motor deficits. : no external lesions RECTAL: deferred LABORATORY AND DIAGNOSTIC DATA: WBC 11.8-->7.7 hgb 12.5, plt 141, N 81.6% bmp 136/4.7/97/17/34/1.8/179 Ca 9.3 LAC 1.8 ast 16, alt 9, alk phos 101 trop neg alb 3.8 tsh 1.9 LDL 174 u/a 1.020/2+ protein/3+ ketones/3+ occult blood/3+ LE/10-15 RBC/20-30 WBC ucx pending blood cx pending RADIOLOGY: Patient : KIRILL BARTHOLOMEW Referring Physician: CLARI YANG D.O. ID Number: [id number] Service Date: 07/15/17 : 12/25/1929 Report Date: 07/15/17 Gender: F Accession No.: [id number] Location: 4E Procedure: XRAY Chest 1v Indication: WEAK Technique: One view of the chest Comparison: 06/28/2017 Findings: The heart is enlarged. Again demonstrated is a large hiatal hernia. No definite acute infiltrates, effusions, or congestion. Impression: Shayy No definite acute process Large hiatal hernia Patient : KIRILL BARTHOLOMEW Referring Physician: CLARI YANG D.O. ID Number: [id number] Service Date: 07/15/17 : 12/25/1929 Report Date: 07/15/17 Gender: F Accession No.: [id number] Location: 4E Procedure: CT Head no Contrast Indications: Attain status post fall Technique: Spiral acquisitions obtained through the brain. Angled axial and coronal 5 x 5 mm slices were reconstructed. Total dose length product 1255 mGycm. CTDI vol(s) 70 mGy. Dose reduction achieved using automated exposure control Comparison: None Findings: There is age-related enlargement of ventricles and extra-axial CSF spaces. There is periventricular the white matter ischemic change. Old lacunar infarcts are seen and bilateral basal ganglia. No acute hemorrhage or edema. No mass effect or midline shift. The calvarium is intact. There is evidence of prior bilateral cataract surgery. The sinuses are unremarkable. Impression: Chronic and age-related changes Negative for acute intracranial bleed or mass effect ASSESSMENT AND PLAN ASSESSMENT: On d#1 ceftriaxone for complicated UTI. No h/o MDRO, does live in SNF but is responding to current empiric therapy and ceftriaxone isn't renally cleared, so okay to continue pending urine cx. sepsis, resolving Pyuria, c/w complicated UTI anion gap metabolic acidosis leukocytosis, s/p afebrile hemodynamically stable DM, HGBA1c>6 altered sensorium improving JULIAN with CKD h/o b/l renal cysts normal serum lactate PLAN: --Continue IV ceftriaxone 1gm qday D#1 --f/u urine cx --f/u blood cx --monitor CBC --monitor temp --consider nephrology consultation is anion gap metabolic acidosis persists despite adequate volume resuscitation. Thank you for this consultation. Will continue to follow. Covering for Dr. Dill. Mark Degroot M.D. Jul 16, 2017 18:46
[2017-07-16] MEDS: cefTRIAXone 1 GM in D5W 55 ML IVPB SCH (22:28)
[2017-07-17] VITALS: BP 145/59
[2017-07-17] MEDS: NovoLOG Insulin Flexpen SUBQ SCH ×4 (05:47→21:00)
[2017-07-17] MEDS: Donepezil 10mg tab ORAL SCH (08:43)
[2017-07-17] MEDS: Lisinopril 10mg tab ORAL SCH (08:43)
[2017-07-17] MEDS: Heparin 5000 units/ml inj SUBQ SCH ×2 (08:43→21:00)
[2017-07-17] MEDS ORDERED: Haloperidol 5mg/ml Inj IM PRN (11:00)
--- NOTE | 2017-07-17 16:15 | Pulmonology Progress Note ---
Assessment/Plan Problems: (1) Acute encephalopathy (2) Sepsis (3) Acute renal failure (4) Alzheimer's dementia (5) UTI (urinary tract infection) (6) Diabetes mellitus Assessment/Plan check electroltyes check cultures neuro and psych consult swallow evaluation Subjective ROS Limited/Unobtainable: No Constitutional: Reports: no symptoms HEENT: Repors: no symptoms Respiratory: Reports: no symptoms Allergies: Coded Allergies: No Known Allergies (Unverified , 01/14/17) Objective Last 24 Hour Vital Signs Date Time Temp Pulse Resp B/P (MAP) Pulse Ox O2 Delivery O2 Flow Rate FiO2 07/17/17 08:25 18 07/17/17 00:00 98.1 83 20 145/59 95 Room Air 07/16/17 20:09 82 18 Room Air 21 Intake and Output 07/17/17 07/18/17 18:59 06:59 Intake Total 240 ml Balance 240 ml Intake Oral 240 ml General Appearance: WD/WN HEENT: normocephalic, atraumatic Respiratory/Chest: chest wall non-tender, lungs clear Cardiovascular: normal peripheral pulses, normal rate Abdomen: normal bowel sounds, soft, non tender Genitourinary: normal external genitalia Extremities: no cyanosis, no clubbing Skin: no lesions, no ulcers Neurologic/Psychiatric: cigar bander hand II-XII grossly normal, abnormal gait Lymphatic: no neck adenopathy Musculoskeletal: normal muscle bulk Microbiology Date/Time Source Procedure Growth Status 07/15/17 19:45 Blood Blood Culture - Preliminary NO GROWTH AFTER 24 HOURS Resulted 07/15/17 19:30 Blood Blood Culture - Preliminary NO GROWTH AFTER 24 HOURS Resulted Current Medications Medications (Trade) Dose Ordered Sig/Misty Route PRN Reason Start Time Stop Time Status Last Admin Dose Admin Acetaminophen (Tylenol) 650 mg Q4H PRN ORAL fever 07/15/17 21:15 08/14/17 21:14 Al Hydroxide/Mg Hydroxide (Mylanta II) 30 ml Q6H PRN ORAL dyspepsia 07/15/17 21:15 08/14/17 21:14 Albuterol/ Ipratropium (DuoNeb 0.5-3(2.5)mg/3ml) 3 ml Q6H PRN HHN dyspnea 07/15/17 21:15 07/20/17 21:14 Ceftriaxone Sodium 1 gm/ Dextrose 55 ml @ 110 mls/hr Q24H IVPB 07/16/17 23:00 07/23/17 22:59 07/16/17 22:28 Cetirizine HCl (ZyrTEC) 10 mg DAILY ORAL 07/16/17 09:00 08/15/17 08:59 07/16/17 09:35 Clonidine HCl (Catapres) 0.1 mg Q4H PRN ORAL SBP > 160 07/15/17 21:15 08/14/17 21:14 Dextrose (Dextrose 50%) STAT PRN IV Hypoglycemia 07/15/17 21:15 08/14/17 21:14 Donepezil HCl (Aricept) 10 mg DAILY ORAL 07/16/17 09:00 08/15/17 08:59 07/16/17 09:34 Haloperidol Lactate (Haldol) 5 mg Q8H PRN IM Agitation 07/17/17 11:00 08/16/17 10:59 Heparin Sodium (Porcine) (Heparin 5000 units/ml) 5,000 units EVERY 12 HOURS SUBQ 07/15/17 22:00 08/14/17 21:59 Insulin Aspart (NovoLOG) BEFORE MEALS AND HS SUBQ 07/16/17 07:00 08/15/17 06:59 07/16/17 17:22 Lisinopril (Zestril) 10 mg DAILY ORAL 07/16/17 09:00 08/15/17 08:59 07/16/17 09:34 Ondansetron HCl (Zofran) 4 mg Q6H PRN IVP Nausea & Vomiting 07/15/17 21:15 08/14/17 21:14 Polyethylene Glycol (Miralax) 17 gm HSPRN PRN ORAL Constipation 07/15/17 21:15 08/14/17 21:14 Quetiapine Fumarate (SEROquel) 50 mg BEDTIME ORAL 07/15/17 22:00 08/14/17 21:59 07/15/17 23:39 Zolpidem Tartrate (Ambien) 5 mg HSPRN PRN ORAL Insomnia 07/15/17 21:15 07/22/17 21:14 ALCON CROCKER Jul 17, 2017 16:15
--- NOTE | 2017-07-17 17:36 | Infectious Diseases Prog Note ---
Assessment/Plan Assessment/Plan ASSESSMENT: sepsis, resolving Pyuria, c/w complicated UTI anion gap metabolic acidosis leukocytosis, s/p afebrile hemodynamically stable DM, HGBA1c>6 altered sensorium improving JULIAN with CKD h/o b/l renal cysts normal serum lactate PLAN: --Continue IV ceftriaxone 1gm qday D# , --f/u urine cx --f/u blood cx --monitor CBC --monitor temp Subjective Constitutional: Denies: no symptoms, fever, chills, fatigue, anorexia, drenching sweats, other Allergies: Coded Allergies: No Known Allergies (Unverified , 01/14/17) Objective Vital Signs Last 24 Hour Vital Signs Date Time Temp Pulse Resp B/P (MAP) Pulse Ox O2 Delivery O2 Flow Rate FiO2 07/17/17 08:25 18 07/17/17 00:00 98.1 83 20 145/59 95 Room Air 07/16/17 20:09 82 18 Room Air 21 Height (Feet): 5 Height (Inches): 0.00 Weight (Pounds): 120 HEENT: anicteric Respiratory/Chest: no respiratory distress Cardiovascular: regularly irregular Abdomen: non distended Microbiology Date/Time Source Procedure Growth Status 07/15/17 19:45 Blood Blood Culture - Preliminary NO GROWTH AFTER 24 HOURS Resulted 07/15/17 19:30 Blood Blood Culture - Preliminary NO GROWTH AFTER 24 HOURS Resulted Current Medications Medications (Trade) Dose Ordered Sig/Misty Route PRN Reason Start Time Stop Time Status Last Admin Dose Admin Acetaminophen (Tylenol) 650 mg Q4H PRN ORAL fever 07/15/17 21:15 08/14/17 21:14 Al Hydroxide/Mg Hydroxide (Mylanta II) 30 ml Q6H PRN ORAL dyspepsia 07/15/17 21:15 08/14/17 21:14 Albuterol/ Ipratropium (DuoNeb 0.5-3(2.5)mg/3ml) 3 ml Q6H PRN HHN dyspnea 07/15/17 21:15 07/20/17 21:14 Ceftriaxone Sodium 1 gm/ Dextrose 55 ml @ 110 mls/hr Q24H IVPB 07/16/17 23:00 07/23/17 22:59 07/16/17 22:28 Cetirizine HCl (ZyrTEC) 10 mg DAILY ORAL 07/16/17 09:00 08/15/17 08:59 07/16/17 09:35 Clonidine HCl (Catapres) 0.1 mg Q4H PRN ORAL SBP > 160 07/15/17 21:15 08/14/17 21:14 Dextrose (Dextrose 50%) STAT PRN IV Hypoglycemia 07/15/17 21:15 08/14/17 21:14 Donepezil HCl (Aricept) 10 mg DAILY ORAL 07/16/17 09:00 08/15/17 08:59 07/16/17 09:34 Haloperidol Lactate (Haldol) 5 mg Q8H PRN IM Agitation 07/17/17 11:00 08/16/17 10:59 Heparin Sodium (Porcine) (Heparin 5000 units/ml) 5,000 units EVERY 12 HOURS SUBQ 07/15/17 22:00 08/14/17 21:59 Insulin Aspart (NovoLOG) BEFORE MEALS AND HS SUBQ 07/16/17 07:00 08/15/17 06:59 07/16/17 17:22 Lisinopril (Zestril) 10 mg DAILY ORAL 07/16/17 09:00 08/15/17 08:59 07/16/17 09:34 Ondansetron HCl (Zofran) 4 mg Q6H PRN IVP Nausea & Vomiting 07/15/17 21:15 08/14/17 21:14 Polyethylene Glycol (Miralax) 17 gm HSPRN PRN ORAL Constipation 07/15/17 21:15 08/14/17 21:14 Quetiapine Fumarate (SEROquel) 50 mg BEDTIME ORAL 07/15/17 22:00 08/14/17 21:59 07/15/17 23:39 Zolpidem Tartrate (Ambien) 5 mg HSPRN PRN ORAL Insomnia 07/15/17 21:15 07/22/17 21:14 LEXI BARFIELD M.D. Jul 17, 2017 17:36
[2017-07-17 21:00] VITALS: BP 136/82
[2017-07-17] MEDS: cefTRIAXone 1 GM in D5W 55 ML IVPB SCH (23:00)
--- NOTE | 2017-07-17 23:18 | Consultation ---
History of Present Illness General Chief Complaint: Generalized Weakness Present Illness HPI 87 y/o WF currently resident of SNF with PMHx DM, HTN, HLD, CKD, multi-infarct dementia, 1st degree AV block, and prior admission to [facility] for r/o ACS with neg nuc, admitted with altered mental status, fatigue, and recurrence of pyuria. the pt is agitated confused and disorganized. Allergies: Coded Allergies: No Known Allergies (Unverified , 01/14/17) Medication History Scheduled Ampicillin Trihydrate (Ampicillin Trihydrate), 500 MG ORAL Q8HR Aspirin* (Aspirin*), 81 MG ORAL DAILY, (Reported) Cetirizine Hcl* (Zyrtec*), 10 MG ORAL DAILY, (Reported) Citalopram Hydrobromide* (Citalopram Hbr*), 20 MG ORAL DAILY, (Reported) Docusate Sodium* (Docusate Sodium*), 100 MG ORAL TWICE A DAY, (Reported) Donepezil Hcl* (Donepezil Hcl*), 10 MG ORAL DAILY, (Reported) Donepezil Hcl* (Aricept*), 10 MG ORAL DAILY, (Reported) Famotidine (Famotidine), 20 MG ORAL DAILY, (Reported) Furosemide* (Lasix*), 40 MG ORAL DAILY, (Reported) Ketorolac Tromethamine (Ketorolac Tromethamine), 5 ML OP BID, (Reported) Lisinopril* (Lisinopril*), 10 MG ORAL DAILY, (Reported) Memantine Hcl* (Namenda*), 10 MG ORAL DAILY, (Reported) Quetiapine Fumarate* (Quetiapine Fumarate*), 50 MG ORAL BEDTIME, (Reported) Simvastatin (Zocor), 40 MG ORAL BEDTIME, (Reported) Sitagliptin* (Januvia*), 100 MG ORAL DAILY, (Reported) Scheduled PRN Acetaminophen (Acetaminophen), 650 MG ORAL Q6H PRN for Prn Headache/Temp > 101, (Reported) Miscellaneous Medications Lutein (Lutein), 20 MG PO, (Reported) Repaglinide (Repaglinide), 1 MG PO, (Reported) Patient History History Provided By: Patient, Medical Record, PMD Healthcare decision maker Resuscitation status Full Code Advanced Directive on File Past Medical/Surgical History Past Medical/Surgical History: (1) Pyuria (2) Chronic kidney disease (3) Anemia (4) CHF (congestive heart failure) (5) Chest pain (6) Hypotension (7) ACS (acute coronary syndrome) (8) Acute renal failure (9) Leukocytosis (10) UTI (urinary tract infection) (11) Diabetes mellitus (12) Sepsis (13) Alzheimer's dementia (14) Acute encephalopathy Review of Systems Psychiatric: Reports: prior hx, anxiety, depressed feelings, emotional problems , hallucinations Physical Exam General Appearance: no apparent distress, alert, confused Neurologic: alert, disoriented, depressed affect Last 24 Hour Vital Signs Date Time Temp Pulse Resp B/P (MAP) Pulse Ox O2 Delivery O2 Flow Rate FiO2 07/17/17 21:00 98.1 82 18 136/82 95 Room Air 07/17/17 19:58 81 16 Room Air 07/17/17 08:25 18 07/17/17 00:00 98.1 83 20 145/59 95 Room Air Intake and Output 07/17/17 07/18/17 19:00 07:00 Intake Total 240 ml Balance 240 ml Intake Oral 240 ml # Voids 3 Height (Feet): 5 Height (Inches): 0.00 Weight (Pounds): 120 Medications Current Medications Medications (Trade) Dose Ordered Sig/Misty Route PRN Reason Start Time Stop Time Status Last Admin Dose Admin Acetaminophen (Tylenol) 650 mg Q4H PRN ORAL fever 07/15/17 21:15 08/14/17 21:14 Al Hydroxide/Mg Hydroxide (Mylanta II) 30 ml Q6H PRN ORAL dyspepsia 07/15/17 21:15 08/14/17 21:14 Albuterol/ Ipratropium (DuoNeb 0.5-3(2.5)mg/3ml) 3 ml Q6H PRN HHN dyspnea 07/15/17 21:15 07/20/17 21:14 Ceftriaxone Sodium 1 gm/ Dextrose 55 ml @ 110 mls/hr Q24H IVPB 07/16/17 23:00 07/23/17 22:59 07/16/17 22:28 Cetirizine HCl (ZyrTEC) 10 mg DAILY ORAL 07/16/17 09:00 08/15/17 08:59 07/16/17 09:35 Clonidine HCl (Catapres) 0.1 mg Q4H PRN ORAL SBP > 160 07/15/17 21:15 08/14/17 21:14 Dextrose (Dextrose 50%) STAT PRN IV Hypoglycemia 07/15/17 21:15 08/14/17 21:14 Donepezil HCl (Aricept) 10 mg DAILY ORAL 07/16/17 09:00 08/15/17 08:59 07/16/17 09:34 Haloperidol Lactate (Haldol) 5 mg Q8H PRN IM Agitation 07/17/17 11:00 08/16/17 10:59 Heparin Sodium (Porcine) (Heparin 5000 units/ml) 5,000 units EVERY 12 HOURS SUBQ 07/15/17 22:00 08/14/17 21:59 Insulin Aspart (NovoLOG) BEFORE MEALS AND HS SUBQ 07/16/17 07:00 08/15/17 06:59 07/16/17 17:22 Lisinopril (Zestril) 10 mg DAILY ORAL 07/16/17 09:00 08/15/17 08:59 07/16/17 09:34 Ondansetron HCl (Zofran) 4 mg Q6H PRN IVP Nausea & Vomiting 07/15/17 21:15 08/14/17 21:14 Polyethylene Glycol (Miralax) 17 gm HSPRN PRN ORAL Constipation 07/15/17 21:15 08/14/17 21:14 Quetiapine Fumarate (SEROquel) 50 mg BEDTIME ORAL 07/15/17 22:00 08/14/17 21:59 07/15/17 23:39 Zolpidem Tartrate (Ambien) 5 mg HSPRN PRN ORAL Insomnia 07/15/17 21:15 07/22/17 21:14 Assessment/Plan Status: progressing, unchanged Assessment/Plan encephalopathy agitated -cont seroquel -haldol prn Virginia Calderon M.D. Jul 17, 2017 23:18
[2017-07-18] VITALS: BP 147/61
[2017-07-18] MEDS: NovoLOG Insulin Flexpen SUBQ SCH ×4 (06:29→20:58)
[2017-07-18 08:00] VITALS: BP 113/83
--- NOTE | 2017-07-18 08:43 | Pulmonology Progress Note ---
Assessment/Plan Assessment/Plan ASSESSMENT sepsis acute encephalopathy on chronic Alzheimer dementia ARF on CKD UTI , complicated with E coli DM HTN metabolic acidosis with elevated anion gap PLAN OF CARE MS floor CT head negative fro acute IC pathology hemodynamically stable leuk resolved , no fever urine cx + E coli, blood cx preliminary negative abx ID follows lipid panel with elevated TC ad LDL, add statin CXR negative O2 HHN prn BP management with AMI ( can continue,since creat trending down) watch renal parameters closely psych eval appreciated continue with meds as per psych recommendations DVT prophylaxis BS management with SS of insulin, [id number] at goal case discussed and evaluated by supervising physician Subjective Allergies: Coded Allergies: No Known Allergies (Unverified , 01/14/17) Subjective leukocytosis resolved, afebrile creat with small trend down Objective Last 24 Hour Vital Signs Date Time Temp Pulse Resp B/P (MAP) Pulse Ox O2 Delivery O2 Flow Rate FiO2 07/18/17 08:10 86 18 Room Air 07/18/17 00:00 97.6 95 20 147/61 90 Room Air 07/17/17 21:00 98.1 82 18 136/82 95 Room Air 07/17/17 19:58 81 16 Room Air General Appearance: no acute distress HEENT: normocephalic, atraumatic, anicteric Respiratory/Chest: lungs clear, no respiratory distress, no accessory muscle use Cardiovascular: normal rate, regular rhythm, no JVD Abdomen: normal bowel sounds, soft, non tender, non distended Neurologic/Psychiatric: alert, responsive Musculoskeletal: atrophy - BLE Microbiology Date/Time Source Procedure Growth Status 07/15/17 19:45 Blood Blood Culture - Preliminary NO GROWTH AFTER 48 HOURS Resulted 07/15/17 19:30 Blood Blood Culture - Preliminary NO GROWTH AFTER 48 HOURS Resulted 07/15/17 20:30 Urine,Clean Catch Urine Culture - Final Escherichia Coli Mixed Gram Positive Organism Complete Current Medications Medications (Trade) Dose Ordered Sig/Misty Route PRN Reason Start Time Stop Time Status Last Admin Dose Admin Acetaminophen (Tylenol) 650 mg Q4H PRN ORAL fever 07/15/17 21:15 08/14/17 21:14 Al Hydroxide/Mg Hydroxide (Mylanta II) 30 ml Q6H PRN ORAL dyspepsia 07/15/17 21:15 08/14/17 21:14 Albuterol/ Ipratropium (DuoNeb 0.5-3(2.5)mg/3ml) 3 ml Q6H PRN HHN dyspnea 07/15/17 21:15 07/20/17 21:14 Ceftriaxone Sodium 1 gm/ Dextrose 55 ml @ 110 mls/hr Q24H IVPB 07/16/17 23:00 07/23/17 22:59 07/16/17 22:28 Cetirizine HCl (ZyrTEC) 10 mg DAILY ORAL 07/16/17 09:00 08/15/17 08:59 07/16/17 09:35 Clonidine HCl (Catapres) 0.1 mg Q4H PRN ORAL SBP > 160 07/15/17 21:15 08/14/17 21:14 Dextrose (Dextrose 50%) STAT PRN IV Hypoglycemia 07/15/17 21:15 08/14/17 21:14 Donepezil HCl (Aricept) 10 mg DAILY ORAL 07/16/17 09:00 08/15/17 08:59 07/16/17 09:34 Haloperidol Lactate (Haldol) 5 mg Q8H PRN IM Agitation 07/17/17 11:00 08/16/17 10:59 Heparin Sodium (Porcine) (Heparin 5000 units/ml) 5,000 units EVERY 12 HOURS SUBQ 07/15/17 22:00 08/14/17 21:59 Insulin Aspart (NovoLOG) BEFORE MEALS AND HS SUBQ 07/16/17 07:00 08/15/17 06:59 07/16/17 17:22 Lisinopril (Zestril) 10 mg DAILY ORAL 07/16/17 09:00 08/15/17 08:59 07/16/17 09:34 Ondansetron HCl (Zofran) 4 mg Q6H PRN IVP Nausea & Vomiting 07/15/17 21:15 08/14/17 21:14 Polyethylene Glycol (Miralax) 17 gm HSPRN PRN ORAL Constipation 07/15/17 21:15 08/14/17 21:14 Quetiapine Fumarate (SEROquel) 50 mg BEDTIME ORAL 07/15/17 22:00 08/14/17 21:59 07/15/17 23:39 Zolpidem Tartrate (Ambien) 5 mg HSPRN PRN ORAL Insomnia 07/15/17 21:15 07/22/17 21:14 Christian ([facility])Ayanna NP Jul 18, 2017 08:43
[2017-07-18] MEDS: Heparin 5000 units/ml inj SUBQ SCH ×2 (09:00→20:57)
[2017-07-18] MEDS: Donepezil 10mg tab ORAL SCH (09:48)
[2017-07-18] MEDS: Lisinopril 10mg tab ORAL SCH (09:48)
[2017-07-18] MEDS ORDERED: DuoNeb 0.5-3(2.5)mg/3ml neb HHN PRN (11:00)
[2017-07-18 12:00] VITALS: BP 102/69
--- NOTE | 2017-07-18 15:03 | General Progress Note ---
Assessment/Plan Status: stable, progressing Assessment/Plan Delirium Dementia -cont current treatment Subjective Neurologic/Psychiatric: Reports: anxiety, depressed, emotional problems Allergies: Coded Allergies: No Known Allergies (Unverified , 01/14/17) Objective Last 24 Hour Vital Signs Date Time Temp Pulse Resp B/P (MAP) Pulse Ox O2 Delivery O2 Flow Rate FiO2 07/18/17 12:00 97.2 89 18 102/69 92 Room Air 07/18/17 09:48 113/83 07/18/17 08:10 86 18 Room Air 07/18/17 08:00 97.4 92 18 113/83 92 Room Air 07/18/17 00:00 97.6 95 20 147/61 90 Room Air 07/17/17 21:00 98.1 82 18 136/82 95 Room Air 07/17/17 19:58 81 16 Room Air Intake and Output 07/18/17 07/19/17 19:00 07:00 Intake Total 240 ml Balance 240 ml Intake Oral 240 ml # Voids 1 Height (Feet): 5 Height (Inches): 0.00 Weight (Pounds): 120 General Appearance: no apparent distress, alert, confused, overweight Neurologic: alert, responsive, depressed affect Virginia Calderon M.D. Jul 18, 2017 15:03
[2017-07-18 16:00] VITALS: BP 96/67
[2017-07-18] MEDS ORDERED: Tubing IV Secondary IV ONE (17:43)
[2017-07-18 20:00] VITALS: BP 127/66
[2017-07-18] MEDS: cefTRIAXone 1 GM in D5W 55 ML IVPB SCH (22:59)
[2017-07-19] VITALS: BP 132/70
[2017-07-19 04:00] VITALS: BP 145/77
[2017-07-19] MEDS: NovoLOG Insulin Flexpen SUBQ SCH ×3 (06:08→16:35)
[2017-07-19 07:48] LABS: BASOPHILS % (AUTO) 0.7 % (0.0-2.0); EOSINOPHILS % (AUTO) 1.1 % (0.0-3.0); MEAN CORPUSCULAR HEMOGLOBIN 32.1 PG (27.0-31.0); MEAN CORPUSCULAR HGB CONC 33.8 G/DL (32.0-36.0); MEAN CORPUSCULAR VOLUME 95 FL (80-99); MEAN PLATELET VOLUME 10.9 FL (6.5-10.1); MONOCYTES % (AUTO) 7.1 % (1.0-10.0); NEUTROPHILS % (AUTO) 78.1 % (45.0-75.0); PLATELET COUNT 122 K/UL (150-450); RED BLOOD COUNT 3.51 M/UL (4.20-5.40); RED CELL DISTRIBUTION WIDTH 12.5 % (11.6-14.8); WHITE BLOOD COUNT 6.4 K/UL (4.8-10.8)
[2017-07-19] MEDS: Donepezil 10mg tab ORAL SCH (08:01)
[2017-07-19] MEDS: Lisinopril 10mg tab ORAL SCH (08:02)
[2017-07-19 08:33] VITALS: BP 125/67
[2017-07-19 08:50] LABS: ANION GAP 19 (5-15); CALCIUM 8.8 mg/dL (8.6-10.2); CARBON DIOXIDE 18 mEQ/L (20-30); CHLORIDE 102 mEQ/L (98-107); CREATININE 1.4 mg/dL (0.5-0.9); HEMOLYSIS 1; POTASSIUM 4.7 mEQ/L (3.4-4.9); SODIUM 139 mEQ/L (135-145)
[2017-07-19] MEDS: Heparin 5000 units/ml inj SUBQ SCH (09:00)
--- NOTE | 2017-07-19 10:36 | Infectious Diseases Prog Note ---
Assessment/Plan Assessment/Plan ASSESSMENT: sepsis, resolving Pyuria, c/w complicated UTI E Coli ( [facility] : Colonizer ) leukocytosis, s/p afebrile hemodynamically stable DM, HGBA1c>6 altered sensorium improving JULIAN with CKD improving h/o b/l renal cysts normal serum lactate PLAN: --Continue IV ceftriaxone 1gm qday D# , upon DC will change to Keflex PO to complete the course --f/u blood cx --monitor CBC --monitor temp Subjective HEENT: Denies: no symptoms, visual change, dysphagia, hearing change, coryza, congestion, other Allergies: Coded Allergies: No Known Allergies (Unverified , 01/14/17) Objective Vital Signs Last 24 Hour Vital Signs Date Time Temp Pulse Resp B/P (MAP) Pulse Ox O2 Delivery O2 Flow Rate FiO2 07/19/17 09:01 79 18 Room Air 07/19/17 08:33 98.0 82 17 125/67 98 Room Air 07/19/17 04:00 98.2 88 20 145/77 94 Room Air 07/19/17 00:00 97.9 79 20 132/70 97 Room Air 07/18/17 20:00 98.2 78 20 127/66 96 Room Air 07/18/17 19:16 82 18 Room Air 07/18/17 16:00 98.1 83 19 96/67 95 Room Air 07/18/17 12:00 97.2 89 18 102/69 92 Room Air Height (Feet): 5 Height (Inches): 0.00 Weight (Pounds): 120 HEENT: mucous membranes moist Respiratory/Chest: no respiratory distress Cardiovascular: normal rate Abdomen: soft, non tender Laboratory Tests Test 07/19/17 04:45 White Blood Count 6.4 K/UL (4.8-10.8) Red Blood Count 3.51 M/UL (4.20-5.40) L Hemoglobin 11.3 G/DL (12.0-16.0) L Hematocrit 33.3 % (37.0-47.0) L Mean Corpuscular Volume 95 FL (80-99) Mean Corpuscular Hemoglobin 32.1 PG (27.0-31.0) H Mean Corpuscular Hemoglobin Concent 33.8 G/DL (32.0-36.0) Red Cell Distribution Width 12.5 % (11.6-14.8) Platelet Count 122 K/UL (150-450) L Mean Platelet Volume 10.9 FL (6.5-10.1) H Neutrophils (%) (Auto) 78.1 % (45.0-75.0) H Lymphocytes (%) (Auto) 13.0 % (20.0-45.0) L Monocytes (%) (Auto) 7.1 % (1.0-10.0) Eosinophils (%) (Auto) 1.1 % (0.0-3.0) Basophils (%) (Auto) 0.7 % (0.0-2.0) Sodium Level 139 mEQ/L (135-145) Potassium Level 4.7 mEQ/L (3.4-4.9) Chloride Level 102 mEQ/L (98-107) Carbon Dioxide Level 18 mEQ/L (20-30) L Anion Gap 19 (5-15) H Blood Urea Nitrogen 23 mg/dL (7-23) Creatinine 1.4 mg/dL (0.5-0.9) H Estimat Glomerular Filtration Rate mL/min (>60) Glucose Level 207 mg/dL (74-106) H Calcium Level 8.8 mg/dL (8.6-10.2) Current Medications Medications (Trade) Dose Ordered Sig/Misty Route PRN Reason Start Time Stop Time Status Last Admin Dose Admin Acetaminophen (Tylenol) 650 mg Q4H PRN ORAL fever 07/15/17 21:15 08/14/17 21:14 Al Hydroxide/Mg Hydroxide (Mylanta II) 30 ml Q6H PRN ORAL dyspepsia 07/15/17 21:15 08/14/17 21:14 Albuterol/ Ipratropium (DuoNeb 0.5-3(2.5)mg/3ml) 3 ml Q6H PRN HHN dyspnea 07/18/17 11:00 07/23/17 10:59 Atorvastatin Calcium (Lipitor) 10 mg BEDTIME ORAL 07/18/17 21:00 08/17/17 20:59 Ceftriaxone Sodium 1 gm/ Dextrose 55 ml @ 110 mls/hr Q24H IVPB 07/16/17 23:00 07/23/17 22:59 07/18/17 22:59 Cetirizine HCl (ZyrTEC) 10 mg DAILY ORAL 07/16/17 09:00 08/15/17 08:59 07/18/17 09:49 Clonidine HCl (Catapres) 0.1 mg Q4H PRN ORAL SBP > 160 07/15/17 21:15 08/14/17 21:14 Dextrose (Dextrose 50%) STAT PRN IV Hypoglycemia 07/15/17 21:15 08/14/17 21:14 Donepezil HCl (Aricept) 10 mg DAILY ORAL 07/16/17 09:00 08/15/17 08:59 07/18/17 09:48 Haloperidol Lactate (Haldol) 5 mg Q8H PRN IM Agitation 07/17/17 11:00 08/16/17 10:59 Heparin Sodium (Porcine) (Heparin 5000 units/ml) 5,000 units EVERY 12 HOURS SUBQ 07/15/17 22:00 08/14/17 21:59 Insulin Aspart (NovoLOG) BEFORE MEALS AND HS SUBQ 07/16/17 07:00 08/15/17 06:59 07/16/17 17:22 Lisinopril (Zestril) 10 mg DAILY ORAL 07/16/17 09:00 08/15/17 08:59 07/18/17 09:48 Ondansetron HCl (Zofran) 4 mg Q6H PRN IVP Nausea & Vomiting 07/15/17 21:15 08/14/17 21:14 07/19/17 01:50 Polyethylene Glycol (Miralax) 17 gm HSPRN PRN ORAL Constipation 07/15/17 21:15 08/14/17 21:14 Quetiapine Fumarate (SEROquel) 50 mg BEDTIME ORAL 07/15/17 22:00 08/14/17 21:59 07/15/17 23:39 Sodium Chloride 1,000 ml @ 50 mls/hr Q20H IV 07/18/17 19:30 08/17/17 19:29 07/18/17 19:58 Zolpidem Tartrate (Ambien) 5 mg HSPRN PRN ORAL Insomnia 07/15/17 21:15 07/22/17 21:14 LEXI BARFIELD M.D. Jul 19, 2017 10:36
[2017-07-19 12:00] VITALS: BP 123/69
--- NOTE | 2017-07-19 13:25 | Pulmonology Progress Note ---
Assessment/Plan Assessment/Plan ASSESSMENT sepsis acute encephalopathy on chronic Alzheimer dementia ARF on CKD UTI DM HTN metabolic acidosis with elevated anion gap PLAN OF CARE MS floor CT head negative fro acute IC pathology hemodynamically stable leuk resolved , no fever urine cx + E coli, blood cx preliminary negative abx ID follows lipid panel with elevated TC ad LDL, added statin CXR negative O2 HHN prn BP management with AMI ( can continue,since creat trending down) watch renal parameters closely, creat down to 1.4 psych eval appreciated continue with meds as per psych recommendations DVT prophylaxis BS management with SS of insulin, [id number] at goal dc to SNF today case discussed and evaluated by supervising physician Subjective Allergies: Coded Allergies: No Known Allergies (Unverified , 01/14/17) Subjective leukocytosis resolved, afebrile creat down to 1.4 Objective Last 24 Hour Vital Signs Date Time Temp Pulse Resp B/P (MAP) Pulse Ox O2 Delivery O2 Flow Rate FiO2 07/19/17 12:00 97.4 86 18 123/69 95 Room Air 07/19/17 09:01 79 18 Room Air 07/19/17 08:33 98.0 82 17 125/67 98 Room Air 07/19/17 04:00 98.2 88 20 145/77 94 Room Air 07/19/17 00:00 97.9 79 20 132/70 97 Room Air 07/18/17 20:00 98.2 78 20 127/66 96 Room Air 07/18/17 19:16 82 18 Room Air 07/18/17 16:00 98.1 83 19 96/67 95 Room Air Intake and Output 07/19/17 07/20/17 19:00 07:00 Intake Total 120 ml Balance 120 ml Intake Oral 120 ml # Voids 2 Objective General Appearance: no acute distress HEENT: normocephalic, atraumatic, anicteric Respiratory/Chest: lungs clear, no respiratory distress, no accessory muscle use Cardiovascular: normal rate, regular rhythm, no JVD Abdomen: normal bowel sounds, soft, non tender, non distended Neurologic/Psychiatric: alert, responsive Musculoskeletal: atrophy - BLE Laboratory Tests 07/19/17 04:45: White Blood Count 6.4, Red Blood Count 3.51L, Hemoglobin 11.3L, Hematocrit 33.3L , Mean Corpuscular Volume 95, Mean Corpuscular Hemoglobin 32.1H, Mean Corpuscular Hemoglobin Concent 33.8, Red Cell Distribution Width 12.5, Platelet Count 122L, Mean Platelet Volume 10.9H, Neutrophils (%) (Auto) 78.1H, Lymphocytes (%) (Auto) 13.0L, Monocytes (%) (Auto) 7.1, Eosinophils (%) (Auto) 1.1, Basophils (%) (Auto) 0.7, Sodium Level 139, Potassium Level 4.7, Chloride Level 102, Carbon Dioxide Level 18L, Anion Gap 19H, Blood Urea Nitrogen 23, Creatinine 1.4H, Estimat Glomerular Filtration Rate , Glucose Level 207H, Calcium Level 8.8 Current Medications Medications (Trade) Dose Ordered Sig/Misty Route PRN Reason Start Time Stop Time Status Last Admin Dose Admin Acetaminophen (Tylenol) 650 mg Q4H PRN ORAL fever 07/15/17 21:15 08/14/17 21:14 Al Hydroxide/Mg Hydroxide (Mylanta II) 30 ml Q6H PRN ORAL dyspepsia 07/15/17 21:15 08/14/17 21:14 Albuterol/ Ipratropium (DuoNeb 0.5-3(2.5)mg/3ml) 3 ml Q6H PRN HHN dyspnea 07/18/17 11:00 07/23/17 10:59 Atorvastatin Calcium (Lipitor) 10 mg BEDTIME ORAL 07/18/17 21:00 08/17/17 20:59 Ceftriaxone Sodium 1 gm/ Dextrose 55 ml @ 110 mls/hr Q24H IVPB 07/16/17 23:00 07/23/17 22:59 07/18/17 22:59 Cetirizine HCl (ZyrTEC) 10 mg DAILY ORAL 07/16/17 09:00 08/15/17 08:59 07/18/17 09:49 Clonidine HCl (Catapres) 0.1 mg Q4H PRN ORAL SBP > 160 07/15/17 21:15 08/14/17 21:14 Dextrose (Dextrose 50%) STAT PRN IV Hypoglycemia 07/15/17 21:15 08/14/17 21:14 Donepezil HCl (Aricept) 10 mg DAILY ORAL 07/16/17 09:00 08/15/17 08:59 07/18/17 09:48 Haloperidol Lactate (Haldol) 5 mg Q8H PRN IM Agitation 07/17/17 11:00 08/16/17 10:59 Heparin Sodium (Porcine) (Heparin 5000 units/ml) 5,000 units EVERY 12 HOURS SUBQ 07/15/17 22:00 08/14/17 21:59 Insulin Aspart (NovoLOG) BEFORE MEALS AND HS SUBQ 07/16/17 07:00 08/15/17 06:59 07/19/17 13:20 Lisinopril (Zestril) 10 mg DAILY ORAL 07/16/17 09:00 08/15/17 08:59 07/18/17 09:48 Ondansetron HCl (Zofran) 4 mg Q6H PRN IVP Nausea & Vomiting 07/15/17 21:15 08/14/17 21:14 07/19/17 01:50 Polyethylene Glycol (Miralax) 17 gm HSPRN PRN ORAL Constipation 07/15/17 21:15 08/14/17 21:14 Quetiapine Fumarate (SEROquel) 50 mg BEDTIME ORAL 07/15/17 22:00 08/14/17 21:59 07/15/17 23:39 Sodium Chloride 1,000 ml @ 50 mls/hr Q20H IV 07/18/17 19:30 08/17/17 19:29 07/18/17 19:58 Zolpidem Tartrate (Ambien) 5 mg HSPRN PRN ORAL Insomnia 07/15/17 21:15 07/22/17 21:14 [facility] Jul 19, 2017 13:25
[2017-07-19] MEDS ORDERED: CEPHALEXIN500 MG ORAL (13:27)
[2017-07-19] MEDS ORDERED: 1/2 NS 1000ml IV ONE (15:50)
[2017-07-19 16:00] VITALS: BP 90/62
--- NOTE | 2017-07-19 22:00 | Progress Note ---
DATE: 07/19/2017 SUBJECTIVE: The patient continues to be confused. Presents with waxing and waning consciousness. At times agitated, has cognitive impairment, not engaged, and unable to provide any history. The patient is alert and able to answer the questions, however is confused. MENTAL STATUS EXAMINATION: The patient is alert and disoriented. Mood is anxious. Affect is flat. Congruent with mood. Thought process, there is a paucity of thought content. Thought content, no suicidal or homicidal ideations. ASSESSMENT: Acute encephalopathy, multiple medical problems. PLAN: We will continue current medications. We will continue to follow and readjust the medications. Virginia Calderon M.D. DR: JAMES JOB#: [id number] CC:
--- NOTE | 2017-07-21 14:03 | Discharge Summary ---
Discharge Summary Hospital Course Date of Admission Jul 15, 2017 at 22:02 Date of Discharge Jul 19, 2017 at 18:27 Admitting Diagnosis Renal failure, UTI HPI Blessing Fernandes is a 87 year old female who was admitted on Jul 15, 2017 at 22: 02 for Renal Failure,Urinary Tract Infection Hospital Course dc summary #[id number] Discharge Medications New Medications: Cephalexin* (Keflex*) 500 Mg Capsule 500 MG ORAL EVERY 12 HOURS, #12 CAP 0 Refills Continued Medications: Acetaminophen (Acetaminophen) 650 Mg/20.3 Ml Solution 650 MG ORAL Q6H PRN for Prn Headache/Temp > 101, ML 0 Refills Aspirin* (Aspirin*) 81 Mg Tab.chew 81 MG ORAL DAILY, TAB Cetirizine Hcl* (Zyrtec*) 10 Mg Tablet 10 MG ORAL DAILY, #30 TAB 0 Refills Citalopram Hydrobromide* (Citalopram Hbr*) 20 Mg Tablet 20 MG ORAL DAILY, TAB Docusate Sodium* (Docusate Sodium*) 100 Mg Capsule 100 MG ORAL TWICE A DAY, CAP Donepezil Hcl* (Donepezil Hcl*) 10 Mg Tab.rapdis 10 MG ORAL DAILY, TAB Famotidine (Famotidine) 20 Mg Tablet 20 MG ORAL DAILY, #30 TAB 0 Refills Furosemide* (Lasix*) 40 Mg Tablet 40 MG ORAL DAILY, TAB Lisinopril* (Lisinopril*) 10 Mg Tablet 10 MG ORAL DAILY, TAB Memantine Hcl* (Namenda*) 10 Mg Tablet 10 MG ORAL DAILY, TAB Quetiapine Fumarate* (Quetiapine Fumarate*) 50 Mg Tablet 50 MG ORAL BEDTIME, TAB Repaglinide (Repaglinide) 1 Mg Tablet 1 MG PO, TAB Simvastatin (Zocor) 40 Mg Tablet 40 MG ORAL BEDTIME, TAB Sitagliptin* (Januvia*) 25 Mg Tablet 100 MG ORAL DAILY, TAB Discharge Condition Upon Discharge: stable Discharge Disposition Patient was discharged to SNF/Subacute Facility() Discharge Diagnoses: Christian ([facility])Ayanna NP Jul 21, 2017 14:03
--- NOTE | 2017-07-22 02:45 | Discharge Summary 2 SIG ---
DATE OF ADMISSION: 07/15/2017 DATE OF DISCHARGE: 07/19/2017 REASON FOR ADMISSION: 87-year-old female with a history of diabetes, hypertension, CHF, and dementia, was [facility] the [facility] for not eating for two days. She had generalized weakness. She fell out of the bed because she was weak. There was no recent illness. No fever. No chills. She admitted to nausea and vomiting, but no chest pain. No shortness of breath. No abdominal pain. Workup in the emergency room revealed no fever, low blood pressure at 88/65, pulse oximetry was stable on the room air. Mild leukocytosis, WBC -11.8. Sodium -133, potassium -5.2, anion gap -24, CO2- 13, BUN -39, creatinine -2.0, and glucose level -182. Urinalysis with evidence of UTI. EKG showed normal sinus rhythm, no acute ischemic changes. Chest x-ray revealed no acute cardiopulmonary disease. Lactic acid - 1.8. The patient was admitted for further management. ADMITTING DIAGNOSES: 1. Acute renal failure. 2. Acute encephalopathy. 3. Possible sepsis. 4. Urinary tract infection. 5. Diabetes mellitus. HOSPITAL COURSE: The patient was admitted. The patient was started on IV fluids and empiric antibiotics. ID and Psychiatry consults were requested. The patient was hemodynamically stable. CT of the head was negative for any acute intracranial pathology. Leukocytosis resolved, no fever. Urine culture revealed E coli. Blood culture preliminary negative. Ryan was on antibiotics. ID followed. ID recommended additional six days of oral antibiotic upon transfer to [facility]. Lipid panel revealed elevated total cholesterol and LDL, added statin. Chest x-ray was negative. Supplemental oxygen provided as needed to keep saturation above 92%. Pulmonary toilet provided as needed. Blood pressure was managed with AMI inhibitor . Continue AMI since creatinine trending down. Renal parameters were closely watched. Nephrotoxics were avoided. Acute renal failure resolved. Creatinine down from 2.0 to 1.4. The patient likely had acute renal failure on chronic renal disease. Renal parameters at baseline. Psychiatrist seen and evaluated the patient. Psychiatric medication were optimized as per psychiatrist. The patient had acute encephalopathy as per psychiatrist evaluation. DVT prophylaxis provided. Blood sugar was managed with sliding scale of insulin. Hemoglobin A1c 6.9- at goal. FINAL DIAGNOSES: 1. Sepsis. 2. Acute encephalopathy on chronic Alzheimer dementia. 3. Acute renal failure on chronic kidney disease. 4. Urinary tract infection , complicated , with E coli 5. Diabetes. 6. Hypertension. 7. Metabolic acidosis with elevated anion gap, resolved. DISCHARGE INSTRUCTIONS: The patient was [facility] to [facility]. FOLLOWUP: Follow up with medical doctor at the facility. DISCHARGE MEDICATIONS: See medication reconciliation list. Nilsa Chaudhry M.D. Ayanna Gonzales ([facility] NSimon DR: TITA JOB#: [id number] CC: DORA
== END 2017-07-19 18:27 | DRG 871 ==
LOC: EMR 18:30 → 4E 22:02 → EDBEDREQ 22:34 → 4E 07-19 09:37
DX: A41.9 Sepsis, unspecified organism (principal); G93.40 Encephalopathy, unspecified; N17.9 Acute kidney failure, unspecified; N39.0 Urinary tract infection, site not specified; E87.2 Acidosis; N18.9 Chronic kidney disease, unspecified; I12.9 Hypertensive chronic kidney disease with stage 1 through stage 4 chronic kidney disease, or unspecified chronic kidney disease; G30.9 Alzheimer's disease, unspecified; F02.80 Dementia in other diseases classified elsewhere, unspecified severity, without behavioral disturbance, psychotic disturbance, mood disturbance, and anxiety; E11.22 Type 2 diabetes mellitus with diabetic chronic kidney disease; B96.20 Unspecified Escherichia coli [E. coli] as the cause of diseases classified elsewhere; R53.1 Weakness; Z91.81 History of falling; I44.0 Atrioventricular block, first degree; E78.5 Hyperlipidemia, unspecified; I50.9 Heart failure, unspecified; N28.1 Cyst of kidney, acquired; K44.9 Diaphragmatic hernia without obstruction or gangrene
CPT/HCPCS: 36415; 70450; 71010; 80048; 80053; 80061; 81003; 82550; 82553; 82962; 83036; 83605; 83735; 84100; 84443; 84484; 85007; 85025; 85610; 85730; 87040; 87081; 87086; 87181; 93005; 94664; 99285; J1815; J2405